=== PATIENT | male | born 1965 | race Caucasian/White ===

== ENCOUNTER 2019-09-17 17:02 | Emergency (ER) | payer BC ==
[2019-09-17 17:53] VITALS: BP 149/79; PULSE 91; RESP 18; TEMP 98.7
[2019-09-17] MEDS ORDERED: DIPH,PERTUS(ACELL)TETVAC-LF 0.5 ML VIAL IM ONE (18:05)
[2019-09-17] MEDS ORDERED: LIDOCAINE 1% INJ 10MG/ML (20 ML MDV) SQ ONE (18:05)
--- NOTE | 2019-09-17 18:06 | ED ---
Wound/Laceration HPI - General Chief Complaint: Wound/Laceration Stated Complaint: Finger laceration Time Seen by Provider: 09/17/19 17:56 Source: patient Mode of arrival: ambulatory Limitations: no limitations - History of Present Illness Initial Comments: Patient is a 54-year-old male presenting to the emergency Department with complaints of a laceration to his left index finger. States he was working on his car and was using a utility knife when it slipped and he cut his left finger. He denies any blood thinners. He does not remember his last tetanus vaccine. Bleeding is controlled at this time with a bandage. There are no further complaints. - Related Data Allergies Allergy/AdvReac Type Severity Reaction Status Date / Time No Known Allergies Allergy Verified 09/17/19 17:53 Review of Systems ROS Statement: Those systems with pertinent positive or pertinent negative responses have been documented in the HPI. ROS Other: All systems not noted in ROS Statement are negative. Past Medical History Past Medical History: Diabetes Mellitus History of Any Multi-Drug Resistant Organisms: None Reported Past Surgical History: Hernia Repair, Orthopedic Surgery Past Psychological History: No Psychological Hx Reported Smoking Status: Current some day smoker Past Alcohol Use History: Occasional Past Drug Use History: None Reported General Exam - General Exam Comments Initial Comments: GENERAL: Well-appearing, well-nourished and in no acute distress. HEAD: Atraumatic, normocephalic. EYES: Pupils equal round and reactive to light, extraocular movements intact, sclera anicteric, conjunctiva are normal. ENT: Nares patent, oropharynx clear without exudates. Moist mucous membranes. NECK: Normal range of motion, supple without lymphadenopathy or JVD. LUNGS: Breath sounds clear to auscultation bilaterally and equal. No wheezes rales or rhonchi. HEART: Regular rate and rhythm without murmurs, rubs or gallops. ABDOMEN: Soft, nontender, normoactive bowel sounds. No guarding, no rebound. No masses appreciated. : Deferred EXTREMITIES: Normal range of motion, no pitting or edema. No clubbing or cyanosis. NEUROLOGICAL: Normal speech, normal gait. PSYCH: Normal mood, normal affect. SKIN: Warm, Dry, normal turgor, no rashes. Patient has a 1 cm laceration to the palmar aspect of the left index finger, distal end. Bleeding is controlled at this time. Limitations: no limitations Course Vital Signs 09/17/19 17:51 Temperature 98.7 F Pulse Rate 91 Respiratory 18 Rate Blood Pressure 149/79 O2 Sat by Pulse 99 Oximetry Procedures - Laceration Laceration #1 Consent Obtained: verbal consent Indication: laceration Site: hand (Left index finger) Size (cm): 1 Description: linear Depth: simple, single layer Anesthetic Used: lidocaine 1% Anesthesia Technique: local infiltration Amount (mls): 3 Pre-repair: irrigated extensively Type of Sutures: nylon Size of Sutures: 5-0 Number of Sutures: 3 Technique: simple, interrupted Patient Tolerated Procedure: well Medical Decision Making - Medical Decision Making Patient is a 54-year-old male presenting for a 1cm laceration to the distal aspect of his left index finger, palmar aspect. Bleeding is controlled. Wound was cleaned and closed with 3, 5-0 sutures. Patient tolerated procedure well. His tetanus vaccine was also updated today. Patient will have sutures removed in 7-10 days. Patient is agreeable with this plan and care. He is stable for discharge. Case discussed with Dr. arreola. Disposition Clinical Impression: Laceration of left index finger Disposition: HOME SELF-CARE Condition: Stable Instructions (If sedation given, give patient instructions): Care For Your Stitches (ED) Additional Instructions: Please return to the Emergency Department if symptoms worsen or any other concerns. Stitches need to be removed in 7-10 days. Keep wound clean and dry. Cover well working. Is patient prescribed a controlled substance at d/c from ED?: No Referrals: None,Stated [Primary Care Provider] - 1-2 days
== END 2019-09-17 19:07 | disposition home or self-care (01) ==
LOC: EC 17:02
DX: S61.211A Laceration without foreign body of left index finger without damage to nail, initial encounter (principal); F17.200 Nicotine dependence, unspecified, uncomplicated; Z23 Encounter for immunization; W26.0XXA Contact with knife, initial encounter; Y93.89 Activity, other specified
CPT/HCPCS: 90715; 99282; 12001; 90471; J2001

== ENCOUNTER 2021-11-06 01:50 | Emergency (ER) | payer BC ==
[2021-11-06 01:59] VITALS: BP 163/112; PULSE 98; RESP 18; TEMP 97.9
--- NOTE | 2021-11-06 02:22 | ED ---
ENT HPI - General Chief complaint: ENT Stated complaint: Fish bone stuck in throat Time Seen by Provider: 11/06/21 02:01 Source: patient Mode of arrival: ambulatory Limitations: no limitations - Related Data Allergies Allergy/AdvReac Type Severity Reaction Status Date / Time No Known Allergies Allergy Verified 11/06/21 01:59 Review of Systems ROS Statement: Those systems with pertinent positive or pertinent negative responses have been documented in the HPI. ROS Other: All systems not noted in ROS Statement are negative. Past Medical History Past Medical History: Diabetes Mellitus History of Any Multi-Drug Resistant Organisms: None Reported Past Surgical History: Hernia Repair, Orthopedic Surgery Past Psychological History: No Psychological Hx Reported Smoking Status: Never smoker Past Alcohol Use History: Occasional Past Drug Use History: None Reported General Exam Limitations: no limitations Course Vital Signs 11/06/21 01:55 Temperature 97.9 F Pulse Rate 98 Respiratory 18 Rate Blood Pressure 163/112 O2 Sat by Pulse 98 Oximetry Disposition Clinical Impression: Foreign body in esophagus Narrative: Fish Bone in Throat Disposition: HOME SELF-CARE Condition: Good Instructions (If sedation given, give patient instructions): Esophageal Foreign Body (ED) Is patient prescribed a controlled substance at d/c from ED?: No Referrals: None,Stated [Primary Care Provider] - 1-2 days
== END 2021-11-06 02:41 | disposition home or self-care (01) ==
LOC: EC 01:50
DX: T18.128A Food in esophagus causing other injury, initial encounter (principal); E11.9 Type 2 diabetes mellitus without complications
CPT/HCPCS: 99282

== ENCOUNTER 2024-01-22 16:49 | Observation (INO) | payer BC ==
--- NOTE | 2024-01-22 17:03 | ED ---
Fall HPI - General Chief Complaint: Fall Stated Complaint: Syncopal episode Time Seen by Provider: 01/22/24 16:53 Source: patient, EMS, RN notes reviewed, old records reviewed Mode of arrival: EMS Limitations: no limitations - History of Present Illness Initial Comments: This is a 58-year-old male to the ER today. This patient presents today for evaluation regards to fall fall complaining of left shoulder pain concern for syncopal event. Patient is having significant complaints of dizziness and lightheadedness with near syncope history of syncope MD Complaint: fall -: unknown Fall From: standing When Fall Occurred: unsure Fall Witnessed: no Place Fall Occurred: home Loss of Consciousness: none Prolonged Down Time?: no Symptoms Prior to Fall: none Severity: mild Severity scale (1-10): 0 Context: tripped/slipped Associated Symptoms: denies - Related Data Previous Rx's Medication Instructions Recorded Metoprolol Succinate (ER) [Toprol 25 mg PO DAILY #30 tab 01/24/24 XL] Pantoprazole [Protonix] 40 mg PO DAILY #30 tab 01/24/24 dexAMETHasone [Decadron] 4 mg PO QID 7 Days #28 tablet 01/24/24 glipiZIDE [Glucotrol] 2.5 mg PO AC-BID 7 Days #14 tablet 01/24/24 Allergies Allergy/AdvReac Type Severity Reaction Status Date / Time No Known Allergies Allergy Verified 01/22/24 21:15 Review of Systems ROS Statement: Those systems with pertinent positive or pertinent negative responses have been documented in the HPI. ROS Other: All systems not noted in ROS Statement are negative. Past Medical History Past Medical History: Diabetes Mellitus History of Any Multi-Drug Resistant Organisms: None Reported Past Surgical History: Hernia Repair, Orthopedic Surgery Past Psychological History: No Psychological Hx Reported Smoking Status: Never smoker Past Alcohol Use History: Occasional Past Drug Use History: None Reported - Past Family History Mother Family Medical History: COPD, Myocardial Infarction (MT) Father Family Medical History: Cancer Additional Family Medical History / Comment(s): Lung Cancer, Brain tumor General Exam General appearance: alert, in no apparent distress, anxious Head exam: Present: atraumatic, normocephalic, normal inspection Eye exam: Present: normal appearance, PERRL, EOMI. Absent: scleral icterus, conjunctival injection, periorbital swelling ENT exam: Present: normal exam, mucous membranes moist Neck exam: Present: normal inspection. Absent: tenderness, meningismus, lymphadenopathy Respiratory exam: Present: normal lung sounds bilaterally. Absent: respiratory distress, wheezes, rales, rhonchi, stridor Cardiovascular Exam: Present: normal rhythm, tachycardia, normal heart sounds. Absent: systolic murmur, diastolic murmur, rubs, gallop, clicks GI/Abdominal exam: Present: soft, normal bowel sounds. Absent: distended, tenderness, guarding, rebound, rigid Extremities exam: Present: normal inspection, full ROM, normal capillary refill. Absent: tenderness, pedal edema, joint swelling, calf tenderness Back exam: Present: normal inspection Neurological exam: Present: alert, oriented X3, CN II-XII intact Psychiatric exam: Present: normal affect, normal mood Skin exam: Present: warm, dry, intact, normal color. Absent: rash Course Vital Signs 01/22/24 01/22/24 01/22/24 16:52 20:31 22:00 Temperature 98.7 F Pulse Rate 112 H 92 100 Pulse Rate [ Pulse Oximetery ] Respiratory 17 20 18 Rate Blood Pressure 124/77 126/81 122/86 Blood Pressure [Right Arm] O2 Sat by Pulse 97 100 98 Oximetry 01/23/24 01/23/24 01/23/24 00:00 02:00 04:00 Temperature Pulse Rate 108 H 98 95 Pulse Rate [ Pulse Oximetery ] Respiratory 18 18 18 Rate Blood Pressure 115/76 112/74 110/80 Blood Pressure [Right Arm] O2 Sat by Pulse 98 97 98 Oximetry 01/23/24 01/23/24 01/23/24 07:18 07:34 07:43 Temperature 98.1 F Pulse Rate 94 93 96 Pulse Rate [ Pulse Oximetery ] Respiratory 20 Rate Blood Pressure 117/77 Blood Pressure [Right Arm] O2 Sat by Pulse 97 Oximetry 01/23/24 01/23/24 08:00 08:25 Temperature 98.7 F Pulse Rate 101 H Pulse Rate [ 105 H Pulse Oximetery ] Respiratory 18 18 Rate Blood Pressure 112/80 Blood Pressure 135/84 [Right Arm] O2 Sat by Pulse 100 98 Oximetry - Reevaluation(s) Reevaluation #1: 01/22/24 18:43 Medical records reviewed Reevaluation #2: 01/22/24 20:15 Symptoms unchanged Reevaluation #3: 01/22/24 20:15 Informed of results questions answered Reevaluation #4: Was pt. sent in by a medical professional or institution ([facility], ERP DEVELOPER, urgent care, hospital, or senior care...) When possible be specific @ -no Did you speak to anyone other than the patient for history (EMS, parent, family, police, friend...)? What history was obtained from this source @ -no Did you review nursing and triage notes (agree or disagree)? Why? @ -agree Are old charts reviewed (outside hosp., previous admission, EMS record, old EKG, old radiological studies, urgent care reports/EKG's, senior care records)? Report findings @ -yes Differential Diagnosis (chest pain, altered mental status, abdominal pain women, abdominal pain men, vaginal bleeding, weakness, fever, dyspnea, syncope, headache, dizziness, GI bleed, back pain, seizure, CVA, palpatations, mental health, musculoskeletal)? @ -prior EKG interpreted by me (3pts min.). @ -yes X-rays interpreted by me (1pt min.). @ -Yes negative for acute disease CT interpreted by me (1pt min.). @ -Yes concern for brain mass U/S interpreted by me (1pt. min.). @ -no What testing was considered but not performed or refused? (CT, X-rays, U/S, labs)? Why? @ -none What meds were considered but not given or refused? Why? @ -none Did you discuss the management of the patient with other professionals (professionals i.e. [facility], ERP DEVELOPER, lab, RT, psych nurse, drug abuse social worker, sales representative graphic art, teacher, dog license officer supervisor, residential case manager)? Give summary @ -no Was smoking cessation discussed for >3mins.? @ -no Was critical care preformed (if so, how long)? @ -no Were there social determinants of health that impacted care today? How? (Homelessness, low income, unemployed, alcoholism, drug addiction, transportation, low edu. Level, literacy, decrease access to med. care, usp, rehab)? @ -none Was there de-escalation of care discussed even if they declined (Discuss DNR or withdrawal of care, Hospice)? DNR status @ -no What co-morbidities impacted this encounter? (DM, HTN, Smoking, COPD, CAD, Cancer, CVA, ARF, Chemo, Hep., AIDS, mental health diagnosis, sleep apnea, morb id obesity)? @ -none Was patient admitted / discharged? Hospital course, mention meds given and rou te, prescriptions, significant lab abnormalities, going to OR and other pertinent info. @ - 58 male found to have brain mass here in the ER think is unrelated to his symptoms which brought him to the emergency room of the patient does need further evaluation regarding CT scan findings' Admitted Undiagnosed new problem with uncertain prognosis? @ -no Drug Therapy requiring intensive monitoring for toxicity (Heparin, Nitro, Insulin, Cardizem)? @ -no Were any procedures done? @ -no Diagnosis/symptom? @ -New brain mass Acute, or Chronic, or Acute on Chronic? @ -Acute Uncomplicated (without systemic symptoms) or Complicated (systemic symptoms)? @ -Complicated Side effects of treatment? @ -no Exacerbation, Progression, or Severe Exacerbation? @ -exacerbation Poses a threat to life or bodily function? How? (Chest pain, USA, MT, pneumonia, PE, COPD, DKA, ARF, appy, cholecystitis, CVA, Diverticulitis, Homicidal, Suicidal, threat to staff... and all critical care pts) @ -yes concern for mass Reevaluation #5: Differential Altered Mental Status: Hypoglycemia, DKA, hypercapnia, ETOH, overdose, CO poisoning, trauma, myxedema coma, HTN encephalopathy, infection, encephalitis, psychosis, intercranial hemorrhage, hepatic encephalopathy, meningitis, CVA, this is not meant to be an all-inclusive list - Consultations Consultation #1: With Dr. Mosley who agrees this patient Medical Decision Making - Medical Decision Making 58 male found to have brain mass here in the ER think is unrelated to his symptoms which brought him to the emergency room of the patient does need further evaluation regarding CT scan findings - Lab Data Result diagrams: 01/24/24 05:25 01/24/24 05:25 Lab Results 01/22/24 01/22/24 01/22/24 Range/Units 17:04 17:31 17:31 WBC 7.8 (3.8-10.6) k/uL RBC 3.05 L (4.30-5.90) m/uL Hgb 9.2 L (13.0-17.5) gm/dL Hct 29.7 L (39.0-53.0) % MCV 97.4 (80.0-100.0) fL MCH 30.3 (25.0-35.0) pg MCHC 31.1 (31.0-37.0) g/dL RDW 15.3 (11.5-15.5) % Plt Count 318 (150-450) k/uL MPV 7.4 Neutrophils % 60 % Lymphocytes % 32 % Monocytes % 5 % Eosinophils % 1 % Basophils % 0 % Neutrophils # 4.7 (1.3-7.7) k/uL Lymphocytes # 2.5 (1.0-4.8) k/uL Monocytes # 0.4 (0-1.0) k/uL Eosinophils # 0.1 (0-0.7) k/uL Basophils # 0.0 (0-0.2) k/uL Hypochromasia Slight PT 13.0 H (10.0-12.5) sec INR 1.2 H (<1.2) APTT 22.1 (22.0-30.0) sec D-Dimer 0.69 H (<0.60) mg/L FEU Sodium (137-145) mmol/L Potassium (3.5-5.1) mmol/L Chloride (98-107) mmol/L Carbon Dioxide (22-30) mmol/L Anion Gap mmol/L BUN (9-20) mg/dL Creatinine (0.66-1.25) mg/dL Est GFR (CKD-EPI)AfAm (>60 ml/min/1.73 sqM) Est GFR (CKD-EPI)NonAf (>60 ml/min/1.73 sqM) Glucose (74-99) mg/dL POC Glucose (mg/dL) 245 H (70-110) mg/dL POC Glu Financial Reporting Accountant ID [place] Plasma Lactic Acid Presley (0.7-2.0) mmol/L Calcium (8.4-10.2) mg/dL Phosphorus (2.5-4.5) mg/dL Magnesium (1.6-2.3) mg/dL Total Bilirubin (0.2-1.3) mg/dL AST (17-59) U/L ALT (4-49) U/L Alkaline Phosphatase (38-126) U/L Troponin I (0.000-0.034) ng/mL NT-Pro-B Natriuret Pep pg/mL Total Protein (6.3-8.2) g/dL Albumin (3.5-5.0) g/dL 01/22/24 01/22/24 01/22/24 Range/Units 17:31 17:31 17:31 WBC (3.8-10.6) k/uL RBC (4.30-5.90) m/uL Hgb (13.0-17.5) gm/dL Hct (39.0-53.0) % MCV (80.0-100.0) fL MCH (25.0-35.0) pg MCHC (31.0-37.0) g/dL RDW (11.5-15.5) % Plt Count (150-450) k/uL MPV Neutrophils % % Lymphocytes % % Monocytes % % Eosinophils % % Basophils % % Neutrophils # (1.3-7.7) k/uL Lymphocytes # (1.0-4.8) k/uL Monocytes # (0-1.0) k/uL Eosinophils # (0-0.7) k/uL Basophils # (0-0.2) k/uL Hypochromasia PT (10.0-12.5) sec INR (<1.2) APTT (22.0-30.0) sec D-Dimer (<0.60) mg/L FEU Sodium 136 L (137-145) mmol/L Potassium 4.6 (3.5-5.1) mmol/L Chloride 109 H (98-107) mmol/L Carbon Dioxide 20 L (22-30) mmol/L Anion Gap 7 mmol/L BUN 40 H (9-20) mg/dL Creatinine 0.80 (0.66-1.25) mg/dL Est GFR (CKD-EPI)AfAm >90 (>60 ml/min/1.73 sqM) Est GFR (CKD-EPI)NonAf >90 (>60 ml/min/1.73 sqM) Glucose 226 H (74-99) mg/dL POC Glucose (mg/dL) (70-110) mg/dL POC Glu Financial Reporting Accountant ID Plasma Lactic Acid Presley 1.6 (0.7-2.0) mmol/L Calcium 8.2 L (8.4-10.2) mg/dL Phosphorus 3.0 (2.5-4.5) mg/dL Magnesium 1.8 (1.6-2.3) mg/dL Total Bilirubin 1.0 (0.2-1.3) mg/dL AST 23 (17-59) U/L ALT 15 (4-49) U/L Alkaline Phosphatase 35 L (38-126) U/L Troponin I <0.012 (0.000-0.034) ng/mL NT-Pro-B Natriuret Pep 783 pg/mL Total Protein 5.8 L (6.3-8.2) g/dL Albumin 3.3 L (3.5-5.0) g/dL - EKG Data -: EKG Interpreted by Me (EKG is sinus tachycardia 107 LA 144 QRS 114 QTc 416) - Radiology Data Radiology results: report reviewed (CT brain C-spine chest and pelvis x-ray positive for believed vasogenic edema from cerebellar mass), image reviewed Critical Care Time Critical Care Time: Yes Total Critical Care Time: 31 Disposition Clinical Impression: Syncope, Fall, Left shoulder pain, Brain mass, Esophageal mass Disposition: ADMITTED IP TO THIS HOSP Condition: Serious Is patient prescribed a controlled substance at d/c from ED?: No Time of Disposition: 20:10
[2024-01-22 17:05] LABS: Glucose,Whole Blood 245 mg/dL (70-110)
[2024-01-22] MEDS: SODIUM CHLORIDE 0.9% 1,000 ML IV STA (17:28)
[2024-01-22] MEDS: HYDROmorphone 1 MG/ML 1 ML SYRINGE IVP STA (17:29)
[2024-01-22] MEDS: ONDANSETRON 4 MG/2 ML VIAL IVP STA (17:29)
[2024-01-22 17:41] LABS: Basophils % (A) 0 %; Eosinophils # (A) 0.1 k/uL (0-0.7); Eosinophils % (A) 1 %; HCT 29.7 % (39.0-53.0); HGB 9.2 gm/dL (13.0-17.5); Hypochromasia Slight; Lymphocytes # (A) 2.5 k/uL (1.0-4.8); Lymphocytes % (A) 32 %; MCH 30.3 pg (25.0-35.0); MCHC 31.1 g/dL (31.0-37.0); MCV 97.4 fL (80.0-100.0); Mean Platelet Volume 7.4; Monocytes # (A) 0.4 k/uL (0-1.0); Monocytes % (A) 5 %; Neutrophils # (A) 4.7 k/uL (1.3-7.7); Neutrophils % (A) 60 %; Platelet Count 318 k/uL (150-450); RBC 3.05 m/uL (4.30-5.90); RDW 15.3 % (11.5-15.5); WBC 7.8 k/uL (3.8-10.6)
[2024-01-22 17:53] LABS: INR 1.2 (<1.2)
[2024-01-22 17:54] LABS: Partial Thromboplastin Time 22.1 sec (22.0-30.0)
[2024-01-22 17:58] LABS: ALT 15 U/L (4-49); AST 23 U/L (17-59); African American GFR (CKD) >90 (>60 ml/min/1.73 sqM); Albumin 3.3 g/dL (3.5-5.0); Alkaline Phosphatase 35 U/L (38-126); Anion Gap 7 mmol/L; Blood Urea Nitrogen 40 mg/dL (9-20); Calcium 8.2 mg/dL (8.4-10.2); Carbon Dioxide 20 mmol/L (22-30); Chloride 109 mmol/L (98-107); Glucose 226 mg/dL (74-99); Magnesium 1.8 mg/dL (1.6-2.3); Non-African American GFR(CKD) >90 (>60 ml/min/1.73 sqM); Potassium 4.6 mmol/L (3.5-5.1); Sodium 136 mmol/L (137-145); Total Protein 5.8 g/dL (6.3-8.2)
[2024-01-22 18:07] LABS: NT-Pro-B-Type Natriuretic Pept 783 pg/mL
--- NOTE | 2024-01-22 18:59 | CT ---
EXAMINATION TYPE: CT brain cspine wo con CT DLP: 1330.8 mGycm, Automated exposure control for dose reduction was used. DATE OF EXAM: 01/22/2024 6:34 PM COMPARISON: None. CLINICAL INDICATION: Male, 58 years old with history of fall; Syncopal episode. TECHNIQUE: Brain: Multiple axial CT images of the brain were obtained without IV contrast. Cspine: Axial CT images from the skull base to the inferior aspect of T2 we obtained without intraven ous contrast. Coronal and sagittal reformatted images were also reviewed. . FINDINGS: Brain: Extra-axial spaces: No abnormal extra-axial fluid collections. Ventricular system: Within normal limits Cerebral parenchyma: Intraparenchymal r vasogenic edema with central soft tissue measuring up to 9 mm . No acute intraparenchymal hemorrhage or mass effect. The hurtado-white junction is well differentiate d. Cerebellum: Unremarkable. Mass effect: No evidence of midline shift. Intracranial vasculature: unremarkable Soft tissues: Normal. Calvarium/osseous structures: No depressed skull fracture. Paranasal sinuses and mastoid air cells: Mild scattered mucosal thickening and or secretions. Visualized orbits: Orbital contents are intact. Cervical spine: Fracture: Age-indeterminate C7 vertebral body superior endplate compression deformity with 25% height loss. There is minimal retropulsion. Osseous structures: Multilevel degenerative disc disease changes with endplate spurring and disc oste ophyte complex's. Vertebral alignment: Straightening of the alignment. Spinal canal/Neural Foramina: No evidence of significant spinal canal narrowing. No evidence for sign ificant neural foraminal stenosis. Neck soft tissues: Prevertebral soft tissues are within normal limits. Other: The airway is patent. Enlarged lymph nodes in the neck and mediastinum. Examples include right low neck measuring up to 15 mm, left low neck measuring up to 10 mm in short axis right paratracheal lymph nodes partially visualized measuring up to 15 mm. IMPRESSION: 1. Vasogenic edema surrounding a soft tissue-like nodule. Correlate for history of malignancy. Furth er evaluation MRI with IV contrast recommended. 2. Mediastinal lymph nodes partially visualized concerning for malignancy given findings in the brai n. Further evaluation and oncologic workup recommended. 3. No evidence of cervical spine fracture. 4. Moderate multilevel degenerative disc disease. 5. Compression deformities C7 with up to 25% height loss. [facility], , 01/22/2024 6:57 PM
--- NOTE | 2024-01-22 19:42 | XR ---
EXAMINATION TYPE: XR shoulder complete LT DATE OF EXAM: 01/22/2024 7:28 PM CLINICAL INDICATION: Male, 58 years old with history of fall; [facility] COMPARISON: None TECHNIQUE: XR shoulder complete LT; examined in AP, internally rotated and scapular Y projections. FINDINGS: No evidence of acute osseous pathology, joint dislocation, or soft tissue swelling. The remaining po rtions of the visualized chest are unremarkable. Degeneration changes of the acromion, distal clavic le with osteophyte formation. There is osteophyte formation of the glenoid and humeral head. There is joint space narrowing of glenohumeral joint. IMPRESSION: 1. No acute osseous pathology. 2. Mild shoulder osteoarthrosis. [facility], , 01/22/2024 7:40 PM
--- NOTE | 2024-01-22 19:43 | XR ---
EXAMINATION TYPE: XR chest 1V DATE OF EXAM: 01/22/2024 7:28 PM CLINICAL INDICATION: Male, 58 years old with history of fall; COMPARISON: None TECHNIQUE: XR chest 1V Frontal view of the chest. FINDINGS: Lungs/Pleura: There is no evidence of pleural effusion, focal consolidation, or pneumothorax. Pulmonary vascularity: Unremarkable. Heart/mediastinum: Cardiomediastinal silhouette is unremarkable. Musculoskeletal: No acute osseous pathology. Other findings: None IMPRESSION: No acute cardiopulmonary disease/process. [facility], , 01/22/2024 7:41 PM
--- NOTE | 2024-01-22 19:43 | XR ---
EXAMINATION TYPE: XR pelvis AP view DATE OF EXAM: 01/22/2024 7:28 PM CLINICAL INDICATION: Male, 58 years old with history of fall; [facility] COMPARISON: None TECHNIQUE: XR pelvis AP view, examined in a single projection. FINDINGS: There is no evidence of fracture or dislocation. There is no soft tissue abnormality. Pelv ic phleboliths are present. The spine appears intact. The hips appear intact. Osteophyte formation o f the superior acetabulum bilaterally with mild joint space narrowing. IMPRESSION: No acute osseous pathology. Mild degeneration changes of the hip. [facility], , 01/22/2024 7:40 PM
[2024-01-22] MEDS ORDERED: NALOXONE 0.4 MG/ML 1 ML VIAL IV PRN (20:16)
[2024-01-22] MEDS ORDERED: ONDANSETRON 4 MG/2 ML VIAL IVP PRN (20:16)
[2024-01-22] MEDS: DEXAMETHASONE SOD PHOSPHATE 10 MG/ML 1 ML VIAL IVP STA (20:29)
[2024-01-22] MEDS: SODIUM CHLORIDE 0.9% 1,000 ML IV SCH (20:30)
--- NOTE | 2024-01-22 21:47 | CT ---
EXAMINATION TYPE: CT angio chest, CT abdomen pelvis w con CT DLP: Combined DLP of 1163 (accession [id number]), Combined DLP of (accession [id number]) mGycm, Automa iris exposure control for dose reduction was used. DATE OF EXAM: 01/22/2024 9:13 PM COMPARISON: Chest radiograph from same day. CT C-spine. CLINICAL INDICATION: Male, 58 years old with history of mass; Abnormality found on priors. TECHNIQUE/CONTRAST: CTA scan of the thorax is performed with IV Contrast, patient injected with 100 mL mL of Isovue 370, MIP images are created and reviewed these are created on a separate workstation.. CT abdomen pelvis after IV contrast was also performed with sagittal and axial imaging. FINDINGS: Pulmonary Artery: There is no evidence for a filling defect within the pulmonary vasculature to sugge st acute pulmonary embolism. The pulmonary artery is of normal size. Lungs/Pleura: No evidence of focal consolidation, pleural effusion or pneumothorax. Airway: Large airways are patent. Heart: Heart is within normal limits for size. Vasculature: No evidence of aortic aneurysm. Mediastinum: Right low paratracheal lymph node measuring up to 14 mm in short axis. Posterior esophag eal lymph node measuring up to 8 mm. eccentric distal esophageal wall thickening up to 23 mm. Unclear if this is a hiatal hernia. Musculoskeletal: No acute osseous abnormalities Soft Tissues/lymph nodes: Unremarkable. Lower neck: Bilateral lymph nodes as seen on same day CT C-spine measuring up to 9 mm on the right an d 9 mm on the left. Gastrohepatic ligament ABDOMEN LIVER: Indeterminate lesion within trell liver is at least 3 lesions present on image 18 measuring 9 m m and image 26 measuring up to 14 mm. GALLBLADDER AND BILE DUCTS: Gallstone in the gallbladder neck. PANCREAS: Unremarkable. SPLEEN: Unremarkable. ADRENAL GLANDS: Unremarkable. KIDNEYS AND URETERS: No evidence of hydronephrosis or renal calculus. The ureters are unremarkable. Left renal probable cyst. PELVIS BLADDER: Unremarkable REPRODUCTIVE: Prostate is enlarged in size measuring 5.2 cm in transverse dimension. ABDOMEN & PELVIS STOMACH AND BOWEL: No evidence of bowel obstruction. Large amount stool in the colon. The appendix is normal.r PERITONEUM/RETROPERITONEUM: No evidence of pneumoperitoneum or free fluid. VASCULATURE: No evidence of aortic aneurysm. MUSCULOSKELETAL: No acute osseous abnormalities LYMPH NODES: Lymph nodes measuring up to 10 mm. SOFT TISSUE/ABDOMINAL WALL: Unremarkable IMPRESSION: 1. No evidence of pulmonary embolism. 2. Findings suspicious for esophageal/gastric malignancy with eccentric distal esophageal wall thicke deborah up to 23 mm. There may be a component of hiatal hernia also present. Additionally there are medi astinal and gastrohepatic ligament, low neck lymph nodes which are suspicious. Further workup recomme nded for malignancy. 3. Large amount stool in the colon. [facility], , 01/22/2024 9:45 PM
[2024-01-23] MEDS: DEXAMETHASONE SOD PHOSPHATE 4 MG/ML 1 ML VIAL IVP SCH (00:48)
[2024-01-23] MEDS: HYDROmorphone 1 MG/ML 1 ML SYRINGE IVP PRN (00:49)
--- NOTE | 2024-01-23 02:47 | HP ---
HISTORY AND PHYSICAL 58-year-old came to the ER, fall complaining of left shoulder pain, possible dizziness, lightheadedness, near syncope, unclear etiology. CTs were done, which shows possible esophageal malignancy. Consulted Dr. Bryant for EGD to confirm this. PAST MEDICAL HISTORY: Diabetes mellitus, hernia repair, orthopedic surgery. SOCIAL HISTORY: Does not smoke. Occasional alcohol. PHYSICAL EXAMINATION: GENERAL: A white male. Alert, oriented, anxious. HEENT: atraumatic. Pupils equal, round, reactive. LUNGS: Decreased breath sounds. Scattered wheeze and rhonchi. CARDIOVASCULAR: S1, S2. EXTREMITIES: Has pedal edema. BACK: Normal to inspection. NEUROLOGIC: Cranial nerves intact. PSYCH: Fair mood and affect. SKIN: Warm and dry. VITAL SIGNS: Blood pressure 124/77, O2 of 97%, pulse rate 112, respiratory rate 16 to 18. Further evaluation regarding his CAT scan findings, altered mental status, acute on chronic anemia, rule out esophageal cancer. Get Cardiology to see him for altered mental status as well as Neurology. Prognosis guarded. MMODL / IJN: [id number] /
[2024-01-23] MEDS: IPRATROPIUM-ALBUTEROL 3 ML NEB INHALATION SCH (07:34)
[2024-01-23 10:38] LABS: Basophils # (A) 0 X 10*3/uL (0.00-0.10); Basophils % (A) 0 %; Eosinophils # (A) 0 X 10*3/uL (0.04-0.35); Eosinophils % (A) 0 %; HCT 28.2 % (39.6-50.0); HGB 8.9 g/dL (13.0-17.0); Lymphocytes % (A) 22.9 %; MCH 29.8 pg (27.0-32.0); MCHC 31.6 g/dL (32.0-37.0); MCV 94.3 FL (80.0-97.0); Monocytes # (A) 0.09 X 10*3/uL (0.20-1.00); Monocytes % (A) 1.6 %; NRBC Per 100 WBC 0 X 10*3/uL (0.00-0.01); Neutrophils # (A) 4.24 X 10*3/uL (1.80-7.70); Neutrophils % (A) 74.8 %; Platelet Count 264 X 10*3/uL (140-440); RBC 2.99 X 10*6/uL (4.40-5.60); RDW 15.3 % (11.5-14.5); WBC 5.67 X 10*3/uL (4.50-10.00)
[2024-01-23 10:48] LABS: ALT 12 U/L (10-49); AST 16 U/L (14-35); Albumin 3.5 g/dL (3.8-4.9); Alkaline Phosphatase 42 U/L (41-126); Blood Urea Nitrogen 25.2 mg/dL (9.0-27.0); Calcium 8.5 mg/dL (8.7-10.3); Carbon Dioxide 20.3 mmol/L (21.6-31.8); Chloride 109 mmol/L (96-109); Globulin 2.5 g/dL (1.6-3.3); Glucose 216 mg/dL (70-110); Potassium 4.7 mmol/L (3.5-5.5); Sodium 139 mmol/L (135-145); Total Bilirubin 0.3 mg/dL (0.3-1.2)
[2024-01-23 12:10] LABS: Glucose,Whole Blood 223 mg/dL (70-110)
--- NOTE | 2024-01-23 12:44 | P.CRDCN ---
History of Present Illness History of present illness: HISTORY OF PRESENTING ILLNESS This is a pleasant 58-year-old with past medical history significant for cardiac murmur, marijuana use, family history of CAD and new-onset of brain mass and eso phageal mass. 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 He states he had been doing fairly well up until yesterday when he was at work and not doing anything particularly strenuous inserted feel lightheaded and therefore attempted to walk across to his seats and then lost consciousness. He denies any chest pain or pressure. He did fall on his left side and has some tenderness where he fell. Prior to this he has mild dyspnea however can walk up a flight of stairs without any dyspnea. He had been told he has a murmur and was told to get it checked however had issues getting into cardiology office and therefore has not followed up with this. His mother and father both had history of CAD. EKG shows sinus rhythm with Q waves T1 through V4, left axis deviation and T-wave inversions in lead 3. REVIEW OF SYSTEMS At the time of my exam: CONSTITUTIONAL: Denies fever or chills. CARDIOVASCULAR: Denies chest pain, +mild shortness of breath, no orthopnea, PND or palpitations. RESPIRATORY: Denies cough. GASTROINTESTINAL: Denies abdominal pain, diarrhea, constipation, nausea or vomiting. MUSCULOSKELETAL: Denies myalgias. NEUROLOGIC: Denies numbness, tingling or weakness. ENDOCRINE: Denies fatigue, weight change, polydipsia or polyurina. GENITOURINARY: Denies burning, hematuria or urgency with micturation. HEMATOLOGIC: Denies history of anemia or bleeding. PHYSICAL EXAMINATION Vital signs reviewed. CONSTITUTIONAL: No apparent distress. HEENT: Head is normocephalic. Pupils are equal, round. Sclerae anicteric. Mucous membranes of the mouth are moist. No JVD. No carotid bruit. CHEST EXAMINATION: Lungs are clear to auscultation. No chest wall tenderness is noted on palpation or with deep breathing. HEART EXAMINATION: Regular rate and rhythm. S1, S2 heard. +3/6 systolic murmur, no gallops or rub. ABDOMEN: Soft, nontender. Positive bowel sounds. EXTREMITIES: 2+ peripheral pulses, no lower extremity edema and no calf tenderness. NEUROLOGIC EXAMINATION: Patient is awake, alert and oriented x3. ASSESSMENT Syncope, likely component of vasovagal episode exacerbated by brain mass, esophageal mass, anemia Systolic murmur Abnormal EKG Q waves anteriorly Family history of CAD Mild dyspnea Preoperative cardiovascular exam Brain mass as well as esophageal mass Anemia PLAN Patient with syncope with some prodrome appears likely consistent with vasovagal episode. His likely is exacerbated by brain mass and esophageal mass as well as anemia. He additionally however does have abnormal EKG as well as a significant systolic murmur. Patient however is able to do 4 metastases of activity and is cleared for EGD. Check 2-D echo to evaluate murmur and left ventricular ejection fraction. May consider stress testing however most important evaluation of brain and esophageal mass. Past Medical History Past Medical History: Diabetes Mellitus History of Any Multi-Drug Resistant Organisms: None Reported Past Surgical History: Hernia Repair, Orthopedic Surgery Additional Past Surgical History / Comment(s): Right hand surgery Past Psychological History: No Psychological Hx Reported Smoking Status: Never smoker Past Alcohol Use History: Occasional Past Drug Use History: None Reported - Past Family History Mother Family Medical History: COPD, Myocardial Infarction ([place]) Father Family Medical History: Cancer Additional Family Medical History / Comment(s): Lung Cancer, Brain tumor Medications and Allergies Home Medications Medication Instructions Recorded Confirmed Type No Known Home Medications 01/22/24 01/22/24 History Allergies Allergy/AdvReac Type Severity Reaction Status Date / Time No Known Allergies Allergy Verified 01/22/24 21:15 Physical Exam Vitals: Vital Signs Temp Pulse Pulse Resp BP BP Pulse Ox 01/23/24 11:37 90 01/23/24 11:27 84 01/23/24 08:25 101 H 18 112/80 98 01/23/24 08:00 98.7 F 105 H 18 135/84 100 01/23/24 07:43 96 01/23/24 07:34 93 01/23/24 07:18 98.1 F 94 20 117/77 97 01/23/24 04:00 95 18 110/80 98 01/23/24 02:00 98 18 112/74 97 01/23/24 00:00 108 H 18 115/76 98 01/22/24 22:00 100 18 122/86 98 01/22/24 20:31 92 20 126/81 100 01/22/24 16:52 98.7 F 112 H 17 124/77 97 Intake and Output 10/01/23/24 01/23/24 22:59 06:59 14:59 Other: Voiding Method Toilet Weight 70.307 kg 70.307 kg Results 01/23/24 06:53 01/23/24 06:53 Cardiac Enzymes 01/22/24 01/22/24 01/22/24 Range/Units 17:31 17:31 21:27 AST 23 (17-59) U/L Troponin I <0.012 0.014 (0.000-0.034) ng/mL 01/23/24 01/23/24 Range/Units 00:38 06:53 AST 16 (17-59) U/L Troponin I 0.014 (0.000-0.034) ng/mL Coagulation 01/22/24 Range/Units 17:31 PT 13.0 H (10.0-12.5) sec APTT 22.1 (22.0-30.0) sec CBC 01/22/24 01/23/24 Range/Units 17:31 06:53 WBC 7.8 5.67 (3.8-10.6) k/uL RBC 3.05 L 2.99 L (4.30-5.90) m/uL Hgb 9.2 L 8.9 L (13.0-17.5) gm/dL Hct 29.7 L 28.2 L (39.0-53.0) % Plt Count 318 264 (150-450) k/uL Comprehensive Metabolic Panel 01/22/24 01/23/24 Range/Units 17:31 06:53 Sodium 136 L 139 (137-145) mmol/L Potassium 4.6 4.7 (3.5-5.1) mmol/L Chloride 109 H 109 (98-107) mmol/L Carbon Dioxide 20 L 20.3 L (22-30) mmol/L BUN 40 H 25.2 (9-20) mg/dL Creatinine 0.80 0.9 (0.66-1.25) mg/dL Glucose 226 H 216 H (74-99) mg/dL Calcium 8.2 L 8.5 L (8.4-10.2) mg/dL AST 23 16 (17-59) U/L ALT 15 12 (4-49) U/L Alkaline Phosphatase 35 L 42 (38-126) U/L Total Protein 5.8 L 6.0 L (6.3-8.2) g/dL Albumin 3.3 L 3.5 L (3.5-5.0) g/dL Current Medications Generic Name Dose Route Start Last Admin Trade Name Freq PRN Reason Stop Dose Admin Albuterol/Ipratropium 3 ml 01/23/24 08:00 01/23/24 11:24 Ipratropium-Albuterol 3 Ml Neb INHALATION 3 ml RT-QID CONSTANTIN Administration Dexamethasone Sodium Phosphate 4 mg 01/23/24 00:00 01/23/24 06:08 Dexamethasone Sod Phosphate 4 Mg/Ml 1 Ml Vial IVP 4 mg Q6HR CONSTANTIN Administration Hydromorphone HCl 1 mg 01/22/24 20:16 01/23/24 00:49 Hydromorphone 1 Mg/Ml 1 Ml Syringe IVP 1 mg Q3HR PRN Administration Severe Pain (Scale 7 to 10) Sodium Chloride 1,000 mls @ 75 mls/hr 01/22/24 20:30 01/23/24 11:12 Saline 0.9% IV 75 mls/hr .[id number] CONSTANTIN Administration Naloxone HCl 0.2 mg 01/22/24 20:16 Naloxone 0.4 Mg/Ml 1 Ml Vial IV Q2M PRN Opioid Reversal Ondansetron HCl 4 mg 01/22/24 20:16 Ondansetron 4 Mg/2 Ml Vial IVP Q8HR PRN Nausea And Vomiting Intake and Output 01/22/24 01/23/24 01/23/24 22:59 06:59 14:59 Other: Voiding Method Toilet Weight 70.307 kg 70.307 kg Patient Weight 01/24/24 06:59 Weight 70.307 kg 01/23/24 06:53 01/23/24 06:53
--- NOTE | 2024-01-23 13:09 | P.GSCN ---
History of Present Illness Consult date: 01/23/24 History of present illness: CHIEF COMPLAINT: Passed out HISTORY OF PRESENT ILLNESS: This is a 58-year-old male who presented to the hospital after a syncopal episode. Patient reports he passed out at work. Patient admitted to the hospital for syncopal episode and brain mass. Patient denies any prior cancer history. He is a diabetic. He has complained of difficulty swallowing for the past week. Patient reports that it is mostly solids that he has difficulty with. He has he burps after eating. Denies any actual vomiting. Patient reports never having any EGD. He did have a Cologuard screening a year ago which was negative. Last colonoscopy several years ago. Patient had a CT scan of the chest abdomen and pelvis that reported findings suspicious for esophageal gastric malignancy with eccentric distal esophageal wall thickening. There are mediastinal and gastrohepatic ligament low neck lymph nodes with which are suspicious. Further workup recommended for malignancy. large amount of stool in the colon. Patient does report having bowel movements. Surgical service has been consulted for EGD. Patient denies any prior history of cancer or malignancy. PAST MEDICAL HISTORY: Diabetes mellitus PAST SURGICAL HISTORY: Hernia Repair, Orthopedic Surgery MEDICATIONS: See below ALLERGIES: See below SOCIAL HISTORY: No illicit drug use. REVIEW OF SYSTEMS: CONSTITUTIONAL: Denies fever or chills. HEENT: Denies blurred vision, vision changes, or eye pain. Denies hemoptysis CARDIOVASCULAR: Denies chest pain or pressure. RESPIRATORY: No shortness of breath. GASTROINTESTINAL: See HPI for pertinent findings HEMATOLOGIC: Denies bleeding disorders. GENITOURINARY: Denies any blood in urine or increased urinary frequency. SKIN: Denies pruitis. Denies rash. PHYSICAL EXAM: VITAL SIGNS: Reviewed GENERAL: Well-developed in no acute distress. HEENT: Patient is skin abrasion left facial cheek. No sclera icterus. Extraocular movements grossly intact. Moist buccal mucosa. Head is atraumatic, normocephalic. No nasal drainage. ABDOMEN: Soft. Nondistended. Nontender NEUROLOGIC: Alert and oriented. Cranial nerves II through XII grossly intact. LABORATORY DATA: WBC 5.67 Hgb 8.9 platelets 264 Sodium 139 potassium 4.7 creatinine 0.9 Albumin 3.3 IMAGING: CT scan of chest abdomen pelvis reports no pulmonary embolism. Findings makayla picious for esophageal/gastric malignancy with a distal esophageal wall thickening up to 23 mm. Component of hiatal hernia present. Additionally mediastinal and gastrohepatic ligament, low neck lymph nodes which are suspicious. Large amount of stool in the colon. CT scan of the brain reports vasogenic edema surrounding a soft tissue like nodule. Correlate for history of malignancy. Mediastinal lymph nodes partially visualized concerning for malignancy given findings in the brain. ASSESSMENT: 1. Findings suspicious for esophageal/gastric malignancy with distal esophageal wall thickening noted on CT scan 2. Brain mass. Vasogenic edema surrounding a soft tissue like nodule noted on CT scan of brain 3. Moderate protein calorie malnutrition 4. Anemia PLAN: -EGD scheduled for tomorrow morning with Dr. Bryant -N.p.o. after midnight -Patient cleared by cardiology service for EGD -Continue neuro work-up Thank you for this consultation Physician Golf Teacher note has been reviewed by physician. Signing provider agrees with the documented findings, assessment, and plan of care. Past Medical History Past Medical History: Diabetes Mellitus History of Any Multi-Drug Resistant Organisms: None Reported Past Surgical History: Hernia Repair, Orthopedic Surgery Past Psychological History: No Psychological Hx Reported Smoking Status: Never smoker Past Alcohol Use History: Occasional Past Drug Use History: None Reported - Past Family History Mother Family Medical History: COPD, Myocardial Infarction ([place]) Father Family Medical History: Cancer Additional Family Medical History / Comment(s): Lung Cancer, Brain tumor Medications and Allergies Home Medications Medication Instructions Recorded Confirmed Type No Known Home Medications 01/22/24 01/22/24 History Allergies Allergy/AdvReac Type Severity Reaction Status Date / Time No Known Allergies Allergy Verified 01/22/24 21:15 Surgical - Exam Vital Signs Temp Pulse Resp BP Pulse Ox 98.7 F 112 H 17 124/77 97 01/22/24 16:52 01/22/24 16:52 01/22/24 16:52 01/22/24 16:52 01/22/24 16:52 Results - Labs 01/23/24 06:53 01/23/24 06:53 Abnormal Lab Results - Last 24 Hours (Table) 01/22/24 01/22/24 01/22/24 Range/Units 17:04 17:31 17:31 RBC 3.05 L (4.30-5.90) m/uL Hgb 9.2 L (13.0-17.5) gm/dL Hct 29.7 L (39.0-53.0) % PT 13.0 H (10.0-12.5) sec INR 1.2 H (<1.2) D-Dimer 0.69 H (<0.60) mg/L FEU Sodium (137-145) mmol/L Chloride (98-107) mmol/L Carbon Dioxide (22-30) mmol/L BUN (9-20) mg/dL Glucose (74-99) mg/dL POC Glucose (mg/dL) 245 H (70-110) mg/dL Calcium (8.4-10.2) mg/dL Alkaline Phosphatase (38-126) U/L Total Protein (6.3-8.2) g/dL Albumin (3.5-5.0) g/dL 01/22/24 Range/Units 17:31 RBC (4.30-5.90) m/uL Hgb (13.0-17.5) gm/dL Hct (39.0-53.0) % PT (10.0-12.5) sec INR (<1.2) D-Dimer (<0.60) mg/L FEU Sodium 136 L (137-145) mmol/L Chloride 109 H (98-107) mmol/L Carbon Dioxide 20 L (22-30) mmol/L BUN 40 H (9-20) mg/dL Glucose 226 H (74-99) mg/dL POC Glucose (mg/dL) (70-110) mg/dL Calcium 8.2 L (8.4-10.2) mg/dL Alkaline Phosphatase 35 L (38-126) U/L Total Protein 5.8 L (6.3-8.2) g/dL Albumin 3.3 L (3.5-5.0) g/dL Diabetes panel 01/22/24 Range/Units 17:31 Sodium 136 L (137-145) mmol/L Potassium 4.6 (3.5-5.1) mmol/L Chloride 109 H (98-107) mmol/L Carbon Dioxide 20 L (22-30) mmol/L BUN 40 H (9-20) mg/dL Creatinine 0.80 (0.66-1.25) mg/dL Glucose 226 H (74-99) mg/dL Calcium 8.2 L (8.4-10.2) mg/dL AST 23 (17-59) U/L ALT 15 (4-49) U/L Alkaline Phosphatase 35 L (38-126) U/L Total Protein 5.8 L (6.3-8.2) g/dL Albumin 3.3 L (3.5-5.0) g/dL Calcium panel 01/22/24 Range/Units 17:31 Calcium 8.2 L (8.4-10.2) mg/dL Phosphorus 3.0 (2.5-4.5) mg/dL Albumin 3.3 L (3.5-5.0) g/dL Pituitary panel 01/22/24 Range/Units 17:31 Sodium 136 L (137-145) mmol/L Potassium 4.6 (3.5-5.1) mmol/L Chloride 109 H (98-107) mmol/L Carbon Dioxide 20 L (22-30) mmol/L BUN 40 H (9-20) mg/dL Creatinine 0.80 (0.66-1.25) mg/dL Glucose 226 H (74-99) mg/dL Calcium 8.2 L (8.4-10.2) mg/dL Adrenal panel 01/22/24 Range/Units 17:31 Sodium 136 L (137-145) mmol/L Potassium 4.6 (3.5-5.1) mmol/L Chloride 109 H (98-107) mmol/L Carbon Dioxide 20 L (22-30) mmol/L BUN 40 H (9-20) mg/dL Creatinine 0.80 (0.66-1.25) mg/dL Glucose 226 H (74-99) mg/dL Calcium 8.2 L (8.4-10.2) mg/dL Total Bilirubin 1.0 (0.2-1.3) mg/dL AST 23 (17-59) U/L ALT 15 (4-49) U/L Alkaline Phosphatase 35 L (38-126) U/L Total Protein 5.8 L (6.3-8.2) g/dL Albumin 3.3 L (3.5-5.0) g/dL
[2024-01-23 15:49] LABS: % Iron Saturation 18.03 (15.00-50.00)
[2024-01-23 17:15] LABS: Glucose,Whole Blood 234 mg/dL (70-110)
[2024-01-23] MEDS ORDERED: DEXTROSE 50% SYRINGE 50 ML IVP PRN ×2 (17:29)
[2024-01-23] MEDS: INSULIN ASPART (NovoLOG) 100 UNIT/ML VIAL SQ SCH (18:00)
--- NOTE | 2024-01-23 18:33 | P.CONS ---
History of Present Illness - Reason for Consult Consult date: 01/23/24 cancer Requesting physician: Gary Mosley - Chief Complaint syncope - History of Present Illness Patient is a 58-year-old male who presented to emergency room after having a syncopal episode with head injury. Patient states he was at work and began to become lightheaded and had subsequent syncopal episode. He states earlier in the day he was experiencing dizziness. Denies visual disturbances. Reports over the last couple weeks he has been having increasing epigastric discomfort and dysphagia. Also has associated 20 pound weight loss. Denies history of nicoti ne abuse and alcohol abuse. Denies personal history of cancer but father did have history of brain cancer. On admit CT brain revealed vasogenic edema surrounding a soft tissue like nodule measuring up to 9 mm. Mediastinal enlarged lymph nodes in the neck and mediastinum. CTA chest and CT abdomen pelvis revealed no evidence for pulmonary embolism. Findings suspicious for esophageal/gastric malignancy with eccentric distal esophageal wall thickening up to 23 mm. Mediastinal, gastrohepatic ligament and low neck lymph nodes are suspicious. CBC showing WBC 7.8, hemoglobin 9.2, MCV 97.4, platelets 318,000. Creatinine 0.80, GFR greater than 90. LFTs and bilirubin WNL. Serial troponins negative. Patient has been started on dexamethasone 4 mg every 6 hours. Brain MRI has been ordered Review of Systems 10 point ROS is negative except as stated in the HPI Past Medical History Past Medical History: Diabetes Mellitus History of Any Multi-Drug Resistant Organisms: None Reported Past Surgical History: Hernia Repair, Orthopedic Surgery Past Psychological History: No Psychological Hx Reported Smoking Status: Never smoker Past Alcohol Use History: Occasional Past Drug Use History: None Reported - Past Family History Mother Family Medical History: COPD, Myocardial Infarction ([place]) Father Family Medical History: Cancer Additional Family Medical History / Comment(s): Lung Cancer, Brain tumor Medications and Allergies Home Medications Medication Instructions Recorded Confirmed Type No Known Home Medications 01/22/24 01/22/24 History Allergies Allergy/AdvReac Type Severity Reaction Status Date / Time No Known Allergies Allergy Verified 01/22/24 21:15 Physical Exam Vitals: Vital Signs Temp Pulse Pulse Resp BP BP Pulse Ox 01/23/24 08:25 101 H 18 112/80 98 01/23/24 08:00 98.7 F 105 H 18 135/84 100 01/23/24 07:43 96 01/23/24 07:34 93 01/23/24 07:18 98.1 F 94 20 117/77 97 01/23/24 04:00 95 18 110/80 98 01/23/24 02:00 98 18 112/74 97 01/23/24 00:00 108 H 18 115/76 98 01/22/24 22:00 100 18 122/86 98 01/22/24 20:31 92 20 126/81 100 01/22/24 16:52 98.7 F 112 H 17 124/77 97 Intake and Output 01/22/24 01/23/24 01/23/24 22:59 06:59 14:59 Other: Weight 70.307 kg - Constitutional General appearance: average body habitus, no acute distress - EENT Eyes: anicteric sclerae, EOMI ENT: hearing grossly normal - Respiratory Respiratory: bilateral: CTA - Cardiovascular Rhythm: regular - Gastrointestinal General gastrointestinal: soft, no tenderness - Integumentary abrasion noted to left cheek Integumentary: no cyanotic, no jaundiced - Neurologic Neurologic: CNII-XII intact - Musculoskeletal Musculoskeletal: strength equal bilaterally - Psychiatric Psychiatric: A&O x's 3 Results CBC & Chem 7: 01/23/24 06:53 01/23/24 06:53 Labs: Abnormal Lab Results - Last 24 Hours (Table) 01/22/24 01/22/24 01/22/24 Range/Units 17:04 17:31 17:31 RBC 3.05 L (4.30-5.90) m/uL Hgb 9.2 L (13.0-17.5) gm/dL Hct 29.7 L (39.0-53.0) % MCHC (32.0-37.0) g/dL RDW (11.5-14.5) % Monocytes # (0.20-1.00) X 10*3/uL Eosinophils # (0.04-0.35) X 10*3/uL PT 13.0 H (10.0-12.5) sec INR 1.2 H (<1.2) D-Dimer 0.69 H (<0.60) mg/L FEU Sodium (137-145) mmol/L Chloride (98-107) mmol/L Carbon Dioxide (22-30) mmol/L BUN (9-20) mg/dL BUN/Creatinine Ratio (12.00-20.00) Ratio Glucose (74-99) mg/dL POC Glucose (mg/dL) 245 H (70-110) mg/dL Calcium (8.4-10.2) mg/dL Alkaline Phosphatase (38-126) U/L Total Protein (6.3-8.2) g/dL Albumin (3.5-5.0) g/dL Albumin/Globulin Ratio (1.60-3.17) Ratio 01/22/24 01/23/24 01/23/24 Range/Units 17:31 06:53 06:53 RBC 2.99 L (4.30-5.90) m/uL Hgb 8.9 L (13.0-17.5) gm/dL Hct 28.2 L (39.0-53.0) % MCHC 31.6 L (32.0-37.0) g/dL RDW 15.3 H (11.5-14.5) % Monocytes # 0.09 L (0.20-1.00) X 10*3/uL Eosinophils # 0 L (0.04-0.35) X 10*3/uL PT (10.0-12.5) sec INR (<1.2) D-Dimer (<0.60) mg/L FEU Sodium 136 L (137-145) mmol/L Chloride 109 H (98-107) mmol/L Carbon Dioxide 20 L 20.3 L (22-30) mmol/L BUN 40 H (9-20) mg/dL BUN/Creatinine Ratio 28.00 H (12.00-20.00) Ratio Glucose 226 H 216 H (74-99) mg/dL POC Glucose (mg/dL) (70-110) mg/dL Calcium 8.2 L 8.5 L (8.4-10.2) mg/dL Alkaline Phosphatase 35 L (38-126) U/L Total Protein 5.8 L 6.0 L (6.3-8.2) g/dL Albumin 3.3 L 3.5 L (3.5-5.0) g/dL Albumin/Globulin Ratio 1.40 L (1.60-3.17) Ratio CT scan - abdomen: report reviewed CT scan - chest: report reviewed CT Scan - head: report reviewed CT scan - pelvis: report reviewed Assessment and Plan (1) Brain mass Current Visit: Yes Status: Acute Priority: High Code(s): G93.89 - OTHER SPECIFIED DISORDERS OF BRAIN SNOMED Code(s): 936038342 (2) Fall Current Visit: Yes Status: Acute Priority: High Code(s): W19.XXXA - UNSPECIFIED FALL, INITIAL ENCOUNTER SNOMED Code(s): 2858169 (3) Syncope Current Visit: Yes Status: Acute Priority: High Code(s): R55 - SYNCOPE AND COLLAPSE SNOMED Code(s): 589648093 (4) Anemia Current Visit: Yes Status: Acute Priority: Medium Code(s): D64.9 - ANEMIA, UNSPECIFIED SNOMED Code(s): 173607959 Plan: Esophageal thickening, brain mass: Presented to emergency room after having a syncopal episode with head injury. Patient states he was at work and began to become lightheaded and had subsequent syncopal episode. He states earlier in the day he was experiencing dizziness. Reports over the last couple weeks he has been having increasing epigastric discomfort and dysphagia. Also has associated 20 pound weight loss. -CT brain w/o revealed vasogenic edema surrounding a soft tissue like nodule measuring up to 9 mm. Mediastinal enlarged lymph nodes in the neck and mediastinum. CTA chest and CT abdomen pelvis revealed no evidence for pulmonary embolism. Findings suspicious for esophageal/gastric malignancy with eccentric distal esophageal wall thickening up to 23 mm. Mediastinal, gastrohepatic ligament and low neck lymph nodes are suspicious. -Continue dexamethasone 4 mg every 6 hours. -Brain MRI has been ordered -General surgery consulted for endoscopic evaluation Discussed findings and concerns for metastatic malignancy, likely esophageal primary. Pt was agreeable for further workup Normocytic anemia: -CBC showing WBC 7.8, hemoglobin 9.2, MCV 97.4, MCH 30.3, slight hypochromasia, platelets 318,000. Creatinine 0.80, GFR > 90. LFTs and bilirubin WNL. No previous labs within EMR to trend. Pt denies episodes of acute bleeding, blood in stool, and melena. -Nutritional studies ordered -Continue to monitor CBC. Transfuse for hgb less than 7 Doctor attests: I performed a history and physical examination of this patient, developed impression and plan of care. Discussed with dictator. I agree with dictators note, documented as a scribe.
[2024-01-23 20:00] LABS: Glucose,Whole Blood 230 mg/dL (70-110)
--- NOTE | 2024-01-24 04:05 | PN ---
PROGRESS NOTE SUBJECTIVE: A 58-year-old white male came to the hospital for syncopal episode, head injury, dizziness, blurred vision, and 20 pounds weight loss. 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 He is going to get EGD to confirm possibly a brain lesion with dexamethasone 4 mg every 6 hours. Breathing treatments. OBJECTIVE: CARDIOVASCULAR: S1 and S2. LUNGS: Transmitted upper sounds. GI: Soft. HEMATOLOGY: Negative Homans. PSYCH: Fair mood and affect. LABORATORY DATA: Labs reviewed. ASSESSMENT: Brain mass, fall, possible esophageal cancer, syncope, and anemia. EGD to be done tomorrow with biopsies. Normocytic anemia, vasogenic edema surrounding the soft tissue like nodule, 9 mm in the brain. PROGNOSIS: Guarded. Please see further orders. MMODL / IJN: [id number] /
[2024-01-24 05:46] LABS: HCT 27.8 % (39.0-53.0); HGB 8.7 gm/dL (13.0-17.5); Hypochromasia Slight; MCH 30.6 pg (25.0-35.0); MCHC 31.3 g/dL (31.0-37.0); MCV 97.7 fL (80.0-100.0); Mean Platelet Volume 7.3; Platelet Count 364 k/uL (150-450); RBC 2.84 m/uL (4.30-5.90); RDW 15.6 % (11.5-15.5); WBC 12.3 k/uL (3.8-10.6)
[2024-01-24 05:57] LABS: African American GFR (CKD) >90 (>60 ml/min/1.73 sqM); Anion Gap 5 mmol/L; Blood Urea Nitrogen 19 mg/dL (9-20); Calcium 8.8 mg/dL (8.4-10.2); Carbon Dioxide 22 mmol/L (22-30); Chloride 109 mmol/L (98-107); Glucose 186 mg/dL (74-99); Non-African American GFR(CKD) >90 (>60 ml/min/1.73 sqM); Potassium 4.5 mmol/L (3.5-5.1); Sodium 136 mmol/L (137-145)
--- NOTE | 2024-01-24 06:02 | EEG ---
ELECTROENCEPHALOGRAM REPORT PREAMBLE: This is a 58-year-old male, who has presented with syncope, also found to have a brain mass. CURRENT MEDICATIONS: 1. Decadron. 2. Dilaudid. 3. Zofran. EEG FINDINGS: This is a 21-channel digital EEG recorded with video component, utilizing 10/20 international system with referential and bipolar montages. The background consists of well-developed, well regulated moderate voltage activity in 9 to 10 hertz alpha. Background is posterior dominant and reactive to eye opening and closing. Photic driving response was not clearly seen. Drowsiness was seen with appearance of bilaterally symmetric theta frequency rhythm. Deeper stages of sleep were not seen. No focal or generalized epileptiform activity was seen. IMPRESSION: This is a normal awake and drowsy EEG. No focal, lateralized, or epileptiform activity was seen. MMCLEVEL / IJN: [id number] /
[2024-01-24] MEDS ORDERED: LIDOCAINE 2% (PF) 20 MG/ML 5 ML VIAL ONE (07:19)
[2024-01-24] MEDS ORDERED: PROPOFOL 10 MG/ML 20 ML VIAL IV ONE (07:19)
[2024-01-24] MEDS: IV FLUID CONTINUATION 1,000 ML IV ONE (07:21)
--- NOTE | 2024-01-24 07:49 | P.OP ---
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 He received IV sedation. The gas was placed oropharynx passed in the esophagus. In the lower third of the esophagus there was a large friable mass. This was biopsied. The scope was then placed in the stomach and then through the pylorus. The first portion duodenum appeared normal. Scope was brought back and stomach this appeared normal. Scope was retroflexed there was no other gastric pathology seen. The mass occupied the lower one third of the esophagus. It was friable and had some bleeding. The proximal esophagus were normal. Scope withdrawn for the patient.
--- NOTE | 2024-01-24 09:25 | P.CNNES ---
History of Present Illness Consult date: 01/23/24 Requesting physician: Ghulam Leonard Reason for Consult: mass History of Present Illness: Patient is a 58-year-old right-handed male with history of diabetes, was brought to the hospital by ambulance yesterday at 4:49 PM, for a syncopal spell. 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 Patient states that yesterday he woke up at 2 PM and was feeling dizzy, shaky. He checked his blood sugar and was 142. Before going to work, he bought an orange juice and was drinking while driving and started feeling better. Once he arrived at work, he again started feeling dizzy and shaky. He laid down and felt better. However his coworker started giving rundown at the work so he could leave. Patient while walking felt he will pass out. He started feeling hot and dizzy. However the coworker kept on giving him the signout. When his symptoms got worse, he told that he has to sit, he tried to get to the chair, but did not make it, and he passed out, and he smashed his head on site of the cabinet. Coworkers told that he did choke a little, like he had a seizure. There was no tongue bite or loss of control of urine. He hurt his shoulder bad, as he landed his whole body on left shoulder on the concrete floor. He noticed his hands were ice cold and pale. As per EMS flowsheet when they arrived at the scene, patient was alert oriented x 4, sitting in a chair. Patient states that he was walking around the plant when he felt dizzy and had a syncopal episode that did not last that long. At this time patient is not complaining of dizziness anymore. Patient was complain ing of left shoulder pain with no obvious signs of injuries. He was having pain with movement of the arm. Patient has mentioned that he did drink some orange juice just prior to coming into workplace because he was feeling dizzy then as well. Patient denied any chest pain, difficulty breathing, nausea or dizziness. Patient's vitals at the scene was blood pressure 108/69, pulse rate 107, respir ation 18 saturation 98%. Blood sugar was 252. Blood test shows normal WBC hemoglobin 9.2 platelets are normal. INR is 1.2. Sodium 136 potassium 4.6, BUN 40, creatinine 0.80. Hepatic panel is normal. Troponin negative. EKG showed sinus tachycardia. CT head showed vasogenic edema surrounding soft tissue like nodule. Correlate for history of malignancy. MRI with contrast recommended. Mediastinal lymph nodes particularly visualized concerning for milligrams given findings in the brain. No evidence of cervical spine fracture. Moderate multilevel degenerative disc disease. Compression deformities C7 with up to 25% height loss. Shoulder x-ray showed no acute osseous pathology. Mild shoulder osteoarthritis. Pelvic x-ray showed no acute osseous pathology. Mild degeneration changes of the hip. Chest x-ray normal. CT of abdomen pelvis showed no pulmonary embolism. Findings suspicious for esophageal/gastric malignancy with eccentric distal esophageal wall thickening up to 23 mm. There may be component of hiatal hernia also present. Additionally, there are mediastinal and gastrohepatic ligament, low neck lymph nodes which are suspicious. Large amount of stool in colon. Patient has been seen by surgery, who were thinking findings suspicious for esophageal/gastric malignancy with distal esophageal wall thickening noted on CT scan. Patient states that about 4 or 5 months ago, 1 time he got shaky and his sugar were low. He ate some chicken negatives and the symptoms went away. He never passed out. Patient smokes marijuana once in a while when he gets body aches. Denies any tobacco use. He drinks 2 bottles of 12 ounce beer every night. Patient has history of diabetes since 2020. Patient also mentions that for last 1 month he has been having some stomach pain, like a "gas bubble", which she cannot burp out. He then gets burping and hiccups at the same time. He was supposed to see his primary physician today, but he got admitted to the [facility]. He also has bad dentition. Patient denies any headache. No dizziness. He states he has lost 30 pounds in last 6 months. Review of Systems All pertinent positive and negative review of systems mentioned in the HPI. Otherwise unremarkable. Past Medical History Past Medical History: Diabetes Mellitus History of Any Multi-Drug Resistant Organisms: None Reported Past Surgical History: Hernia Repair, Orthopedic Surgery Additional Past Surgical History / Comment(s): Right hand surgery Past Psychological History: No Psychological Hx Reported Smoking Status: Never smoker Past Alcohol Use History: Occasional Past Drug Use History: None Reported - Past Family History Mother Family Medical History: COPD, Myocardial Infarction ([place]) Father Family Medical History: Cancer Additional Family Medical History / Comment(s): Lung Cancer, Brain tumor Medications and Allergies Home Medications Medication Instructions Recorded Confirmed Type No Known Home Medications 01/22/24 01/22/24 History Allergies Allergy/AdvReac Type Severity Reaction Status Date / Time No Known Allergies Allergy Verified 01/22/24 21:15 Physical Examination - Vital Signs Vital Signs: Vital Signs Temp Pulse Pulse Resp BP BP Pulse Ox 01/23/24 13:31 98.5 F 110 H 16 116/79 100 01/23/24 11:37 90 01/23/24 11:27 84 01/23/24 08:25 101 H 18 112/80 98 01/23/24 08:00 98.7 F 105 H 18 135/84 100 01/23/24 07:43 96 01/23/24 07:34 93 01/23/24 07:18 98.1 F 94 20 117/77 97 01/23/24 04:00 95 18 110/80 98 01/23/24 02:00 98 18 112/74 97 01/23/24 00:00 108 H 18 115/76 98 01/22/24 22:00 100 18 122/86 98 01/22/24 20:31 92 20 126/81 100 Intake and Output 01/23/24 01/23/24 01/23/24 06:59 14:59 22:59 Other: Voiding Method Toilet Weight 70.307 kg Patient is a middle aged male, in no acute distress. Patient is alert awake oriented to time place and person. Speech and language functions are normal. Patient can name and repeat very well. No aphasia or dysarthria. Attention, concentration and fund of knowledge is adequate. On cranial nerve examination, pupils are equal, round and reacting to light, visual tim are full on confrontation, with no neglect on double simultaneous stimulation. Extraocular muscles are intact with no nystagmus. Face is symmetric, tongue protrudes to the midline. Palatal elevation and sensation normal, hearing and shoulder shrug normal, facial sensation normal. On muscle strength testing, there is no pronator drift and the strength is normal in arms and legs distally and proximally. Deep tendon reflexes are symmetric 1+ to 2+ and plantars downgoing. Sensory to touch is equal with no neglect on double simultaneous stimulation. Cerebellar function showed no ataxia for [id number]-[id number] testing. No dysdiadochokinesia. No ataxia for qqkc-at-jens testing on either side. Tone and bulk of muscles normal. Gait deferred.. On general examination, there is no carotid bruit or murmur, S1-S2 audible. Chest is clear on consultation. Abdomen is soft nontender. No organomegaly, bowel sounds present. Peripheral pulses are present. No peripheral edema. Results - Laboratory Findings CBC and BMP: 01/24/24 05:25 01/24/24 05:25 Abnormal Lab Findings: Abnormal Labs 01/22/24 01/22/24 01/22/24 17:04 17:31 17:31 RBC 3.05 L Hgb 9.2 L Hct 29.7 L MCHC RDW Monocytes # Eosinophils # PT 13.0 H INR 1.2 H D-Dimer 0.69 H Sodium Chloride Carbon Dioxide BUN BUN/Creatinine Ratio Glucose POC Glucose (mg/dL) 245 H Calcium Iron Alkaline Phosphatase Total Protein Albumin Albumin/Globulin Ratio 01/22/24 01/23/24 01/23/24 17:31 06:53 06:53 RBC 2.99 L Hgb 8.9 L Hct 28.2 L MCHC 31.6 L RDW 15.3 H Monocytes # 0.09 L Eosinophils # 0 L PT INR D-Dimer Sodium 136 L Chloride 109 H Carbon Dioxide 20 L 20.3 L BUN 40 H BUN/Creatinine Ratio 28.00 H Glucose 226 H 216 H POC Glucose (mg/dL) Calcium 8.2 L 8.5 L Iron Alkaline Phosphatase 35 L Total Protein 5.8 L 6.0 L Albumin 3.3 L 3.5 L Albumin/Globulin Ratio 1.40 L 01/23/24 01/23/24 11:33 12:06 RBC Hgb Hct MCHC RDW Monocytes # Eosinophils # PT INR D-Dimer Sodium Chloride Carbon Dioxide BUN BUN/Creatinine Ratio Glucose POC Glucose (mg/dL) 223 H Calcium Iron 55 L Alkaline Phosphatase Total Protein Albumin Albumin/Globulin Ratio Assessment and Plan Assessment: * Syncopal spell, likely vasovagal. Patient had clear presyncopal symptoms before he passed out. Seizure appears unlikely. * Brain mass, esophageal mass, rule out metastatic tumor. * Anemia * Weight loss * Diabetes * Marijuana use Plan: * EEG was performed, which is normal awake and drowsy EEG. No focal, lateralized or epileptiform activity was seen. * No indication for antiepileptic medication at this time. * Await MRI of the brain with and without contrast. * 2D echo * Carotid Doppler * Patient undergoing EGD in the morning. * Neurology will follow. Thank you for the consult.
--- NOTE | 2024-01-24 10:44 | MR ---
EXAMINATION TYPE: MR brain wo/w con DATE OF EXAM: 01/24/2024 10:18 AM CLINICAL INDICATION: Male, 58 years old with history of mass; PHH, Syncope, abnormal CT, brain mass. COMPARISON: 01/22/2024 TECHNIQUE: Multi planar, multi sequence imaging was performed through the brain including: T1, T2, In version recovery, susceptibility weighted imaging and gradient echo imaging and Diffusion weighted im aging. The patient was then given intravenous contrast and multi planar, T1 fat-saturation images wer e obtained. IV Contrast: 7 cc Gadavist FINDINGS: Right posterior frontal lobe vasogenic edema surrounding soft tissue mass which demonstrate s peripheral enhancement measuring up tor 10 mm.The hurtado-white junctions, ventricular system, basal c isterns appear unremarkable. Diffusion-weighted imaging shows no evidence of restricted diffusion to suggest acute/subacute infarct. Intracranial arterial flow voids are maintained. Midline structures show no abnormality. Scattered foci of high T2 signal intensity are seen within the periventricular w greta matter. The susceptibility weighted images do not reveal any evidence for micro-hemorrhage. The bone marrow signal is within normal limits. Paranasal sinuses and mastoid air cells: Mild scattered paranasal sinus disease. Visualized orbits: Orbital contents are intact. IMPRESSION: 1. Right posterior frontal lobe peripherally enhancing masses centimeters and edema. 2. Nonspecific white matter changes, likely related to small vessel ischemic disease. [facility], , 01/24/2024 10:42 AM
--- NOTE | 2024-01-24 11:16 | US ---
EXAMINATION TYPE: US carotid duplex BILAT DATE OF EXAM: 01/24/2024 COMPARISON: NONE CLINICAL INDICATION: Male, 58 years old with history of Syncope; syncope TECHNIQUE: Grayscale, color Doppler and spectral Doppler evaluation of the bilateral carotid systems and vertebral arteries.Indirect Doppler criteria was utilized. FINDINGS: EXAM MEASUREMENTS: RIGHT: Peak Systolic Velocity (PSV) cm/sec ----- Right CCA: 89.9 ----- Right ICA: 94.4 ----- Right ECA: 122 ICA/CCA ratio: 1.1 RIGHT: End Diastole cm/sec ----- Right CCA: 25.5 ----- Right ICA: 45.7 ----- Right ECA: 21.0 LEFT: Peak Systolic Velocity (PSV) cm/sec ----- Left CCA: 133 ----- Left ICA: 68.3 ----- Left ECA: 108 ICA/CCA ratio: 0.5 LEFT: End Diastole cm/sec ----- Left CCA: 28.5 ----- Left ICA: 25.5 ----- Left ECA: 24 VERTEBRALS (direction of flow): Right Vertebral: Antegrade Left Vertebral: Antegrade Rhythm: Normal DRAFTER MECHANICAL NOTES: No elevated velocities IMPRESSION: Right: Less than 50% stenosis of the carotid bifurcation. Normal (no stenosis)=ICA PSV < 125 cm/s: ra divya < 2.0: ICA EDV<40 cm/s. Left: Less than 50% stenosis of the carotid bifurcation. Normal (no stenosis)=ICA PSV < 125 cm/s: rat io < 2.0: ICA EDV<40 cm/s. Criteria for Assigning % of Stenosis / Diameter reduction (Estimation based on the indirect measurements of the internal carotid artery velocities (ICA PSV). 1. Normal (no stenosis)=ICA PSV < 125 cm/s: ratio < 2.0: ICA EDV<40 cm/s. 2. Less than 50% stenosis=ICA PSV < 125 cm/s: ratio < 2.0: ICA EDV<40 cm/s. 3. 50 to 69% stenosis=ICA PSV of 125 to 230 cm/s: ration 2.0 ? 4.0: ICA EDV 40-100 cm/s. 4. Greater than 70% stenosis to near occlusion= ICA PSV > 230 cm/s: ratio > 4.0: ICA EDV > 100 cm/s. 5. Near occlusion= ICA PSV velocities may be low or undetectable: variable ratio and ICA EDV. 6. Total occlusion=unable to detect flow. [facility], , 01/24/2024 11:14 AM
[2024-01-24 12:19] LABS: Glucose,Whole Blood 253 mg/dL (70-110)
[2024-01-24 12:42] VITALS: BP 112/69; TEMP 98.4
[2024-01-24] MEDS: PANTOPRAZOLE 40 MG/10 ML VIAL IVP SCH (12:44)
[2024-01-24] MEDS: METOPROLOL SUCCINATE (ER) 25 MG TAB.ER.24H PO SCH (12:44)
--- NOTE | 2024-01-24 13:38 | P.PN ---
Subjective Progress Note Date: 01/24/24 HISTORY OF PRESENTING ILLNESS This is a pleasant 58-year-old with past medical history significant for cardiac murmur, marijuana use, family history of CAD and new-onset of brain mass and esophageal mass. He does not follow with a principal bioinformatics specialist. He states he had been doing fairly well up until yesterday when he was at work and not doing anything particularly strenuous inserted feel lightheaded and therefore attempted to walk across to his seats and then lost consciousness. He denies any chest pain or pressure. He did fall on his left side and has some tenderness where he fell. Prior to this he has mild dyspnea however can walk up a flight of stairs without any dyspnea. He had been told he has a murmur and was told to get it checked however had issues getting into cardiology office and therefore has not followed up with this. His mother and father both had history of CAD. EKG shows sinus rhythm with Q waves T1 through V4, left axis deviation and T-wave inversions in lead 3. 01/23 Patient is seen and examined. Yesterday, patient underwent EGD for esophageal mass, suspicious for adenocarcinoma, biopsy report pending. Echocardiogram reveals normal EF, formal report is pending. MRI of the brain revealed a right posterior frontal lobe peripherally enhancing masses and edema. Nonspecific white matter changes likely related to small vessel ischemic disease. Carotid ultrasound revealed less than 50% stenosis bilaterally. Patient c/o pain the left shoulder to hand after fall on concrete. No chest pain. No issues overnight. BP 103/66, HR 90s, PO 100% on RA. Repeat labs Na 136, K 4.5, BUN 19, Creat 0.86. PHYSICAL EXAMINATION Vital signs reviewed. CONSTITUTIONAL: No apparent distress. HEENT: Head is normocephalic. Pupils are equal, round. Sclerae anicteric. Mucous membranes of the mouth are moist. No JVD. No carotid bruit. CHEST EXAMINATION: Lungs are clear to auscultation. No chest wall tenderness is noted on palpation or with deep breathing. HEART EXAMINATION: Regular rate and rhythm. S1, S2 heard. +3/6 systolic murmur, no gallops or rub. ABDOMEN: Soft, nontender. Positive bowel sounds. EXTREMITIES: 2+ peripheral pulses, no lower extremity edema and no calf te nderness. NEUROLOGIC EXAMINATION: Patient is awake, alert and oriented x3. ASSESSMENT Syncope, likely component of vasovagal episode exacerbated by brain mass, esophageal mass, anemia Systolic murmur Abnormal EKG Q waves anteriorly Family history of CAD Mild dyspnea Preoperative cardiovascular exam Brain mass as well as esophageal mass Anemia Possible hypertrophic cardiomyopathy PLAN Patient with syncope with some prodrome appears likely consistent with vasovagal episode. This likely is exacerbated by brain mass and esophageal mass as well as anemia. He additionally however does have abnormal EKG as well as a significant systolic murmur. Patient however is able to do 4 mets of activity. May consider stress testing however most important evaluation of brain and esophageal mass. Patient will order picker/assembler 30-day event monitor from the office on Saturday. He is cleared for discharge from cardiology and may follow-up in the office in 5 weeks. Nurse practitioner note has been reviewed, I agree with documented findings and plan of care. Patient was seen and examined. Objective - Vital Signs Vital signs: Vital Signs Temp 98.7 F 01/24/24 01:36 Pulse 95 01/24/24 08:12 Resp 16 01/24/24 08:12 BP 108/75 01/24/24 01:36 Pulse Ox 99 01/24/24 01:36 FiO2 Intake & Output 01/23/24 01/24/24 01/24/24 18:59 06:59 18:59 Intake Total 1620 20 500 Balance 1620 20 500 Weight 70.307 kg Intake: IV 20 500 Invasive Line 1 10 Invasive Line 2 10 Oral 1620 0 Other: Voiding Method Toilet Toilet # Voids 3 2 - Labs CBC & Chem 7: 01/24/24 05:25 01/24/24 05:25 Labs: Abnormal Lab Results - Last 24 Hours (Table) 01/23/24 01/23/24 01/23/24 Range/Units 06:53 06:53 11:33 WBC (3.8-10.6) k/uL RBC 2.99 L (4.40-5.60) X 10*6/uL Hgb 8.9 L (13.0-17.0) g/dL Hct 28.2 L (39.6-50.0) % MCHC 31.6 L (32.0-37.0) g/dL RDW 15.3 H (11.5-14.5) % Monocytes # 0.09 L (0.20-1.00) X 10*3/uL Eosinophils # 0 L (0.04-0.35) X 10*3/uL Sodium (137-145) mmol/L Chloride (98-107) mmol/L Carbon Dioxide 20.3 L (21.6-31.8) mmol/L BUN/Creatinine Ratio 28.00 H (12.00-20.00) Ratio Glucose 216 H (70-110) mg/dL POC Glucose (mg/dL) (70-110) mg/dL Calcium 8.5 L (8.7-10.3) mg/dL Iron 55 L (65-175) UG/DL Total Protein 6.0 L (6.2-8.2) g/dL Albumin 3.5 L (3.8-4.9) g/dL Albumin/Globulin Ratio 1.40 L (1.60-3.17) Ratio 01/23/24 01/23/24 01/23/24 Range/Units 12:06 17:08 19:58 WBC (3.8-10.6) k/uL RBC (4.40-5.60) X 10*6/uL Hgb (13.0-17.0) g/dL Hct (39.6-50.0) % MCHC (32.0-37.0) g/dL RDW (11.5-14.5) % Monocytes # (0.20-1.00) X 10*3/uL Eosinophils # (0.04-0.35) X 10*3/uL Sodium (137-145) mmol/L Chloride (98-107) mmol/L Carbon Dioxide (21.6-31.8) mmol/L BUN/Creatinine Ratio (12.00-20.00) Ratio Glucose (70-110) mg/dL POC Glucose (mg/dL) 223 H 234 H 230 H (70-110) mg/dL Calcium (8.7-10.3) mg/dL Iron (65-175) UG/DL Total Protein (6.2-8.2) g/dL Albumin (3.8-4.9) g/dL Albumin/Globulin Ratio (1.60-3.17) Ratio 01/24/24 01/24/24 Range/Units 05:25 05:25 WBC 12.3 H (3.8-10.6) k/uL RBC 2.84 L (4.40-5.60) X 10*6/uL Hgb 8.7 L (13.0-17.0) g/dL Hct 27.8 L (39.6-50.0) % MCHC (32.0-37.0) g/dL RDW 15.6 H (11.5-14.5) % Monocytes # (0.20-1.00) X 10*3/uL Eosinophils # (0.04-0.35) X 10*3/uL Sodium 136 L (137-145) mmol/L Chloride 109 H (98-107) mmol/L Carbon Dioxide (21.6-31.8) mmol/L BUN/Creatinine Ratio (12.00-20.00) Ratio Glucose 186 H (70-110) mg/dL POC Glucose (mg/dL) (70-110) mg/dL Calcium (8.7-10.3) mg/dL Iron (65-175) UG/DL Total Protein (6.2-8.2) g/dL Albumin (3.8-4.9) g/dL Albumin/Globulin Ratio (1.60-3.17) Ratio
--- NOTE | 2024-01-24 15:00 | CA ---
Transthoracic Echo Report Name: Rohan Saunders Age: 58 Gender: M : 1965 Exam Date: 01/23/2024 14:55 Exam Location: [facility] Ht (in): 69 Wt (lb): 155 Ordering Physician: Basilio Sprague DO ([email or web address]) Attending/Referring Phys: City Tax Auditor Thelma Robert RDCS Procedure CPT: Indications: re: syncope murmur Cardiac Hx: Technical Quality: Fair Contrast 1: Total Dose (mL): Contrast 2: Total Dose (mL): MEASUREMENTS (Male / Female) Normal Values 2D ECHO LV Diastolic Diameter PLAX 2.4 cm 4.2 - 5.9 / 3.9 - 5.3 cm LV Systolic Diameter PLAX 1.2 cm IVS Diastolic Thickness 1.7 cm 0.6 - 1.0 / 0.6 - 0.9 cm LVPW Diastolic Thickness 1.7 cm 0.6 - 1.0 / 0.6 - 0.9 cm LV Relative Wall Thickness 1.4 RV Internal Dim ED PLAX 2.6 cm LA Volume 63.9 cm??? 18 - 58 / 22 - 52 cm??? LA Volume Index 34.5 cm???/m??? 16 - 28 cm???/m??? M-MODE Aortic Root Diameter MM 3.5 cm LA Systolic Diameter MM 4.6 cm LA Ao Ratio MM 1.3 AV Cusp Separation MM 2.0 cm DOPPLER AV Peak Velocity 255.2 cm/s AV Peak Gradient 26.1 mmHg AV Mean Velocity 185.3 cm/s AV Mean Gradient 15.6 mmHg AV Velocity Time Integral 43.9 cm LVOT Peak Velocity 420.5 cm/s LVOT Peak Gradient 70.7 mmHg LVOT Velocity Time Integral 70.6 cm MV Peak Velocity 272.5 cm/s MV Peak Gradient 29.7 mmHg MV Mean Velocity 170.5 cm/s MV Mean Gradient 13.2 mmHg MV Velocity Time Integral 46.7 cm MV Area PHT 10.2 cm??? Mitral E Point Velocity 119.6 cm/s Mitral A Point Velocity 193.5 cm/s Mitral E to A Ratio 0.6 MV Deceleration Time 74.5 ms MV E' Velocity 11.7 cm/s Mitral E to MV E' Ratio 10.2 FINDINGS Left Ventricle Severe concentric left ventricular hypertrophy. Normal left ventricular systolic function with no obvious regional wall motion abnormalities. Left ventricular cavity size normal. LV is hyperdynamic. Left ventricular ejection fraction is estimated greater than 70 %. Grade 1 diastolic dysfunction. Severe LVOT obstruction noted. Peak LVOT velocity 420 m/sec increased to 458 m/sec with valsalva. Right Ventricle Normal right ventricular size and function. Right ventricular systolic pressure within normal limits. Right Atrium Normal right atrial size. Left Atrium Mildly increased left atrial volume. Mildly increased left atrial area. Mitral Valve Structurally normal mitral valve. Mild mitral annular calcification. Mild mitral regurgitation. Aortic Valve Trileaflet aortic valve. No aortic regurgitation. Aortic valve sclerosis. AV Peak gradient of 26 mmHg and a mean gradient of 16 mmHg. Tricuspid Valve Structurally normal tricuspid valve. Pulmonic Valve Structurally normal pulmonic valve. Pericardium Minimal pericardial effusion (normal variant). Aorta Normal size aortic root and proximal ascending aorta. CONCLUSIONS Left ventricular ejection fraction 65-70% Severe increased left ventricular septal thickness measuring 1.6 cm concerning for hypertrophic cardiomyopathy however additional concentric left ventricular thickness. Consider cardiac MRI if clinically indicated. Mildly dilated left atrium Mild mitral regurgitation LVOT gradient with a callosity 4.2 m/s, 4.5 m/s with Valsalva Previewed by: Dr. Basilio Sprague DO (Electronically Signed) Final Date: 24 January 2024 14:59
[2024-01-24] MEDS: SODIUM FERRIC GLUCONAT-SUCROSE 125 MG in SODIUM CHLORIDE 0.9% 100 ML IVPB SCH (15:17)
[2024-01-24 15:22] VITALS: PULSE 94; RESP 16
--- NOTE | 2024-01-24 16:58 | P.PN ---
Subjective Progress Note Date: 01/24/24 S/p EGD, lower esophageal mass noted suspicious for adenocarcinoma. Pt reports feeling good. Denies nuero deficits. Hgb 8.7, labs consistent with MAURO, parenteral iron started. Pt does reports noting darker stools over the last couple days Objective - Vital Signs Vital signs: Vital Signs Temp 98.4 F 01/24/24 12:32 Pulse 112 H 01/24/24 12:32 Resp 16 01/24/24 12:32 BP 112/69 01/24/24 12:32 Pulse Ox 99 01/24/24 12:32 FiO2 Intake & Output 01/23/24 01/24/24 01/24/24 18:59 06:59 18:59 Intake Total 1620 20 500 Balance 1620 20 500 Weight 70.307 kg Intake: IV 20 500 Invasive Line 1 10 Invasive Line 2 10 Oral 1620 0 Other: Voiding Method Toilet Toilet Toilet # Voids 3 2 - Constitutional General appearance: Present: average body habitus, no acute distress - EENT Eyes: Present: anicteric sclerae, EOMI ENT: Present: hearing grossly normal - Respiratory Details: breathing is even and unlabored - Cardiovascular Details: skin warm and dry - Gastrointestinal General gastrointestinal: Present: soft. Absent: tenderness - Integumentary Integumentary: Absent: cyanotic, jaundiced - Musculoskeletal Musculoskeletal: Present: strength equal bilaterally - Psychiatric Psychiatric: Present: A&O x's 3 - Labs CBC & Chem 7: 01/24/24 05:25 01/24/24 05:25 Labs: Abnormal Lab Results - Last 24 Hours (Table) 01/23/24 01/23/24 01/23/24 Range/Units 11:33 11:33 17:08 WBC (3.8-10.6) k/uL RBC (4.30-5.90) m/uL Hgb (13.0-17.5) gm/dL Hct (39.0-53.0) % RDW (11.5-15.5) % Sodium (137-145) mmol/L Chloride (98-107) mmol/L Glucose (74-99) mg/dL POC Glucose (mg/dL) 234 H (70-110) mg/dL Hemoglobin A1c (<=6.0) % Iron 55 L (65-175) UG/DL RBC Folate 915 H (280 - 791) ng/mL 01/23/24 01/24/24 01/24/24 Range/Units 19:58 05:25 05:25 WBC 12.3 H (3.8-10.6) k/uL RBC 2.84 L (4.30-5.90) m/uL Hgb 8.7 L (13.0-17.5) gm/dL Hct 27.8 L (39.0-53.0) % RDW 15.6 H (11.5-15.5) % Sodium (137-145) mmol/L Chloride (98-107) mmol/L Glucose (74-99) mg/dL POC Glucose (mg/dL) 230 H (70-110) mg/dL Hemoglobin A1c 6.1 H (<=6.0) % Iron (65-175) UG/DL RBC Folate (280 - 791) ng/mL 01/24/24 01/24/24 Range/Units 05:25 12:15 WBC (3.8-10.6) k/uL RBC (4.30-5.90) m/uL Hgb (13.0-17.5) gm/dL Hct (39.0-53.0) % RDW (11.5-15.5) % Sodium 136 L (137-145) mmol/L Chloride 109 H (98-107) mmol/L Glucose 186 H (74-99) mg/dL POC Glucose (mg/dL) 253 H (70-110) mg/dL Hemoglobin A1c (<=6.0) % Iron (65-175) UG/DL RBC Folate (280 - 791) ng/mL Assessment and Plan (1) Brain mass Current Visit: Yes Status: Acute Priority: High Code(s): G93.89 - OTHER SPECIFIED DISORDERS OF BRAIN SNOMED Code(s): 727586196 (2) Fall Current Visit: Yes Status: Acute Priority: High Code(s): W19.XXXA - UNSPECIFIED FALL, INITIAL ENCOUNTER SNOMED Code(s): 6177661 (3) Syncope Current Visit: Yes Status: Acute Priority: High Code(s): R55 - SYNCOPE AND COLLAPSE SNOMED Code(s): 049358808 (4) Anemia Current Visit: Yes Status: Acute Priority: Medium Code(s): D64.9 - ANEMIA, UNSPECIFIED SNOMED Code(s): 398376254 Plan: Esophageal thickening, brain mass: Presented to emergency room after having a syncopal episode with head injury. Patient states he was at work and began to become lightheaded and had subsequent syncopal episode. He states earlier in the day he was experiencing dizziness. Reports over the last couple weeks he has been having increasing epigastric discomfort and dysphagia. Also has associated 20 pound weight loss. -CT brain w/o revealed vasogenic edema surrounding a soft tissue like nodule measuring up to 9 mm. Mediastinal enlarged lymph nodes in the neck and mediastinum. CTA chest and CT abdomen pelvis revealed no evidence for pulmonary embolism. Findings suspicious for esophageal/gastric malignancy with eccentric distal esophageal wall thickening up to 23 mm. Mediastinal, gastrohepatic ligament and low neck lymph nodes are suspicious. -Continue dexamethasone 4 mg every 6 hours with PPI daily -Brain MRI obtained showing right posterior frontal lobe peripheral enhancing mass measuring up to 10 mm with vasogenic edema -Case discussed with rad onc, consult placed. Will f/u outpt next week, plan for 3 fractions of radiosurgery -S/p EGD, lower esophageal mass noted suspicious for adenocarcinoma. Biopsy pending Discussed findings and concerns for metastatic malignancy, likely esophageal primary. All questions and concerns were addressed Normocytic anemia: -CBC showing WBC 7.8, hemoglobin 9.2, MCV 97.4, MCH 30.3, slight hypochromasia, platelets 318,000. Creatinine 0.80, GFR > 90. LFTs and bilirubin WNL. No previous labs within EMR to trend. Pt denies episodes of acute bleeding, blood in stool, and melena. -Nutritional studies consistent with MAURO, parenteral iron ordered -Continue to monitor CBC. Transfuse for hgb less than 7 Case discussed with IM, radiation oncology and neurology teams Doctor attests: I performed a history and physical examination of this patient, developed impression and plan of care. Discussed with dictator. I agree with dictators note, documented as a scribe.
--- NOTE | 2024-01-25 00:08 | CONS ---
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 31). HISTORY OF PRESENT ILLNESS: Rohan Saunders is a 58-year-old male, who has a history of type 2 diabetes. The patient follows with his primary care physician. He became weak and collapsed at work. The patient was taken to the hospital. He was noted to have thickening of the esophagus. He was noted to have a brain lesion. The patient then had additional testing. He had a CT scan of the brain. The patient also had CT of the chest, which did show associated mediastinal lymphadenopathy. The CT scan of the brain from 01/22/2024 did reveal approximately a 9 mm suspicious lesion within the brain. There was noted to be vasogenic edema regarding the soft tissue nodule within the brain. The patient was admitted to the hospital. He was started on dexamethasone. The patient has been consulted by Medical Oncology. The patient and I discussed the issues related to recent testing and diagnosis. He does not complain of discomfort with swallowing. He does report a history of heart burn and intermittent dyspepsia. PAST MEDICAL HISTORY: 1. Type 2 diabetes. 2. Arthritis. PAST SURGICAL HISTORY: 1. Hernia surgery repair. 2. History of orthopedic surgery. SOCIAL HISTORY: The patient works time lock expert. He lives with his girlfriend. He denies a history of alcohol abuse. He uses tobacco rarely. FAMILY HISTORY: Father with a history of brain lesions. Family history for cardiac disease and COPD. MEDICATIONS: The patient's medications presently includes, 1. Jardiance. 2. Dexamethasone. ALLERGIES: NKDA. REVIEW OF SYSTEMS: A 14-point review of systems was reviewed as informed by the patient. This is contributory for intermittent headaches, urinary frequency, discomfort involving left shoulder. PHYSICAL EXAMINATION: GENERAL: Mr. Saunders is a relatively healthy-appearing well-developed, well- nourished male, alert and oriented x3. He does not appear to be in acute distress. VITAL SIGNS: He has a BP of 138/80, pulse 78, respirations 18, temperature is 36.4. HEENT: Head is atraumatic, normocephalic. Eyes, PERRLA. EOMI. NECK: lymphadenopathy. LUNGS: Clear to auscultation and percussion. HEART: Normal heart sounds. ABDOMEN: Benign, but no palpable masses or organomegaly. EXTREMITIES: Full range of motion. No cyanosis, clubbing, or edema is detected. NEUROLOGIC: Reveals cranial nerves II through XII intact. Strength and sensation intact. Deep tendon reflexes are intact. Plantar reflexes are downgoing. SKIN/INTEGUMENT: Reveals no lesions. PSYCHIATRIC: Reveals no mood disorders. IMPRESSION: Rohan Saunders is a 58-year-old male presenting with a solitary malignant tumor identified on both CT scan and MRI. This is a right frontal lobe mass measuring 10 mm. He otherwise has additional ongoing medical problems including, 1. Esophageal mass. 2. Mediastinal lymphadenopathy. 3. Type 2 diabetes. 4. Discomfort in left shoulder. PAIN SCALE EVALUATION: Approximately 2/10. Pain control is hydromorphone p.r.n. pain. PERFORMANCE STATUS: 1. DURATION OF THE VISIT: Today was approximately 40 minutes. SMOKING CESSATION/SMOKING HISTORY: The patient is a nonsmoker. Does not require smoking cessation classes or counseling. PLAN: The patient and I discussed the issues related to the recent MRI imaging related to the solitary malignant tumor involving the brain. He is aware of the abnormalities identified on recent testing related to the esophageal changes. Therefore, we are planning for the patient to be scheduled for treatment planning regarding the brain lesions in the next week or so. Likely in the interim, he will have additional testing and possible biopsy to confirm the diagnosis. The patient's case was discussed with the nurse practitioner, Ankush Johansen from Medical Oncology. Presently, we will schedule the patient to be seen in the office in the next 1 week. MMODL / IJN: [id number] /
[2024-01-25 11:14] LABS: Methylmalonic Acid 0.22 umol/L (<0.40)
--- NOTE | 2024-01-25 13:38 | P.PN ---
Subjective Progress Note Date: 01/24/24 Patient was seen for a follow-up. Patient is laying in the bed, offers no complaints. Objective - Vital Signs Vital signs: Vital Signs Temp 98.4 F 01/24/24 12:32 Pulse 94 01/24/24 15:22 Resp 16 01/24/24 15:22 BP 112/69 01/24/24 12:32 Pulse Ox 99 01/24/24 12:32 FiO2 Intake & Output 01/24/24 01/25/24 01/25/24 18:59 06:59 18:59 Intake Total 500 Balance 500 Intake: IV 500 Other: Voiding Method Toilet - Exam Unchanged. - Labs CBC & Chem 7: 01/24/24 05:25 01/24/24 05:25 Assessment and Plan Assessment: * Syncopal spell, likely vasovagal. Patient had clear presyncopal symptoms before he passed out. Seizure appears unlikely. * Brain mass, esophageal mass, rule out metastatic tumor. * Anemia * Weight loss * Diabetes * Marijuana use Plan: * EEG was performed, which is normal awake and drowsy EEG. No focal, lateralized or epileptiform activity was seen. * No indication for antiepileptic medication at this time. * MRI of the brain with and without contrast revealed right posterior frontal lobe vasogenic edema surrounding soft tissue mass which demonstrates ring enhancement measuring up to 10 mm. Nonspecific white matter changes likely related to small vessel ischemic disease. I reviewed MRI, agree with the findings. * 2D echo revealed normal LVEF 65 to 70%. Severe increased left ventricular septal thickness measuring 1.6 cm, concerning for hypertrophic cardiomyopathy. Consider cardiac MRI. Mildly dilated left atrium. Patient to follow-up with cardiology regarding above abnormality. * Carotid Doppler revealed less than 50% stenosis of bilateral ICA. Antegrade flow in both vertebral arteries. * EGD revealed esophageal mass, biopsy taken. Results pending. * Discussed with oncology Dr. Taylor. Patient has a brain mass. However patient is stage IV, therefore no need for neurosurgical intervention. Radiation therapy can take care of the brain mass. Patient to follow-up with the oncologist, radiation oncologist. * Although this event was probable syncope, not a seizure, however I recommended patient to hold off on driving until cleared by his primary physician.
--- NOTE | 2024-01-28 20:24 | P.DS ---
Providers Date of admission: 01/22/24 20:18 Attending physician: Gary Mosley Consults: 01/22/24 20:16 Consult Physician Routine Consulting Provider: Rodolfo Domínguez Consult Reason/Comments: syncope Do you want consulting provider notified?: Yes Consult Physician Routine Consulting Provider: Hung Mcduffie Consult Reason/Comments: mass Do you want consulting provider notified?: Yes 01/23/24 00:21 Consult Physician Routine Consulting Provider: Isaac Bryant Consult Reason/Comments: egd Do you want consulting provider notified?: Yes 01/23/24 00:28 Consult Physician Routine Consulting Provider: Esau Taylor Consult Reason/Comments: cancer Do you want consulting provider notified?: Yes 01/24/24 13:25 Consult Physician Routine Consulting Provider: Herbie Valencia Consult Reason/Comments: brain met Do you want consulting provider notified?: Already Contacted Primary care physician: Physician Nonstaff Hospital Course: Final Diagnosis Syncope could be due to vasovagal episode exacerbated by the brain mass and anemia Systolic murmur New onset brain mass and esophageal mass Normocytic anemia not iron deficient Diabetes mellitus type 2 hemoglobin A1c 6.1 Discharge Disposition Patient stable for discharge home with overall guarded prognosis secondary to new findings of a brain mass and esophageal mass. This is suggestive of a stage IV and will not need to see neurosurgery at this time he is to follow-up with oncology and neurology in the office and after discussion with oncology radiation oncologist will be reaching out to this patient to schedule an appointment. Patient was recommended by neurology to hold off on driving until he is cleared by his primary physician. He does not feel that the syncopal episode was seizure-like in nature more likely a vasovagal episode and patient did have presyncopal symptoms prior to the episode. He will continue on a high dose of oral dexamethasone on discharge and will be tapered and follow-up with oncology in the office. Cardiology has started this patient on oral metoprolol and is recommending an event monitor on discharge which would potato picker in the office on Saturday to 01/26. Patient will be started on a low-dose of glipizide for the next 7 days while he is on oral Decadron as he has had elevated blood pressure. Hospital Course This is a 58-year-old male with medical history of marijuana use and cardiac murmur. Patient has a family history of coronary artery disease patient comes into the hospital secondary to feeling lightheaded and syncope with collapse. Patient fell on his left side. Prior to this he noticed some mild shortness of breath has been told that he has a cardiac murmur in the past but has never follow-up with cardiology for this. Patient had initial imaging completed on admission which revealed a esophageal mass as well as a new onset of a brain mass. He underwent EGD for the esophageal mass which is suspicious for adenocarcinoma biopsies were taken. Patient had an MRI of the brain which revealed a right posterior frontal lobe peripherally enhancing mass and edema there is nonspecific white matter change like related to small vessel ischemic disease. Carotid ultrasound revealed less than 50% stenosis bilaterally. Echocardiogram reveals a normal ejection fraction. Patient hemodynamically stable electrolytes are all within normal limits. He is awake alert and oriented and is not having any focal logical deficits at this time. He was evaluated by cardiology and neurology as well as oncology. He was started on IV Decadron secondary to the vasogenic edema surrounding the brain mass. Patient is wanting to discharge home and he has given referrals to follow-up with cardiology, oncology, neurology and will be contacted by radiation oncology to follow-up with. Please see medication reconciliation for a list of current medications. Thank you for allowing us to participate in the care of this patient. The impression and plan of care has been dictated by Alma Kathleen, Nurse Practitioner as directed. Dr. Mercedez MD I have performed a history and physical examination and medical decision making of this patient, discussed the same with the dictator, and agree with the dictators assessment and plan as written, documented as a scribe. Based on total visit time, I have performed more than 50% of this visit. Patient Condition at Discharge: Fair Plan - Discharge Summary Discharge Rx Participant: Yes New Discharge Prescriptions: New Metoprolol Succinate (ER) [Toprol XL] 25 mg PO DAILY #30 tab glipiZIDE [Glucotrol] 2.5 mg PO AC-BID 7 Days #14 tablet dexAMETHasone [Decadron] 4 mg PO QID 7 Days #28 tablet Pantoprazole [Protonix] 40 mg PO DAILY #30 tab Discharge Medication List Metoprolol Succinate (ER) [Toprol XL] 25 mg PO DAILY #30 tab 01/24/24 [Rx] Pantoprazole [Protonix] 40 mg PO DAILY #30 tab 01/24/24 [Rx] dexAMETHasone [Decadron] 4 mg PO QID 7 Days #28 tablet 01/24/24 [Rx] glipiZIDE [Glucotrol] 2.5 mg PO AC-BID 7 Days #14 tablet 01/24/24 [Rx] Follow up Appointment(s)/Referral(s): Esau Taylor [STAFF PHYSICIAN] - 1 Week (Dr. Taylor's office will contact patient to make appointment, per Christina. ) Basilio Sprague DO [STAFF PHYSICIAN] - 1 Week (Patient to potato picker 30 day event monitor(heart monitor) on Saturday01/27/24) Gary Lowery MD [Medical Doctor] - 1-2 Days (please call office to make appointment- office is closed) Herbie Valencia MD [STAFF PHYSICIAN] - 1 Week (Radiation Oncology will contact for radiation planning. ) Prem Broussard MD [Medical Doctor] - 1 Week (Neurology please call office and schedule appointment) Isaac Bryant MD [STAFF PHYSICIAN] - 1 Week (please call to schedule - office is closed) Ambulatory/Diagnostic Orders: Basic Metabolic Panel [LAB.AMB] Location: None Selected Complete Blood Count w/diff [LAB.AMB] Time Frame: 4 Days, Location: None Selected Patient Instructions/Handouts: Metoprolol (By mouth), Glipizide (By mouth), Dexamethasone (By mouth), Pantoprazole (By mouth), Syncope (DC), External Beam Radiation Therapy (DC), Upper Endoscopy (DC) Activity/Diet/Wound Care/Special Instructions: Cardiac Event monitor to be picked up at [facility] office on Friday 01/26 Need to see neurologist outpatient Follow up with Dr Taylor with oncology in the office From there they will taper the dexamethasone Need to follow up with radiation/oncology Continue the glipizide while on the high dose of oral steroids Discharge Disposition: HOME SELF-CARE
== END 2024-01-24 17:45 | disposition home or self-care (01) ==
LOC: EC 16:49 → 5NMEDONC 20:18
PROVIDERS: ADMIT Family Medicine; ATTEND Family Medicine
DX: R55 Syncope and collapse (principal); G93.9 Disorder of brain, unspecified; K22.9 Disease of esophagus, unspecified; R13.10 Dysphagia, unspecified; G93.6 Cerebral edema; E44.0 Moderate protein-calorie malnutrition; S09.90XA Unspecified injury of head, initial encounter; M25.512 Pain in left shoulder; W18.30XA Fall on same level, unspecified, initial encounter; R06.00 Dyspnea, unspecified; D64.9 Anemia, unspecified; R01.1 Cardiac murmur, unspecified; E11.9 Type 2 diabetes mellitus without complications; Z82.49 Family history of ischemic heart disease and other diseases of the circulatory system; Z80.1 Family history of malignant neoplasm of trachea, bronchus and lung
CPT/HCPCS: 96376 ×3; 96361 ×3; 96365; 96375 ×2; 99285; 36415; 94640 ×4; 95816; 93005; 93306; 83921; 85379; 88305; 82747; 83880; 80053 ×2; 80048; 82607; 82728; 83540; 83550; 83605; 83735; 84100; 84484 ×2; 85025 ×2; 85027; 85610; 85730; 88342; 88341; 83036; 72170; 73030; 71045; 93880; 72125; 70450; 71275; 74177; 70553; 43239; G0378 ×3; J1100 ×3; J2405; J2916; J1171 ×3; J2704; Q9967; J2003; A9585; J2470

== ENCOUNTER 2024-02-18 12:54 | Day surgery (SDC) | payer BC ==
[2024-02-14 15:11] VITALS: BMI 22.1
[~2024-02-18 12:54] MED LIST: DEXAMETHASONE SOD PHOSPHATE 4 MG/ML 1 ML VIAL IV ONE; HYDROmorphone 0.5 MG/0.5 ML SYRINGE IVP PRN; MIDAZOLAM 2 MG/2 ML VIAL IV PRN; Pre Op ABX Message 1 EACH MISC MISCELLANE ONE; SCOPOLAMINE 1 MG/72 HR PATCH TRANSDERM ONE
[2024-02-18 13:29] VITALS: TEMP 97
[2024-02-18] MEDS: IV FLUID CONTINUATION 1,000 ML IV ONE (13:42)
[2024-02-18] MEDS ORDERED: DEXTROSE 5%-0.9% NACL 1,000 ML IV SCH (13:45)
[2024-02-18 13:46] LABS: Glucose,Whole Blood 65 mg/dL (70-110)
[2024-02-18] MEDS: LACTATED RINGERS 1,000 ML IV SCH (13:46)
[2024-02-18] MEDS: ONDANSETRON 4 MG/2 ML VIAL IVP ONE (13:46)
[2024-02-18] MEDS: DEXTROSE 5%-0.45% NACL 1,000 ML IV SCH (13:48)
[2024-02-18] MEDS: FAMOTIDINE 20 MG/2 ML VIAL IV STA (13:48)
[2024-02-18] MEDS ORDERED: PROPOFOL 10 MG/ML 20 ML VIAL IV ONE (14:04)
[2024-02-18] MEDS ORDERED: KETAMINE HCL IN 0.9 % NACL 50 MG/5 ML SYRINGE ONE (14:04)
[2024-02-18] MEDS ORDERED: fentaNYL (PF) 50 MCG/ML 2 ML AMP ONE (14:04)
[2024-02-18] MEDS ORDERED: MIDAZOLAM 2 MG/2 ML VIAL ONE (14:04)
[2024-02-18] MEDS: LIDOCAINE 1%-EPI 1:100,000 20 ML VIAL SQ ONE (14:29)
--- NOTE | 2024-02-18 15:02 | FL ---
Intraoperative/procedural fluoroscopic services were provided for right chest wall Port-A-Cath insert ion. Distal tip appears to be in the region of the mid SVC. Total fluoroscopy time is 9 seconds with a total of 3 submitted images to PACS. Total DAP 0.9657 Gycm2. Please see the operative note for fur ther details. [facility], , 02/18/2024 3:00 PM
[2024-02-18 15:10] LABS: Glucose,Whole Blood 201 mg/dL (70-110)
[2024-02-18 15:27] VITALS: BP 112/73; PULSE 74; RESP 16
--- NOTE | 2024-02-18 16:11 | XR ---
EXAMINATION TYPE: XR chest 1V portable DATE OF EXAM: 02/18/2024 4:04 PM COMPARISON: Previous chest radiograph 01/22/2024. CLINICAL INDICATION: Male, 58 years old with history of mediport placement; [facility] TECHNIQUE: XR chest 1V portable Frontal view of the chest. FINDINGS: Cardiac silhouette within normal limits for size. Interval placement of right-sided portacatheter with distal catheter tip terminating at the proximal SVC. No acute focal consolidation. No sizable pleural effusion. No appreciable pneumothorax. No acute osseous abnormality. IMPRESSION: 1. No acute cardiopulmonary process. 2. Interval placement of right-sided port catheter with distal catheter tip terminating at the level of the proximal SVC. [facility], , 02/18/2024 4:09 PM
--- NOTE | 2024-02-19 20:17 | P.OP ---
Date of Procedure: 02/18/24 Preoperative Diagnosis: Metastatic esophageal carcinoma Postoperative Diagnosis: Metastatic esophageal carcinoma Procedure(s) Performed: Mediport placement with fluoroscopy Anesthesia: MAC Surgeon: Kevin Scott Pathology: none sent Condition: stable Disposition: same day Indications for Procedure: 58-year-old male with recent diagnosis of metastatic esophageal carcinoma presents today for Mediport placement for plan for induction of chemotherapy. Risks, benefits and alternatives were provided to the patient. Consent was provided prior to attending the operating suite. Operative Findings: Appropriate flush and withdrawal from Mediport site Description of Procedure: Patient was brought to the endoscopy suite and placed in supine position on the operating table and sedation was provided by anesthesia. The patient was then prepped and draped in regular sterile fashion. The right subclavian vein was accessed on first attempt using the introducer needle and nonpulsatile dark venous blood was noted in the syringe. Guidewire was then placed and location was confirmed under fluoroscopy. Local anesthetic was administered and incision was made to create a port inferior to the insertion site. Dissection was carried up to the prepectoralis fascia and appropriate size was noted. A small incision was made at the guidewire and dilator sheath was placed. Catheter was then placed through the dilator sheath and dilator sheath was removed. Catheter was then attached to Mediport site. Appropriate flush and withdrawal was noted from the Mediport and fluoroscopy was used to confirm appropriate length of the catheter. Port was then sutured to the prepectoralis fascia with 2-0 Prolene suture. Heparin lock was placed. The wound was then closed in layers with 3-0 Vicryl and 4-0 Vicryl subcuticular suture. Sterile dressing was applied. The patient was taken to postanesthesia care unit in stable condition with plan for postprocedure chest x-ray.
== END 2024-02-18 16:50 | disposition home or self-care (01) ==
LOC: OR 12:54
PROVIDERS: ATTEND Surgery
DX: C15.9 Malignant neoplasm of esophagus, unspecified (principal); K21.9 Gastro-esophageal reflux disease without esophagitis; I10 Essential (primary) hypertension; C79.51 Secondary malignant neoplasm of bone; E11.9 Type 2 diabetes mellitus without complications; Z86.79 Personal history of other diseases of the circulatory system; Z45.2 Encounter for adjustment and management of vascular access device; Z79.4 Long term (current) use of insulin; Z79.899 Other long term (current) drug therapy
CPT/HCPCS: 36561; 77001; 71045; C1788; J2250; J2405; J3010; J3490; J1642; J2704

== ENCOUNTER → 2024-02-28 | Outpatient (CLI) | payer BC ==
--- NOTE | 2024-03-01 16:09 | PE ---
EXAMINATION TYPE: PET CT fusion skull to thigh DATE OF EXAM: 02/28/2024 CLINICAL INDICATION:Male, 58 years old with history of C15.5 ESOPHAGUS CANCER; TECHNIQUE: Following the intravenous administration of 8.72 mCi of F-18 FDG, whole body images are performed from the skull base to the midthigh. Images are reviewed on the computer in the coronal, a xial, and sagittal planes. Reconstructed rotating images are created on independent workstation and reviewed on the computer. A non-contrast CT is performed in conjunction with the PET scan. Glucose level 89 mg/dL CT DLP: 351 mGycm, Automated exposure control for dose reduction was used. COMPARISON: CT 01/22/2024, PET/CT None, MRI: None FINDINGS: Mediastinal SUV mean is 1.5. Hepatic parenchyma SUV mean is 1.92. SKULL BASE AND NECK: Paranasal sinus disease with FDG activity near the soft palate max SUV 7.2. CHEST, MEDIASTINUM, AND HILAR REGION: Suspicious uptake identified examples include: Right low paratracheal lymph node max SUV 4.6 measuring up to 15 mm. Esophageal mass measuring at least 4.1 x 2.7 x 8.9 cm Max SUV 16.7. ABDOMEN AND PELVIS: * Abnormal uptake under the distal esophagus with likely extension into the stomach. Additionally Me tastatic disease to the liver with multiple lesions, greater than 20. A couple of the largest measuri ng Max SUV 9.8 measuring 20 x 27 mm and another more inferiorly in the right hepatic lobe measuring M ax SUV 7.5 measuring up to 20 mm. * Gastrohepatic ligament 9 mm lymph node max SUV 3.9 rg hepatis lymph node max SUV 6.2. MUSCULOSKELETAL STRUCTURES: No suspicious radiotracer activity. OTHER CT: Gallstone in the gallbladder lumen. Simple appearing left renal cyst. Right chest wall [id number] tip terminating superior vena cava. Mild coronary artery atherosclerosis. IMPRESSION: Distal esophageal mass with likely extension into the gastric lumen. There is metastatic disease to t he liver with greater than 20 liver lesions, mediastinal lymph nodes and upper abdominal lymph nodes. [facility], , 03/01/2024 4:06 PM
== END | disposition home or self-care (01) ==
LOC: RADPETMAIN 13:14
PROVIDERS: ATTEND Internal Medicine Hematology & Oncology
DX: C15.5 Malignant neoplasm of lower third of esophagus (principal); I25.10 Atherosclerotic heart disease of native coronary artery without angina pectoris; C78.7 Secondary malignant neoplasm of liver and intrahepatic bile duct; K22.81 Esophageal polyp; K80.80 Other cholelithiasis without obstruction; N28.1 Cyst of kidney, acquired
CPT/HCPCS: 78815; A9552

== ENCOUNTER → 2024-03-27 | Outpatient (CLI) | payer BC ==
[2024-03-27 12:37] LABS: African American GFR (CKD) >90 (>60 ml/min/1.73 sqM); Blood Urea Nitrogen 14 mg/dL (9-20); Non-African American GFR(CKD) 88 (>60 ml/min/1.73 sqM)
--- NOTE | 2024-03-27 13:27 | CT ---
EXAMINATION TYPE: CT abdomen w con CT DLP: 446.9 mGycm, Automated exposure control for dose reduction was used. DATE OF EXAM: 03/27/2024 1:13 PM COMPARISON: PET CT 02/28/2024, CTA chest 01/22/2024, CT abdomen and pelvis 01/22/2024 CLINICAL INDICATION:Male, 59 years old with history of C15.9 MALIGNANT NEOPLASM OF ESOPHAGUS, UNSPECI FIED; epigastric pain TECHNIQUE: Standard CT of the abdomen following the administration of 100 cc of Isovue 300 IV contr ast material and oral contrast. Coronal and sagittal reformats were performed. FINDINGS: LOWER CHEST: The lung bases are clear. ABDOMEN LIVER: Increase in innumerable hypodense lesions throughout the liver measuring up to 4.3 cm. Portal venous system appears patent. GALLBLADDER AND BILE DUCTS: Cholelithiasis with a 8 mm calculus within the gallbladder neck. No bilia ry duct dilatation. PANCREAS: Unremarkable. SPLEEN: Unremarkable. ADRENAL GLANDS: Unremarkable. KIDNEYS AND URETERS: No evidence of hydronephrosis or renal calculus. The kidneys enhance symmetrical ly. Left renal superior pole 3.9 cm cyst. Additional exophytic left renal lower pole 2.1 cm cyst. STOMACH AND BOWEL: Redemonstration of distal esophageal mass with circumferential wall thickening and extension into the GE junction and along the lesser curvature of the stomach. The wall measures up t o 1.5 cm in thickness.Enteric contrast reaches the mid small bowel. No evidence of bowel obstruction. PERITONEUM: No evidence of pneumoperitoneum or free fluid. VASCULATURE: Minimal atherosclerotic calcifications are present throughout the abdominal aorta and it s branches. No evidence of aortic aneurysm. MUSCULOSKELETAL: No acute osseous abnormalities. No aggressive osseous lesion. Mild multilevel degene rative disc disease. LYMPH NODES: Enlarged gastrohepatic and periportal lymph nodes with exams including a 1.8 cm short ax is gastrohepatic ligament node (series 4, image 21). Previously measured 1.6 cm short axis. Additiona l enlarged periaortic lymph nodes example including a left periaortic lymph node measuring 1.8 cm giovani rt axis (series 4, image 30). Previously measured 1.5 cm short axis. SOFT TISSUE/ABDOMINAL WALL: Unremarkable IMPRESSION: Overall progression of disease with distal esophageal mass with extension into the GE junction and le sser curvature of the stomach, multiple innumerable new hypodense hepatic metastasis, and mild increa se in size of metastatic adenopathy within the abdomen. [facility], , 03/27/2024 1:25 PM
== END | disposition home or self-care (01) ==
LOC: RADCTMAIN 11:46
PROVIDERS: ATTEND Internal Medicine Geriatric Medicine
DX: C15.9 Malignant neoplasm of esophagus, unspecified (principal); C78.7 Secondary malignant neoplasm of liver and intrahepatic bile duct; R59.9 Enlarged lymph nodes, unspecified
CPT/HCPCS: 82565; 84520; 74160; 36415; Q9967

== ENCOUNTER 2024-04-03 09:59 | Inpatient (IN) | payer BC ==
--- NOTE | 2024-04-03 10:37 | ED ---
General Adult HPI - General Chief complaint: GI Bleed Stated complaint: abd pain, blood in stool Time Seen by Provider: 04/03/24 10:27 Source: patient, family, RN notes reviewed Mode of arrival: wheelchair Limitations: no limitations - History of Present Illness Initial comments: Patient is a 59-year-old male presenting to the emergency department with concern for abdominal discomfort, vomiting and dark stools. Patient has been vomiting for the past couple weeks with limited oral intake. Patient has increased abdominal discomfort, mostly in the epigastric region. Patient has had black stools for the past 2 days. Patient feels more fatigued and weak all over. Patient has recent diagnosis of stage IV metastatic esophageal cancer. Patient is post radiation to the brain with plans of starting chemotherapy in a couple weeks. - Related Data Home Medications Medication Instructions Recorded Confirmed Metoprolol Succinate (ER) [Toprol 25 mg PO DAILY 02/14/24 04/03/24 XL] Empagliflozin [Jardiance] 25 mg PO DAILY 04/03/24 04/03/24 Famotidine 40 mg PO HS 04/03/24 04/03/24 Fluticasone Propion/Salmeterol 1 puff INHALATION RT-BID 04/03/24 04/03/24 [Fluticasone-Salmeterol 500-50] Allergies Allergy/AdvReac Type Severity Reaction Status Date / Time No Known Allergies Allergy Verified 04/03/24 10:57 Review of Systems ROS Statement: Those systems with pertinent positive or pertinent negative responses have been documented in the HPI. ROS Other: All systems not noted in ROS Statement are negative. Constitutional: Denies: fever Eyes: Denies: eye pain ENT: Denies: ear pain Respiratory: Denies: dyspnea Cardiovascular: Denies: chest pain Endocrine: Reports: fatigue Gastrointestinal: Reports: abdominal pain, nausea, vomiting, melena. Denies: hematemesis Genitourinary: Denies: dysuria Musculoskeletal: Denies: back pain Neurological: Reports: weakness Past Medical History Past Medical History: Cancer, Diabetes Mellitus, GERD/Reflux, Hypertension, Syncope Additional Past Medical History / Comment(s): Type II diabetic NIDDM ( "on insulin now r/t steroids") Pt is wearing an external heart monitor until Mar 01, 2024. Recent syncopal episode Jan 22, 2024- found lesion on brain ( last radiation tx to brain will be 02/17/24) and has recent dx esophageal cancer- no chemo at present. Heart murmur. current anemia- is scheduled for Iron infusion on 02/17/24. History of Any Multi-Drug Resistant Organisms: None Reported Past Surgical History: Hernia Repair, Orthopedic Surgery, Tonsillectomy Additional Past Surgical History / Comment(s): Right hand surgery. Fx C-7 wore halo. Umbilical hernia. Recent EGD 01/2024. Past Anesthesia/Blood Transfusion Reactions: No Reported Reaction Additional Past Anesthesia/Blood Transfusion Reaction / Comment(s): No hx of blood transfusion to date. Past Psychological History: No Psychological Hx Reported Smoking Status: Former smoker Past Alcohol Use History: None Reported Past Drug Use History: None Reported - Past Family History Mother Family Medical History: Cancer, COPD, Myocardial Infarction ([place]) Additional Family Medical History / Comment(s): Unknown cancer. Father Family Medical History: Cancer Additional Family Medical History / Comment(s): Lung Cancer, Brain tumor Brother(s) Family Medical History: Cancer Additional Family Medical History / Comment(s): Leaukemia , Cancer- had part of ear and side of face removed. General Exam Limitations: no limitations General appearance: alert Head exam: Present: normocephalic Eye exam: Present: normal appearance Neck exam: Present: normal inspection Respiratory exam: Present: normal lung sounds bilaterally Cardiovascular Exam: Present: tachycardia GI/Abdominal exam: Present: tenderness (Mild to moderate epigastric tenderness), normal bowel sounds. Absent: guarding, rebound, rigid, pulsatile mass Rectal exam: Present: black stool Extremities exam: Present: normal inspection Back exam: Present: normal inspection Neurological exam: Present: alert Psychiatric exam: Present: normal affect, normal mood Skin exam: Present: normal color Course Vital Signs 04/03/24 04/03/24 10:02 11:29 Temperature 98.2 F Pulse Rate 130 H 114 H Respiratory 18 18 Rate Blood Pressure 109/74 118/64 O2 Sat by Pulse 97 99 Oximetry EKG Findings - EKG Results: EKG: interpreted by ERMD (Left axis. Septal Q waves. Poor R wave progression.), sinus rhythm, normal ST/T EKG shows: tachycardia Medical Decision Making - Medical Decision Making Was pt. sent in by a medical professional or institution (, PA, GRANT WRITER, urgent care, hospital, or long term...) When possible be specific @ -No Did you speak to anyone other than the patient for history (EMS, parent, family, police, friend...)? What history was obtained from this source @ -Family is present helps provide history of patient's cancer staging Did you review nursing and triage notes (agree or disagree)? Why? @ -I reviewed and agree with nursing and triage notes Were old charts reviewed (outside hosp., previous admission, EMS record, old EKG, old radiological studies, urgent care reports/EKG's, long term records)? Report findings @ -Previous hemoglobin 9.3 Differential Diagnosis (chest pain, altered mental status, abdominal pain women, abdominal pain men, vaginal bleeding, weakness, fever, dyspnea, syncope, headache, dizziness, GI bleed, back pain, seizure, CVA, palpatations, mental health, musculoskeletal)? @ -Differential GI Bleed: Esophageal varices, aortoenteric fistula, Celia-Capone, gastritis, peptic ulcer disease, diverticulosis, inflammatory bowel disease, hemorrhoids, fissure, colitis, malignancy, Meckel's diverticulum, this is not meant to be an all- inclusive list. EKG interpreted by me (3pts min.). @ -As above X-rays interpreted by me (1pt min.). @ -None done CT interpreted by me (1pt min.). @ -None done U/S interpreted by me (1pt. min.). @ -None done What testing was considered but not performed or refused? (CT, X-rays, U/S, labs)? Why? @ -None What meds were considered but not given or refused? Why? @ -None Did you discuss the management of the patient with other professionals (professionals i.e. , PA, GRANT WRITER, lab, RT, psych nurse, social work msw, secondary teacher, teacher, tactical deception plans officer, spring encaser)? Give summary @ -Case discussed with Dr. Christie who will admit covering Dr. Miller. Case also discussed with Dr. Norris who will consult with surgery Was smoking cessation discussed for >3mins.? @ -No Was critical care preformed (if so, how long)? @ -33 minutes critical care time Were there social determinants of health that impacted care today? How? (Homelessness, low income, unemployed, alcoholism, drug addiction, transportation, low edu. Level, literacy, decrease access to med. care, [facility], rehab)? @ -No Was there de-escalation of care discussed even if they declined (Discuss DNR or withdrawal of care, Hospice)? DNR status @ -No What co-morbidities impacted this encounter? (DM, HTN, Smoking, COPD, CAD, Cancer, CVA, ARF, Chemo, Hep., AIDS, mental health diagnosis, sleep apnea, morbid obesity)? @ -Stage IV metastatic esophageal cancer Was patient admitted / discharged? Hospital course, mention meds given and route, prescriptions, significant lab abnormalities, going to OR and other pertinent info. @ -Patient presents with vomiting, abdominal discomfort and melanotic stools. Hemoglobin has dropped and patient is tachycardic. Patient ordered 1 unit of blood. Patient to be admitted with surgical consult. Admission orders written. Patient and family updated. Undiagnosed new problem with uncertain prognosis? @ -No Drug Therapy requiring intensive monitoring for toxicity (Heparin, Nitro, Insulin, Cardizem)? @ -No Were any procedures done? @ -No Diagnosis/symptom? @ -GI bleed Acute, or Chronic, or Acute on Chronic? @ -Acute Uncomplicated (without systemic symptoms) or Complicated (systemic symptoms)? @ -Complicated with tachycardia Side effects of treatment? @ -No Exacerbation, Progression, or Severe Exacerbation? @ -No Poses a threat to life or bodily function? How? (Chest pain, [place], [place], pneumonia, PE, COPD, DKA, ARF, appy, cholecystitis, CVA, Diverticulitis, Homicidal, Suicidal, threat to staff... and all critical care pts) @ -Threat to hemodynamic status - Lab Data Result diagrams: 04/03/24 10:55 04/03/24 10:55 Lab Results 04/03/24 04/03/24 04/03/24 Range/Units 10:50 10:55 10:55 WBC 10.5 (3.8-10.6) k/uL RBC 2.52 L (4.30-5.90) m/uL Hgb 7.9 L (13.0-17.5) gm/dL Hct 24.2 L (39.0-53.0) % MCV 96.2 (80.0-100.0) fL MCH 31.4 (25.0-35.0) pg MCHC 32.6 (31.0-37.0) g/dL RDW 15.0 (11.5-15.5) % Plt Count 381 (150-450) k/uL MPV 7.3 Neutrophils % 76 % Lymphocytes % 15 % Monocytes % 7 % Eosinophils % 1 % Basophils % 1 % Neutrophils # 8.0 H (1.3-7.7) k/uL Lymphocytes # 1.6 (1.0-4.8) k/uL Monocytes # 0.7 (0-1.0) k/uL Eosinophils # 0.1 (0-0.7) k/uL Basophils # 0.1 (0-0.2) k/uL Hypochromasia Slight PT 13.5 H (10.0-12.5) sec INR 1.3 H (<1.2) APTT 20.1 L (22.0-30.0) sec Sodium (137-145) mmol/L Potassium (3.5-5.1) mmol/L Chloride (98-107) mmol/L Carbon Dioxide (22-30) mmol/L Anion Gap mmol/L BUN (9-20) mg/dL Creatinine (0.66-1.25) mg/dL Est GFR (CKD-EPI)AfAm (>60 ml/min/1.73 sqM) Est GFR (CKD-EPI)NonAf (>60 ml/min/1.73 sqM) Glucose (74-99) mg/dL Calcium (8.4-10.2) mg/dL Magnesium (1.6-2.3) mg/dL Total Bilirubin (0.2-1.3) mg/dL AST (17-59) U/L ALT (4-49) U/L Alkaline Phosphatase (38-126) U/L Total Protein (6.3-8.2) g/dL Albumin (3.5-5.0) g/dL Lipase (23-300) U/L Stool Occult Blood (Negative) Blood Type Blood Type Confirm A Positive Blood Type Recheck Bld Type Recheck Status Antibody Screen Spec Expiration Date 04/03/24 04/03/24 04/03/24 Range/Units 10:55 10:55 10:57 WBC (3.8-10.6) k/uL RBC (4.30-5.90) m/uL Hgb (13.0-17.5) gm/dL Hct (39.0-53.0) % MCV (80.0-100.0) fL MCH (25.0-35.0) pg MCHC (31.0-37.0) g/dL RDW (11.5-15.5) % Plt Count (150-450) k/uL MPV Neutrophils % % Lymphocytes % % Monocytes % % Eosinophils % % Basophils % % Neutrophils # (1.3-7.7) k/uL Lymphocytes # (1.0-4.8) k/uL Monocytes # (0-1.0) k/uL Eosinophils # (0-0.7) k/uL Basophils # (0-0.2) k/uL Hypochromasia PT (10.0-12.5) sec INR (<1.2) APTT (22.0-30.0) sec Sodium 130 L (137-145) mmol/L Potassium 4.7 (3.5-5.1) mmol/L Chloride 99 (98-107) mmol/L Carbon Dioxide 20 L (22-30) mmol/L Anion Gap 11 mmol/L BUN 16 (9-20) mg/dL Creatinine 0.90 (0.66-1.25) mg/dL Est GFR (CKD-EPI)AfAm >90 (>60 ml/min/1.73 sqM) Est GFR (CKD-EPI)NonAf >90 (>60 ml/min/1.73 sqM) Glucose 143 H (74-99) mg/dL Calcium 8.7 (8.4-10.2) mg/dL Magnesium 2.0 (1.6-2.3) mg/dL Total Bilirubin 2.2 H (0.2-1.3) mg/dL AST 120 H (17-59) U/L ALT 62 H (4-49) U/L Alkaline Phosphatase 494 H (38-126) U/L Total Protein 6.1 L (6.3-8.2) g/dL Albumin 3.2 L (3.5-5.0) g/dL Lipase 111 (23-300) U/L Stool Occult Blood Positive (Negative) Blood Type A Positive Blood Type Confirm Blood Type Recheck No Previous Record Bld Type Recheck Status CABO Indicated Antibody Screen NEGATIVE Spec Expiration Date 04/06/2024 - 2355 Critical Care Time Critical Care Time: Yes Disposition Clinical Impression: GI bleed Disposition: ADMITTED IP TO THIS HOSP Is patient prescribed a controlled substance at d/c from ED?: No Referrals: Gary Lowery MD [Primary Care Provider] - 1-2 days Time of Disposition: 13:06
[2024-04-03] MEDS: ONDANSETRON 4 MG/2 ML VIAL IVP STA (11:06)
[2024-04-03] MEDS: HYDROmorphone 0.5 MG/0.5 ML SYRINGE IVP STA (11:06)
[2024-04-03] MEDS: PANTOPRAZOLE 40 MG/10 ML VIAL IVP STA (11:06)
[2024-04-03] MEDS: SODIUM CHLORIDE 0.9% 1,000 ML IV STA (11:07)
[2024-04-03 11:18] LABS: Basophils # (A) 0.1 k/uL (0-0.2); Basophils % (A) 1 %; Eosinophils # (A) 0.1 k/uL (0-0.7); Eosinophils % (A) 1 %; HCT 24.2 % (39.0-53.0); HGB 7.9 gm/dL (13.0-17.5); Hypochromasia Slight; Lymphocytes # (A) 1.6 k/uL (1.0-4.8); Lymphocytes % (A) 15 %; MCH 31.4 pg (25.0-35.0); MCHC 32.6 g/dL (31.0-37.0); MCV 96.2 fL (80.0-100.0); Mean Platelet Volume 7.3; Monocytes # (A) 0.7 k/uL (0-1.0); Monocytes % (A) 7 %; Neutrophils % (A) 76 %; Platelet Count 381 k/uL (150-450); RBC 2.52 m/uL (4.30-5.90); WBC 10.5 k/uL (3.8-10.6)
[2024-04-03 11:29] LABS: INR 1.3 (<1.2); Prothrombin Time 13.5 sec (10.0-12.5)
[2024-04-03 11:39] LABS: ALT 62 U/L (4-49); AST 120 U/L (17-59); African American GFR (CKD) >90 (>60 ml/min/1.73 sqM); Albumin 3.2 g/dL (3.5-5.0); Alkaline Phosphatase 494 U/L (38-126); Anion Gap 11 mmol/L; Blood Urea Nitrogen 16 mg/dL (9-20); Calcium 8.7 mg/dL (8.4-10.2); Carbon Dioxide 20 mmol/L (22-30); Chloride 99 mmol/L (98-107); Glucose 143 mg/dL (74-99); Lipase 111 U/L (23-300); Non-African American GFR(CKD) >90 (>60 ml/min/1.73 sqM); Potassium 4.7 mmol/L (3.5-5.1); Sodium 130 mmol/L (137-145); Total Bilirubin 2.2 mg/dL (0.2-1.3); Total Protein 6.1 g/dL (6.3-8.2)
[2024-04-03 11:42] LABS: Partial Thromboplastin Time 20.1 sec (22.0-30.0)
[2024-04-03] MEDS ORDERED: NALOXONE 0.4 MG/ML 1 ML VIAL IV PRN (13:06)
[2024-04-03] MEDS: PANTOPRAZOLE 40 MG/10 ML VIAL IV SCH (13:36)
--- NOTE | 2024-04-03 15:17 | P.GSCN ---
History of Present Illness Consult date: 04/03/24 History of present illness: CHIEF COMPLAINT: Dark stools HISTORY OF PRESENT ILLNESS: This is a 59-year-old male with a known history of metastatic esophageal cancer. Patient reports he has had dark stools for the last 2 days and has had intermittent vomiting for last couple of weeks. He has had 1 episode of emesis that was blackish in color. Patient reports symptoms started after he stopped taking the steroids that he had been getting after he completed radiation treatment to the brain lesions. He is supposed to start chemotherapy April 14 or . He does complain of epigastric pain. Hemoglobin is low at 7.9. Stool for occult blood positive and he is mildly tachycardic. His last EGD was in January 2024 when his esophageal mass was found. PAST MEDICAL HISTORY: See below PAST SURGICAL HISTORY: See below MEDICATIONS: See below ALLERGIES: See below SOCIAL HISTORY: No illicit drug use. REVIEW OF SYSTEMS: CONSTITUTIONAL: Denies fever or chills. HEENT: Denies blurred vision, vision changes, or eye pain. Denies hemoptysis CARDIOVASCULAR: Denies chest pain or pressure. RESPIRATORY: No shortness of breath. GASTROINTESTINAL: See HPI for pertinent findings HEMATOLOGIC: Denies bleeding disorders. GENITOURINARY: Denies any blood in urine or increased urinary frequency. SKIN: Denies pruitis. Denies rash. PHYSICAL EXAM: VITAL SIGNS: Reviewed GENERAL: Well-developed in no acute distress. HEENT: No sclera icterus. Extraocular movements grossly intact. Moist buccal mucosa. Head is atraumatic, normocephalic. No nasal drainage. ABDOMEN: Soft. Nondistended. Tenderness to palpation epigastric and right upper quadrant. No rebound. No guarding noted. NEUROLOGIC: Alert and oriented. Cranial nerves II through XII grossly intact. LABORATORY DATA: WBC is 10.5 Hgb 7.9 platelets 381 INR 1.3 Sodium is 130 potassium 4.7 creatinine 0.90 Total bilirubin 2.2 AST 120 ALT 62 alk phos 494 lipase 111 Stool for occult blood positive IMAGING: CT scan from 03/27/2024 abdomen pelvis reports overall progression of disease with distal esophageal mass with extension into the GE junction and lesser curvature of the stomach with multiple innumerable new hypodense hepatic metastasis and increase in size of metastatic adenopathy within the abdomen. ASSESSMENT: 1. Acute GI bleed with melanotic stools likely due to bleeding from patient's esophageal mass 2. Patient with history of metastatic esophageal cancer PLAN: -Agree with blood transfusion -Okay for clear liquid diet -Continue to monitor hemoglobin -Continue to monitor for any signs or symptoms of bleeding -Further recommendations forthcoming per surgeon Physician [employer] note has been reviewed by physician. Signing provider agrees with the documented findings, assessment, and plan of care. Past Medical History Past Medical History: Cancer, Diabetes Mellitus, GERD/Reflux, Hypertension, Syncope Additional Past Medical History / Comment(s): Type II diabetic NIDDM ( "on insulin now r/t steroids") Pt is wearing an external heart monitor until Mar 01, 2024. Recent syncopal episode Jan 22, 2024- found lesion on brain ( last radiation tx to brain will be 02/17/24) and has recent dx esophageal cancer- no chemo at present. Heart murmur. current anemia- is scheduled for Iron infusion on 02/17/24. History of Any Multi-Drug Resistant Organisms: None Reported Past Surgical History: Hernia Repair, Orthopedic Surgery, Tonsillectomy Additional Past Surgical History / Comment(s): Right hand surgery. Fx C-7 wore halo. Umbilical hernia. Recent EGD 01/2024. Past Anesthesia/Blood Transfusion Reactions: No Reported Reaction Additional Past Anesthesia/Blood Transfusion Reaction / Comm: No hx of blood transfusion to date. Past Psychological History: No Psychological Hx Reported Smoking Status: Former smoker Past Alcohol Use History: None Reported Past Drug Use History: None Reported - Past Family History Mother Family Medical History: Cancer, COPD, Myocardial Infarction ([place]) Additional Family Medical History / Comment(s): Unknown cancer. Father Family Medical History: Cancer Additional Family Medical History / Comment(s): Lung Cancer, Brain tumor Brother(s) Family Medical History: Cancer Additional Family Medical History / Comment(s): Leaukemia , Cancer- had part of ear and side of face removed. Medications and Allergies Home Medications Medication Instructions Recorded Confirmed Type Metoprolol Succinate (ER) [Toprol 25 mg PO DAILY 02/14/24 04/03/24 History XL] Empagliflozin [Jardiance] 25 mg PO DAILY 04/03/24 04/03/24 History Famotidine 40 mg PO HS 04/03/24 04/03/24 History Fluticasone Propion/Salmeterol 1 puff INHALATION RT-BID 04/03/24 04/03/24 History [Fluticasone-Salmeterol 500-50] Allergies Allergy/AdvReac Type Severity Reaction Status Date / Time No Known Allergies Allergy Verified 04/03/24 10:57 Surgical - Exam Vital Signs Temp Pulse Resp BP Pulse Ox 98.2 F 130 H 18 109/74 97 04/03/24 10:02 04/03/24 10:02 04/03/24 10:02 04/03/24 10:02 04/03/24 10:02 Results - Labs 04/03/24 10:55 04/03/24 10:55 Abnormal Lab Results - Last 24 Hours (Table) 04/03/24 04/03/24 04/03/24 Range/Units 10:55 10:55 10:55 RBC 2.52 L (4.30-5.90) m/uL Hgb 7.9 L (13.0-17.5) gm/dL Hct 24.2 L (39.0-53.0) % Neutrophils # 8.0 H (1.3-7.7) k/uL PT 13.5 H (10.0-12.5) sec INR 1.3 H (<1.2) APTT 20.1 L (22.0-30.0) sec Sodium 130 L (137-145) mmol/L Carbon Dioxide 20 L (22-30) mmol/L Glucose 143 H (74-99) mg/dL Total Bilirubin 2.2 H (0.2-1.3) mg/dL AST 120 H (17-59) U/L ALT 62 H (4-49) U/L Alkaline Phosphatase 494 H (38-126) U/L Total Protein 6.1 L (6.3-8.2) g/dL Albumin 3.2 L (3.5-5.0) g/dL Crossmatch 04/03/24 Range/Units 10:55 RBC (4.30-5.90) m/uL Hgb (13.0-17.5) gm/dL Hct (39.0-53.0) % Neutrophils # (1.3-7.7) k/uL PT (10.0-12.5) sec INR (<1.2) APTT (22.0-30.0) sec Sodium (137-145) mmol/L Carbon Dioxide (22-30) mmol/L Glucose (74-99) mg/dL Total Bilirubin (0.2-1.3) mg/dL AST (17-59) U/L ALT (4-49) U/L Alkaline Phosphatase (38-126) U/L Total Protein (6.3-8.2) g/dL Albumin (3.5-5.0) g/dL Crossmatch See Detail Diabetes panel 04/03/24 Range/Units 10:55 Sodium 130 L (137-145) mmol/L Potassium 4.7 (3.5-5.1) mmol/L Chloride 99 (98-107) mmol/L Carbon Dioxide 20 L (22-30) mmol/L BUN 16 (9-20) mg/dL Creatinine 0.90 (0.66-1.25) mg/dL Glucose 143 H (74-99) mg/dL Calcium 8.7 (8.4-10.2) mg/dL AST 120 H (17-59) U/L ALT 62 H (4-49) U/L Alkaline Phosphatase 494 H (38-126) U/L Total Protein 6.1 L (6.3-8.2) g/dL Albumin 3.2 L (3.5-5.0) g/dL Calcium panel 04/03/24 Range/Units 10:55 Calcium 8.7 (8.4-10.2) mg/dL Albumin 3.2 L (3.5-5.0) g/dL Pituitary panel 04/03/24 Range/Units 10:55 Sodium 130 L (137-145) mmol/L Potassium 4.7 (3.5-5.1) mmol/L Chloride 99 (98-107) mmol/L Carbon Dioxide 20 L (22-30) mmol/L BUN 16 (9-20) mg/dL Creatinine 0.90 (0.66-1.25) mg/dL Glucose 143 H (74-99) mg/dL Calcium 8.7 (8.4-10.2) mg/dL Adrenal panel 04/03/24 Range/Units 10:55 Sodium 130 L (137-145) mmol/L Potassium 4.7 (3.5-5.1) mmol/L Chloride 99 (98-107) mmol/L Carbon Dioxide 20 L (22-30) mmol/L BUN 16 (9-20) mg/dL Creatinine 0.90 (0.66-1.25) mg/dL Glucose 143 H (74-99) mg/dL Calcium 8.7 (8.4-10.2) mg/dL Total Bilirubin 2.2 H (0.2-1.3) mg/dL AST 120 H (17-59) U/L ALT 62 H (4-49) U/L Alkaline Phosphatase 494 H (38-126) U/L Total Protein 6.1 L (6.3-8.2) g/dL Albumin 3.2 L (3.5-5.0) g/dL
[2024-04-03] MEDS ORDERED: DEXTROSE 50% SYRINGE 50 ML IVP PRN ×2 (16:11)
[2024-04-03 17:18] LABS: Glucose,Whole Blood 104 mg/dL (70-110)
[2024-04-03] MEDS: INSULIN ASPART (NovoLOG) 100 UNIT/ML VIAL SQ SCH (17:19)
[2024-04-03] MEDS: SODIUM CHLORIDE 0.9% 1,000 ML IV SCH (17:50)
[2024-04-03] MEDS: ACETAMINOPHEN TAB 500 MG TAB PO STA (17:50)
[2024-04-03] MEDS: SYMBICORT 160-4.5 MCG INHALER INHALATION SCH (18:08)
--- NOTE | 2024-04-03 21:08 | P.CONS ---
History of Present Illness - Reason for Consult Consult date: 04/03/24 esophageal cancer Requesting physician: Mike Bassett - Chief Complaint rectal bleeding - History of Present Illness Mr Saunders is a pleasant 59 year old male, initially seen in consult at [facility] on 01/23/24. He had come into the ER because of a syncopal episode that led to some head trauma. He had become lightheaded while at work it into the syncope. The patient reported some dizziness earlier in the day. Otherwise symptoms included increasing discomfort in the mid upper abdomen, and some mild difficulty in swallowing off and on. He reported a 20 pound weight loss over the past 1-2 months. The patient had a CT brain that revealed soft tissue nodule, about 9 mm, in the left frontal lobe with associated vasogenic edema, suspicious for malignancy. He had a CTA chest and CT abdomen and pelvis revealing thickening of the distal esophagus measuring up to 2.3 cm, as well as enlarged lymph nodes in the mediastinum and bilateral lower neck. The patient was started on steroids, and then had an EGD on 01/22/24. This showed a malignant-appearing mass involving the lower third of the esophagus which is friable and had some surface bruising. 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 Tumor was negative for HER-2 and was MMR proficient, likely MSI low. MRI of the brain with gadolin ium on 01/24/24 showed right posterior frontal lobe peripherally enhancing mass, 1 cm, with surrounding mesenteric edema. The patient echocardiogram interestingly showed severe left ventricular hypertrophy with outflow obstruction. The patient was able to discharge from the hospital and seen by [facility] oncology as an outpatient. Steroid dose was reduced, and he was simulated to begin SBRT. He was seen for his first oncology office visit on 02/05/24. The pathology, clinical stage, and indications were discussed in detail with him. He was advised that with his stage, his malignancy would t ypically not be considered curable. The objective of treatment would be prolongation of life and palliation of symptoms. He was advised that we would typically treat the brain first, given that standard systemic therapy for his malignancy is not reliable for penetration into the [employer]. After completion of radiation, he'll be started on systemic treatment. I discussed the standard FOLFOX regimen. This will be combined with Keytruda. He has since completed brain SBRT. PET CT on 02/28/2024 showed distal esophageal mass with likely extension into the gastric lumen. Metastatic disease to the liver with greater than 20 liver lesions, mediastinal lymph nodes and upper abdominal lymph nodes. Patient currently awaiting peer to peer for prior auth, and is currently scheduled for treatment to begin on 04/13/23 at [facility]. CT AP on 03/27/24 obtained by his PCP showed overall progression of disease with distal esophageal mass with extension to the GE junction and lesser curvature of the stomach, multiple and new hypodense hepatic metastases, and mild increase in size of metastatic adenopathy within the abdomen Patient presented to the emergency department c/o abdominal pain, n/v, and and dark stools. Patient has been vomiting for the past couple weeks with associated decreased oral intake. He reports noting dark stools over the last 2 days. Also reporting fatigue and generalized weakness. Labs reviewed, upon admit WBC 10.5, hemoglobin 7.9, MCV 96.2, MCHC 32.6. S/p 1 units PRBCs. PT 13.5, INR 1.3, PTT 20.1. Bilirubin elevated 2.2, with transaminitis noted. Lipase 111. Stool occult positive. Hemoglobin in January 2024 was in the 8-9 range. Patient has received IV iron since. Review of Systems 10 point ROS is negative except as stated in the HPI Past Medical History Past Medical History: Cancer, Diabetes Mellitus, GERD/Reflux, Hypertension, Syncope Additional Past Medical History / Comment(s): Type II diabetic NIDDM ( "on insulin now r/t steroids") Pt is wearing an external heart monitor until Mar 01, 2024. Recent syncopal episode Jan 22, 2024- found lesion on brain ( last radiation tx to brain will be 02/17/24) and has recent dx esophageal cancer- no chemo at present. Heart murmur. current anemia- is scheduled for Iron infusion on 02/17/24. History of Any Multi-Drug Resistant Organisms: None Reported Past Surgical History: Hernia Repair, Orthopedic Surgery, Tonsillectomy Additional Past Surgical History / Comment(s): Right hand surgery. Fx C-7 wore halo. Umbilical hernia. Recent EGD 01/2024. Past Anesthesia/Blood Transfusion Reactions: No Reported Reaction Additional Past Anesthesia/Blood Transfusion Reaction / Comm: No hx of blood transfusion to date. Past Psychological History: No Psychological Hx Reported Smoking Status: Former smoker Past Alcohol Use History: None Reported Past Drug Use History: None Reported - Past Family History Mother Family Medical History: Cancer, COPD, Myocardial Infarction (HI) Additional Family Medical History / Comment(s): Unknown cancer. Father Family Medical History: Cancer Additional Family Medical History / Comment(s): Lung Cancer, Brain tumor Brother(s) Family Medical History: Cancer Additional Family Medical History / Comment(s): Leaukemia , Cancer- had part of ear and side of face removed. Medications and Allergies Home Medications Medication Instructions Recorded Confirmed Type Metoprolol Succinate (ER) [Toprol 25 mg PO DAILY 02/14/24 04/03/24 History XL] Empagliflozin [Jardiance] 25 mg PO DAILY 04/03/24 04/03/24 History Famotidine 40 mg PO HS 04/03/24 04/03/24 History Fluticasone Propion/Salmeterol 1 puff INHALATION RT-BID 04/03/24 04/03/24 History [Fluticasone-Salmeterol 500-50] Allergies Allergy/AdvReac Type Severity Reaction Status Date / Time No Known Allergies Allergy Verified 04/03/24 10:57 Physical Exam Vitals: Vital Signs Temp Pulse Resp BP Pulse Ox 04/03/24 17:46 99.3 F 102 H 18 100/65 04/03/24 17:25 99.1 F 104 H 18 96/67 99 04/03/24 16:31 99.3 F 114 H 18 99/72 98 04/03/24 16:15 99.6 F 115 H 20 99/71 04/03/24 15:42 97.8 F 112 H 22 102/63 96 04/03/24 15:09 99.3 F 112 H 20 101/68 98 04/03/24 14:14 98.3 F 114 H 18 102/65 98 04/03/24 13:54 98.0 F 114 H 18 104/67 97 04/03/24 13:44 97.8 F 116 H 16 100/63 98 04/03/24 11:29 114 H 18 118/64 99 04/03/24 10:02 98.2 F 130 H 18 109/74 97 Intake and Output 12/27/24 12/27/24 12/27/24 06:59 14:59 22:59 Intake Total 0 0 Balance 0 0 Intake: Blood Product 0 0 Rc As-1 Unit 0 0 [id number] Other: Weight 63.503 kg - Constitutional General appearance: no acute distress - EENT Eyes: anicteric sclerae, EOMI ENT: hearing grossly normal - Respiratory Respiratory: bilateral: CTA - Cardiovascular Rhythm: regular - Gastrointestinal General gastrointestinal: hepatomegaly, tenderness Localized gastrointestinal: tender: RUQ - Integumentary Integumentary: no cyanotic, no jaundiced - Psychiatric Psychiatric: A&O x's 3 Results CBC & Chem 7: 04/03/24 10:55 04/03/24 10:55 Labs: Abnormal Lab Results - Last 24 Hours (Table) 04/03/24 04/03/24 04/03/24 Range/Units 10:55 10:55 10:55 RBC 2.52 L (4.30-5.90) m/uL Hgb 7.9 L (13.0-17.5) gm/dL Hct 24.2 L (39.0-53.0) % Neutrophils # 8.0 H (1.3-7.7) k/uL PT 13.5 H (10.0-12.5) sec INR 1.3 H (<1.2) APTT 20.1 L (22.0-30.0) sec Sodium 130 L (137-145) mmol/L Carbon Dioxide 20 L (22-30) mmol/L Glucose 143 H (74-99) mg/dL Total Bilirubin 2.2 H (0.2-1.3) mg/dL AST 120 H (17-59) U/L ALT 62 H (4-49) U/L Alkaline Phosphatase 494 H (38-126) U/L Total Protein 6.1 L (6.3-8.2) g/dL Albumin 3.2 L (3.5-5.0) g/dL Crossmatch 04/03/24 Range/Units 10:55 RBC (4.30-5.90) m/uL Hgb (13.0-17.5) gm/dL Hct (39.0-53.0) % Neutrophils # (1.3-7.7) k/uL PT (10.0-12.5) sec INR (<1.2) APTT (22.0-30.0) sec Sodium (137-145) mmol/L Carbon Dioxide (22-30) mmol/L Glucose (74-99) mg/dL Total Bilirubin (0.2-1.3) mg/dL AST (17-59) U/L ALT (4-49) U/L Alkaline Phosphatase (38-126) U/L Total Protein (6.3-8.2) g/dL Albumin (3.5-5.0) g/dL Crossmatch See Detail Comments: PET CT reviewed CT scan - abdomen: report reviewed Assessment and Plan (1) Esophageal adenocarcinoma Current Visit: Yes Status: Acute Priority: High Code(s): C15.9 - MALIGNANT NEOPLASM OF ESOPHAGUS, UNSPECIFIED SNOMED Code(s): 402928266 (2) GI bleed Current Visit: Yes Status: Acute Priority: High Code(s): K92.2 - GASTROINTESTINAL HEMORRHAGE, UNSPECIFIED SNOMED Code(s): 62012210 (3) Anemia Current Visit: Yes Status: Acute Priority: High Code(s): D64.9 - ANEMIA, UNSPECIFIED SNOMED Code(s): 210483835 Plan: GI bleed, anemia: Presented with c/o abdominal pain, n/v, and and dark stools. He reports noting dark stools over the last 2 days. -Upon admit WBC 10.5, hemoglobin 7.9, MCV 96.2, MCHC 32.6, Plt 381. S/p 1 units PRBCs. Bilirubin elevated 2.2, with transaminitis noted. Stool occult positive. Hemoglobin in January 2024 was in the 8-9 range. Patient has previously received IV iron -General surgery consulted -Repeat iron studies ordered. Requested labs on pre-transfusion blood -Continue to monitor CBC. Transfuse for hgb < 7 or if symptomatic Esophageal adenocarcinoma: -Oncology history as stated in the HPI -Completed brain SBRT -Currently awaiting peer to peer review for prior auth, and is scheduled for treatment to begin on 04/13/23 at [facility]. -CT AP on 03/27/24 obtained by his PCP showed overall progression of disease wit h distal esophageal mass with extension to the GE junction and lesser curvature of the stomach, multiple and new hypodense hepatic metastases, and mild increase in size of metastatic adenopathy within the abdomen -Once GI bleed resolved and labs stable, discussed initiating 1st cycle of FOLFOX inpt, he was agreeable to the same. Port has already been placed. Will f/u on surgery recommendations and plan to begin treatment once he is acutely recovered Doctor attests: I performed a history and physical examination of this patient, developed impression and plan of care. Discussed with dictator. I agree with dictators note, documented as a scribe.
[2024-04-03 21:52] LABS: Glucose,Whole Blood 117 mg/dL (70-110)
[2024-04-03] MEDS: HYDROmorphone 1 MG/ML 1 ML SYRINGE IVP PRN (22:32)
[2024-04-04 02:08] LABS: % Iron Saturation 15.43 (15.00-50.00)
--- NOTE | 2024-04-04 03:59 | HP ---
HISTORY AND PHYSICAL CHIEF COMPLAINTS: Blood in the stool and also GI bleed and vomiting. HISTORY OF PRESENT ILLNESS: This 59-year-old gentleman with a past medical history of multiple medical problems including metastatic esophageal cancer. The patient had brain radiation previously. The patient had some emesis and blackish in color and the patient came to [facility] and was admitted for further evaluation and treatment. The patient is also supposed to start chemotherapy in the near future. The hemoglobin was found to be 7.9. The patient has had multiple abnormal lab results. Surgery has seen the patient and recommended transfusion and clear liquids. We will monitor hemoglobin also. There is no history of any fever, rigors, or chills at this time. PAST MEDICAL HISTORY: History of esophageal cancer, diabetes mellitus, GERD, hypertension, and syncope. Rest of the history and rest of the chart is also reviewed. HOME MEDICATIONS: Reviewed include Pepcid. ALLERGIES: None. FAMILY HISTORY: History of cancer, COPD. SOCIAL HISTORY: Previous history of smoking. REVIEW OF SYSTEMS: Fourteen-point review of systems is negative except as mentioned earlier. PHYSICAL EXAMINATION: VITAL SIGNS: Pulse is 112, blood pressure ntd, and respirations 20. HEENT: Conjunctivae pale. NECK: No JVD. CARDIOVASCULAR: S1, S2. RESPIRATIONS: Breath sounds diminished at the bases. ABDOMEN: Soft. Scaphoid. LEGS: No edema. NERVOUS SYSTEM: Nonfocal. LABORATORY DATA: Hemoglobin 7.9. ASSESSMENT: 1. Esophageal cancer with upper gastrointestinal bleeding with acute blood loss anemia. 2. Elevated bilirubin, AST, and ALT. 3. Brain metastasis, status post radiation treatment. 4. Diabetes mellitus type 2. 5. Hypertension. 6. History of syncope. RECOMMENDATIONS AND DISCUSSION: This is a 59-year-old gentleman, who presented with multiple complex medical history. We will monitor the patient closely. Continue the current management . I would recommend repeat hemoglobin. Closely follow with Surgery. Guarded prognosis because of multiple complex medical issues. We will monitor blood sugars closely. See orders for details. Further recommendations to follow. Discussed with the patient. MMODL / IJN: [id number] / MTDD
[2024-04-04] MEDS: ONDANSETRON 4 MG/2 ML VIAL IVP PRN (04:29)
--- NOTE | 2024-04-04 04:29 | P.PN ---
Progress Note - Text Progress Note Date: 04/04/24 No acute events overnight. VSS PHYSICAL EXAM: VITAL SIGNS: Reviewed GENERAL: Well-developed in no acute distress. HEENT: No sclera icterus. Extraocular movements grossly intact. Moist buccal mucosa. Head is atraumatic, normocephalic. No nasal drainage. ABDOMEN: Soft. Nondistended. Tenderness to palpation epigastric and right upper quadrant. No rebound. No guarding noted. NEUROLOGIC: Alert and oriented. Cranial nerves II through XII grossly intact. ASSESSMENT: 1. Acute GI bleed with melanotic stools likely due to bleeding from patient's esophageal mass 2. Patient with history of metastatic esophageal cancer PLAN: -Agree with blood transfusion, follow up post transfusion hemoglobin -Okay for clear liquid diet -Continue to monitor hemoglobin -Continue to monitor for any signs or symptoms of bleeding Armando Garcias DO [facility] [phone]
[2024-04-04 07:22] LABS: Glucose,Whole Blood 116 mg/dL (70-110)
[2024-04-04 08:09] LABS: Basophils # (A) 0.1 k/uL (0-0.2); Basophils % (A) 1 %; Eosinophils # (A) 0.2 k/uL (0-0.7); Eosinophils % (A) 2 %; HCT 24.8 % (39.0-53.0); HGB 8.1 gm/dL (13.0-17.5); Hypochromasia Slight; Lymphocytes # (A) 2.3 k/uL (1.0-4.8); Lymphocytes % (A) 21 %; MCHC 32.7 g/dL (31.0-37.0); MCV 94.8 fL (80.0-100.0); Mean Platelet Volume 7.1; Monocytes # (A) 0.8 k/uL (0-1.0); Monocytes % (A) 7 %; Neutrophils # (A) 7.5 k/uL (1.3-7.7); Neutrophils % (A) 69 %; Platelet Count 336 k/uL (150-450); RBC 2.62 m/uL (4.30-5.90); WBC 10.8 k/uL (3.8-10.6)
[2024-04-04 08:24] LABS: ALT 57 U/L (4-49); AST 108 U/L (17-59); African American GFR (CKD) >90 (>60 ml/min/1.73 sqM); Albumin 2.7 g/dL (3.5-5.0); Alkaline Phosphatase 391 U/L (38-126); Anion Gap 6 mmol/L; Blood Urea Nitrogen 13 mg/dL (9-20); Calcium 8.2 mg/dL (8.4-10.2); Carbon Dioxide 23 mmol/L (22-30); Chloride 99 mmol/L (98-107); Glucose 103 mg/dL (74-99); Non-African American GFR(CKD) >90 (>60 ml/min/1.73 sqM); Potassium 4.4 mmol/L (3.5-5.1); Sodium 128 mmol/L (137-145); Total Bilirubin 3.2 mg/dL (0.2-1.3); Total Protein 5.5 g/dL (6.3-8.2)
[2024-04-04] MEDS: METOPROLOL SUCCINATE (ER) 25 MG TAB.ER.24H PO SCH (09:07)
[2024-04-04 12:13] LABS: Glucose,Whole Blood 107 mg/dL (70-110)
[2024-04-04] MEDS: HYDROmorphone 0.5 MG/0.5 ML SYRINGE IVP PRN (14:26)
[2024-04-04] MEDS: SODIUM FERRIC GLUCONAT-SUCROSE 125 MG in SODIUM CHLORIDE 0.9% 100 ML IVPB SCH (14:28)
--- NOTE | 2024-04-04 15:04 | P.PN ---
Subjective Progress Note Date: 04/04/24 Principal diagnosis: Metastatic esophageal adenocarcinoma -Received 1 unit of packed red blood cells -No acute events overnight -Noted having nausea this morning relieved with IV antiemetics, which precipitated cough and abdominal pain. This is well-controlled with IV pain medication -No melena or hematemesis since admission Objective - Vital Signs Vital signs: Vital Signs Temp 99.5 F 04/04/24 14:00 Pulse 98 04/04/24 14:00 Resp 17 04/04/24 14:00 BP 96/58 04/04/24 14:00 Pulse Ox 95 04/04/24 14:00 FiO2 Intake & Output 04/03/24 04/04/24 04/04/24 18:59 06:59 18:59 Intake Total 0 Balance 0 Weight 63.503 kg Intake: Blood Product 0 Rc As-1 Unit 0 [id number] - Constitutional General appearance: Present: cooperative, no acute distress - EENT Eyes: Present: EOMI - Respiratory Respiratory: bilateral: CTA - Cardiovascular Rhythm: regular - Gastrointestinal General gastrointestinal: Present: distended, hepatomegaly, tenderness Localized gastrointestinal: tender: RUQ (Tender hepatomegaly) - Integumentary Integumentary: Present: jaundiced - Neurologic Neurologic: Present: CNII-XII intact. Absent: focal deficits - Psychiatric Psychiatric: Present: A&O x's 3, appropriate affect - Labs CBC & Chem 7: 04/04/24 07:45 04/04/24 07:45 Labs: Abnormal Lab Results - Last 24 Hours (Table) 04/03/24 04/03/24 04/03/24 Range/Units 10:55 10:55 21:50 WBC (3.8-10.6) k/uL RBC (4.30-5.90) m/uL Hgb (13.0-17.5) gm/dL Hct (39.0-53.0) % Sodium (137-145) mmol/L Glucose (74-99) mg/dL POC Glucose (mg/dL) 117 H (70-110) mg/dL Hemoglobin A1c (<=6.0) % Calcium (8.4-10.2) mg/dL Iron 29 L (65-175) UG/DL TIBC 188 L (228-460) UG/DL Transferrin 134.0 L (204.0-354.0) mg/dL Ferritin 481.0 H (22.0-322.0) ng/mL Total Bilirubin (0.2-1.3) mg/dL AST (17-59) U/L ALT (4-49) U/L Alkaline Phosphatase (38-126) U/L Total Protein (6.3-8.2) g/dL Albumin (3.5-5.0) g/dL Crossmatch See Detail 04/04/24 04/04/24 04/04/24 Range/Units 07:20 07:45 07:45 WBC 10.8 H (3.8-10.6) k/uL RBC 2.62 L (4.30-5.90) m/uL Hgb 8.1 L (13.0-17.5) gm/dL Hct 24.8 L (39.0-53.0) % Sodium (137-145) mmol/L Glucose (74-99) mg/dL POC Glucose (mg/dL) 116 H (70-110) mg/dL Hemoglobin A1c 6.5 H (<=6.0) % Calcium (8.4-10.2) mg/dL Iron (65-175) UG/DL TIBC (228-460) UG/DL Transferrin (204.0-354.0) mg/dL Ferritin (22.0-322.0) ng/mL Total Bilirubin (0.2-1.3) mg/dL AST (17-59) U/L ALT (4-49) U/L Alkaline Phosphatase (38-126) U/L Total Protein (6.3-8.2) g/dL Albumin (3.5-5.0) g/dL Crossmatch 04/04/24 Range/Units 07:45 WBC (3.8-10.6) k/uL RBC (4.30-5.90) m/uL Hgb (13.0-17.5) gm/dL Hct (39.0-53.0) % Sodium 128 L (137-145) mmol/L Glucose 103 H (74-99) mg/dL POC Glucose (mg/dL) (70-110) mg/dL Hemoglobin A1c (<=6.0) % Calcium 8.2 L (8.4-10.2) mg/dL Iron (65-175) UG/DL TIBC (228-460) UG/DL Transferrin (204.0-354.0) mg/dL Ferritin (22.0-322.0) ng/mL Total Bilirubin 3.2 H (0.2-1.3) mg/dL AST 108 H (17-59) U/L ALT 57 H (4-49) U/L Alkaline Phosphatase 391 H (38-126) U/L Total Protein 5.5 L (6.3-8.2) g/dL Albumin 2.7 L (3.5-5.0) g/dL Crossmatch Assessment and Plan (1) 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 Current Visit: Yes Status: Acute Code(s): C15.9 - MALIGNANT NEOPLASM OF ESOPHAGUS, UNSPECIFIED; C78.7 - SECONDARY MALIG NEOPLASM OF LIVER AND INTRAHEPATIC BILE DUCT SNOMED Code(s): 51330156 (2) GI bleed Current Visit: Yes Status: Acute Priority: High Code(s): K92.2 - GAS TROINTESTINAL HEMORRHAGE, UNSPECIFIED SNOMED Code(s): 43817765 (3) Iron deficiency anemia due to chronic blood loss Current Visit: Yes Status: Acute Code(s): D50.0 - IRON DEFICIENCY ANEMIA SECONDARY TO BLOOD LOSS (CHRONIC) SNOMED Code(s): 742764632 Plan: GI bleed, iron deficiency anemia: Presented with c/o abdominal pain, n/v, and and dark stools. He reports noting dark stools over the last 2 days. -Upon admit WBC 10.5, hemoglobin 7.9, MCV 96.2, MCHC 32.6, Plt 381. S/p 1 units PRBCs. Bilirubin elevated 2.2, with transaminitis noted. Stool occult positive. Hemoglobin in January 2024 was in the 8-9 range. Patient has previously received IV iron -No immediate plans for endoscopy at this time -Received 1 unit of packed red blood cells with an appropriate response in hemoglobin to 8.1 from 7.1 after 1 unit packed red blood cells -Iron studies consistent with iron deficiency -IV Ferrlecit 125 mg IV daily for 4 doses ordered today -Continue to monitor CBC. Transfuse for hgb < 7 or if symptomatic Esophageal adenocarcinoma: -Oncology history as stated in the HPI -Completed brain SBRT -Currently awaiting peer to peer review for prior auth, and is scheduled for treatment to begin on 04/13/[facility]. -CT AP on 03/27/24 obtained by his PCP showed overall progression of disease with distal esophageal mass with extension to the GE junction and lesser curvature of the stomach, multiple and new hypodense hepatic metastases, and mild increase in size of metastatic adenopathy within the abdomen -Given the cholestatic transaminitis, imaging findings, and exam findings, there is concern for disease progression causing progressive liver dysfunction -Once GI bleed resolved and labs stable, discussed initiating 1st cycle of FOLFOX inpt, he was agreeable to the same. Port has already been placed. If there is no plans for endoscopy, we will plan on starting FOLFOX early next week Sae Aleman MD
[2024-04-04 16:53] LABS: Glucose,Whole Blood 117 mg/dL (70-110)
--- NOTE | 2024-04-04 17:24 | XR ---
EXAMINATION TYPE: XR chest 1V portable DATE OF EXAM: 04/04/2024 4:59 PM COMPARISON: Chest radiographs from 02/18/2024. CLINICAL INDICATION: Male, 59 years old with history of chf; TECHNIQUE: XR chest 1V portable Frontal view of the chest. FINDINGS: Lungs/Pleura: Increased from prior left basilar airspace opacities. There is no evidence of pleural e ffusion, focal consolidation, or pneumothorax. Pulmonary vascularity: Unremarkable. Heart/mediastinum: Cardiomediastinal silhouette is unremarkable. Musculoskeletal: No acute osseous pathology. Right central intravenous [id number] catheter tip terminating near the superior vena cava. IMPRESSION: Increased left basilar airspace opacities correlate for developing pneumonia. [facility], , 04/04/2024 5:22 PM
[2024-04-04 21:46] LABS: Glucose,Whole Blood 126 mg/dL (70-110)
[2024-04-04] MEDS: PANTOPRAZOLE 40 MG/10 ML VIAL IV SCH (22:13)
[2024-04-05 06:13] LABS: Glucose,Whole Blood 107 mg/dL (70-110)
[2024-04-05 08:53] LABS: Basophils # (A) 0.1 k/uL (0-0.2); Basophils % (A) 1 %; Eosinophils # (A) 0.2 k/uL (0-0.7); Eosinophils % (A) 2 %; HCT 24.1 % (39.0-53.0); HGB 7.9 gm/dL (13.0-17.5); Hypochromasia Slight; Lymphocytes % (A) 22 %; MCH 31.4 pg (25.0-35.0); MCHC 32.8 g/dL (31.0-37.0); MCV 95.6 fL (80.0-100.0); Mean Platelet Volume 8.3; Monocytes # (A) 0.6 k/uL (0-1.0); Monocytes % (A) 6 %; Neutrophils # (A) 6.4 k/uL (1.3-7.7); Neutrophils % (A) 69 %; Platelet Count 311 k/uL (150-450); RBC 2.52 m/uL (4.30-5.90); RDW 15.5 % (11.5-15.5); WBC 9.4 k/uL (3.8-10.6)
[2024-04-05 09:17] LABS: ALT 64 U/L (4-49); AST 154 U/L (17-59); African American GFR (CKD) >90 (>60 ml/min/1.73 sqM); Albumin 2.4 g/dL (3.5-5.0); Alkaline Phosphatase 333 U/L (38-126); Anion Gap 5 mmol/L; Blood Urea Nitrogen 10 mg/dL (9-20); Calcium 7.9 mg/dL (8.4-10.2); Carbon Dioxide 21 mmol/L (22-30); Chloride 99 mmol/L (98-107); Glucose 159 mg/dL (74-99); Non-African American GFR(CKD) >90 (>60 ml/min/1.73 sqM); Potassium 4.3 mmol/L (3.5-5.1); Sodium 125 mmol/L (137-145); Total Bilirubin 3.5 mg/dL (0.2-1.3); Total Protein 5.2 g/dL (6.3-8.2)
--- NOTE | 2024-04-05 10:49 | P.PN ---
Progress Note - Text Progress Note Date: 04/05/24 No acute events overnight. VSS. No further episodes of bleeding. PHYSICAL EXAM: VITAL SIGNS: Reviewed GENERAL: Well-developed in no acute distress. HEENT: No sclera icterus. Extraocular movements grossly intact. Moist buccal mucosa. Head is atraumatic, normocephalic. No nasal drainage. ABDOMEN: Soft. Nondistended. Tenderness to palpation epigastric and right upper quadrant. No rebound. No guarding noted. NEUROLOGIC: Alert and oriented. Cranial nerves II through XII grossly intact. ASSESSMENT: 1. Acute GI bleed with melanotic stools likely due to bleeding from patient's esophageal mass 2. Patient with history of metastatic esophageal cancer PLAN: -Okay for Regular Diet -Continue to monitor hemoglobin -Continue to monitor for any signs or symptoms of bleeding Armando Garcias DO [facility] [phone]
[2024-04-05 11:37] LABS: Glucose,Whole Blood 160 mg/dL (70-110)
[2024-04-05 16:36] LABS: Glucose,Whole Blood 179 mg/dL (70-110)
[2024-04-05 20:37] LABS: Glucose,Whole Blood 127 mg/dL (70-110)
[2024-04-06 06:22] LABS: Glucose,Whole Blood 117 mg/dL (70-110)
--- NOTE | 2024-04-06 09:08 | PN ---
PROGRESS NOTE DATE OF SERVICE: 04/04/2024 SUBJECTIVE: This 59-year-old gentleman with history of esophageal carcinoma with mets was admitted with anemia. Patient after transfusion, hemoglobin is 8.2. The patient is nauseous. Multiple consults following the patient closely. There is no chest pain, any fever, rigors, chills at this time. PAST MEDICAL HISTORY: Reviewed. REVIEW OF SYSTEMS: A 14-point review is negative except as mentioned earlier. PHYSICAL EXAM: VITAL SIGNS: Pulse is 98, blood pressure 90/58, respirations 17. CHEST: Few scattered rhonchi. ABDOMEN: Soft. LEGS: No edema. NERVOUS SYSTEM: Nonfocal. LABORATORY DATA: Reviewed. ASSESSMENT: 1. Esophageal cancer with upper GI bleeding with acute blood loss anemia, status post transfusion. 2. Elevated bilirubin, AST, ALT. 3. Brain mets, status post radiation treatment. 4. Diabetes mellitus type 2. 5. Hypertension. 6. History of syncope. RECOMMENDATIONS: Continue current management and symptomatic treatment. I would recommend a portable chest x-ray. The patient recently had a workup including abdominal CAT scan and PET scans. Closely follow with Hematology, Oncology. Guarded prognosis. Further recommendations to follow. See orders for details. MMODL / IJN: [id number] /
[2024-04-06 09:40] LABS: Basophils # (A) 0.1 k/uL (0-0.2); Basophils % (A) 1 %; Eosinophils # (A) 0.2 k/uL (0-0.7); Eosinophils % (A) 1 %; HCT 25.3 % (39.0-53.0); HGB 8.3 gm/dL (13.0-17.5); Hypochromasia Slight; Lymphocytes # (A) 3.3 k/uL (1.0-4.8); Lymphocytes % (A) 26 %; MCH 31.1 pg (25.0-35.0); MCHC 32.9 g/dL (31.0-37.0); MCV 94.6 fL (80.0-100.0); Mean Platelet Volume 7.7; Monocytes # (A) 0.9 k/uL (0-1.0); Monocytes % (A) 7 %; Neutrophils # (A) 8.2 k/uL (1.3-7.7); Neutrophils % (A) 64 %; Platelet Count 337 k/uL (150-450); RBC 2.67 m/uL (4.30-5.90); WBC 12.8 k/uL (3.8-10.6)
[2024-04-06 10:01] LABS: ALT 84 U/L (4-49); AST 216 U/L (17-59); African American GFR (CKD) >90 (>60 ml/min/1.73 sqM); Albumin 2.4 g/dL (3.5-5.0); Alkaline Phosphatase 325 U/L (38-126); Anion Gap 6 mmol/L; Blood Urea Nitrogen 11 mg/dL (9-20); Calcium 7.9 mg/dL (8.4-10.2); Carbon Dioxide 19 mmol/L (22-30); Chloride 99 mmol/L (98-107); Glucose 156 mg/dL (74-99); Non-African American GFR(CKD) >90 (>60 ml/min/1.73 sqM); Potassium 4.8 mmol/L (3.5-5.1); Sodium 124 mmol/L (137-145); Total Bilirubin 4.1 mg/dL (0.2-1.3); Total Protein 5.3 g/dL (6.3-8.2)
[2024-04-06 11:29] LABS: Glucose,Whole Blood 150 mg/dL (70-110)
[2024-04-06] MEDS ORDERED: ONDANSETRON 16 MG in SODIUM CHLORIDE 0.9% 50 ML IVPB ONE (11:30)
--- NOTE | 2024-04-06 12:32 | PN ---
PROGRESS NOTE DATE OF SERVICE: 04/05/2024 SUBJECTIVE: This is a 59-year-old gentleman, who was admitted anemia. No chest pain. No palpitation. LFTs elevated. PHYSICAL EXAMINATION: VITAL SIGNS: Pulse is 96, blood pressure n respirations 16. CHEST: Clear . ABDOMEN: Soft. NERVOUS SYSTEM: Nonfocal. LABORATORY DATA: Hemoglobin 7.9. Sodium n. ASSESSMENT: 1. Esophageal cancer with upper gastrointestinal bleeding with acute blood loss anemia. 2. Elevated bilirubin, AST, ALT. 3. Brain mets, status post radiation treatment. 4. Diabetes mellitus, type 2. 5. Hypertension. 6. Multiple complex medical issues. RECOMMENDATIONS: Recommend to continue current management and symptomatic treatment. Otherwise, repeat labs. Closely follow with Surgery and Hematology, Oncology and continue to monitor. It seems like surgery regular diet. We will stop the IV fluids and continue to monitor. MMODL / IJN: [id number] / MTDD
[2024-04-06] MEDS ORDERED: ONDANSETRON 4 MG/2 ML VIAL IVP PRN (12:58)
--- NOTE | 2024-04-06 16:08 | P.PN ---
Subjective Progress Note Date: 04/06/24 Pt is reporting persisting RUQ/epigastric pain, but pain meds are helping manage pain. When pain is exacerbated he is feeling nauseous. At today's visit, pt was spitting up saliva, no vomiting, or hematemesis noted. Nursing did state he had 1 episode of vomiting this morning that was clear and darker in color but did not appear to be coffee ground emesis. No episodes of blood stools since admit. Hgb improved today to 8.3 from 7.9 Objective - Vital Signs Vital signs: Vital Signs Temp 98.0 F 04/06/24 03:02 Pulse 109 H 04/06/24 03:02 Resp 16 04/06/24 03:02 BP 114/70 04/06/24 03:02 Pulse Ox 98 04/06/24 03:02 FiO2 Intake & Output 04/05/24 04/06/24 04/06/24 18:59 06:59 18:59 Intake Total 1308 20 340 Balance 1308 20 340 Weight 68.6 kg Intake: IV 10 20 Invasive Line 1 10 20 Intake, IV Titration 700 100 Amount Sodium Chloride 0.9% 1, 600 000 ml @ 75 mls/hr IV . [id number] [facility] Rx#:[id number] Sodium Ferric Gluconat- 100 100 Sucrose 125 mg In Sodium Chloride 0.9% 100 ml @ 100 mls/hr IVPB DAILY [facility] Rx#:[id number] Oral 598 240 Other: Voiding Method Toilet Toilet # Voids 1 # Bowel Movements 0 - Constitutional General appearance: Present: no acute distress - EENT Eyes: Present: EOMI ENT: Present: hearing grossly normal - Respiratory Details: breathing is even and unlabored - Cardiovascular Details: skin warm and dry - Gastrointestinal General gastrointestinal: Present: soft, tenderness Localized gastrointestinal: tender: RUQ, epigastric periumbilical - Integumentary Integumentary: Absent: cyanotic - Musculoskeletal Musculoskeletal: Present: strength equal bilaterally - Psychiatric Psychiatric: Present: A&O x's 3 - Labs CBC & Chem 7: 04/06/24 09:26 04/06/24 09:26 Labs: Abnormal Lab Results - Last 24 Hours (Table) 04/05/24 04/05/24 04/06/24 Range/Units 16:34 20:35 06:20 WBC (3.8-10.6) k/uL RBC (4.30-5.90) m/uL Hgb (13.0-17.5) gm/dL Hct (39.0-53.0) % Neutrophils # (1.3-7.7) k/uL Sodium (137-145) mmol/L Carbon Dioxide (22-30) mmol/L Glucose (74-99) mg/dL POC Glucose (mg/dL) 179 H 127 H 117 H (70-110) mg/dL Calcium (8.4-10.2) mg/dL Total Bilirubin (0.2-1.3) mg/dL AST (17-59) U/L ALT (4-49) U/L Alkaline Phosphatase (38-126) U/L Total Protein (6.3-8.2) g/dL Albumin (3.5-5.0) g/dL 04/06/24 04/06/24 04/06/24 Range/Units 09:26 09:26 11:28 WBC 12.8 H (3.8-10.6) k/uL RBC 2.67 L (4.30-5.90) m/uL Hgb 8.3 L (13.0-17.5) gm/dL Hct 25.3 L (39.0-53.0) % Neutrophils # 8.2 H (1.3-7.7) k/uL Sodium 124 L (137-145) mmol/L Carbon Dioxide 19 L (22-30) mmol/L Glucose 156 H (74-99) mg/dL POC Glucose (mg/dL) 150 H (70-110) mg/dL Calcium 7.9 L (8.4-10.2) mg/dL Total Bilirubin 4.1 H (0.2-1.3) mg/dL AST 216 H (17-59) U/L ALT 84 H (4-49) U/L Alkaline Phosphatase 325 H (38-126) U/L Total Protein 5.3 L (6.3-8.2) g/dL Albumin 2.4 L (3.5-5.0) g/dL Assessment and Plan (1) Esophageal adenocarcinoma Current Visit: Yes Status: Acute Priority: High Code(s): C15.9 - MALIGNANT NEOPLASM OF ESOPHAGUS, UNSPECIFIED SNOMED Code(s): 295648344 (2) GI bleed Current Visit: Yes Status: Acute Priority: High Code(s): K92.2 - GASTROINTESTINAL HEMORRHAGE, UNSPECIFIED SNOMED Code(s): 05946718 (3) Anemia Current Visit: Yes Status: Acute Priority: High Code(s): D64.9 - ANEMIA, UNSPECIFIED SNOMED Code(s): 809076024 Plan: GI bleed, iron deficiency anemia: Presented with c/o abdominal pain, n/v, and and dark stools. He reports noting dark stools over the last 2 days [employer] -Upon admit WBC 10.5, hemoglobin 7.9, MCV 96.2, MCHC 32.6, Plt 381. S/p 1 units PRBCs. Bilirubin elevated 2.2, with transaminitis noted. Stool occult positive. Hemoglobin in January 2024 was in the 8-9 range. Patient has previously rece ived IV iron -No immediate plans for endoscopy at this time -Iron studies consistent with iron deficiency -IV Ferrlecit 125 mg IV daily for 4 doses ordered today -Hgb slightly improved today from 7.9 to 8.3. No acute bleeding noted since admit -Continue to monitor CBC. Transfuse for hgb < 7 or if symptomatic Esophageal adenocarcinoma: -Oncology history as stated in the HPI -Completed brain SBRT -Currently awaiting peer to peer review for prior auth, and is scheduled for treatment to begin on 04/13/23 at [facility]. -CT AP on 03/27/24 obtained by his PCP showed overall progression of disease with distal esophageal mass with extension to the GE junction and lesser curvature of the stomach, multiple and new hypodense hepatic metastases, and mild increase in size of metastatic adenopathy within the abdomen -Given the cholestatic transaminitis, imaging findings, and exam findings, there is concern for disease progression causing progressive liver dysfunction -Once GI bleed resolved and labs stable, discussed initiating 1st cycle of FOLFOX inpt, he was agreeable to the same. Port has already been placed. -Spoke with surgery today, no plans for endoscopy at this time. Hgb stable at 8.3. Will initiate cycle 1 FOLFOX. Transfer to and chemo orders have been placed
[2024-04-06 17:28] LABS: Glucose,Whole Blood 154 mg/dL (70-110)
--- NOTE | 2024-04-06 18:03 | P.PN ---
Progress Note - Text Progress Note Date: 04/06/24 No acute events overnight. VSS. No further episodes of bleeding. PHYSICAL EXAM: VITAL SIGNS: Reviewed GENERAL: Well-developed in no acute distress. HEENT: No sclera icterus. Extraocular movements grossly intact. Moist buccal mucosa. Head is atraumatic, normocephalic. No nasal drainage. ABDOMEN: Soft. Nondistended. Tenderness to palpation epigastric and right upper quadrant. No rebound. No guarding noted. NEUROLOGIC: Alert and oriented. Cranial nerves II through XII grossly intact. ASSESSMENT: 1. Acute GI bleed with melanotic stools likely due to bleeding from patient's esophageal mass 2. Patient with history of metastatic esophageal cancer PLAN: -Okay for Regular Diet -Continue to monitor hemoglobin -Continue to monitor for any signs or symptoms of bleeding -No plan for EGD at this time Armando Garcias DO [facility] [phone]
[2024-04-06 20:10] LABS: Glucose,Whole Blood 255 mg/dL (70-110)
--- NOTE | 2024-04-06 23:55 | P.PN ---
Subjective Progress Note Date: 04/06/24 This is a pleasant 59-year-old male who was recently admitted with anemia along with LFTs that were elevated with general surgery and oncology following. Patient has a significant history of esophageal cancer with upper GI bleeding and also brain mets maintained on treatment. No plans for surgical endoscopic intervention at this time recommend monitoring hemoglobin closely. Hemoglobin is just above 8 with no active bleeding noted. Diet has been advanced and will monitor. Follow-up with repeat labs and transfuse if 7 or less. Oncology discussing initiating treatment Review of systems: Constitutional: No reports of fatigue, fever, or chills Cardiovascular: No reports of chest pain or palpitations Respiratory: No reports of shortness of breath or cough GI: reports of nausea, reports of vomiting, not tolerating oral intake : No reports of dysuria or retention Neurovascular: reports of generalized weakness All medications have been reviewed PHYSICAL EXAMINATION: GENERAL: The patient is alert and oriented x4, Well developed, well nourished. Thin built, elderly, ill-appearing HEENT: Pupils are round and equally reacting to light. EOMI. no scleral icterus. No conjunctival pallor. Normocephalic, atraumatic. No pharyngeal erythema. No thyromegaly. CARDIOVASCULAR: S1 and S2 muffled PULMONARY: diminished breath sounds bilaterally with no wheezing or rhonchi noted. ABDOMEN: soft. Nontender on exam. Thin. non-distended, normoactive bowel sounds. No palpable organomegaly. MUSCULOSKELETAL: No joint swelling or deformity. EXTREMITIES: No cyanosis, clubbing, or pedal edema. NEUROLOGICAL: Gross neurological examination did not reveal any focal deficits. Diffuse weakness SKIN: No rashes. Assessment: Esophageal cancer with upper GI bleeding with acute blood loss anemia, present on admission Elevated bilirubin, AST, ALT Brain mets status post radiation treatment History of diabetes mellitus, type II History of hypertension GI prophylaxis DVT prophylaxis Full code Plan: Recommend to continue with current medications and management with general surgery and oncology following. Patient being transferred over to [address]. in discussing possible treatment intervention with oncology General surgery evaluated the patient with no plans of endoscopic intervention a t this time and bleeding likely secondary to esophageal mass. Hemoglobin is stable and recommend to monitor closely and transfuse if 7 or less Continue antinausea medications and supportive care as patient is not tolerating much and continues to be nauseated with occasional vomiting Overall prognosis is guarded at this time The impression and plan of care has been dictated by Joanna López, nurse practitioner as directed. Dr. Christopher MD I have performed a history and examination and MDM of this patient, discussed the same with the dictator, and agree with the dictator's assessment and plan as written ,documented as a scribe. Based on total visit time, I have performed more than 50% of the visit. Any additional findings or plans will be noted. Objective - Vital Signs Vital signs: Vital Signs Temp 98.0 F 04/06/24 03:02 Pulse 109 H 04/06/24 03:02 Resp 16 04/06/24 03:02 BP 114/70 04/06/24 03:02 Pulse Ox 98 04/06/24 03:02 FiO2 Intake & Output 04/05/24 04/06/24 04/06/24 18:59 06:59 18:59 Intake Total 1308 20 340 Balance 1308 20 340 Weight 68.6 kg Intake: IV 10 20 Invasive Line 1 10 20 Intake, IV Titration 700 100 Amount Sodium Chloride 0.9% 1, 600 000 ml @ 75 mls/hr IV . [id number] [facility] Rx#:[id number] Sodium Ferric Gluconat- 100 100 Sucrose 125 mg In Sodium Chloride 0.9% 100 ml @ 100 mls/hr IVPB DAILY [facility] Rx#:[id number] Oral 598 240 Other: Voiding Method Toilet Toilet # Voids 1 # Bowel Movements 0 - Labs CBC & Chem 7: 04/06/24 09:26 04/06/24 09:26 Labs: Abnormal Lab Results - Last 24 Hours (Table) 04/05/24 04/05/24 04/06/24 Range/Units 16:34 20:35 06:20 WBC (3.8-10.6) k/uL RBC (4.30-5.90) m/uL Hgb (13.0-17.5) gm/dL Hct (39.0-53.0) % Neutrophils # (1.3-7.7) k/uL Sodium (137-145) mmol/L Carbon Dioxide (22-30) mmol/L Glucose (74-99) mg/dL POC Glucose (mg/dL) 179 H 127 H 117 H (70-110) mg/dL Calcium (8.4-10.2) mg/dL Total Bilirubin (0.2-1.3) mg/dL AST (17-59) U/L ALT (4-49) U/L Alkaline Phosphatase (38-126) U/L Total Protein (6.3-8.2) g/dL Albumin (3.5-5.0) g/dL 04/06/24 04/06/24 04/06/24 Range/Units 09:26 09:26 11:28 WBC 12.8 H (3.8-10.6) k/uL RBC 2.67 L (4.30-5.90) m/uL Hgb 8.3 L (13.0-17.5) gm/dL Hct 25.3 L (39.0-53.0) % Neutrophils # 8.2 H (1.3-7.7) k/uL Sodium 124 L (137-145) mmol/L Carbon Dioxide 19 L (22-30) mmol/L Glucose 156 H (74-99) mg/dL POC Glucose (mg/dL) 150 H (70-110) mg/dL Calcium 7.9 L (8.4-10.2) mg/dL Total Bilirubin 4.1 H (0.2-1.3) mg/dL AST 216 H (17-59) U/L ALT 84 H (4-49) U/L Alkaline Phosphatase 325 H (38-126) U/L Total Protein 5.3 L (6.3-8.2) g/dL Albumin 2.4 L (3.5-5.0) g/dL
[2024-04-07 07:30] LABS: Glucose,Whole Blood 125 mg/dL (70-110)
--- NOTE | 2024-04-07 07:40 | P.PN ---
Progress Note - Text Progress Note Date: 04/07/24 No acute events overnight. VSS. No further episodes of bleeding. PHYSICAL EXAM: VITAL SIGNS: Reviewed GENERAL: Well-developed in no acute distress. HEENT: No sclera icterus. Extraocular movements grossly intact. Moist buccal mucosa. Head is atraumatic, normocephalic. No nasal drainage. ABDOMEN: Soft. Nondistended. Tenderness to palpation epigastric and right upper quadrant. No rebound. No guarding noted. NEUROLOGIC: Alert and oriented. Cranial nerves II through XII grossly intact. ASSESSMENT: 1. Acute GI bleed with melanotic stools likely due to bleeding from patient's esophageal mass 2. Patient with history of metastatic esophageal cancer PLAN: -Okay for Regular Diet -Continue to monitor hemoglobin -Continue to monitor for any signs or symptoms of bleeding -No plan for EGD at this time Armando Garcias DO [facility] [phone]
[2024-04-07 08:51] LABS: ALT 93 U/L (10-49); AST 242 U/L (14-35); Albumin 2.6 g/dL (3.8-4.9); Albumin/Globulin Ratio 0.96 Ratio (1.60-3.17); Alkaline Phosphatase 343 U/L (41-126); BUN/Creat Ratio 11.55 Ratio (12.00-20.00); Blood Urea Nitrogen 12.7 mg/dL (9.0-27.0); Carbon Dioxide 20.3 mmol/L (21.6-31.8); Chloride 97 mmol/L (96-109); Globulin 2.7 g/dL (1.6-3.3); Glucose 128 mg/dL (70-110); Sodium 127 mmol/L (135-145); Total Bilirubin 4.1 mg/dL (0.3-1.2); Total Protein 5.3 g/dL (6.2-8.2)
[2024-04-07] MEDS ORDERED: LOPERAMIDE 2 MG CAP PO PRN (08:54)
[2024-04-07] MEDS ORDERED: MAGNESIUM HYDROXIDE 2,400 MG/30 ML CUP PO PRN (08:54)
[2024-04-07 09:07] LABS: Basophils # (A) 0.04 X 10*3/uL (0.00-0.10); Basophils % (A) 0.3 %; Eosinophils # (A) 0.14 X 10*3/uL (0.04-0.35); Eosinophils % (A) 1.1 %; HCT 25.2 % (39.6-50.0); HGB 8.1 g/dL (13.0-17.0); Lymphocytes # (A) 2.31 X 10*3/uL (0.90-5.00); Lymphocytes % (A) 18.5 %; MCH 30.8 pg (27.0-32.0); MCHC 32.1 g/dL (32.0-37.0); MCV 95.8 FL (80.0-97.0); Mean Platelet Volume 10.1 FL (9.5-12.2); Monocytes # (A) 1.41 X 10*3/uL (0.20-1.00); Monocytes % (A) 11.3 %; NRBC Per 100 WBC 0 X 10*3/uL (0.00-0.01); Neutrophils # (A) 8.31 X 10*3/uL (1.80-7.70); Neutrophils % (A) 66.8 %; Platelet Count 364 X 10*3/uL (140-440); RBC 2.63 X 10*6/uL (4.40-5.60); WBC 12.46 X 10*3/uL (4.50-10.00)
[2024-04-07] MEDS: PETROLATUM, WHITE OINT 50 GM TUBE TOPICAL SCH (09:19)
[2024-04-07] MEDS: LIDOCAINE-PRILOCAINE 2.5-2.5% CREAM 5 GM TUBE TOPICAL STA (09:20)
[2024-04-07] MEDS: SODIUM CHLORIDE 0.9% 1,000 ML IV SCH (10:22)
[2024-04-07] MEDS: ONDANSETRON 16 MG in SODIUM CHLORIDE 0.9% 50 ML IVPB ONE (11:08)
[2024-04-07] MEDS: SALT AND SODA MOUTHWASH 1,000 ML PO SCH (11:08)
[2024-04-07] MEDS: FAMOTIDINE 20 MG/2 ML VIAL IV ONE (11:08)
[2024-04-07] MEDS: DEXAMETHASONE SOD PHOSPHATE 10 MG/ML 1 ML VIAL IV ONE (11:08)
[2024-04-07] MEDS: OXALIPLATIN 100 MG, OXALIPLATIN 50 MG in DEXTROSE 5% IN WATER 500 ML IV ONE (11:59)
[2024-04-07] MEDS: LEUCOVORIN 700 MG in DEXTROSE 5% IN WATER 500 ML IV ONE (12:00)
[2024-04-07 12:18] LABS: Glucose,Whole Blood 181 mg/dL (70-110)
[2024-04-07] MEDS: SODIUM CHLORIDE 0.9% IV ONE (14:49)
[2024-04-07] MEDS: FLUOROURACIL IV ONE (14:49)
[2024-04-07] MEDS ORDERED: ONDANSETRON 16 MG in SODIUM CHLORIDE 0.9% 50 ML IVPB ONE (15:30)
[2024-04-07] MEDS ORDERED: PROMETHAZINE 25 MG TAB PO PRN (15:48)
--- NOTE | 2024-04-07 15:52 | P.PN ---
Subjective This is a pleasant 59-year-old male who was recently admitted with anemia along with LFTs that were elevated with general surgery and oncology following. Patient has a significant history of esophageal cancer with upper GI bleeding and also brain mets maintained on treatment. No plans for surgical endoscopic intervention at this time recommend monitoring hemoglobin closely. Hemoglobin is just above 8 with no active bleeding noted. Diet has been advanced and will monitor. Follow-up with repeat labs and transfuse if 7 or less. Oncology di scussing initiating treatment 04/07 Patient started on chemotherapy He is very weak, mildly tachypneic, looks jaundiced Complains from epigastric pain and nausea. Also has mild epigastric tenderness most likely related to his esophageal cancer He is getting Zofran into the IV fluid Will add Phenergan as needed He is getting IV ceftriaxone for left lower lobe pneumonia He is getting IV iron for anemia Review of systems CONSTITUTIONAL: No fever, no malaise, no fatigue. HEENT: No recent visual problems or hearing problems. Denied any sore throat. CARDIOVASCULAR: No orthopnea, PND, no palpitations, no syncope. PULMONARY: No shortness of breath, no cough, no hemoptysis. Active Medications Generic Name Dose Route Start Last Admin Trade Name Freq PRN Reason Stop Dose Admin Budesonide/Formoterol Fumarate 2 puff 04/03/24 20:00 04/07/24 07:55 Symbicort 160-4.5 Mcg Inhaler INHALATION 2 puff RT-BID [facility] Administration Dextrose/Water 25 ml 04/03/24 16:11 Dextrose 50% Syringe 50 Ml IVP PER PROTOCOL PRN Hypoglycemia Protocol Dextrose/Water 50 ml 04/03/24 16:11 Dextrose 50% Syringe 50 Ml IVP PER PROTOCOL PRN Hypoglycemia Protocol Hydromorphone HCl 0.5 mg 04/03/24 13:06 04/07/24 01:27 Hydromorphone 0.5 Mg/0.5 Ml Syringe IVP 0.5 mg Q3HR PRN Administration Moderate Pain (Scale 4 to 6) Hydromorphone HCl 1 mg 04/03/24 13:06 04/07/24 11:07 Hydromorphone 1 Mg/Ml 1 Ml Syringe IVP 1 mg Q3HR PRN Administration Severe Pain (Scale 7 to 10) Ceftriaxone Sodium 1 gm/ 50 mls @ 100 mls/hr 04/06/24 10:45 04/07/24 10:22 Sodium Chloride IVPB 100 mls/hr Q24HR [facility] Administration Protocol Fluorouracil 4,200 mg/ Sodium 250 mls @ 5.435 mls/hr 04/07/24 15:15 04/07/24 14:49 Chloride/ IV Solution IV 04/09/24 13:14 5.435 mls/hr ONCE ONE Administration Sodium Chloride 1,000 mls @ 75 mls/hr 04/07/24 10:15 04/07/24 10:22 Saline 0.9% IV 75 mls/hr .[id number] [facility] Administration Insulin Aspart 0 unit 04/03/24 17:30 04/07/24 13:08 Insulin Aspart (Novolog) 100 Unit/Ml Vial SQ 2 unit ACHS [facility] Administration Protocol Loperamide HCl 2 mg 04/07/24 08:54 Loperamide 2 Mg Cap PO QID PRN Diarrhea Magnesium Hydroxide 2,400 mg 04/07/24 08:54 Magnesium Hydroxide 2,400 Mg/30 Ml Cup PO DAILY PRN Constipation Metoprolol Succinate 25 mg 04/04/24 09:00 04/07/24 09:19 Metoprolol Succinate (Er) 25 Mg Tab.Er.24h PO 25 mg DAILY [facility] Administration Naloxone HCl 0.2 mg 04/03/24 13:06 Naloxone 0.4 Mg/Ml 1 Ml Vial IV Q2M PRN Opioid Reversal Ondansetron HCl 4 mg 04/06/24 16:11 Ondansetron 4 Mg/2 Ml Vial IVP Q6HR PRN Nausea And Vomiting Pantoprazole Sodium 40 mg 04/04/24 21:00 04/07/24 09:19 Pantoprazole 40 Mg/10 Ml Vial IV 40 mg BID [facility] Administration Petrolatum 1 applic 04/07/24 09:00 04/07/24 09:19 Petrolatum, White Oint 50 Gm Tube TOPICAL 1 applic BID [facility]IN Administration Protocol Promethazine HCl 25 mg 04/07/24 15:48 Promethazine 25 Mg Tab PO Q6HR PRN Nausea Promethazine HCl 12.5 mg 04/07/24 15:48 Promethazine 25 Mg Tab PO 04/07/24 15:49 ONCE STA Sodium Bicarbonate 5 ml 04/07/24 11:00 04/07/24 14:58 Salt And Soda Mouthwash 1,000 Ml PO 5 ml 5XD CON[facility]ANTIN Administration Objective - Vital Signs Vital signs: Vital Signs Temp 98.1 F 04/07/24 12:21 Pulse 100 04/07/24 12:21 Resp 18 04/07/24 12:21 BP 98/64 04/07/24 12:21 Pulse Ox 97 04/07/24 12:21 FiO2 Intake & Output 04/06/24 04/07/24 04/07/24 18:59 06:59 18:59 Intake Total 710 240 Balance 710 240 Weight 68.6 kg Intake: IV 10 Invasive Line 1 10 Intake, IV Titration 100 Amount Sodium Ferric Gluconat- 100 Sucrose 125 mg In Sodium Chloride 0.9% 100 ml @ 100 mls/hr IVPB DAILY [facility] Rx#:[id number] Oral 600 240 Other: Voiding Method Toilet Toilet # Voids 2 1 - Exam -GENERAL: The patient is alert and oriented x3, not in any acute distress. Well developed, well nourished. Generally weak HEENT: Pupils are round and equally reacting to light. EOMI. No scleral icterus. No conjunctival pallor. Normocephalic, atraumatic. No pharyngeal erythema. No thyromegaly. CARDIOVASCULAR: S1 and S2 present. No murmurs, rubs, or gallops. -PULMONARY: Chest is clear to auscultation, no wheezing , no crackles. Mildly tachypneic -ABDOMEN: Soft, mild epigastric tenderness, nondistended, normoactive bowel sounds. No palpable organomegaly. MUSCULOSKELETAL: No joint swelling or deformity. EXTREMITIES: No cyanosis, clubbing, or pedal edema. NEUROLOGICAL: Gross neurological examination did not reveal any focal deficits. SKIN: No rashes. no petechiae. - Labs CBC & Chem 7: 04/07/24 04:39 04/07/24 04:39 Labs: Abnormal Lab Results - Last 24 Hours (Table) 04/06/24 04/06/24 04/07/24 Range/Units 17:21 20:09 04:39 WBC 12.46 H (4.50-10.00) X 10*3/uL RBC 2.63 L (4.40-5.60) X 10*6/uL Hgb 8.1 L (13.0-17.0) g/dL Hct 25.2 L (39.6-50.0) % RDW 15.0 H (11.5-14.5) % Immature Gran # 0.25 H (0.00-0.04) X 10*3/uL Neutrophils # 8.31 H (1.80-7.70) X 10*3/uL Monocytes # 1.41 H (0.20-1.00) X 10*3/uL Sodium (135-145) mmol/L Carbon Dioxide (21.6-31.8) mmol/L BUN/Creatinine Ratio (12.00-20.00) Ratio Glucose (70-110) mg/dL POC Glucose (mg/dL) 154 H 255 H (70-110) mg/dL Calcium (8.7-10.3) mg/dL Total Bilirubin (0.3-1.2) mg/dL AST (14-35) U/L ALT (10-49) U/L Alkaline Phosphatase (41-126) U/L Total Protein (6.2-8.2) g/dL Albumin (3.8-4.9) g/dL Albumin/Globulin Ratio (1.60-3.17) Ratio 04/07/24 04/07/24 04/07/24 Range/Units 04:39 07:24 12:16 WBC (4.50-10.00) X 10*3/uL RBC (4.40-5.60) X 10*6/uL Hgb (13.0-17.0) g/dL Hct (39.6-50.0) % RDW (11.5-14.5) % Immature Gran # (0.00-0.04) X 10*3/uL Neutrophils # (1.80-7.70) X 10*3/uL Monocytes # (0.20-1.00) X 10*3/uL Sodium 127 L (135-145) mmol/L Carbon Dioxide 20.3 L (21.6-31.8) mmol/L BUN/Creatinine Ratio 11.55 L (12.00-20.00) Ratio Glucose 128 H (70-110) mg/dL POC Glucose (mg/dL) 125 H 181 H (70-110) mg/dL Calcium 8.0 L (8.7-10.3) mg/dL Total Bilirubin 4.1 H (0.3-1.2) mg/dL AST 242 H (14-35) U/L ALT 93 H (10-49) U/L Alkaline Phosphatase 343 H (41-126) U/L Total Protein 5.3 L (6.2-8.2) g/dL Albumin 2.6 L (3.8-4.9) g/dL Albumin/Globulin Ratio 0.96 L (1.60-3.17) Ratio Assessment and Plan Assessment: Esophageal cancer with upper GI bleeding with acute blood loss anemia, present on admission. Associated with epigastric tenderness Elevated bilirubin, AST, ALT Hyponatremia Brain mets status post radiation treatment History of diabetes mellitus, type II History of hypertension Plan: Patient already started on chemotherapy. Oncologist is getting 5-fluorouracil, leucovorin and oxaliplatin. Patient has some nausea with getting IV fluids with Zofran. Will add Phenergan Continue with ceftriaxone Continue with IV iron Hematology/oncology team on the case General Surgery following
[2024-04-07] MEDS: PROMETHAZINE 25 MG TAB PO STA (16:24)
[2024-04-07 17:09] LABS: Glucose,Whole Blood 228 mg/dL (70-110)
[2024-04-07 20:09] LABS: Glucose,Whole Blood 216 mg/dL (70-110)
--- NOTE | 2024-04-07 20:18 | P.PN ---
Subjective Progress Note Date: 04/07/24 No acute events. Patient reports improvement in abd pain and appetite today. Able to tolerate small amounts of solid foods. Tolerating hydration. Denies vomiting, no reported episodes of acute bleeding. Hgb stable at 8.1. Plan to initiate cycle 1 of FOLFOX today Objective - Vital Signs Vital signs: Vital Signs Temp 97.7 F 04/07/24 07:26 Pulse 113 H 04/07/24 07:26 Resp 16 04/07/24 07:26 BP 105/66 04/07/24 07:26 Pulse Ox 97 04/07/24 07:26 FiO2 Intake & Output 04/06/24 04/07/24 04/07/24 18:59 06:59 18:59 Intake Total 710 240 Balance 710 240 Weight 68.6 kg Intake: IV 10 Invasive Line 1 10 Intake, IV Titration 100 Amount Sodium Ferric Gluconat- 100 Sucrose 125 mg In Sodium Chloride 0.9% 100 ml @ 100 mls/hr IVPB DAILY [facility] Rx#:[id number] Oral 600 240 Other: Voiding Method Toilet Toilet # Voids 2 - Constitutional General appearance: Present: average body habitus, no acute distress - EENT ENT: Present: hearing grossly normal - Respiratory Details: breathing is even and unlabored - Cardiovascular Details: skin warm and dry - Gastrointestinal General gastrointestinal: Absent: tenderness - Integumentary Integumentary: Absent: cyanotic - Neurologic Neurologic: Present: CNII-XII intact - Psychiatric Psychiatric: Present: A&O x's 3 - Labs CBC & Chem 7: 04/07/24 04:39 04/07/24 04:39 Labs: Abnormal Lab Results - Last 24 Hours (Table) 04/06/24 04/06/24 04/07/24 Range/Units 17:21 20:09 04:39 WBC 12.46 H (4.50-10.00) X 10*3/uL RBC 2.63 L (4.40-5.60) X 10*6/uL Hgb 8.1 L (13.0-17.0) g/dL Hct 25.2 L (39.6-50.0) % RDW 15.0 H (11.5-14.5) % Immature Gran # 0.25 H (0.00-0.04) X 10*3/uL Neutrophils # 8.31 H (1.80-7.70) X 10*3/uL Monocytes # 1.41 H (0.20-1.00) X 10*3/uL Sodium (135-145) mmol/L Carbon Dioxide (21.6-31.8) mmol/L BUN/Creatinine Ratio (12.00-20.00) Ratio Glucose (70-110) mg/dL POC Glucose (mg/dL) 154 H 255 H (70-110) mg/dL Calcium (8.7-10.3) mg/dL Total Bilirubin (0.3-1.2) mg/dL AST (14-35) U/L ALT (10-49) U/L Alkaline Phosphatase (41-126) U/L Total Protein (6.2-8.2) g/dL Albumin (3.8-4.9) g/dL Albumin/Globulin Ratio (1.60-3.17) Ratio 04/07/24 04/07/24 04/07/24 Range/Units 04:39 07:24 12:16 WBC (4.50-10.00) X 10*3/uL RBC (4.40-5.60) X 10*6/uL Hgb (13.0-17.0) g/dL Hct (39.6-50.0) % RDW (11.5-14.5) % Immature Gran # (0.00-0.04) X 10*3/uL Neutrophils # (1.80-7.70) X 10*3/uL Monocytes # (0.20-1.00) X 10*3/uL Sodium 127 L (135-145) mmol/L Carbon Dioxide 20.3 L (21.6-31.8) mmol/L BUN/Creatinine Ratio 11.55 L (12.00-20.00) Ratio Glucose 128 H (70-110) mg/dL POC Glucose (mg/dL) 125 H 181 H (70-110) mg/dL Calcium 8.0 L (8.7-10.3) mg/dL Total Bilirubin 4.1 H (0.3-1.2) mg/dL AST 242 H (14-35) U/L ALT 93 H (10-49) U/L Alkaline Phosphatase 343 H (41-126) U/L Total Protein 5.3 L (6.2-8.2) g/dL Albumin 2.6 L (3.8-4.9) g/dL Albumin/Globulin Ratio 0.96 L (1.60-3.17) Ratio Assessment and Plan (1) Esophageal adenocarcinoma Current Visit: Yes Status: Acute Priority: High Code(s): C15.9 - MALIGNANT NEOPLASM OF ESOPHAGUS, UNSPECIFIED SNOMED Code(s): 568164702 (2) GI bleed Current Visit: Yes Status: Acute Priority: High Code(s): K92.2 - GASTROINTESTINAL HEMORRHAGE, UNSPECIFIED SNOMED Code(s): 55780038 (3) Anemia Current Visit: Yes Status: Acute Priority: High Code(s): D64.9 - ANEMIA, UNSPECIFIED SNOMED Code(s): 252214229 Plan: GI bleed, iron deficiency anemia: Presented with c/o abdominal pain, n/v, and and dark stools. He reports noting dark stools over the last 2 days [facility] -Upon admit WBC 10.5, hemoglobin 7.9, MCV 96.2, MCHC 32.6, Plt 381. S/p 1 units PRBCs. Bilirubin elevated 2.2, with transaminitis noted. Stool occult positive. Hemoglobin in January 2024 was in the 8-9 range. Patient has previously received IV iron -No immediate plans for endoscopy at this time -Iron studies consistent with iron deficiency -IV Ferrlecit 125 mg IV daily for 4 doses ordered -Hgb stable, 8.1 today. No acute bleeding noted since admit -Continue to monitor CBC. Transfuse for hgb < 7 or if symptomatic Esophageal adenocarcinoma: -Oncology history as stated in the HPI -Completed brain SBRT -Currently awaiting peer to peer review for prior auth, and was scheduled for treatment to begin on 04/13/23 at [facility]. -CT AP on 03/27/24 obtained by his PCP showed overall progression of disease with distal esophageal mass with extension to the GE junction and lesser curvature of the stomach, multiple and new hypodense hepatic metastases, and mild increase in size of metastatic adenopathy within the abdomen -Given the cholestatic transaminitis, imaging findings, and exam findings, there is concern for disease progression causing progressive liver dysfunction -Once GI bleed resolved and labs stable, discussed initiating 1st cycle of FOLFOX inpt, he was agreeable to the same. Port has already been placed. -Spoke with surgery, no plans for endoscopy at this time. Hgb stable at 8.1, no reported episodes of acute bleeding since admit. Scheduled to start cycle 1 FOLFOX today
[2024-04-07] MEDS: SCOPOLAMINE 1 MG/72 HR PATCH TRANSDERM SCH (21:49)
[2024-04-08 07:25] LABS: Glucose,Whole Blood 142 mg/dL (70-110)
[2024-04-08 09:06] LABS: Basophils # (A) 0.02 X 10*3/uL (0.00-0.10); Basophils % (A) 0.1 %; Eosinophils # (A) 0.08 X 10*3/uL (0.04-0.35); Eosinophils % (A) 0.6 %; HCT 24.8 % (39.6-50.0); HGB 7.9 g/dL (13.0-17.0); Lymphocytes # (A) 2.19 X 10*3/uL (0.90-5.00); MCH 30.3 pg (27.0-32.0); MCHC 31.9 g/dL (32.0-37.0); Mean Platelet Volume 9.9 FL (9.5-12.2); Monocytes % (A) 9.5 %; NRBC Per 100 WBC 0 X 10*3/uL (0.00-0.01); Neutrophils # (A) 9.72 X 10*3/uL (1.80-7.70); Neutrophils % (A) 70.9 %; Platelet Count 366 X 10*3/uL (140-440); RBC 2.61 X 10*6/uL (4.40-5.60); RDW 15.2 % (11.5-14.5); WBC 13.71 X 10*3/uL (4.50-10.00)
[2024-04-08 09:57] LABS: ALT 95 U/L (10-49); AST 216 U/L (14-35); Albumin 2.6 g/dL (3.8-4.9); Albumin/Globulin Ratio 0.93 Ratio (1.60-3.17); Alkaline Phosphatase 317 U/L (41-126); BUN/Creat Ratio 15.67 Ratio (12.00-20.00); Blood Urea Nitrogen 18.8 mg/dL (9.0-27.0); Calcium 7.9 mg/dL (8.7-10.3); Carbon Dioxide 19.8 mmol/L (21.6-31.8); Chloride 94 mmol/L (96-109); Globulin 2.8 g/dL (1.6-3.3); Glucose 152 mg/dL (70-110); Potassium 5.2 mmol/L (3.5-5.5); Sodium 124 mmol/L (135-145); Total Bilirubin 3.6 mg/dL (0.3-1.2); Total Protein 5.4 g/dL (6.2-8.2)
[2024-04-08 12:18] LABS: Glucose,Whole Blood 179 mg/dL (70-110)
[2024-04-08 17:35] LABS: Glucose,Whole Blood 189 mg/dL (70-110)
[2024-04-08 20:09] LABS: Glucose,Whole Blood 144 mg/dL (70-110)
--- NOTE | 2024-04-08 22:27 | P.PN ---
Subjective This is a pleasant 59-year-old male who was recently admitted with anemia along with LFTs that were elevated with general surgery and oncology following. Patient has a significant history of esophageal cancer with upper GI bleeding and also brain mets maintained on treatment. No plans for surgical endoscopic intervention at this time recommend monitoring hemoglobin closely. Hemoglobin is just above 8 with no active bleeding noted. Diet has been advanced and will monitor. Follow-up with repeat labs and transfuse if 7 or less. Oncology di scussing initiating treatment 04/07 Patient started on chemotherapy He is very weak, mildly tachypneic, looks jaundiced Complains from epigastric pain and nausea. Also has mild epigastric tenderness most likely related to his esophageal cancer He is getting Zofran into the IV fluid Will add Phenergan as needed He is getting IV ceftriaxone for left lower lobe pneumonia He is getting IV iron for anemia 04/08/24 Patient looks similar to yesterday He still getting severe nausea from the chemotherapy he is getting for example today he is getting 5-fluorouracil Last night he tried several medication for nausea with no much help told scopolamine patch made big difference for him However his nausea not 100% controlled. He is getting IV fluids with Zofran and it This evening he is trying to eat and there is full meet in front of him that he is going to try eating if no problems Still complains some mild abdominal pain and tenderness in the upper abdomen related mostly to his cancerous disease of the esophagus Objective - Vital Signs Vital signs: Vital Signs Temp 98.3 F 04/08/24 12:30 Pulse 98 04/08/24 12:30 Resp 14 04/08/24 12:30 BP 101/66 04/08/24 12:30 Pulse Ox 96 04/08/24 12:30 FiO2 Intake & Output 04/07/24 04/08/24 04/08/24 18:59 06:59 18:59 Intake Total 1080 950 Output Total 2 Balance 1080 948 Intake: Oral 1080 950 Output: Urine 2 Other: Voiding Method Toilet # Voids 2 # Bowel Movements 1 - Exam -GENERAL: The patient is alert and oriented x3, not in any acute distress. Well developed, well nourished. Generally weak HEENT: Pupils are round and equally reacting to light. EOMI. No scleral icterus. No conjunctival pallor. Normocephalic, atraumatic. No pharyngeal erythema. No thyromegaly. CARDIOVASCULAR: S1 and S2 present. No murmurs, rubs, or gallops. -PULMONARY: Chest is clear to auscultation, no wheezing , no crackles. Mildly tachypneic -ABDOMEN: Soft, mild epigastric tenderness, nondistended, normoactive bowel sounds. No palpable organomegaly. MUSCULOSKELETAL: No joint swelling or deformity. EXTREMITIES: No cyanosis, clubbing, or pedal edema. NEUROLOGICAL: Gross neurological examination did not reveal any focal deficits. SKIN: No rashes. no petechiae. - Labs CBC & Chem 7: 04/08/24 05:07 04/08/24 05:07 Labs: Abnormal Lab Results - Last 24 Hours (Table) 04/07/24 04/07/24 04/08/24 Range/Units 17:08 20:07 05:07 WBC 13.71 H (4.50-10.00) X 10*3/uL RBC 2.61 L (4.40-5.60) X 10*6/uL Hgb 7.9 L (13.0-17.0) g/dL Hct 24.8 L (39.6-50.0) % MCHC 31.9 L (32.0-37.0) g/dL RDW 15.2 H (11.5-14.5) % Immature Gran # 0.40 H (0.00-0.04) X 10*3/uL Neutrophils # 9.72 H (1.80-7.70) X 10*3/uL Monocytes # 1.30 H (0.20-1.00) X 10*3/uL Sodium (135-145) mmol/L Chloride (96-109) mmol/L Carbon Dioxide (21.6-31.8) mmol/L Glucose (70-110) mg/dL POC Glucose (mg/dL) 228 H 216 H (70-110) mg/dL Calcium (8.7-10.3) mg/dL Total Bilirubin (0.3-1.2) mg/dL AST (14-35) U/L ALT (10-49) U/L Alkaline Phosphatase (41-126) U/L Total Protein (6.2-8.2) g/dL Albumin (3.8-4.9) g/dL Albumin/Globulin Ratio (1.60-3.17) Ratio 04/08/24 04/08/24 04/08/24 Range/Units 05:07 07:23 12:17 WBC (4.50-10.00) X 10*3/uL RBC (4.40-5.60) X 10*6/uL Hgb (13.0-17.0) g/dL Hct (39.6-50.0) % MCHC (32.0-37.0) g/dL RDW (11.5-14.5) % Immature Gran # (0.00-0.04) X 10*3/uL Neutrophils # (1.80-7.70) X 10*3/uL Monocytes # (0.20-1.00) X 10*3/uL Sodium 124 L (135-145) mmol/L Chloride 94 L (96-109) mmol/L Carbon Dioxide 19.8 L (21.6-31.8) mmol/L Glucose 152 H (70-110) mg/dL POC Glucose (mg/dL) 142 H 179 H (70-110) mg/dL Calcium 7.9 L (8.7-10.3) mg/dL Total Bilirubin 3.6 H (0.3-1.2) mg/dL AST 216 H (14-35) U/L ALT 95 H (10-49) U/L Alkaline Phosphatase 317 H (41-126) U/L Total Protein 5.4 L (6.2-8.2) g/dL Albumin 2.6 L (3.8-4.9) g/dL Albumin/Globulin Ratio 0.93 L (1.60-3.17) Ratio Assessment and Plan Assessment: Esophageal cancer with upper GI bleeding with acute blood loss anemia, present on admission. Associated with epigastric tenderness Elevated bilirubin, AST, ALT Hyponatremia Brain mets status post radiation treatment History of diabetes mellitus, type II History of hypertension Plan: Patient already started on chemotherapy. Oncologist is getting 5-fluorouracil, leucovorin and oxaliplatin. Patient has some nausea with getting IV fluids with Zofran. Will add Phenergan Continue with ceftriaxone Continue with IV iron Hematology/oncology team on the case General Surgery following
[2024-04-09 07:43] LABS: Glucose,Whole Blood 132 mg/dL (70-110)
[2024-04-09] MEDS: ONDANSETRON 4 MG/2 ML VIAL IVP PRN (08:48)
[2024-04-09 09:10] LABS: ALT 80 U/L (10-49); AST 200 U/L (14-35); Albumin 2.4 g/dL (3.8-4.9); Albumin/Globulin Ratio 0.96 Ratio (1.60-3.17); Alkaline Phosphatase 303 U/L (41-126); Blood Urea Nitrogen 23.1 mg/dL (9.0-27.0); Calcium 7.7 mg/dL (8.7-10.3); Carbon Dioxide 19.2 mmol/L (21.6-31.8); Chloride 98 mmol/L (96-109); Globulin 2.5 g/dL (1.6-3.3); Glucose 134 mg/dL (70-110); Potassium 5.2 mmol/L (3.5-5.5); Sodium 126 mmol/L (135-145); Total Bilirubin 3.4 mg/dL (0.3-1.2); Total Protein 4.9 g/dL (6.2-8.2)
[2024-04-09 09:18] LABS: Basophils # (A) 0.01 X 10*3/uL (0.00-0.10); Basophils % (A) 0.1 %; Eosinophils # (A) 0.17 X 10*3/uL (0.04-0.35); Eosinophils % (A) 1.7 %; HCT 23.1 % (39.6-50.0); HGB 7.6 g/dL (13.0-17.0); Lymphocytes # (A) 2.01 X 10*3/uL (0.90-5.00); Lymphocytes % (A) 19.9 %; MCHC 32.9 g/dL (32.0-37.0); MCV 94.3 FL (80.0-97.0); Mean Platelet Volume 9.7 FL (9.5-12.2); Monocytes # (A) 0.36 X 10*3/uL (0.20-1.00); Monocytes % (A) 3.6 %; NRBC Per 100 WBC 0 X 10*3/uL (0.00-0.01); Neutrophils # (A) 7.41 X 10*3/uL (1.80-7.70); Neutrophils % (A) 73.2 %; Platelet Count 347 X 10*3/uL (140-440); RBC 2.45 X 10*6/uL (4.40-5.60); RDW 15.5 % (11.5-14.5); WBC 10.11 X 10*3/uL (4.50-10.00)
[2024-04-09] MEDS ORDERED: ONDANSETRON 4 MG/2 ML VIAL IVP PRN (11:23)
--- NOTE | 2024-04-09 11:35 | P.PN ---
Subjective Progress Note Date: 04/09/24 Principal diagnosis: GIB, metastatic esophageal adenocarcinoma In f/u pt will be completing 1st cycle of mFOLFOX6 today, minus keytruda as that cannot be given inpt. He states sm amt of hard stool yesterday, his abd discomfort has moved from right side to epigastric area, N and V, looks mostly bilious, he does not thro up food. He feels really weak. Denies F, dysphagia, odynophagia, chest pain, swelling in legs. Objective - Vital Signs Vital signs: Vital Signs Temp 98.4 F 04/09/24 08:00 Pulse 125 H 04/09/24 08:00 Resp 16 04/09/24 08:00 BP 99/60 04/09/24 08:00 Pulse Ox 100 04/09/24 08:00 FiO2 Intake & Output 04/08/24 04/09/24 04/09/24 18:59 06:59 18:59 Other: Voiding Method Toilet Toilet # Voids 4 3 # Bowel Movements 2 1 - Constitutional General appearance: Present: cooperative, no acute distress, thin - EENT Eyes: Present: EOMI, scleral icterus (slight) ENT: Present: hearing grossly normal, normal oropharynx - Respiratory Respiratory: bilateral: CTA - Cardiovascular Rhythm: regular Heart sounds: normal: S1, S2 Abnormal Heart Sounds: Present: systolic murmur (harsh) - Peripheral edema leg Peripheral Edema: bilateral: None - Gastrointestinal General gastrointestinal: Present: normal bowel sounds, soft, tenderness. Absent: absent bowel sounds, decreased bowel sounds, distended, hepatomegaly, hyperactive bowel sounds, organomegaly, rigid, scaphoid, splenomegaly, umbilical hernia, ventral hernia Localized gastrointestinal: tender: epigastric periumbilical - Integumentary Integumentary: Present: jaundiced, pale - Neurologic Neurologic: Present: CNII-XII intact - Musculoskeletal Musculoskeletal: Present: generalized weakness - Psychiatric Psychiatric: Present: A&O x's 3, appropriate affect, intact judgment & insight - Labs CBC & Chem 7: 04/09/24 06:08 04/09/24 06:08 Labs: Abnormal Lab Results - Last 24 Hours (Table) 04/08/24 04/08/24 04/08/24 Range/Units 12:17 17:33 20:07 WBC (4.50-10.00) X 10*3/uL RBC (4.40-5.60) X 10*6/uL Hgb (13.0-17.0) g/dL Hct (39.6-50.0) % RDW (11.5-14.5) % Immature Gran # (0.00-0.04) X 10*3/uL Sodium (135-145) mmol/L Carbon Dioxide (21.6-31.8) mmol/L BUN/Creatinine Ratio (12.00-20.00) Ratio Glucose (70-110) mg/dL POC Glucose (mg/dL) 179 H 189 H 144 H (70-110) mg/dL Calcium (8.7-10.3) mg/dL Total Bilirubin (0.3-1.2) mg/dL AST (14-35) U/L ALT (10-49) U/L Alkaline Phosphatase (41-126) U/L Total Protein (6.2-8.2) g/dL Albumin (3.8-4.9) g/dL Albumin/Globulin Ratio (1.60-3.17) Ratio 04/09/24 04/09/24 04/09/24 Range/Units 06:08 06:08 07:40 WBC 10.11 H (4.50-10.00) X 10*3/uL RBC 2.45 L (4.40-5.60) X 10*6/uL Hgb 7.6 L (13.0-17.0) g/dL Hct 23.1 L (39.6-50.0) % RDW 15.5 H (11.5-14.5) % Immature Gran # 0.15 H (0.00-0.04) X 10*3/uL Sodium 126 L (135-145) mmol/L Carbon Dioxide 19.2 L (21.6-31.8) mmol/L BUN/Creatinine Ratio 23.10 H (12.00-20.00) Ratio Glucose 134 H (70-110) mg/dL POC Glucose (mg/dL) 132 H (70-110) mg/dL Calcium 7.7 L (8.7-10.3) mg/dL Total Bilirubin 3.4 H (0.3-1.2) mg/dL AST 200 H (14-35) U/L ALT 80 H (10-49) U/L Alkaline Phosphatase 303 H (41-126) U/L Total Protein 4.9 L (6.2-8.2) g/dL Albumin 2.4 L (3.8-4.9) g/dL Albumin/Globulin Ratio 0.96 L (1.60-3.17) Ratio Assessment and Plan (1) 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 Current Visit: Yes Status: Acute Priority: High Code(s): C15.9 - MALIGNANT NEOPLASM OF ESOPHAGUS, UNSPECIFIED; C78.7 - SECONDARY MALIG NEOPLASM OF LIVER AND INTRAHEPATIC BILE DUCT SNOMED Code(s): 21157948 (2) Iron deficiency anemia due to chronic blood loss Current Visit: Yes Status: Acute Priority: High Code(s): D50.0 - IRON DEFICIENCY ANEMIA SECONDARY TO BLOOD LOSS (CHRONIC) SNOMED Code(s): 317285624 (3) Nausea & vomiting Current Visit: Yes Status: Acute Priority: Medium Code(s): R11.2 - NAUSEA WITH VOMITING, UNSPECIFIED SNOMED Code(s): 83012185 (4) Constipated Current Visit: Yes Status: Acute Priority: Medium Code(s): K59.00 - CONSTIPATION, UNSPECIFIED SNOMED Code(s): 42444891 Plan: GI bleed, iron deficiency anemia -Presented with c/o abdominal pain, n/v, dark stool and dizziness. On admit Hgb 7.9, s/p 1 units PRBCs on 04/03, Hgb 7.6 today, stable. -No plan for endoscopy at this time -Iron studies consistent with iron deficiency, IV iron x 4 given -Continue to monitor CBC. Transfuse for hgb < 7 or if symptomatic Esophageal adenocarcinoma -Oncology history as stated in the HPI -Completed brain SBRT -Currently awaiting peer to peer review for prior auth, and was scheduled for treatment to begin on 04/13/23 at [facility]. -CT AP on 03/27/24 obtained by his PCP showed overall progression of disease with distal esophageal mass with extension to the GE junction and lesser curvature of the stomach, multiple and new hypodense hepatic metastases, and mild increase in size of metastatic adenopathy within the abdomen -Given the cholestatic transaminitis, imaging findings, and exam findings, there is concern for disease progression causing progressive liver dysfunction, recommendation to start treatment [id number] inpt, he was agreeable to the same. Started 04/07, 5 FU finishes today. Lab values stable, including LFTs at this time. Cont to monitor. Chemo SE N,V, constipation -Reviewed with RN, sounds more like secretions from esophagus vs vomiting-as pt said, he is not throwing up food at all. Scop patch in place. -Senna/colace sched, MOM PRN to promote BM *Giving a fluid bolus and increasing IVF for hypotension
[2024-04-09 12:15] LABS: Glucose,Whole Blood 151 mg/dL (70-110)
[2024-04-09] MEDS: SODIUM CHLORIDE 0.9% 500 ML 500 ML IV ONE (12:32)
[2024-04-09] MEDS: SENNOSIDES-DOCUSATE SODIUM 1 EACH TAB PO SCH (12:41)
--- NOTE | 2024-04-09 14:45 | P.PN ---
Subjective Progress Note Date: 04/09/24 SURGICAL PROGRESS NOTE CHIEF COMPLAINT: GI bleed HISTORY OF PRESENT ILLNESS: Patient reports no further black stools. Last bowel movement brown. Patient reports having vomiting. Denies any blood in the emesis. Patient hypotensive and tachycardic. Oncology service has ordered a 500 mL fluid bolus. WBC is down from 13-10 Hgb 7.9-7.6 sodium 126 PHYSICAL EXAM: VITAL SIGNS: Reviewed. GENERAL: Well-developed in no acute distress. ABDOMEN: Soft. Nondistended. Mild epigastric tenderness NEUROLOGIC: Alert and oriented. Cranial nerves II through XII grossly intact. ASSESSMENT: 1. Acute GI bleed with melanotic stools likely due to bleeding from patient's esophageal mass 2. Patient with history of metastatic esophageal cancer PLAN: -No plan for EGD at this time -Continue to monitor hemoglobin -Continue to monitor for any signs or symptoms of bleeding -Continue regular diet Physician Operations Officer note has been reviewed by physician. Signing provider agrees with the documented findings, assessment, and plan of care. Objective - Vital Signs Vital signs: Vital Signs Temp 98.4 F 04/09/24 12:00 Pulse 111 H 04/09/24 12:00 Resp 16 04/09/24 12:00 BP 100/62 04/09/24 12:00 Pulse Ox 95 04/09/24 12:00 FiO2 Intake & Output 04/08/24 04/09/24 04/09/24 18:59 06:59 18:59 Weight 68.6 kg Other: Voiding Method Toilet Toilet # Voids 4 3 # Bowel Movements 2 1 - Labs CBC & Chem 7: 04/09/24 06:08 04/09/24 06:08 Labs: Abnormal Lab Results - Last 24 Hours (Table) 04/08/24 04/08/24 04/09/24 Range/Units 17:33 20:07 06:08 WBC 10.11 H (4.50-10.00) X 10*3/uL RBC 2.45 L (4.40-5.60) X 10*6/uL Hgb 7.6 L (13.0-17.0) g/dL Hct 23.1 L (39.6-50.0) % RDW 15.5 H (11.5-14.5) % Immature Gran # 0.15 H (0.00-0.04) X 10*3/uL Sodium (135-145) mmol/L Carbon Dioxide (21.6-31.8) mmol/L BUN/Creatinine Ratio (12.00-20.00) Ratio Glucose (70-110) mg/dL POC Glucose (mg/dL) 189 H 144 H (70-110) mg/dL Calcium (8.7-10.3) mg/dL Total Bilirubin (0.3-1.2) mg/dL AST (14-35) U/L ALT (10-49) U/L Alkaline Phosphatase (41-126) U/L Total Protein (6.2-8.2) g/dL Albumin (3.8-4.9) g/dL Albumin/Globulin Ratio (1.60-3.17) Ratio 04/09/24 04/09/24 04/09/24 Range/Units 06:08 07:40 12:03 WBC (4.50-10.00) X 10*3/uL RBC (4.40-5.60) X 10*6/uL Hgb (13.0-17.0) g/dL Hct (39.6-50.0) % RDW (11.5-14.5) % Immature Gran # (0.00-0.04) X 10*3/uL Sodium 126 L (135-145) mmol/L Carbon Dioxide 19.2 L (21.6-31.8) mmol/L BUN/Creatinine Ratio 23.10 H (12.00-20.00) Ratio Glucose 134 H (70-110) mg/dL POC Glucose (mg/dL) 132 H 151 H (70-110) mg/dL Calcium 7.7 L (8.7-10.3) mg/dL Total Bilirubin 3.4 H (0.3-1.2) mg/dL AST 200 H (14-35) U/L ALT 80 H (10-49) U/L Alkaline Phosphatase 303 H (41-126) U/L Total Protein 4.9 L (6.2-8.2) g/dL Albumin 2.4 L (3.8-4.9) g/dL Albumin/Globulin Ratio 0.96 L (1.60-3.17) Ratio
[2024-04-09 17:37] LABS: Glucose,Whole Blood 155 mg/dL (70-110)
[2024-04-09 20:49] LABS: Glucose,Whole Blood 136 mg/dL (70-110)
--- NOTE | 2024-04-09 22:18 | P.PN ---
Subjective This is a pleasant 59-year-old male who was recently admitted with anemia along with LFTs that were elevated with general surgery and oncology following. Patient has a significant history of esophageal cancer with upper GI bleeding and also brain mets maintained on treatment. No plans for surgical endoscopic intervention at this time recommend monitoring hemoglobin closely. Hemoglobin is just above 8 with no active bleeding noted. Diet has been advanced and will monitor. Follow-up with repeat labs and transfuse if 7 or less. Oncology di antonio initiating treatment 04/07 Patient started on chemotherapy He is very weak, mildly tachypneic, looks jaundiced Complains from epigastric pain and nausea. Also has mild epigastric tenderness most likely related to his esophageal cancer He is getting Zofran into the IV fluid Will add Phenergan as needed He is getting IV ceftriaxone for left lower lobe pneumonia He is getting IV iron for anemia 04/08/24 Patient looks similar to yesterday He still getting severe nausea from the chemotherapy he is getting for example today he is getting 5-fluorouracil Last night he tried several medication for nausea with no much help told scopolamine patch made big difference for him However his nausea not 100% controlled. He is getting IV fluids with Zofran and it This evening he is trying to eat and there is full meet in front of him that he is going to try eating if no problems Still complains some mild abdominal pain and tenderness in the upper abdomen related mostly to his cancerous disease of the esophagus 04/09 Patient is still getting chemotherapy No new complaint Looks fatigue with some malaise He is eating well, he still complains from nausea however he does not have overt vomiting but medically saliva Ongoing mild to moderate right upper abdominal pain and tenderness, Objective - Vital Signs Vital signs: Vital Signs Temp 97.7 F 04/09/24 17:30 Pulse 96 04/09/24 17:30 Resp 16 04/09/24 17:30 BP 99/63 04/09/24 17:30 Pulse Ox 94 L 04/09/24 17:30 FiO2 Intake & Output 04/08/24 04/09/24 04/09/24 18:59 06:59 18:59 Intake Total 1793.48 Balance 1793.48 Weight 74.435 kg Intake: Intake, IV Titration 1793.48 Amount Sodium Chloride 0.9% 1, 1200 000 ml @ 100 mls/hr IV . Q10H [facility] Rx#:[id number] Sodium Chloride 0.9% 500 500 ml 500 ml @ 999 mls/hr IV .Q31M [facility] Rx#:[id number] cefTRIAXone 1 gm In 50 Sodium Chloride 0.9% 50 ml @ 100 mls/hr IVPB Q24HR [facility] Rx#:[id number] fluorouraciL 4,200 mg In 43.48 Sodium Chloride 0.9% 166 ml In Empty Bag 1 bag @ 5 .435 mls/hr IV ONCE ONE Rx#:[id number] Other: Voiding Method Toilet Toilet # Voids 4 3 # Bowel Movements 2 1 2 - Exam -GENERAL: The patient is alert and oriented x3, not in any acute distress. Well developed, well nourished. Generally weak HEENT: Pupils are round and equally reacting to light. EOMI. No scleral icterus. No conjunctival pallor. Normocephalic, atraumatic. No pharyngeal erythema. No thyromegaly. CARDIOVASCULAR: S1 and S2 present. No murmurs, rubs, or gallops. -PULMONARY: Chest is clear to auscultation, no wheezing , no crackles. Mildly tachypneic -ABDOMEN: Soft, mild epigastric tenderness, nondistended, normoactive bowel sounds. No palpable organomegaly. MUSCULOSKELETAL: No joint swelling or deformity. EXTREMITIES: No cyanosis, clubbing, or pedal edema. NEUROLOGICAL: Gross neurological examination did not reveal any focal deficits. SKIN: No rashes. no petechiae. - Labs CBC & Chem 7: 04/09/24 06:08 04/09/24 06:08 Labs: Abnormal Lab Results - Last 24 Hours (Table) 04/08/24 04/09/24 04/09/24 Range/Units 20:07 06:08 06:08 WBC 10.11 H (4.50-10.00) X 10*3/uL RBC 2.45 L (4.40-5.60) X 10*6/uL Hgb 7.6 L (13.0-17.0) g/dL Hct 23.1 L (39.6-50.0) % RDW 15.5 H (11.5-14.5) % Immature Gran # 0.15 H (0.00-0.04) X 10*3/uL Sodium 126 L (135-145) mmol/L Carbon Dioxide 19.2 L (21.6-31.8) mmol/L BUN/Creatinine Ratio 23.10 H (12.00-20.00) Ratio Glucose 134 H (70-110) mg/dL POC Glucose (mg/dL) 144 H (70-110) mg/dL Calcium 7.7 L (8.7-10.3) mg/dL Total Bilirubin 3.4 H (0.3-1.2) mg/dL AST 200 H (14-35) U/L ALT 80 H (10-49) U/L Alkaline Phosphatase 303 H (41-126) U/L Total Protein 4.9 L (6.2-8.2) g/dL Albumin 2.4 L (3.8-4.9) g/dL Albumin/Globulin Ratio 0.96 L (1.60-3.17) Ratio 04/09/24 04/09/24 04/09/24 Range/Units 07:40 12:03 17:25 WBC (4.50-10.00) X 10*3/uL RBC (4.40-5.60) X 10*6/uL Hgb (13.0-17.0) g/dL Hct (39.6-50.0) % RDW (11.5-14.5) % Immature Gran # (0.00-0.04) X 10*3/uL Sodium (135-145) mmol/L Carbon Dioxide (21.6-31.8) mmol/L BUN/Creatinine Ratio (12.00-20.00) Ratio Glucose (70-110) mg/dL POC Glucose (mg/dL) 132 H 151 H 155 H (70-110) mg/dL Calcium (8.7-10.3) mg/dL Total Bilirubin (0.3-1.2) mg/dL AST (14-35) U/L ALT (10-49) U/L Alkaline Phosphatase (41-126) U/L Total Protein (6.2-8.2) g/dL Albumin (3.8-4.9) g/dL Albumin/Globulin Ratio (1.60-3.17) Ratio Assessment and Plan Assessment: Esophageal cancer with upper GI bleeding with acute blood loss anemia, present on admission. Associated with epigastric tenderness Elevated bilirubin, AST, ALT Hyponatremia Brain mets status post radiation treatment History of diabetes mellitus, type II History of hypertension Plan: Patient already started on chemotherapy. Oncologist is getting 5-fluorouracil, leucovorin and oxaliplatin. Patient has some nausea with getting IV fluids with Zofran. Will add Phenergan Continue with ceftriaxone Continue with IV iron Hematology/oncology team on the case General Surgery following
[2024-04-10 07:44] LABS: Glucose,Whole Blood 114 mg/dL (70-110)
--- NOTE | 2024-04-10 11:43 | P.PN ---
Subjective This is a pleasant 59-year-old male who was recently admitted with anemia along with LFTs that were elevated with general surgery and oncology following. Patient has a significant history of esophageal cancer with upper GI bleeding and also brain mets maintained on treatment. No plans for surgical endoscopic intervention at this time recommend monitoring hemoglobin closely. Hemoglobin is just above 8 with no active bleeding noted. Diet has been advanced and will monitor. Follow-up with repeat labs and transfuse if 7 or less. Oncology clarke alvarez initiating treatment 04/07 Patient started on chemotherapy He is very weak, mildly tachypneic, looks jaundiced Complains from epigastric pain and nausea. Also has mild epigastric tenderness most likely related to his esophageal cancer He is getting Zofran into the IV fluid Will add Phenergan as needed He is getting IV ceftriaxone for left lower lobe pneumonia He is getting IV iron for anemia 04/08/24 Patient looks similar to yesterday He still getting severe nausea from the chemotherapy he is getting for example today he is getting 5-fluorouracil Last night he tried several medication for nausea with no much help told scopolamine patch made big difference for him However his nausea not 100% controlled. He is getting IV fluids with Zofran and it This evening he is trying to eat and there is full meet in front of him that he is going to try eating if no problems Still complains some mild abdominal pain and tenderness in the upper abdomen related mostly to his cancerous disease of the esophagus 04/09 Patient is still getting chemotherapy No new complaint Looks fatigue with some malaise He is eating well, he still complains from nausea however he does not have overt vomiting but medically saliva Ongoing mild to moderate right upper abdominal pain and tenderness, / Patient is getting chemotherapy He is awake alert He has epistaxis this morning which is controlled now He has partially controlled nausea vomiting and currently he is on liquid diet Abdominal pain is stable Objective - Vital Signs Vital signs: Vital Signs Temp 98.4 F 04/10/24 08:30 Pulse 108 H 04/10/24 08:30 Resp 16 04/10/24 08:30 BP 106/68 04/10/24 08:30 Pulse Ox 96 04/10/24 08:30 FiO2 Intake & Output 04/09/24 04/10/24 04/10/24 18:59 06:59 18:59 Intake Total 1793.48 810 Balance 1793.48 810 Weight 74.435 kg 75.4 kg Intake: Intake, IV Titration 1793.48 Amount Sodium Chloride 0.9% 1, 1200 000 ml @ 100 mls/hr IV . Q10H [facility] Rx#:[id number] Sodium Chloride 0.9% 500 500 ml 500 ml @ 999 mls/hr IV .Q31M [facility] Rx#:[id number] cefTRIAXone 1 gm In 50 Sodium Chloride 0.9% 50 ml @ 100 mls/hr IVPB Q24HR [facility] Rx#:[id number] fluorouraciL 4,200 mg In 43.48 Sodium Chloride 0.9% 166 ml In Empty Bag 1 bag @ 5 .435 mls/hr IV ONCE [facility] Rx#:[id number] Oral 810 Other: Voiding Method Toilet Toilet # Bowel Movements 2 - Exam -GENERAL: The patient is alert and oriented x3, not in any acute distress. Well developed, well nourished. Generally weak HEENT: Pupils are round and equally reacting to light. EOMI. No scleral icterus. No conjunctival pallor. Normocephalic, atraumatic. No pharyngeal erythema. No thyromegaly. CARDIOVASCULAR: S1 and S2 present. No murmurs, rubs, or gallops. -PULMONARY: Chest is clear to auscultation, no wheezing , no crackles. Mildly tachypneic -ABDOMEN: Soft, mild epigastric tenderness, nondistended, normoactive bowel sounds. No palpable organomegaly. MUSCULOSKELETAL: No joint swelling or deformity. EXTREMITIES: No cyanosis, clubbing, or pedal edema. NEUROLOGICAL: Gross neurological examination did not reveal any focal deficits. SKIN: No rashes. no petechiae. - Labs CBC & Chem 7: 04/09/24 06:08 04/09/24 06:08 Labs: Abnormal Lab Results - Last 24 Hours (Table) 04/09/24 04/09/24 04/09/24 Range/Units 12:03 17:25 20:48 POC Glucose (mg/dL) 151 H 155 H 136 H (70-110) mg/dL 04/10/24 Range/Units 07:41 POC Glucose (mg/dL) 114 H (70-110) mg/dL Assessment and Plan Assessment: Esophageal cancer with upper GI bleeding with acute blood loss anemia, present on admission. Associated with epigastric tenderness Elevated bilirubin, AST, ALT Hyponatremia Brain mets status post radiation treatment History of diabetes mellitus, type II History of hypertension Plan: Patient already started on chemotherapy. Oncologist is getting 5-fluorouracil, leucovorin and oxaliplatin. Patient has some nausea with getting IV fluids with Zofran. Will add Phenergan Continue with ceftriaxone Continue with IV iron Hematology/oncology team on the case General Surgery following
--- NOTE | 2024-04-10 12:00 | P.PN ---
Subjective Progress Note Date: 04/10/24 SURGICAL PROGRESS NOTE CHIEF COMPLAINT: GI bleed HISTORY OF PRESENT ILLNESS: Patient complained of bloody nose this morning and yesterday. He has had no vomiting. Patient reports no further black stools. He denies any vomiting. Patient was questing full liquid diet. He does spit up phlegm. Afebrile. Heart rate 108. BP 106/68. Hemoglobin as of yesterday 7.6 PHYSICAL EXAM: VITAL SIGNS: Reviewed. GENERAL: Well-developed in no acute distress. ABDOMEN: Soft. Nondistended. NEUROLOGIC: Alert and oriented. Cranial nerves II through XII grossly intact. ASSESSMENT: 1. Acute GI bleed with melanotic stools likely due to bleeding from patient's esophageal mass 2. Patient with history of metastatic esophageal cancer PLAN: -No plan for EGD at this time -Continue full liquid diet as per patient's request -Continue to monitor for any signs or symptoms of bleeding -Continue oncology management Physician Texture Artist note has been reviewed by physician. Signing provider agrees with the documented findings, assessment, and plan of care. Objective - Vital Signs Vital signs: Vital Signs Temp 98.4 F 04/10/24 08:30 Pulse 108 H 04/10/24 08:30 Resp 16 04/10/24 08:30 BP 106/68 04/10/24 08:30 Pulse Ox 96 04/10/24 08:30 FiO2 Intake & Output 04/09/24 04/10/24 04/10/24 18:59 06:59 18:59 Intake Total 1793.48 810 Balance 1793.48 810 Weight 74.435 kg 75.4 kg Intake: Intake, IV Titration 1793.48 Amount Sodium Chloride 0.9% 1, 1200 000 ml @ 100 mls/hr IV . Q10H [facility] Rx#:[id number] Sodium Chloride 0.9% 500 500 ml 500 ml @ 999 mls/hr IV .Q31M [facility] Rx#:[id number] cefTRIAXone 1 gm In 50 Sodium Chloride 0.9% 50 ml @ 100 mls/hr IVPB Q24HR [facility] Rx#:[id number] fluorouraciL 4,200 mg In 43.48 Sodium Chloride 0.9% 166 ml In Empty Bag 1 bag @ 5 .435 mls/hr IV ONCE [facility] Rx#:[id number] Oral 810 Other: Voiding Method Toilet Toilet # Bowel Movements 2 - Labs CBC & Chem 7: 04/09/24 06:08 04/09/24 06:08 Labs: Abnormal Lab Results - Last 24 Hours (Table) 04/09/24 04/09/24 04/09/24 Range/Units 12:03 17:25 20:48 POC Glucose (mg/dL) 151 H 155 H 136 H (70-110) mg/dL 04/10/24 Range/Units 07:41 POC Glucose (mg/dL) 114 H (70-110) mg/dL
[2024-04-10 12:24] LABS: Glucose,Whole Blood 153 mg/dL (70-110)
[2024-04-10 14:57] LABS: Basophils % (A) 1 %; Eosinophils # (A) 0.2 k/uL (0-0.7); Eosinophils % (A) 2 %; HCT 24.5 % (39.0-53.0); HGB 7.7 gm/dL (13.0-17.5); Hypochromasia Moderate; Lymphocytes # (A) 1.9 k/uL (1.0-4.8); Lymphocytes % (A) 24 %; MCH 30.8 pg (25.0-35.0); MCHC 31.5 g/dL (31.0-37.0); MCV 97.8 fL (80.0-100.0); Mean Platelet Volume 8.1; Monocytes # (A) 0.1 k/uL (0-1.0); Monocytes % (A) 1 %; Neutrophils # (A) 5.7 k/uL (1.3-7.7); Neutrophils % (A) 71 %; Platelet Count 351 k/uL (150-450); RDW 14.8 % (11.5-15.5)
[2024-04-10] MEDS ORDERED: MORPHINE SULFATE IR 15 MG TABLET PO PRN (15:22)
[2024-04-10 17:15] LABS: Glucose,Whole Blood 172 mg/dL (70-110)
[2024-04-10] MEDS: MORPHINE SULFATE ER 30 MG TABLET PO SCH (17:53)
--- NOTE | 2024-04-10 19:54 | P.PN ---
Subjective Progress Note Date: 04/10/24 Patient reports abd pain is controlled on current regimen. Will plan to transition to oral pain med regimen today. Spitting up saliva but no vomiting. Had normal BM this morning. Oral intake slowly improving. Had mild epistaxis this morning, now resolved. CBC today showing hgb 7.7, plt 351,000 Objective - Vital Signs Vital signs: Vital Signs Temp 98.2 F 04/10/24 12:00 Pulse 106 H 04/10/24 12:00 Resp 16 04/10/24 12:00 BP 103/65 04/10/24 12:00 Pulse Ox 94 L 04/10/24 12:00 FiO2 Intake & Output 04/09/24 04/10/24 04/10/24 18:59 06:59 18:59 Intake Total 1793.48 810 118 Balance 1793.48 810 118 Weight 74.435 kg 75.4 kg Intake: Intake, IV Titration 1793.48 Amount Sodium Chloride 0.9% 1, 1200 000 ml @ 100 mls/hr IV . Q10H [facility] Rx#:[id number] Sodium Chloride 0.9% 500 500 ml 500 ml @ 999 mls/hr IV .Q31M [facility] Rx#:[id number] cefTRIAXone 1 gm In 50 Sodium Chloride 0.9% 50 ml @ 100 mls/hr IVPB Q24HR [facility] Rx#:[id number] fluorouraciL 4,200 mg In 43.48 Sodium Chloride 0.9% 166 ml In Empty Bag 1 bag @ 5 .435 mls/hr IV ONCE [facility] Rx#:[id number] Oral 810 118 Other: Voiding Method Toilet Toilet # Bowel Movements 2 - Constitutional General appearance: Present: average body habitus, no acute distress - EENT Eyes: Present: EOMI ENT: Present: hearing grossly normal - Respiratory Details: breathing is even and unlabored - Cardiovascular Details: skin warm and dry - Gastrointestinal General gastrointestinal: Present: soft. Absent: tenderness - Integumentary Integumentary: Present: jaundiced, pale. Absent: cyanotic - Musculoskeletal Musculoskeletal: Present: generalized weakness - Psychiatric Psychiatric: Present: A&O x's 3 - Labs CBC & Chem 7: 04/10/24 14:47 04/09/24 06:08 Labs: Abnormal Lab Results - Last 24 Hours (Table) 04/09/24 04/09/2425 Range/Units 17:25 20:48 07:41 RBC (4.30-5.90) m/uL Hgb (13.0-17.5) gm/dL Hct (39.0-53.0) % POC Glucose (mg/dL) 155 H 136 H 114 H (70-110) mg/dL 04/10/24 04/10/24 Range/Units 12:20 14:47 RBC 2.50 L (4.30-5.90) m/uL Hgb 7.7 L (13.0-17.5) gm/dL Hct 24.5 L (39.0-53.0) % POC Glucose (mg/dL) 153 H (70-110) mg/dL Assessment and Plan (1) Esophageal adenocarcinoma Current Visit: Yes Status: Acute Priority: High Code(s): C15.9 - MALIGNANT NEOPLASM OF ESOPHAGUS, UNSPECIFIED SNOMED Code(s): 518309278 (2) GI bleed Current Visit: Yes Status: Acute Priority: High Code(s): K92.2 - GASTROINTESTINAL HEMORRHAGE, UNSPECIFIED SNOMED Code(s): 66734081 (3) Anemia Current Visit: Yes Status: Acute Priority: High Code(s): D64.9 - ANEMIA, UNSPECIFIED SNOMED Code(s): 973883164 Plan: GI bleed, iron deficiency anemia -Presented with c/o abdominal pain, n/v, dark stool and dizziness. On admit Hgb 7.9, s/p 1 units PRBCs on 04/03, Hgb 7.7, plt 351,000, stable. -No plan for endoscopy at this time -Iron studies consistent with iron deficiency, IV iron x 4 given -Continue to monitor CBC. Transfuse for hgb < 7 or if symptomatic Esophageal adenocarcinoma -Oncology history as stated in the HPI -Completed brain SBRT -Was scheduled for treatment to begin on 04/13/23 at [facility]. -CT AP on 03/27/24 obtained by his PCP showed overall progression of disease with distal esophageal mass with extension to the GE junction and lesser curvature of the stomach, multiple and new hypodense hepatic metastases, and mild increase in size of metastatic adenopathy within the abdomen -Given the cholestatic transaminitis, imaging findings, and exam findings, there is concern for disease progression causing progressive liver dysfunction, recommendation to start treatment [id number] inpt, he was agreeable to the same. S/p cycle 1 FOLFOZ. Lab values stable, including LFTs at this time. Cont to monitor. -Abd pain managed on current regimen. IV pain meds transitioned to oral regimen today, discussed with PharmD. Continue to monitor pain control to ensure adequate pain med regimen for d/c Chemo SE N,V, constipation -Reviewed with RN, sounds more like secretions from esophagus vs vomiting- he is not throwing up food at all. Scop patch and prn anti-emetics in place. -Senna/colace scheduled, MOM PRN
[2024-04-10 20:23] LABS: Glucose,Whole Blood 131 mg/dL (70-110)
[2024-04-11 07:24] LABS: Glucose,Whole Blood 111 mg/dL (70-110)
[2024-04-11 09:45] LABS: Basophils # (A) 0.02 X 10*3/uL (0.00-0.10); Basophils % (A) 0.2 %; Eosinophils % (A) 2.3 %; HCT 22.5 % (39.6-50.0); HGB 7.2 g/dL (13.0-17.0); Lymphocytes # (A) 2.31 X 10*3/uL (0.90-5.00); Lymphocytes % (A) 26.9 %; MCH 30.5 pg (27.0-32.0); MCV 95.3 FL (80.0-97.0); Monocytes # (A) 0.13 X 10*3/uL (0.20-1.00); Monocytes % (A) 1.5 %; NRBC Per 100 WBC 0 X 10*3/uL (0.00-0.01); Neutrophils # (A) 5.77 X 10*3/uL (1.80-7.70); Neutrophils % (A) 67.4 %; Platelet Count 349 X 10*3/uL (140-440); RBC 2.36 X 10*6/uL (4.40-5.60); RDW 15.5 % (11.5-14.5); WBC 8.58 X 10*3/uL (4.50-10.00)
[2024-04-11 10:23] LABS: BUN/Creat Ratio 18.88 Ratio (12.00-20.00); Blood Urea Nitrogen 15.1 mg/dL (9.0-27.0); Chloride 102 mmol/L (96-109); Glucose 126 mg/dL (70-110); Sodium 129 mmol/L (135-145)
[2024-04-11 10:24] LABS: ALT 56 U/L (10-49); AST 174 U/L (14-35); Albumin 2.2 g/dL (3.8-4.9); Albumin/Globulin Ratio 0.88 Ratio (1.60-3.17); Alkaline Phosphatase 277 U/L (41-126); Calcium 7.5 mg/dL (8.7-10.3); Carbon Dioxide 21.1 mmol/L (21.6-31.8); Globulin 2.5 g/dL (1.6-3.3); Total Bilirubin 3.6 mg/dL (0.3-1.2); Total Protein 4.7 g/dL (6.2-8.2)
[2024-04-11 12:37] LABS: Glucose,Whole Blood 171 mg/dL (70-110)
--- NOTE | 2024-04-11 16:05 | XR ---
EXAMINATION TYPE: XR abdomen 2V DATE OF EXAM: 04/11/2024 3:53 PM COMPARISON: Abdominal CT study 04/03/2024. CLINICAL INDICATION: Male, 59 years old with history of Bloating/abdominal pain; [facility] TECHNIQUE: Two views of the abdomen were obtained. FINDINGS: The bowel gas pattern is nonspecific without dilated loops of small or large bowel. There i s no evidence for organomegaly or pneumoperitoneum. The osseous structures are intact. No abnormal calcifications are present. Fecal material and gas are demonstrated throughout the colon and rectum. Calcifications of the vas deferens. IMPRESSION: Nonspecific bowel gas pattern without radiographic evidence for acute process. [facility], , 04/11/2024 4:03 PM
[2024-04-11 17:19] LABS: Glucose,Whole Blood 117 mg/dL (70-110)
[2024-04-11] MEDS: SIMETHICONE 80 MG CHEWABLE PO SCH (17:23)
[2024-04-11 19:57] LABS: Glucose,Whole Blood 175 mg/dL (70-110)
--- NOTE | 2024-04-11 21:21 | P.PN ---
Subjective Progress Note Date: 04/11/24 Patient is evaluated today in follow-up in the medical floor. Patient is complaining of some abdominal distention today states he feels bloated and abdominal x-ray was ordered which reveals nonspecific bowel gas pattern. Patient has fecal material and gas demonstrate throughout the colon and rectum. He is continued on normal saline at 100 mL/h. Additionally patient remains on IV ceftriaxone. He has been initiated on IV chemotherapy this hospital stay with oncology following closely. Review of Systems Constitutional: Denied any fatigue denied any fever. Cardio vascular: denied any chest pain, palpitations Gastrointestinal: denied any nausea, vomiting, diarrhea Pulmonary: Denied any shortness of breath cough Neurologic denied any new focal deficits All inpatient medications were reviewed and appropriate changes in these medications as dictated in the interval history and assessment and plan. PHYSICAL EXAMINATION: GENERAL: The patient is alert and oriented x3, not in any acute distress. Well developed, well nourished. HEENT: Pupils are round and equally reacting to light. EOMI. No scleral icterus. No conjunctival pallor. Normocephalic, atraumatic. No pharyngeal erythema. No thyromegaly. CARDIOVASCULAR: S1 and S2 present. No murmurs, rubs, or gallops. PULMONARY: Chest is clear to auscultation, no wheezing or crackles. ABDOMEN: Soft, nontender, nondistended, normoactive bowel sounds. No palpable organomegaly. MUSCULOSKELETAL: No joint swelling or deformity. EXTREMITIES: No cyanosis, clubbing, or pedal edema. NEUROLOGICAL: Gross neurological examination did not reveal any focal deficits. SKIN: No rashes. Assessment and plan Esophageal cancer with upper GI bleeding with acute blood loss anemia, present on admission. Associated with epigastric tenderness no plans for endoscopic evaluation this admission Underlying iron deficiency Elevated bilirubin, AST, ALT with concern for liver involvement and disease progression Hyponatremia hypovolemic improving with IV fluids Nausea secondary to therapy Brain mets status post radiation treatment History of diabetes mellitus, type II History of hypertension GI prophylaxis Full code Plan Oncology following with recommendations of being initiated on IV chemotherapy this admission patient has undergone 1 cycle. No signs of active bleeding at this time continue to monitor hemoglobin closely and transfuse for hemoglobin less than 7. Add simethicone shoes. Abdominal x-ray reviewed and patient has been having normal bowel movements. He continues on a bowel regimen closely. Oncology adjusting his pain medication today. He is tolerating diet. Will monitor electrolytes and renal function The impression and plan of care has been dictated by Alma Kathleen, Nurse Practitioner as directed. Dr. Mercedez MD I have performed a history and physical examination and medical decision making of this patient, discussed the same with the dictator, and agree with the dictators assessment and plan as written, documented as a scribe. Based on total visit time, I have performed more than 50% of this visit. Objective - Vital Signs Vital signs: Vital Signs Temp 98.2 F 04/11/24 13:08 Pulse 96 04/11/24 13:08 Resp 16 04/11/24 13:08 BP 96/59 04/11/24 13:08 Pulse Ox 94 L 04/11/24 13:08 FiO2 Intake & Output 04/10/24 04/11/24 04/11/24 18:59 06:59 18:59 Intake Total 1368 Balance 1368 Weight 77.7 kg Intake: Intake, IV Titration 1250 Amount Sodium Chloride 0.9% 1, 1200 000 ml @ 100 mls/hr IV . Q10H [facility] Rx#:[id number] cefTRIAXone 1 gm In 50 Sodium Chloride 0.9% 50 ml @ 100 mls/hr IVPB Q24HR [facility] Rx#:[id number] Oral 118 Other: Voiding Method Toilet Toilet # Voids 4 3 - Labs CBC & Chem 7: 04/11/24 03:09 04/11/24 03:09 Labs: Abnormal Lab Results - Last 24 Hours (Table) 04/10/24 04/10/24 04/11/24 Range/Units 17:14 20:22 03:09 RBC 2.36 L (4.40-5.60) X 10*6/uL Hgb 7.2 L (13.0-17.0) g/dL Hct 22.5 L (39.6-50.0) % RDW 15.5 H (11.5-14.5) % Immature Gran # 0.15 H (0.00-0.04) X 10*3/uL Monocytes # 0.13 L (0.20-1.00) X 10*3/uL Sodium (135-145) mmol/L Carbon Dioxide (21.6-31.8) mmol/L Glucose (70-110) mg/dL POC Glucose (mg/dL) 172 H 131 H (70-110) mg/dL Calcium (8.7-10.3) mg/dL Total Bilirubin (0.3-1.2) mg/dL AST (14-35) U/L ALT (10-49) U/L Alkaline Phosphatase (41-126) U/L Total Protein (6.2-8.2) g/dL Albumin (3.8-4.9) g/dL Albumin/Globulin Ratio (1.60-3.17) Ratio 04/11/24 04/11/24 04/11/24 Range/Units 03:09 07:16 12:20 RBC (4.40-5.60) X 10*6/uL Hgb (13.0-17.0) g/dL Hct (39.6-50.0) % RDW (11.5-14.5) % Immature Gran # (0.00-0.04) X 10*3/uL Monocytes # (0.20-1.00) X 10*3/uL Sodium 129 L (135-145) mmol/L Carbon Dioxide 21.1 L (21.6-31.8) mmol/L Glucose 126 H (70-110) mg/dL POC Glucose (mg/dL) 111 H 171 H (70-110) mg/dL Calcium 7.5 L (8.7-10.3) mg/dL Total Bilirubin 3.6 H (0.3-1.2) mg/dL AST 174 H (14-35) U/L ALT 56 H (10-49) U/L Alkaline Phosphatase 277 H (41-126) U/L Total Protein 4.7 L (6.2-8.2) g/dL Albumin 2.2 L (3.8-4.9) g/dL Albumin/Globulin Ratio 0.88 L (1.60-3.17) Ratio Assessment and Plan Time with Patient: Less than 30
--- NOTE | 2024-04-12 | P.PN ---
Progress Note - Text Progress Note Date: 04/11/24 CHIEF COMPLAINT: GI bleed HISTORY OF PRESENT ILLNESS: NAEO. No bloody BM's. Tolerating FLD. PHYSICAL EXAM: VITAL SIGNS: Reviewed. GENERAL: Well-developed in no acute distress. ABDOMEN: Soft. Nondistended. NEUROLOGIC: Alert and oriented. Cranial nerves II through XII grossly intact. ASSESSMENT: 1. Acute GI bleed with melanotic stools likely due to bleeding from patient's esophageal mass 2. Patient with history of metastatic esophageal cancer PLAN: -No plan for EGD at this time -Continue full liquid diet as per patient's request -Continue to monitor for any signs or symptoms of bleeding -Continue oncology management Armando Garcias DO [facility] [phone]
[2024-04-12 07:53] LABS: Glucose,Whole Blood 108 mg/dL (70-110)
[2024-04-12 10:10] LABS: Basophils # (A) 0.03 X 10*3/uL (0.00-0.10); Basophils % (A) 0.4 %; Eosinophils # (A) 0.25 X 10*3/uL (0.04-0.35); HCT 22.9 % (39.6-50.0); HGB 7.1 g/dL (13.0-17.0); Lymphocytes # (A) 2.34 X 10*3/uL (0.90-5.00); Lymphocytes % (A) 28.1 %; MCH 29.6 pg (27.0-32.0); MCV 95.4 FL (80.0-97.0); Mean Platelet Volume 9.8 FL (9.5-12.2); Monocytes # (A) 0.35 X 10*3/uL (0.20-1.00); Monocytes % (A) 4.2 %; NRBC Per 100 WBC 0 X 10*3/uL (0.00-0.01); Neutrophils # (A) 5.18 X 10*3/uL (1.80-7.70); Neutrophils % (A) 62.1 %; Platelet Count 351 X 10*3/uL (140-440); RDW 15.3 % (11.5-14.5); WBC 8.33 X 10*3/uL (4.50-10.00)
[2024-04-12 10:24] LABS: Magnesium 1.8 mg/dL (1.5-2.4)
[2024-04-12 10:31] LABS: BUN/Creat Ratio 17.43 Ratio (12.00-20.00); Blood Urea Nitrogen 12.2 mg/dL (9.0-27.0); Calcium 7.5 mg/dL (8.7-10.3); Carbon Dioxide 18.8 mmol/L (21.6-31.8); Chloride 100 mmol/L (96-109); Glucose 110 mg/dL (70-110); Potassium 4.7 mmol/L (3.5-5.5); Sodium 128 mmol/L (135-145)
[2024-04-12] MEDS: MAGNESIUM SULFATE-D5W PMX 1 GM in DEXTROSE/WATER 1 100ML.BAG IVPB ONE (12:25)
[2024-04-12 12:34] LABS: Glucose,Whole Blood 133 mg/dL (70-110)
[2024-04-12] MEDS: FUROSEMIDE 10 MG/ML 4 ML VIAL IV STA (13:39)
--- NOTE | 2024-04-12 15:11 | P.PN ---
Subjective Progress Note Date: 04/12/24 Principal diagnosis: GIB, metastatic esophageal adenocarcinoma In f/u pt will be completing 1st cycle of mFOLFOX6 today, minus keytruda as that cannot be given inpt. He states sm amt of hard stool yesterday, his abd discomfort has moved from right side to epigastric area, N and V, looks mostly bilious, he does not thro up food. He feels really weak. Denies F, dysphagia, odynophagia, chest pain, swelling in legs. Objective - Vital Signs Vital signs: Vital Signs Temp 99.0 F 04/12/24 12:35 Pulse 104 H 04/12/24 12:35 Resp 14 04/12/24 12:35 BP 103/63 04/12/24 12:35 Pulse Ox 97 04/12/24 12:35 FiO2 Intake & Output 04/11/24 04/12/24 04/12/24 18:59 06:59 18:59 Intake Total 780 1670 Balance 780 1670 Weight 79.9 kg Intake: Intake, IV Titration 470 Amount Sodium Chloride 0.9% 1, 470 000 ml @ 100 mls/hr IV . Q10H [facility] Rx#:[id number] Oral 780 1200 Other: Voiding Method Toilet Toilet Toilet # Voids 2 2 - Constitutional General appearance: Present: cooperative, no acute distress, thin - EENT Eyes: Present: anicteric sclerae, EOMI ENT: Present: hearing grossly normal - Respiratory Respiratory: bilateral: CTA, diminished (weak inspiratory effort ) - Cardiovascular Rhythm: regular Abnormal Heart Sounds: Present: systolic murmur - Peripheral edema leg Peripheral Edema: bilateral: 2+, Pitting - Gastrointestinal General gastrointestinal: Present: distended, normal bowel sounds, soft - Integumentary Integumentary: Present: pale - Neurologic Neurologic: Present: CNII-XII intact - Musculoskeletal Musculoskeletal: Present: generalized weakness - Psychiatric Psychiatric: Present: A&O x's 3, appropriate affect, intact judgment & insight - Labs CBC & Chem 7: 04/12/24 05:35 04/12/24 05:35 Labs: Abnormal Lab Results - Last 24 Hours (Table) 04/11/24 04/11/24 04/12/24 Range/Units 17:11 19:55 05:35 RBC 2.40 L (4.40-5.60) X 10*6/uL Hgb 7.1 L (13.0-17.0) g/dL Hct 22.9 L (39.6-50.0) % MCHC 31.0 L (32.0-37.0) g/dL RDW 15.3 H (11.5-14.5) % Immature Gran # 0.18 H (0.00-0.04) X 10*3/uL Sodium (135-145) mmol/L Carbon Dioxide (21.6-31.8) mmol/L POC Glucose (mg/dL) 117 H 175 H (70-110) mg/dL Calcium (8.7-10.3) mg/dL 04/12/24 04/12/24 Range/Units 05:35 12:33 RBC (4.40-5.60) X 10*6/uL Hgb (13.0-17.0) g/dL Hct (39.6-50.0) % MCHC (32.0-37.0) g/dL RDW (11.5-14.5) % Immature Gran # (0.00-0.04) X 10*3/uL Sodium 128 L (135-145) mmol/L Carbon Dioxide 18.8 L (21.6-31.8) mmol/L POC Glucose (mg/dL) 133 H (70-110) mg/dL Calcium 7.5 L (8.7-10.3) mg/dL - Imaging and Cardiology Abdominal x-ray: report reviewed Assessment and Plan (1) 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 Current Visit: Yes Status: Acute Priority: High Code(s): C15.9 - MALIGNANT NEOPLASM OF ESOPHAGUS, UNSPECIFIED; C78.7 - SECONDARY MALIG NEOPLASM OF LIVER AND INTRAHEPATIC BILE DUCT SNOMED Code(s): 36172611 (2) Iron deficiency anemia due to chronic blood loss Current Visit: Yes Status: Acute Priority: High Code(s): D50.0 - IRON DEFICIENCY ANEMIA SECONDARY TO BLOOD LOSS (CHRONIC) SNOMED Code(s): 408360378 (3) Nausea & vomiting Current Visit: Yes Status: Acute Priority: Medium Code(s): R11.2 - NAUSEA WITH VOMITING, UNSPECIFIED SNOMED Code(s): 19971474 (4) Constipated Current Visit: Yes Status: Acute Priority: Medium Code(s): K59.00 - CONSTIPATION, UNSPECIFIED SNOMED Code(s): 62061905 Plan: GI bleed, iron deficiency anemia -Presented with c/o abdominal pain, n/v, dark stool and dizziness. On admit Hgb 7.9, s/p 1 units PRBCs on 04/03, Hgb 7.1 today, overall stable, slight worsening, likely chemo effects. -No plan for endoscopy at this time -Iron studies consistent with iron deficiency, IV iron x 4 given -Continue to monitor CBC while inpt. Transfuse for hgb < 7 or if symptomatic Esophageal adenocarcinoma, metastatic -Oncology history as stated in consult -Completed brain SBRT -CT AP on 03/27/24 showed overall progression of disease with distal esophageal mass with extension to the GE junction and lesser curvature of the stomach, multiple and new hypodense hepatic metastases, and mild increase in size of metastatic adenopathy within the abdomen -Given the cholestatic transaminitis, imaging findings, and exam findings, there is concern for disease progression causing progressive liver dysfunction, recommendation to start treatment [id number] inpt. He had treatment 04/07-04/09/24. -Lab values stable, including LFTs, have remained stable, slightly improved since admit. Cont to monitor. -Currently awaiting peer to peer review for prior auth, and was scheduled for treatment to begin on 04/13/23 at [facility]. This will be adjusted as pt r eceived 1st treatment inpt last week. Chemo SE N,V, constipation -Pt is expectorating pooled secretions not food. He denies any recent V, no significant N, cont Scop patch. Anticipate pt will be better able to manage secretions after a few cycles when eso mass regresses some -Senna/colace sched, MOM PRN to promote BM-pt reports he has had a BM IV fluids decreased-pt has fair oral intake. Discussed with Attending CLIENT RELATIONSHIP CONSULTANT. Agree with a dose of lasix for suspected fluid overload. Daily wt. Close monitoring of VS-pt received a fluid bolus for previous hypotension Pt feels he is ready for soft foods. Will advance diet, pt will report any problems he may have with tolerance. Will request PT/OT evaluation Hope for DC in the next 1-2 days.
--- NOTE | 2024-04-12 16:22 | P.PN ---
Subjective Progress Note Date: 04/12/24 Patient is evaluated today in follow-up in the medical floor. Patient is complaining of some abdominal distention today states he feels bloated and abdominal x-ray was ordered which reveals nonspecific bowel gas pattern. Patient has fecal material and gas demonstrate throughout the colon and rectum. He is continued on normal saline at 100 mL/h. Additionally patient remains on IV ceftriaxone. He has been initiated on IV chemotherapy this hospital stay with oncology following closely. 04/12/2024 Patient is evaluated in follow-up of medical floor. Patient had a bowel movement as of yet. He does feel edematous and was given a dose of IV Lasix today. Fluids have been discontinued. Review of Systems Constitutional: Denied any fatigue denied any fever. Cardio vascular: denied any chest pain, palpitations Gastrointestinal: denied any nausea, vomiting, diarrhea Pulmonary: Denied any shortness of breath cough Neurologic denied any new focal deficits All inpatient medications were reviewed and appropriate changes in these medications as dictated in the interval history and assessment and plan. PHYSICAL EXAMINATION: GENERAL: The patient is alert and oriented x3, not in any acute distress. Well developed, well nourished. HEENT: Pupils are round and equally reacting to light. EOMI. No scleral icterus. No conjunctival pallor. Normocephalic, atraumatic. No pharyngeal erythema. No thyromegaly. CARDIOVASCULAR: S1 and S2 present. No murmurs, rubs, or gallops. PULMONARY: Chest is clear to auscultation, no wheezing or crackles. ABDOMEN: Soft, nontender, nondistended, normoactive bowel sounds. No palpable organomegaly. MUSCULOSKELETAL: No joint swelling or deformity. EXTREMITIES: No cyanosis, clubbing, bilateral lower extremity edema NEUROLOGICAL: Gross neurological examination did not reveal any focal deficits. SKIN: No rashes. Assessment and plan Esophageal cancer with upper GI bleeding with acute blood loss anemia, present on admission. Associated with epigastric tenderness no plans for endoscopic evaluation this admission Underlying iron deficiency Elevated bilirubin, AST, ALT with concern for liver involvement and disease progression Hyponatremia hypovolemic improving with IV fluids Nausea secondary to therapy Brain mets status post radiation treatment History of diabetes mellitus, type II History of hypertension GI prophylaxis Full code Plan Oncology following with recommendations of being initiated on IV chemotherapy this admission patient has undergone 1 cycle. No signs of active bleeding at this time continue to monitor hemoglobin closely and transfuse for hemoglobin less than 7. Add simethicone. Abdominal x-ray reviewed and patient has been having normal bowel movements. He continues on a bowel regimen closely. Oncology adjusting his pain medication today. He is tolerating diet. Will monitor electrolytes and renal function Given a one-time dose of IV Lasix will monitor electrolytes and consider an additional dose tomorrow if he is tolerating. The impression and plan of care has been dictated by Alma Kathleen, Nurse Practitioner as directed. Dr. Mercedez MD I have performed a history and physical examination and medical decision making of this patient, discussed the same with the dictator, and agree with the dictators assessment and plan as written, documented as a scribe. Based on total visit time, I have performed more than 50% of this visit. Objective - Vital Signs Vital signs: Vital Signs Temp 99.0 F 04/12/24 12:35 Pulse 104 H 04/12/24 12:35 Resp 14 04/12/24 12:35 BP 103/63 04/12/24 12:35 Pulse Ox 97 04/12/24 12:35 FiO2 Intake & Output 04/11/24 04/12/24 04/12/24 18:59 06:59 18:59 Intake Total 780 1670 Balance 780 1670 Weight 79.9 kg Intake: Intake, IV Titration 470 Amount Sodium Chloride 0.9% 1, 470 000 ml @ 100 mls/hr IV . Q10H [facility] Rx#:[id number] Oral 780 1200 Other: Voiding Method Toilet Toilet Toilet # Voids 2 2 - Labs CBC & Chem 7: 04/12/24 05:35 04/12/24 05:35 Labs: Abnormal Lab Results - Last 24 Hours (Table) 04/11/24 04/11/24 04/12/24 Range/Units 17:11 19:55 05:35 RBC 2.40 L (4.40-5.60) X 10*6/uL Hgb 7.1 L (13.0-17.0) g/dL Hct 22.9 L (39.6-50.0) % MCHC 31.0 L (32.0-37.0) g/dL RDW 15.3 H (11.5-14.5) % Immature Gran # 0.18 H (0.00-0.04) X 10*3/uL Sodium (135-145) mmol/L Carbon Dioxide (21.6-31.8) mmol/L POC Glucose (mg/dL) 117 H 175 H (70-110) mg/dL Calcium (8.7-10.3) mg/dL 04/12/24 04/12/24 Range/Units 05:35 12:33 RBC (4.40-5.60) X 10*6/uL Hgb (13.0-17.0) g/dL Hct (39.6-50.0) % MCHC (32.0-37.0) g/dL RDW (11.5-14.5) % Immature Gran # (0.00-0.04) X 10*3/uL Sodium 128 L (135-145) mmol/L Carbon Dioxide 18.8 L (21.6-31.8) mmol/L POC Glucose (mg/dL) 133 H (70-110) mg/dL Calcium 7.5 L (8.7-10.3) mg/dL Assessment and Plan Time with Patient: Less than 30
[2024-04-12 17:13] LABS: Glucose,Whole Blood 150 mg/dL (70-110)
[2024-04-12 20:07] LABS: Glucose,Whole Blood 156 mg/dL (70-110)
--- NOTE | 2024-04-13 00:28 | P.PN ---
Progress Note - Text Progress Note Date: 04/12/24 CHIEF COMPLAINT: GI bleed HISTORY OF PRESENT ILLNESS: NAEO. No bloody BM's. Having small bowel movements. He did have some bilious vomiting and nausea likely related to chemotherapy. PHYSICAL EXAM: VITAL SIGNS: Reviewed. GENERAL: Well-developed in no acute distress. ABDOMEN: Soft. Nondistended. NEUROLOGIC: Alert and oriented. Cranial nerves II through XII grossly intact. ASSESSMENT: 1. Acute GI bleed with melanotic stools likely due to bleeding from patient's esophageal mass 2. Patient with history of metastatic esophageal cancer PLAN: -No plan for EGD at this time -Dysphagia 2 Diet -Continue to monitor for any signs or symptoms of bleeding -Continue oncology management Armando Garcias DO [facility] [phone]
[2024-04-13 06:15] LABS: Basophils % (A) 0 %; Eosinophils # (A) 0.2 k/uL (0-0.7); Eosinophils % (A) 3 %; HGB 7.6 gm/dL (13.0-17.5); Lymphocytes # (A) 2.2 k/uL (1.0-4.8); Lymphocytes % (A) 33 %; MCH 31.7 pg (25.0-35.0); Mean Platelet Volume 7.9; Monocytes # (A) 0.2 k/uL (0-1.0); Monocytes % (A) 4 %; Neutrophils # (A) 3.8 k/uL (1.3-7.7); Neutrophils % (A) 59 %; Platelet Count 303 k/uL (150-450); RBC 2.39 m/uL (4.30-5.90); RDW 14.7 % (11.5-15.5); WBC 6.4 k/uL (3.8-10.6)
[2024-04-13 06:49] LABS: ALT 41 U/L (4-49); AST 93 U/L (17-59); African American GFR (CKD) >90 (>60 ml/min/1.73 sqM); Albumin 1.9 g/dL (3.5-5.0); Albumin/Globulin Ratio 0.7; Alkaline Phosphatase 286 U/L (38-126); Anion Gap 3 mmol/L; Blood Urea Nitrogen 11 mg/dL (9-20); Calcium 7.4 mg/dL (8.4-10.2); Carbon Dioxide 23 mmol/L (22-30); Chloride 98 mmol/L (98-107); Globulin 2.9 g/dL; Glucose 113 mg/dL (74-99); Non-African American GFR(CKD) >90 (>60 ml/min/1.73 sqM); Sodium 124 mmol/L (137-145); Total Bilirubin 4.4 mg/dL (0.2-1.3); Total Protein 4.8 g/dL (6.3-8.2)
[2024-04-13 07:11] LABS: Glucose,Whole Blood 118 mg/dL (70-110)
[2024-04-13 12:13] LABS: Glucose,Whole Blood 136 mg/dL (70-110)
[2024-04-13 12:59] LABS: INR 1.5 (<1.2); Partial Thromboplastin Time 25.6 sec (22.0-30.0); Prothrombin Time 15.6 sec (10.0-12.5)
[2024-04-13] MEDS: OXYMETAZOLINE 0.05% NASL SPRAY 1 SPRAY BOTTLE NASAL SCH (13:04)
[2024-04-13] MEDS: LACTULOSE 20 GM/30 ML CUP PO SCH (13:08)
[2024-04-13 17:00] LABS: Glucose,Whole Blood 143 mg/dL (70-110)
--- NOTE | 2024-04-13 18:51 | P.PN ---
Subjective Progress Note Date: 04/13/24 Abdominal pain has improved. Had epistaxis this morning with clots, improving at time of visit. Reports nausea after epistaxis, no vomiting. CBC today showing hgb 7.6, plt 303,000 Objective - Vital Signs Vital signs: Vital Signs Temp 98.9 F 04/13/24 07:07 Pulse 110 H 04/13/24 07:07 Resp 20 04/13/24 07:07 BP 111/71 04/13/24 07:07 Pulse Ox 96 04/13/24 07:07 FiO2 Intake & Output 04/12/24 04/13/24 04/13/24 18:59 06:59 18:59 Intake Total 480 830 Balance 480 830 Weight 78.953 kg Intake: Oral 480 830 Other: Voiding Method Toilet Toilet # Voids 4 3 - Constitutional General appearance: Present: average body habitus, no acute distress - EENT EENT Comment(s): epistaxis Eyes: Present: scleral icterus ENT: Present: hearing grossly normal - Respiratory Details: breathing is even and unlabored - Cardiovascular Details: skin warm and dry - Gastrointestinal General gastrointestinal: Present: distended - Integumentary Integumentary: Present: jaundiced - Psychiatric Psychiatric: Present: A&O x's 3 - Labs CBC & Chem 7: 04/13/24 06:04 04/13/24 06:04 Labs: Abnormal Lab Results - Last 24 Hours (Table) 04/03/24 04/12/24 04/12/24 Range/Units 10:55 12:33 17:12 RBC (4.30-5.90) m/uL Hgb (13.0-17.5) gm/dL Hct (39.0-53.0) % Sodium (137-145) mmol/L Glucose (74-99) mg/dL POC Glucose (mg/dL) 133 H 150 H (70-110) mg/dL Calcium (8.4-10.2) mg/dL Total Bilirubin (0.2-1.3) mg/dL AST (17-59) U/L Alkaline Phosphatase (38-126) U/L Total Protein (6.3-8.2) g/dL Albumin (3.5-5.0) g/dL Crossmatch See Detail 04/12/24 04/13/24 04/13/24 Range/Units 20:06 06:04 06:04 RBC 2.39 L (4.30-5.90) m/uL Hgb 7.6 L (13.0-17.5) gm/dL Hct 23.0 L (39.0-53.0) % Sodium 124 L (137-145) mmol/L Glucose 113 H (74-99) mg/dL POC Glucose (mg/dL) 156 H (70-110) mg/dL Calcium 7.4 L (8.4-10.2) mg/dL Total Bilirubin 4.4 H (0.2-1.3) mg/dL AST 93 H (17-59) U/L Alkaline Phosphatase 286 H (38-126) U/L Total Protein 4.8 L (6.3-8.2) g/dL Albumin 1.9 L (3.5-5.0) g/dL Crossmatch 04/13/24 Range/Units 07:10 RBC (4.30-5.90) m/uL Hgb (13.0-17.5) gm/dL Hct (39.0-53.0) % Sodium (137-145) mmol/L Glucose (74-99) mg/dL POC Glucose (mg/dL) 118 H (70-110) mg/dL Calcium (8.4-10.2) mg/dL Total Bilirubin (0.2-1.3) mg/dL AST (17-59) U/L Alkaline Phosphatase (38-126) U/L Total Protein (6.3-8.2) g/dL Albumin (3.5-5.0) g/dL Crossmatch Assessment and Plan (1) Esophageal adenocarcinoma Current Visit: Yes Status: Acute Priority: High Code(s): C15.9 - MALIGNANT NEOPLASM OF ESOPHAGUS, UNSPECIFIED SNOMED Code(s): 941638106 (2) GI bleed Current Visit: Yes Status: Acute Priority: High Code(s): K92.2 - GASTROINTESTINAL HEMORRHAGE, UNSPECIFIED SNOMED Code(s): 29608504 (3) Anemia Current Visit: Yes Status: Acute Priority: High Code(s): D64.9 - ANEMIA, UNSPECIFIED SNOMED Code(s): 038728976 Plan: GI bleed, iron deficiency anemia -Presented with c/o abdominal pain, n/v, dark stool and dizziness. On admit Hgb 7.9, s/p 1 units PRBCs on 04/03, Hgb 7.1 today, overall stable, slight worsening, likely chemo effects. -No plan for endoscopy at this time -Iron studies consistent with iron deficiency, IV iron x 4 given -Continue to monitor CBC while inpt. Transfuse for hgb < 7 or if symptomatic Epistaxis: Had mild episode 3 days ago, bleeding with clots noted this morning -Check coags -Afrin ordered Esophageal adenocarcinoma, metastatic -Oncology history as stated in consult -Completed brain SBRT -CT AP on 03/27/24 showed overall progression of disease with distal esophageal mass with extension to the GE junction and lesser curvature of the stomach, multiple and new hypodense hepatic metastases, and mild increase in size of metastatic adenopathy within the abdomen -Given the cholestatic transaminitis, imaging findings, and exam findings, there is concern for disease progression causing progressive liver dysfunction, recommendation to start treatment [id number] inpt. He had treatment 04/07-04/09/24. -Bilirubin increased today to 4.4, LFTs stable. Cont to monitor Chemo SE N,V, constipation -Pt is expectorating pooled secretions not food. He denies any recent V, no significant N, cont Scop patch. Anticipate pt will be better able to manage secretions after a few cycles when eso mass regresses some -Senna/colace sched, MOM PRN to promote BM Pt feels he is ready for soft foods. Will advance diet, pt will report any probl ems he may have with tolerance. Will request PT/OT evaluation
[2024-04-13 20:25] LABS: Glucose,Whole Blood 182 mg/dL (70-110)
--- NOTE | 2024-04-13 22:56 | P.PN ---
Subjective Progress Note Date: 04/13/24 Patient is evaluated today in follow-up in the medical floor. Patient is complaining of some abdominal distention today states he feels bloated and abdominal x-ray was ordered which reveals nonspecific bowel gas pattern. Patient has fecal material and gas demonstrate throughout the colon and rectum. He is continued on normal saline at 100 mL/h. Additionally patient remains on IV ceftriaxone. He has been initiated on IV chemotherapy this hospital stay with oncology following closely. 04/12/2024 Patient is evaluated in follow-up of medical floor. Patient had a bowel movement as of yet. He does feel edematous and was given a dose of IV Lasix today. Fluids have been discontinued. 04/13/2024 Patient is seen in follow-up today with oncology following. Patient received chemotherapy last week continues to have symptoms of weakness, nausea, epistaxis and also reports to spitting up bloody sputum. Patient hemoglobin is stable above 7 although will order stat CBC and transfuse if 7 or less. Patient sodium remains low at 124 and worsened slightly status post 1 dose of Lasix and not eating much we will consult appreciate input and recommendations from nephrology. Patient also reports has not had a bowel movement in a few days and will add lactulose as well as stool softener. Patient reports passing gas. Patient appears weak and will have PT/OT therapy evaluate the patient. Per nursing staff patient has been ambulatory to the bathroom. Review of Systems Constitutional: Denied any fatigue denied any fever. Cardio vascular: denied any chest pain, palpitations Gastrointestinal: Reports having nausea, reports not vomiting but spitting up secretions with blood in it, no reports of diarrhea, reports passing gas but has not had a bowel movement in a couple of days Pulmonary: Denied any shortness of breath cough Neurologic denied any new focal deficits All inpatient medications were reviewed and appropriate changes in these medications as dictated in the interval history and assessment and plan. PHYSICAL EXAMINATION: GENERAL: The patient is alert and oriented x3, not in any acute distress. Well developed, thin built, appears older than stated age, ill-appearing HEENT: Pupils are round and equally reacting to light. EOMI. No scleral icterus. No conjunctival pallor. Normocephalic, atraumatic. No pharyngeal erythema. No thyromegaly. CARDIOVASCULAR: S1 and S2 present. No murmurs, rubs, or gallops. PULMONARY: Chest is clear to auscultation, no wheezing or crackles. ABDOMEN: Soft, thin, scaphoid, nontender, nondistended, normoactive bowel sounds. No palpable organomegaly. MUSCULOSKELETAL: No joint swelling or deformity. EXTREMITIES: No cyanosis, clubbing, bilateral lower extremity edema NEUROLOGICAL: Gross neurological examination did not reveal any focal deficits. Diffusely weak SKIN: No rashes. Assessment: Esophageal cancer with upper GI bleeding with acute blood loss anemia, present on admission. Associated with epigastric tenderness no plans for endoscopic evaluation this admission Underlying iron deficiency Elevated bilirubin, AST, ALT with concern for liver involvement and disease progression Hyponatremia hypovolemic, 124 today and will consult nephrology and appreciate input and recommendations Nausea secondary to chemo therapy Brain mets status post radiation treatment History of diabetes mellitus, type II History of hypertension GI prophylaxis Full code Plan: Oncology following and has completed IV chemotherapy this admission, patient has undergone 1 cycle. No signs of active bleeding at this time continue to monitor hemoglobin closely and transfuse for hemoglobin less than 7. Hemoglobin at 7.6. Patient did have an episode of epistaxis, will add as needed Afrin and ordered stat CBC Continue simethicone. Abdominal x-ray reviewed and patient has been having normal bowel movements. Patient reports has not had a bowel movement in a couple of days and will add lactulose until having bowel movements and then make as needed. He will be continued on a bowel regimen closely. Oncology adjusting his pain medication He is tolerating diet although patient reports to feeling nauseated and will continue with antinausea medications. Sodium remains low at 124 after giving a dose of Lasix. Will consult nephrology and appreciate input and recommendations. Will monitor electrolytes and renal function and follow-up with repeat labs. To discuss further with consultations regarding discharge planning possibly in t he next 24 to 48 hours Encourage increase activity as tolerated and will have PT/OT therapy evaluate the patient The impression and plan of care has been dictated by Joanna López, Nurse Practitioner as directed. Dr. Mercedez MD I have performed a history and physical examination and medical decision making of this patient, discussed the same with the dictator, and agree with the d ictators assessment and plan as written, documented as a scribe. Based on total visit time, I have performed more than 50% of this visit. Objective - Vital Signs Vital signs: Vital Signs Temp 98.9 F 04/13/24 07:07 Pulse 110 H 04/13/24 07:07 Resp 20 04/13/24 07:07 BP 111/71 04/13/24 07:07 Pulse Ox 96 04/13/24 07:07 FiO2 Intake & Output 04/12/24 04/13/24 04/13/24 18:59 06:59 18:59 Intake Total 480 830 Balance 480 830 Weight 78.953 kg Intake: Oral 480 830 Other: Voiding Method Toilet Toilet # Voids 4 3 - Labs CBC & Chem 7: 04/13/24 06:04 04/13/24 06:04 Labs: Abnormal Lab Results - Last 24 Hours (Table) 04/03/24 04/12/24 04/12/24 Range/Units 10:55 05:35 05:35 RBC 2.40 L (4.40-5.60) X 10*6/uL Hgb 7.1 L (13.0-17.0) g/dL Hct 22.9 L (39.6-50.0) % MCHC 31.0 L (32.0-37.0) g/dL RDW 15.3 H (11.5-14.5) % Immature Gran # 0.18 H (0.00-0.04) X 10*3/uL Sodium 128 L (135-145) mmol/L Carbon Dioxide 18.8 L (21.6-31.8) mmol/L Glucose (74-99) mg/dL POC Glucose (mg/dL) (70-110) mg/dL Calcium 7.5 L (8.7-10.3) mg/dL Total Bilirubin (0.2-1.3) mg/dL AST (17-59) U/L Alkaline Phosphatase (38-126) U/L Total Protein (6.3-8.2) g/dL Albumin (3.5-5.0) g/dL Crossmatch See Detail 04/12/24 04/12/24 04/12/24 Range/Units 12:33 17:12 20:06 RBC (4.40-5.60) X 10*6/uL Hgb (13.0-17.0) g/dL Hct (39.6-50.0) % MCHC (32.0-37.0) g/dL RDW (11.5-14.5) % Immature Gran # (0.00-0.04) X 10*3/uL Sodium (135-145) mmol/L Carbon Dioxide (21.6-31.8) mmol/L Glucose (74-99) mg/dL POC Glucose (mg/dL) 133 H 150 H 156 H (70-110) mg/dL Calcium (8.7-10.3) mg/dL Total Bilirubin (0.2-1.3) mg/dL AST (17-59) U/L Alkaline Phosphatase (38-126) U/L Total Protein (6.3-8.2) g/dL Albumin (3.5-5.0) g/dL Crossmatch 04/13/24 04/13/24 04/13/24 Range/Units 06:04 06:04 07:10 RBC 2.39 L (4.40-5.60) X 10*6/uL Hgb 7.6 L (13.0-17.0) g/dL Hct 23.0 L (39.6-50.0) % MCHC (32.0-37.0) g/dL RDW (11.5-14.5) % Immature Gran # (0.00-0.04) X 10*3/uL Sodium 124 L (135-145) mmol/L Carbon Dioxide (21.6-31.8) mmol/L Glucose 113 H (74-99) mg/dL POC Glucose (mg/dL) 118 H (70-110) mg/dL Calcium 7.4 L (8.7-10.3) mg/dL Total Bilirubin 4.4 H (0.2-1.3) mg/dL AST 93 H (17-59) U/L Alkaline Phosphatase 286 H (38-126) U/L Total Protein 4.8 L (6.3-8.2) g/dL Albumin 1.9 L (3.5-5.0) g/dL Crossmatch
[2024-04-14 07:13] LABS: INR 1.4 (<1.2); Partial Thromboplastin Time 25.9 sec (22.0-30.0); Prothrombin Time 15.1 sec (10.0-12.5)
--- NOTE | 2024-04-14 07:27 | P.PN ---
Progress Note - Text Progress Note Date: 04/13/24 CHIEF COMPLAINT: GI bleed HISTORY OF PRESENT ILLNESS: No acute events overnight. PHYSICAL EXAM: VITAL SIGNS: Reviewed. GENERAL: Well-developed in no acute distress. ABDOMEN: Soft. Nondistended. NEUROLOGIC: Alert and oriented. Cranial nerves II through XII grossly intact. ASSESSMENT: 1. Acute GI bleed with melanotic stools likely due to bleeding from patient's esophageal mass 2. Patient with history of metastatic esophageal cancer PLAN: -No plan for EGD at this time -Dysphagia 2 Diet -Continue to monitor for any signs or symptoms of bleeding -Continue oncology management Armando Garcias DO [facility] [phone]
[2024-04-14 07:35] LABS: Glucose,Whole Blood 101 mg/dL (70-110)
[2024-04-14 08:10] VITALS: RESP 16
[2024-04-14 11:09] LABS: HCT 21.5 % (39.6-50.0); MCH 29.8 pg (27.0-32.0); MCHC 31.6 g/dL (32.0-37.0); MCV 94.3 FL (80.0-97.0); Mean Platelet Volume 9.7 FL (9.5-12.2); NRBC Per 100 WBC 0 X 10*3/uL (0.00-0.01); Platelet Count 299 X 10*3/uL (140-440); RBC 2.28 X 10*6/uL (4.40-5.60); RDW 15.5 % (11.5-14.5)
[2024-04-14 11:12] LABS: ALT 36 U/L (10-49); AST 83 U/L (14-35); Albumin 2.1 g/dL (3.8-4.9); Albumin/Globulin Ratio 0.81 Ratio (1.60-3.17); Alkaline Phosphatase 278 U/L (41-126); BUN/Creat Ratio 13.71 Ratio (12.00-20.00); Blood Urea Nitrogen 9.6 mg/dL (9.0-27.0); Calcium 7.8 mg/dL (8.7-10.3); Carbon Dioxide 21.4 mmol/L (21.6-31.8); Chloride 100 mmol/L (96-109); Globulin 2.6 g/dL (1.6-3.3); Glucose 105 mg/dL (70-110); Potassium 4.4 mmol/L (3.5-5.5); Sodium 129 mmol/L (135-145); Total Bilirubin 3.1 mg/dL (0.3-1.2); Total Protein 4.7 g/dL (6.2-8.2)
[2024-04-14 11:33] LABS: Basophils # (A) 0.02 X 10*3/uL (0.00-0.10); Basophils % (A) 0.2 %; Eosinophils # (A) 0.18 X 10*3/uL (0.04-0.35); Eosinophils % (A) 2.1 %; HGB 6.8 g/dL (13.0-17.0); Lymphocytes # (A) 2.01 X 10*3/uL (0.90-5.00); Lymphocytes % (A) 23.1 %; Monocytes # (A) 0.79 X 10*3/uL (0.20-1.00); Monocytes % (A) 9.1 %; Neutrophils # (A) 5.46 X 10*3/uL (1.80-7.70); Neutrophils % (A) 62.7 %
[2024-04-14 12:27] LABS: Glucose,Whole Blood 121 mg/dL (70-110)
--- NOTE | 2024-04-14 14:15 | P.PN ---
Subjective Progress Note Date: 04/14/24 SURGICAL PROGRESS NOTE CHIEF COMPLAINT: GI bleed HISTORY OF PRESENT ILLNESS: Patient sitting up in bed. He is eating his lunch. He said no vomiting today. Patient had a another large nosebleed yesterday. Did cause a stomach to be upset and his appetite has been decreased. Patient requesting ice cream with his lunch. His hemoglobin is down to 6.8. He is scheduled for a unit of blood today. And he is anticipating discharge later this afternoon. Afebrile. Mildly tachycardic. WBC 6.8 patient reports no further melanotic stools. PHYSICAL EXAM: VITAL SIGNS: Reviewed. GENERAL: Well-developed in no acute distress. ABDOMEN: Soft. Nondistended. NEUROLOGIC: Alert and oriented. Cranial nerves II through XII grossly intact. ASSESSMENT: 1. Acute GI bleed with melanotic stools likely due to bleeding from patient's esophageal mass 2. Patient with history of metastatic esophageal cancer PLAN: -No plan for EGD at this time -Continue ground diet -Agree with discharge after blood transfusion -Follow-up with oncology outpatient Physician Respite Worker note has been reviewed by physician. Signing provider agrees with the documented findings, assessment, and plan of care. Objective - Vital Signs Vital signs: Vital Signs Temp 98.5 F 04/14/24 12:52 Pulse 102 H 04/14/24 12:52 Resp 16 04/14/24 12:52 BP 98/51 04/14/24 12:52 Pulse Ox 95 04/14/24 12:52 FiO2 Intake & Output 04/13/24 04/14/24 04/14/24 18:59 06:59 18:59 Intake Total 50 240 100 Balance 50 240 100 Weight 78 kg Intake: Intake, IV Titration 50 Amount cefTRIAXone 1 gm In 50 Sodium Chloride 0.9% 50 ml @ 100 mls/hr IVPB Q24HR [facility] Rx#:[id number] Oral 240 100 Other: Voiding Method Toilet Toilet Toilet # Voids 5 - Labs CBC & Chem 7: 04/14/24 06:32 04/14/24 06:32 Labs: Abnormal Lab Results - Last 24 Hours (Table) 04/13/24 04/13/24 04/14/24 Range/Units 16:59 20:24 06:32 RBC 2.28 L (4.40-5.60) X 10*6/uL Hgb 6.8 A* (13.0-17.0) g/dL Hct 21.5 L (39.6-50.0) % MCHC 31.6 L (32.0-37.0) g/dL RDW 15.5 H (11.5-14.5) % Immature Gran # 0.24 H (0.00-0.04) X 10*3/uL PT (10.0-12.5) sec INR (<1.2) Sodium (135-145) mmol/L Carbon Dioxide (21.6-31.8) mmol/L POC Glucose (mg/dL) 143 H 182 H (70-110) mg/dL Calcium (8.7-10.3) mg/dL Total Bilirubin (0.3-1.2) mg/dL AST (14-35) U/L Alkaline Phosphatase (41-126) U/L Total Protein (6.2-8.2) g/dL Albumin (3.8-4.9) g/dL Albumin/Globulin Ratio (1.60-3.17) Ratio Crossmatch 04/14/24 04/14/24 04/14/24 Range/Units 06:32 06:32 12:02 RBC (4.40-5.60) X 10*6/uL Hgb (13.0-17.0) g/dL Hct (39.6-50.0) % MCHC (32.0-37.0) g/dL RDW (11.5-14.5) % Immature Gran # (0.00-0.04) X 10*3/uL PT 15.1 H (10.0-12.5) sec INR 1.4 H (<1.2) Sodium 129 L (135-145) mmol/L Carbon Dioxide 21.4 L (21.6-31.8) mmol/L POC Glucose (mg/dL) (70-110) mg/dL Calcium 7.8 L (8.7-10.3) mg/dL Total Bilirubin 3.1 H (0.3-1.2) mg/dL AST 83 H (14-35) U/L Alkaline Phosphatase 278 H (41-126) U/L Total Protein 4.7 L (6.2-8.2) g/dL Albumin 2.1 L (3.8-4.9) g/dL Albumin/Globulin Ratio 0.81 L (1.60-3.17) Ratio Crossmatch See Detail 04/14/24 Range/Units 12:23 RBC (4.40-5.60) X 10*6/uL Hgb (13.0-17.0) g/dL Hct (39.6-50.0) % MCHC (32.0-37.0) g/dL RDW (11.5-14.5) % Immature Gran # (0.00-0.04) X 10*3/uL PT (10.0-12.5) sec INR (<1.2) Sodium (135-145) mmol/L Carbon Dioxide (21.6-31.8) mmol/L POC Glucose (mg/dL) 121 H (70-110) mg/dL Calcium (8.7-10.3) mg/dL Total Bilirubin (0.3-1.2) mg/dL AST (14-35) U/L Alkaline Phosphatase (41-126) U/L Total Protein (6.2-8.2) g/dL Albumin (3.8-4.9) g/dL Albumin/Globulin Ratio (1.60-3.17) Ratio Crossmatch
[2024-04-14 14:45] VITALS: BMI 25.4
--- NOTE | 2024-04-14 15:53 | P.NPCON ---
History of Present Illness - Reason for Consult acute renal failure, hyponatremia - History of Present Illness Patient is a 59-year-old male with history of esophageal cancer with liver mets and previous history of GI bleed. Patient is maintained on chemotherapy which was just recently started. He is admitted to the hospital with GI bleed. Patient has been transfused packed RBCs. No previous history of hyponatremia. Serum sodium dropped from 130 on admission to 124 on 04/08/2024 and has subsequently increased back up to 129. Patient was maintained on normal saline which was discontinued on 04/11/2024. Patient also received a dose of Lasix on 04/12/2024. Blood pressure has been low with systolic in the 90s. Chemotherapy was started this admission. Patient denies any shortness of breath. No complaints of chest pain. Past Medical History Past Medical History: Cancer, Diabetes Mellitus, GERD/Reflux, Hypertension, Syncope Additional Past Medical History / Comment(s): Type II diabetic NIDDM ( "on insulin now r/t steroids") Pt is wearing an external heart monitor until Mar 01, 2024. Recent syncopal episode Jan 22, 2024- found lesion on brain ( last radiation tx to brain will be 02/17/24) and has recent dx esophageal cancer- no chemo at present. Heart murmur. current anemia- is scheduled for Iron infusion on 02/17/24. History of Any Multi-Drug Resistant Organisms: None Reported Past Surgical History: Hernia Repair, Orthopedic Surgery, Tonsillectomy Additional Past Surgical History / Comment(s): Right hand surgery. Fx C-7 wore halo. Umbilical hernia. Recent EGD 01/2024. Past Anesthesia/Blood Transfusion Reactions: No Reported Reaction Additional Past Anesthesia/Blood Transfusion Reaction / Comment(s): No hx of blood transfusion to date. Past Psychological History: No Psychological Hx Reported Additional Psychological History / Comment(s): Patient lives with girlfriend and grown children. Smoking Status: Former smoker Past Alcohol Use History: None Reported Additional Past Alcohol Use History / Comment(s): No recent alcohol use. Past Drug Use History: None Reported Additional Drug Use History / Comment(s): Very occasional smokes Marijuana. Instructed no Marijuana 24 hrs before procedure. - Past Family History Mother Family Medical History: Cancer, COPD, Myocardial Infarction ([place]) Additional Family Medical History / Comment(s): Unknown cancer. Father Family Medical History: Cancer Additional Family Medical History / Comment(s): Lung Cancer, Brain tumor Brother(s) Family Medical History: Cancer Additional Family Medical History / Comment(s): Leaukemia , Cancer- had part of ear and side of face removed. Medications and Allergies Home Medications Medication Instructions Recorded Confirmed Type Metoprolol Succinate (ER) [Toprol 25 mg PO DAILY 02/14/24 04/03/24 History XL] Empagliflozin [Jardiance] 25 mg PO DAILY 04/03/24 04/03/24 History Famotidine 40 mg PO HS 04/03/24 04/03/24 History Fluticasone Propion/Salmeterol 1 puff INHALATION RT-BID 04/03/24 04/03/24 History [Fluticasone-Salmeterol 500-50] Loperamide [Imodium] 2 mg PO QID PRN cap 04/14/24 Rx Magnesium Hydroxide [Milk of 2,400 mg PO DAILY PRN ml 04/14/24 Rx Magnesia] Oxymetazoline 0.05% Nasl [place] 2 spray NASAL BID PRN #5 ml 04/14/24 Rx [Afrin 0.05% Nasal [place]] Petrolatum, White [Aquaphor] 1 applic TOPICAL BID each 04/14/24 Rx Promethazine [Phenergan] 25 mg PO Q6HR PRN #20 tab 04/14/24 Rx Scopolamine 1 mg/72 Hr Patch 1 patch TRANSDERM Q72H #3 patch 04/14/24 Rx [TransDerm Scop] Sennosides-Docusate Sodium 1 each PO BID #60 tab 04/14/24 Rx [Senokot-S] Simethicone Chew [Mylicon Chew] 80 mg PO QID PRN #20 tab 04/14/24 Rx Allergies Allergy/AdvReac Type Severity Reaction Status Date / Time No Known Allergies Allergy Verified 04/03/24 10:57 Physical Exam Vitals: Vital Signs Temp Pulse Pulse Resp BP BP Pulse Ox 04/14/24 14:43 95/58 04/14/24 14:23 98.7 F 105 H 16 95/8 96 04/14/24 14:20 98.6 F 105 H 16 108/72 04/14/24 12:52 98.5 F 102 H 16 98/51 95 04/14/24 07:29 99.1 F 109 H 16 110/65 96 04/14/24 02:00 98.3 F 103 H 12 100/67 96 04/13/24 20:00 98.5 F 99 12 98/65 97 Intake and Output 04/14/24 04/14/24 04/14/24 06:59 14:59 22:59 Intake Total 240 580 Balance 240 580 Intake: Oral 240 580 Blood Product 0 Unit 0 Other: Voiding Method Toilet Weight 78 kg 78 kg Patient is awake, comfortable, alert oriented x 3. No acute distress Examination of the heart S1 and S2 Examination of the lungs bilateral breath sounds are heard Abdomen is soft nontender Examination of lower extremities shows edema 1+ bilaterally HOTEL SECURITY OFFICER exam grossly intact Results - Lab Results Most recent lab results Calcium 7.8 mg/dL (8.7-10.3) L 04/14/24 06:32 Magnesium 1.8 mg/dL (1.5-2.4) 04/12/24 05:35 04/14/24 06:32 04/14/24 06:32 Assessment and Plan Assessment: 1. Hyponatremia, initially hypovolemic and improved with saline. Patient is currently hypervolemic and normal saline has been appropriately discontinued. Urine osmolality and urine sodium will be ordered. 2. GI bleed with hemoglobin 6.8 g/dL, receiving packed RBCs transfusion 3. Metastatic esophageal cancer with mets to the liver and brain started chemotherapy this admission Plan: Continue off of IV fluids. Check urine osmolality and random urine sodium. Repeat labs in a.m. Patient may need to be diuresed again. Thank you for the consultation. We will continue to follow the patient with you during his hospitalization.
[2024-04-14 16:30] VITALS: PULSE 96
[2024-04-14 17:20] LABS: Glucose,Whole Blood 119 mg/dL (70-110)
[2024-04-14 18:04] VITALS: BP 100/67; TEMP 98.7
--- NOTE | 2024-04-14 19:31 | P.PN ---
Subjective Progress Note Date: 04/14/24 Abdominal pain has improved. Epistaxis resolved. Pt reports feeling improved today, tolerating more oral intake. CBC today showing hgb 6.8, plt 299,000. 1 unit PRBCs ordered. Bilirubin improved today, 3.1, LFTs stable Objective - Vital Signs Vital signs: Vital Signs Temp 98.5 F 04/14/24 12:52 Pulse 102 H 04/14/24 12:52 Resp 16 04/14/24 12:52 BP 98/51 04/14/24 12:52 Pulse Ox 95 04/14/24 12:52 FiO2 Intake & Output 04/13/24 04/14/24 04/14/24 18:59 06:59 18:59 Intake Total 50 240 100 Balance 50 240 100 Weight 78 kg Intake: Intake, IV Titration 50 Amount cefTRIAXone 1 gm In 50 Sodium Chloride 0.9% 50 ml @ 100 mls/hr IVPB Q24HR CONSTANTIN Rx#:[id number] Oral 240 100 Other: Voiding Method Toilet Toilet Toilet # Voids 5 - Constitutional General appearance: Present: no acute distress - EENT Eyes: Present: EOMI, scleral icterus ENT: Present: hearing grossly normal - Respiratory Details: breathing is even and unlabored - Cardiovascular Details: skin warm and dry - Integumentary Integumentary: Present: jaundiced. Absent: cyanotic - Psychiatric Psychiatric: Present: A&O x's 3 - Labs CBC & Chem 7: 04/14/24 06:32 04/14/24 06:32 Labs: Abnormal Lab Results - Last 24 Hours (Table) 04/13/24 04/13/24 04/13/24 Range/Units 12:08 16:59 20:24 RBC (4.40-5.60) X 10*6/uL Hgb (13.0-17.0) g/dL Hct (39.6-50.0) % MCHC (32.0-37.0) g/dL RDW (11.5-14.5) % Immature Gran # (0.00-0.04) X 10*3/uL PT 15.6 H (10.0-12.5) sec INR 1.5 H (<1.2) Sodium (135-145) mmol/L Carbon Dioxide (21.6-31.8) mmol/L POC Glucose (mg/dL) 143 H 182 H (70-110) mg/dL Calcium (8.7-10.3) mg/dL Total Bilirubin (0.3-1.2) mg/dL AST (14-35) U/L Alkaline Phosphatase (41-126) U/L Total Protein (6.2-8.2) g/dL Albumin (3.8-4.9) g/dL Albumin/Globulin Ratio (1.60-3.17) Ratio 04/14/24 04/14/24 04/14/24 Range/Units 06:32 06:32 06:32 RBC 2.28 L (4.40-5.60) X 10*6/uL Hgb 6.8 A* (13.0-17.0) g/dL Hct 21.5 L (39.6-50.0) % MCHC 31.6 L (32.0-37.0) g/dL RDW 15.5 H (11.5-14.5) % Immature Gran # 0.24 H (0.00-0.04) X 10*3/uL PT 15.1 H (10.0-12.5) sec INR 1.4 H (<1.2) Sodium 129 L (135-145) mmol/L Carbon Dioxide 21.4 L (21.6-31.8) mmol/L POC Glucose (mg/dL) (70-110) mg/dL Calcium 7.8 L (8.7-10.3) mg/dL Total Bilirubin 3.1 H (0.3-1.2) mg/dL AST 83 H (14-35) U/L Alkaline Phosphatase 278 H (41-126) U/L Total Protein 4.7 L (6.2-8.2) g/dL Albumin 2.1 L (3.8-4.9) g/dL Albumin/Globulin Ratio 0.81 L (1.60-3.17) Ratio 04/14/24 Range/Units 12:23 RBC (4.40-5.60) X 10*6/uL Hgb (13.0-17.0) g/dL Hct (39.6-50.0) % MCHC (32.0-37.0) g/dL RDW (11.5-14.5) % Immature Gran # (0.00-0.04) X 10*3/uL PT (10.0-12.5) sec INR (<1.2) Sodium (135-145) mmol/L Carbon Dioxide (21.6-31.8) mmol/L POC Glucose (mg/dL) 121 H (70-110) mg/dL Calcium (8.7-10.3) mg/dL Total Bilirubin (0.3-1.2) mg/dL AST (14-35) U/L Alkaline Phosphatase (41-126) U/L Total Protein (6.2-8.2) g/dL Albumin (3.8-4.9) g/dL Albumin/Globulin Ratio (1.60-3.17) Ratio Assessment and Plan (1) Esophageal adenocarcinoma Status: Acute Priority: High Code(s): C15.9 - MALIGNANT NEOPLASM OF ESOPHAGUS, UNSPECIFIED SNOMED Code(s): 326951545 (2) GI bleed Status: Acute Priority: High Code(s): K92.2 - GASTROINTESTINAL HEMORRHAGE, UNSPECIFIED SNOMED Code(s): 90574091 (3) Anemia Status: Acute Priority: High Code(s): D64.9 - ANEMIA, UNSPECIFIED SNOMED Code(s): 204430125 Plan: GI bleed, iron deficiency anemia -Presented with c/o abdominal pain, n/v, dark stool and dizziness. On admit Hgb 7.9, s/p 1 units PRBCs on 04/03, Hgb 7.1 today, overall stable, slight worsening, likely chemo effects. -No plan for endoscopy at this time. Rectal bleeding resolved -Iron studies consistent with iron deficiency, IV iron x 4 given -Hgb today 6.8, additional unit PRBCs ordered -Continue to monitor CBC while inpt. Transfuse for hgb < 7 or if symptomatic Epistaxis: -2 occurrences of epistaxis -INR today 1.4, PT 15.1 -Afrin ordered -Epistaxis now resolved Esophageal adenocarcinoma, metastatic -Oncology history as stated in consult -Completed brain SBRT -CT AP on 03/27/24 showed overall progression of disease with distal esophageal mass with extension to the GE junction and lesser curvature of the stomach, multiple and new hypodense hepatic metastases, and mild increase in size of metastatic adenopathy within the abdomen -Given the cholestatic transaminitis, imaging findings, and exam findings, there is concern for disease progression causing progressive liver dysfunction, recommendation to start treatment [id number] inpt. He had treatment 04/07-04/09/24. -Bilirubin improved today to 3.1, LFTs stable -Clinic f/u scheduled on 04/[address] Brandon Roberto SE N,V, constipation -Pt is expectorating pooled secretions not food. He denies any recent V, no significant N, cont Scop patch. Anticipate pt will be better able to manage secretions after a few cycles when esophageal mass regresses some -Senna/colace sched, MOM PRN to promote BM Spoke with admitting team today. Once pt receives blood transfusion, he is cleared for discharge from hem/onc standpoint CBC/CMP lab encounter scheduled for saturday Pain medications sent from clinic
== END 2024-04-14 18:46 | disposition home or self-care (01) | DRG 374 ==
LOC: EC 09:59 → 3SCARD 13:06 → 5NMEDONC 04-06 16:05
PROVIDERS: ADMIT Internal Medicine; ATTEND Internal Medicine
PROC: 30233N1 Transfusion of Nonautologous Red Blood Cells into Peripheral Vein, Percutaneous Approach (ICD-10-PCS; principal; 2024-04-03)
PROC: 3E03305 Introduction of Other Antineoplastic into Peripheral Vein, Percutaneous Approach (ICD-10-PCS; 2024-04-07)
DX: C15.8 Malignant neoplasm of overlapping sites of esophagus (principal); J18.9 Pneumonia, unspecified organism; C78.7 Secondary malignant neoplasm of liver and intrahepatic bile duct; C79.31 Secondary malignant neoplasm of brain; C77.2 Secondary and unspecified malignant neoplasm of intra-abdominal lymph nodes; D62 Acute posthemorrhagic anemia; E87.1 Hypo-osmolality and hyponatremia; K92.1 Melena; E86.1 Hypovolemia; K59.00 Constipation, unspecified; R04.0 Epistaxis; I95.9 Hypotension, unspecified; E11.9 Type 2 diabetes mellitus without complications; I10 Essential (primary) hypertension; Z87.891 Personal history of nicotine dependence; Z79.84 Long term (current) use of oral hypoglycemic drugs; Z79.899 Other long term (current) drug therapy; Z92.3 Personal history of irradiation; Z80.1 Family history of malignant neoplasm of trachea, bronchus and lung; Z82.49 Family history of ischemic heart disease and other diseases of the circulatory system
CPT/HCPCS: 36415; 36430; 71045; 74019; 80048; 80053; 82272; 82728; 83036; 83540; 83550; 83690; 83735; 85025; 85610; 85730; 86850; 86900; 86901; 86920; 93005; 94640; 96361; 96365; 96375; 96376; 99291

== ENCOUNTER → 2024-04-21 | Outpatient (CLI) | payer BC ==
--- NOTE | 2024-04-21 21:22 | XR ---
EXAMINATION TYPE: XR abdomen 1V DATE OF EXAM: 04/21/2024 4:19 PM COMPARISON: 04/11/2024 CLINICAL INDICATION: Male, 59 years old with history of R10.9 UNSPECIFIED ABDOMINAL PAIN, TECHNIQUE: XR abdomen 1V view(s) obtained. FINDINGS: There is a normal bowel gas pattern. Psoas margins are not well visualized No organomegaly is present. Multiple phleboliths within the pelvis. IMPRESSION: 1. Nonspecific abdomen [facility], , 04/21/2024 9:19 PM
== END | disposition home or self-care (01) ==
LOC: RADXRMAIN 15:57
PROVIDERS: ATTEND Nurse Practitioner Family
DX: R10.9 Unspecified abdominal pain (principal)
CPT/HCPCS: 74018

== ENCOUNTER 2024-06-15 15:00 | Inpatient (IN) | payer BC ==
--- NOTE | 2024-06-15 15:41 | ED ---
General Adult HPI - General Chief complaint: Recheck/Abnormal Lab/Rx Stated complaint: abn labs Time Seen by Provider: 06/15/24 15:10 Source: patient, RN notes reviewed, old records reviewed Mode of arrival: ambulatory Limitations: no limitations - History of Present Illness Initial comments: This is a 59-year-old male who presents to the emergency department complaining that he is getting weaker and weaker to the point now where he cannot stand. Patient has stage IV esophageal cancer. Patient states he is unable to stand and he fell 6 days ago and hit his head however he does not have a headache he does not have any numbness or weakness and he denies any neck pain. Patient denies chest pain difficulty breathing or shortness of breath. Patient has any fever chills. Patient states he does occasionally vomit. Patient denies diarrhea. Patient has not had chemo recently. - Related Data Home Medications Medication Instructions Recorded Confirmed Metoprolol Succinate (ER) [Toprol 25 mg PO DAILY 02/14/24 06/15/24 XL] Empagliflozin [Jardiance] 25 mg PO DAILY 04/03/24 06/15/24 Famotidine 40 mg PO HS 04/03/24 06/15/24 Fluticasone Propion/Salmeterol 1 puff INHALATION RT-BID 04/03/24 06/15/24 [Fluticasone-Salmeterol 500-50] Morphine Sulfate Ir [MSIR] 30 mg PO BID PRN 05/09/24 06/15/24 Sennosides-Docusate Sodium 1 tab PO BID PRN 05/09/24 06/15/24 [Senokot-S] HYDROcodone/APAP 7.5-325MG [Kimberly 1 tab PO Q6H PRN 06/15/24 06/15/24 7.5-325] Metoclopramide [Reglan] 10 mg PO AC-TID 06/15/24 06/15/24 Pantoprazole [Protonix] 40 mg PO DAILY 06/15/24 06/15/24 Prochlorperazine [Compazine] 10 mg PO Q6H PRN 06/15/24 06/15/24 glipiZIDE [Glucotrol] 2.5 mg PO BID PRN 06/15/24 06/15/24 Previous Rx's Medication Instructions Recorded Loperamide [Imodium] 2 mg PO QID PRN cap 04/14/24 Magnesium Hydroxide [Milk of 2,400 mg PO DAILY PRN ml 04/14/24 Magnesia] Oxymetazoline 0.05% Nasl [place] 2 spray NASAL BID PRN #5 ml 04/14/24 [Afrin 0.05% Nasal [place]] Scopolamine 1 mg/72 Hr Patch 1 patch TRANSDERM Q72H #3 patch 04/14/24 [TransDerm Scop] Simethicone Chew [Mylicon Chew] 80 mg PO QID PRN #20 tab 04/14/24 Acetaminophen Tab [Tylenol] 650 mg PO Q6HR PRN tab 05/15/24 Ondansetron Odt [Zofran Odt] 4 mg PO Q8HR PRN #20 tab 05/15/24 Allergies Allergy/AdvReac Type Severity Reaction Status Date / Time No Known Allergies Allergy Verified 06/15/24 15:25 Review of Systems ROS Statement: Those systems with pertinent positive or pertinent negative responses have been documented in the HPI. ROS Other: All systems not noted in ROS Statement are negative. Past Medical History Past Medical History: Cancer, Diabetes Mellitus, GERD/Reflux, Hypertension, Syncope Additional Past Medical History / Comment(s): Type II diabetic NIDDM ( "on insulin now r/t steroids") Pt is wearing an external heart monitor until Mar 01, 2024. Recent syncopal episode Jan 22, 2024- found lesion on brain ( last radiation tx to brain will be 02/17/24) and has recent dx esophageal cancer- chemo . Heart murmur. anemia- History of Any Multi-Drug Resistant Organisms: None Reported Past Surgical History: Hernia Repair, Orthopedic Surgery, Tonsillectomy Additional Past Surgical History / Comment(s): Right hand surgery. Fx C-7 wore halo. Umbilical hernia. Recent EGD 01/2024. Past Anesthesia/Blood Transfusion Reactions: No Reported Reaction Additional Past Anesthesia/Blood Transfusion Reaction / Comment(s): No hx of blood transfusion to date. Past Psychological History: No Psychological Hx Reported Smoking Status: Former smoker Past Alcohol Use History: None Reported Past Drug Use History: None Reported - Past Family History Mother Family Medical History: Cancer, COPD, Myocardial Infarction ([place]) Additional Family Medical History / Comment(s): Unknown cancer. Father Family Medical History: Cancer Additional Family Medical History / Comment(s): Lung Cancer, Brain tumor Brother(s) Family Medical History: Cancer Additional Family Medical History / Comment(s): Leaukemia , Cancer- had part of ear and side of face removed. General Exam - General Exam Comments Initial Comments: GENERAL: Patient looks cachectic. Patient is in mild distress. ENT: Neck is soft and supple. No significant lymphadenopathy is noted. Oropharynx is clear. Moist mucous membranes. Neck has full range of motion without eliciting any pain. EYES: The sclera were anicteric and conjunctiva were pink and moist. Extraocular movements were intact and pupils were equal round and reactive to light. Eyelids were unremarkable. PULMONARY: Unlabored respirations. Good breath sounds bilaterally. No audible rales rhonchi or wheezing was noted. CARDIOVASCULAR: There is a regular rate and rhythm without any murmurs gallops or rubs. ABDOMEN: Mildly distended SKIN: Skin is clear with no lesions or rashes and otherwise unremarkable. NEUROLOGIC: Patient is alert and oriented x3. Cranial nerves II through XII are grossly intact. Motor and sensory are also intact. Normal speech, volume and content. Symmetrical smile. MUSCULOSKELETAL: Normal extremities with adequate strength and full range of motion. LYMPHATICS: No significant lymphadenopathy is noted PSYCHIATRIC: Normal psychiatric evaluation. Limitations: no limitations Course Vital Signs 06/15/24 06/15/24 15:07 18:11 Temperature 97.4 F L Pulse Rate 121 H 105 H Respiratory 18 18 Rate Blood Pressure 87/64 86/61 O2 Sat by Pulse 98 95 Oximetry Medical Decision Making - Medical Decision Making EKG is interpreted by myself but EKG shows a sinus tachycardia at 110 bpm WV interval 137 QRS is 107 QT interval 363 QTc is 428. Patient's EKG shows no ST segment elevation or depression. Was pt. sent in by a medical professional or institution (, PA, MANGLE ROLL OPERATOR, urgent care, hospital, or detention...) When possible be specific @ -No Did you speak to anyone other than the patient for history (EMS, parent, family, police, friend...)? What history was obtained from this source @ -No Did you review nursing and triage notes (agree or disagree)? Why? @ -I reviewed and agree with nursing and triage notes Were old charts reviewed (outside hosp., previous admission, EMS record, old EKG, old radiological studies, urgent care reports/EKG's, detention records)? Report findings @ -No old charts were reviewed Differential Diagnosis? @ -Differential Weakness: Hypoglycemia, shock, sepsis, hyponatremia, anemia, infection, SC, ETOH, adverse medicine reaction, overdose, stroke, this is not meant to be an all-inclusive list. EKG interpreted by me (3pts min.). @ -As above X-rays interpreted by me (1pt min.). @ -Chest x-ray shows left-sided pleural effusion CT interpreted by me (1pt min.). @ -None done U/S interpreted by me (1pt. min.). @ -None done What testing was considered but not performed or refused? (CT, X-rays, U/S, labs)? Why? @ -None What meds were considered but not given or refused? Why? @ -None Did you discuss the management of the patient with other professionals (professionals i.e. , PA, MANGLE ROLL OPERATOR, lab, RT, psych nurse, social work msw, histology supervisor, teacher, traffic control officer, corrections caseworker)? Give summary @ -I spoke with [facility] they agreed to admit the patient admit the patient I wrote admitting orders Was smoking cessation discussed for >3mins.? @ -No Was critical care preformed (if so, how long)? @ -No Were there social determinants of health that impacted care today? How? (Homelessness, low income, unemployed, alcoholism, drug addiction, transportation, low edu. Level, literacy, decrease access to med. care, [facility], rehab)? @ -No Was there de-escalation of care discussed even if they declined (Discuss DNR or withdrawal of care, Hospice)? DNR status @ -No What co-morbidities impacted this encounter? (DM, HTN, Smoking, COPD, CAD, Can cer, CVA, ARF, Chemo, Hep., AIDS, mental health diagnosis, sleep apnea, morbid obesity)? @ -None Was patient admitted / discharged? Hospital course, mention meds given and route, prescriptions, significant lab abnormalities, going to OR and other pertinent info. @ -Patient has a sodium of 123 and a sided pleural effusion. Patient will be admitted to [facility]. And a consult be done for oncology Undiagnosed new problem with uncertain prognosis? @ -No Drug Therapy requiring intensive monitoring for toxicity (Heparin, Nitro, Insulin, Cardizem)? @ -No Were any procedures done? @ -No Diagnosis/symptom? @ -Generalized weakness Acute, or Chronic, or Acute on Chronic? @ -Acute Uncomplicated (without systemic symptoms) or Complicated (systemic symptoms)? @ -Complicated Side effects of treatment? @ -No Exacerbation, Progression, or Severe Exacerbation? @ -No Poses a threat to life or bodily function? How? (Chest pain, [place], SC, pneumonia, PE, COPD, DKA, ARF, appy, cholecystitis, CVA, Diverticulitis, Homicidal, Suicidal, threat to staff... and all critical care pts) @ -No Diagnosis/symptom? @ -Hyponatremia Acute, or Chronic, or Acute on Chronic? @ -Acute Uncomplicated (without systemic symptoms) or Complicated (systemic symptoms)? @ -Complicated Side effects of treatment? @ -None Exacerbation, Progression, or Severe Exacerbation] @ -No Poses a threat to life or bodily function? @ -No Diagnosis/symptom? @ -Pleural effusion Acute, or Chronic, or Acute on Chronic? @ -Acute on chronic Uncomplicated (without systemic symptoms) or Complicated (systemic symptoms)? @ -Complicated Side effects of treatment? @ -None Exacerbation, Progression, or Severe Exacerbation] @ -No Poses a threat to life or bodily function? @ -No - Lab Data Result diagrams: 06/15/24 16:09 06/15/24 16:09 Lab Results 06/15/24 06/15/24 06/15/24 Range/Units 16:09 16:09 16:09 WBC 5.5 (3.8-10.6) k/uL RBC 2.71 L (4.30-5.90) m/uL Hgb 8.4 L (13.0-17.5) gm/dL Hct 26.6 L (39.0-53.0) % MCV 98.1 D (80.0-100.0) fL MCH 31.0 (25.0-35.0) pg MCHC 31.6 (31.0-37.0) g/dL RDW 19.7 H (11.5-15.5) % Plt Count 290 (150-450) k/uL MPV 8.0 Neutrophils % 62 % Lymphocytes % 29 % Monocytes % 7 % Eosinophils % 0 % Basophils % 0 % Neutrophils # 3.4 (1.3-7.7) k/uL Lymphocytes # 1.6 (1.0-4.8) k/uL Monocytes # 0.4 (0-1.0) k/uL Eosinophils # 0.0 (0-0.7) k/uL Basophils # 0.0 (0-0.2) k/uL Anisocytosis Slight Macrocytosis Slight PT 15.3 H (10.0-12.5) sec INR 1.5 H (<1.2) APTT 30.4 H (22.0-30.0) sec Sodium 123 L (137-145) mmol/L Potassium 3.7 (3.5-5.1) mmol/L Chloride 95 L (98-107) mmol/L Carbon Dioxide 23 (22-30) mmol/L Anion Gap 5 mmol/L BUN 11 (9-20) mg/dL Creatinine 0.68 (0.66-1.25) mg/dL Est GFR (CKD-EPI)AfAm >90 (>60 ml/min/1.73 sqM) Est GFR (CKD-EPI)NonAf >90 (>60 ml/min/1.73 sqM) Glucose 94 (74-99) mg/dL Plasma Lactic Acid Pres[place] (0.7-2.0) mmol/L Calcium 7.9 L (8.4-10.2) mg/dL Magnesium 1.6 (1.6-2.3) mg/dL Total Bilirubin 2.2 H (0.2-1.3) mg/dL AST 79 H (17-59) U/L ALT 14 (4-49) U/L Alkaline Phosphatase 451 H (38-126) U/L Troponin I (0.000-0.034) ng/mL Total Protein 5.7 L (6.3-8.2) g/dL Albumin 2.5 L (3.5-5.0) g/dL TSH 2.810 (0.465-4.680) mIU/L 06/15/24 06/15/24 Range/Units 16:09 16:09 WBC (3.8-10.6) k/uL RBC (4.30-5.90) m/uL Hgb (13.0-17.5) gm/dL Hct (39.0-53.0) % MCV (80.0-100.0) fL MCH (25.0-35.0) pg MCHC (31.0-37.0) g/dL RDW (11.5-15.5) % Plt Count (150-450) k/uL MPV Neutrophils % % Lymphocytes % % Monocytes % % Eosinophils % % Basophils % % Neutrophils # (1.3-7.7) k/uL Lymphocytes # (1.0-4.8) k/uL Monocytes # (0-1.0) k/uL Eosinophils # (0-0.7) k/uL Basophils # (0-0.2) k/uL Anisocytosis Macrocytosis PT (10.0-12.5) sec INR (<1.2) APTT (22.0-30.0) sec Sodium (137-145) mmol/L Potassium (3.5-5.1) mmol/L Chloride (98-107) mmol/L Carbon Dioxide (22-30) mmol/L Anion Gap mmol/L BUN (9-20) mg/dL Creatinine (0.66-1.25) mg/dL Est GFR (CKD-EPI)AfAm (>60 ml/min/1.73 sqM) Est GFR (CKD-EPI)NonAf (>60 ml/min/1.73 sqM) Glucose (74-99) mg/dL Plasma Lactic Acid Pres[place] 1.2 (0.7-2.0) mmol/L Calcium (8.4-10.2) mg/dL Magnesium (1.6-2.3) mg/dL Total Bilirubin (0.2-1.3) mg/dL AST (17-59) U/L ALT (4-49) U/L Alkaline Phosphatase (38-126) U/L Troponin I <0.012 (0.000-0.034) ng/mL Total Protein (6.3-8.2) g/dL Albumin (3.5-5.0) g/dL TSH (0.465-4.680) mIU/L Disposition Clinical Impression: Weakness, Pleural effusion, Hyponatremia Disposition: ADMITTED IP TO THIS [facility] Referrals: Esau Taylor [STAFF PHYSICIAN] - 1-2 days Time of Disposition: 18:31
[2024-06-15] MEDS: LACTATED RINGERS 1,000 ML IV ONE (16:04)
[2024-06-15 16:36] LABS: Anisocytosis Slight; Basophils % (A) 0 %; Eosinophils % (A) 0 %; HCT 26.6 % (39.0-53.0); HGB 8.4 gm/dL (13.0-17.5); INR 1.5 (<1.2); Lymphocytes # (A) 1.6 k/uL (1.0-4.8); Lymphocytes % (A) 29 %; MCHC 31.6 g/dL (31.0-37.0); Macrocytosis Slight; Monocytes # (A) 0.4 k/uL (0-1.0); Monocytes % (A) 7 %; Neutrophils # (A) 3.4 k/uL (1.3-7.7); Neutrophils % (A) 62 %; Partial Thromboplastin Time 30.4 sec (22.0-30.0); Platelet Count 290 k/uL (150-450); Prothrombin Time 15.3 sec (10.0-12.5); RBC 2.71 m/uL (4.30-5.90); RDW 19.7 % (11.5-15.5); WBC 5.5 k/uL (3.8-10.6)
--- NOTE | 2024-06-15 16:38 | XR ---
EXAMINATION TYPE: XR chest 2V DATE OF EXAM: 06/15/2024 4:26 PM COMPARISON: Chest radiographs from 05/10/2024. CLINICAL INDICATION: Male, 59 years old with history of Weakness; TECHNIQUE: XR chest 2V Frontal and lateral views of the chest. FINDINGS: Lungs/Pleura: Blunting of the left costophrenic angle. Associated atelectasis. Pulmonary vascularity: Unremarkable. Heart/mediastinum: Cardiomediastinal silhouette is unremarkable. Musculoskeletal: No acute osseous pathology. Other findings: None Right [id number] with tip in the superior vena cava. IMPRESSION: Small moderate left pleural effusion. [facility], , 06/15/2024 4:36 PM
[2024-06-15 16:42] LABS: ALT 14 U/L (4-49); AST 79 U/L (17-59); African American GFR (CKD) >90 (>60 ml/min/1.73 sqM); Albumin 2.5 g/dL (3.5-5.0); Alkaline Phosphatase 451 U/L (38-126); Anion Gap 5 mmol/L; Blood Urea Nitrogen 11 mg/dL (9-20); Calcium 7.9 mg/dL (8.4-10.2); Carbon Dioxide 23 mmol/L (22-30); Chloride 95 mmol/L (98-107); Glucose 94 mg/dL (74-99); Magnesium 1.6 mg/dL (1.6-2.3); Non-African American GFR(CKD) >90 (>60 ml/min/1.73 sqM); Potassium 3.7 mmol/L (3.5-5.1); Sodium 123 mmol/L (137-145); Total Bilirubin 2.2 mg/dL (0.2-1.3); Total Protein 5.7 g/dL (6.3-8.2)
[2024-06-15 16:59] LABS: MCV 98.1 fL (80.0-100.0)
[2024-06-15] MEDS: SODIUM CHLORIDE 0.9% 500 ML 500 ML IV ONE ×2 (18:16→18:59)
[2024-06-15] MEDS: SODIUM CHLORIDE 0.9% 1,000 ML IV ONE (18:46)
[2024-06-15 19:45] LABS: Appearance,Urine Cloudy (Clear); Bilirubin,Urine 1+ (Negative); Blood,Urine Negative (Negative); Color,Urine Dark Yellow; Glucose,Urine (UA) Negative (Negative); Hyaline Casts,Urine 3 /lpf (0-2); Ketones,Urine Negative (Negative); Leukocyte Esterase,Urine Negative (Negative); Mucus,Urine Occasional /hpf; Nitrite,Urine Negative (Negative); Protein,Urine 1+ (Negative); Squamous Epithelial Cell,Urine 1 /hpf (0-4); WBC,Urine 5 /hpf (0-5)
[2024-06-15 19:54] LABS: Influenza A Not Detected (Not Detectd); Influenza B Not Detected (Not Detectd); RSV Not Detected (Not Detectd)
[2024-06-15] MEDS: SODIUM CHLORIDE 0.9% 1,000 ML IV SCH (21:16)
[2024-06-16 01:21] LABS: Glucose,Whole Blood 103 mg/dL (70-110)
[2024-06-16 07:14] LABS: Glucose,Whole Blood 95 mg/dL (70-110)
[2024-06-16] MEDS ORDERED: PROCHLORPERAZINE 10 MG TAB PO PRN (09:16)
[2024-06-16] MEDS ORDERED: SENNOSIDES-DOCUSATE SODIUM 1 EACH TAB PO PRN (09:16)
[2024-06-16] MEDS ORDERED: Magnesium Replacement Protocol 1 EACH MISC MISCELLANE PRN (09:18)
--- NOTE | 2024-06-16 10:28 | US ---
EXAMINATION TYPE: US abdomen limited DATE OF EXAM: 06/16/2024 COMPARISON: NONE CLINICAL INDICATION: Male, 59 years old with history of ascites; TECHNIQUE: Grayscale imaging of the abdomen for ascites. FINDINGS: Scattered anechoic fluid throughout the abdomen. IMPRESSION: Small amount of ascites. [facility], , 06/16/2024 10:26 AM
[2024-06-16] MEDS: SCOPOLAMINE 1 MG/72 HR PATCH TRANSDERM SCH (10:43)
[2024-06-16] MEDS: MAGNESIUM SULFATE-D5W PMX 1 GM in DEXTROSE/WATER 1 100ML.BAG IVPB SCH (10:43)
[2024-06-16 10:55] LABS: ALT 14 U/L (4-49); AST 79 U/L (17-59); African American GFR (CKD) >90 (>60 ml/min/1.73 sqM); Albumin 2.2 g/dL (3.5-5.0); Albumin/Globulin Ratio 0.7; Alkaline Phosphatase 426 U/L (38-126); Anion Gap 5 mmol/L; Blood Urea Nitrogen 9 mg/dL (9-20); Calcium 7.6 mg/dL (8.4-10.2); Carbon Dioxide 22 mmol/L (22-30); Chloride 97 mmol/L (98-107); Glucose 90 mg/dL (74-99); Non-African American GFR(CKD) >90 (>60 ml/min/1.73 sqM); Potassium 3.7 mmol/L (3.5-5.1); Sodium 124 mmol/L (137-145); Total Bilirubin 2.3 mg/dL (0.2-1.3); Total Protein 5.2 g/dL (6.3-8.2)
--- NOTE | 2024-06-16 11:20 | P.HPIM ---
History of Present Illness H&P Date: 06/16/24 This is a 59-year-old male with medical history significant for type 2 diabetes, gastroesophageal reflux disease, hypertension, syncope, esophageal cancer with chemoradiation. Patient presents to the hospital yesterday afternoon with complaints of generalized weakness and now has become so weak that he is unable to stand. Patient fell 6 days ago hit his head but he does not have a headache numbness weakness and denies any neck pain. He states he fell again yesterday due to being off balance and weak and states his brother had to come help him up called EMS and was brought to the hospita. He reports leg swelling and distended abdomen which has been worsneing over the last week. Patient denies any chest pain difficulty breathing or shortness of breath. He has not had any fever or chills. Patient does have some occasional nausea with vomiting but he has not had any diarrhea. He has not had any chemo recently. He is admitted to the hospital for hydration and monitoring he will also see physical therapy. Patient has known history of stage IV esophageal cancer with mets to the liver and brain. His white blood cell count on admission was 5.5 hemoglobin 8.4, INR 1.5 sodium of 123 potassium 3.7, BUN of 11 creatinine 0.68, magnesium 1.6, LFTs are mildly elevated troponin level is negative and TSH is normal at 2.810. His urinalysis is not suggestive of infection. Viral panel was negative for influenza RSV and COVID. Patient had a chest x-ray completed while in the ER which reveals small moderate left pleural effusion. He has been hypotensive with blood pressure in the 80s over 50s. He is afebrile. EKG reveals sinus tachycardia heart rate of 110. Received a 3 L fluid bolus while in the ER was started on normal saline at 100 mL/h. Indwelling messer catheter has been placed and he has had marginal urine output. REVIEW OF SYSTEMS: CONSTITUTIONAL: No fever, no malaise Reports fatigue HEENT: No recent visual problems or hearing problems. Denied any sore throat. CARDIOVASCULAR: No chest pain, orthopnea, PND, no palpitations, no syncope. PULMONARY: No shortness of breath, no cough, no hemoptysis. GASTROINTESTINAL: No diarrhea, no nausea, no vomiting, Reports abdominal pain and distention. NEUROLOGICAL: No headaches, no weakness, no numbness. HEMATOLOGICAL: Denies any bleeding or petechiae. GENITOURINARY: Denies any burning micturition, frequency, or urgency. MUSCULOSKELETAL/RHEUMATOLOGICAL: Denies any joint pain, swelling, or any muscle pain. ENDOCRINE: Denies any polyuria or polydipsia. The rest of the 14-point review of systems is negative. PHYSICAL EXAMINATION: GENERAL: The patient is alert and oriented x3, not in any acute distress. Well developed, Cachexic Pale HEENT: Pupils are round and equally reacting to light. EOMI. No scleral icterus. No conjunctival pallor. Normocephalic, atraumatic. No pharyngeal erythema. No thyromegaly. CARDIOVASCULAR: S1 and S2 present. No murmurs, rubs, or gallops. PULMONARY: Chest is clear to auscultation, no wheezing or crackles. ABDOMEN: Soft, nontender, distended, normoactive bowel sounds. No palpable organomegaly. MUSCULOSKELETAL: No joint swelling or deformity. EXTREMITIES: No cyanosis, clubbing, or pedal edema. NEUROLOGICAL: Gross neurological examination did not reveal any focal deficits. SKIN: No rashes. Assessment and plan Generalized weakness and fall secondary to medical debility as well as hypovolemia Hypovolemic hyponatremia Small to moderate left-sided pleural effusion History of stage IV esophageal cancer with prior chemoradiation Brain and liver metastasis Recent hospitalization underwent EGD with findings of distal esophageal ulcerated mass pots biopsy and 3 to 4 cm polypoid mass in the proximal body of the stomach post biopsy with pathology positive for invasive poorly differentiated adenocarcinoma. History of hypertension currently hypotensive History of diabetes mellitus type 2 History of syncopal episodes Chronic anemia Hypomagnesemia Moderate protein calorie malnutrition. GI prophylaxis DVT prophylaxis Plan Oncology consultation Check abdominal ultrasound for ascites Continue normal saline Continue indwelling messer catheter with strict intake and output monitoring Hold metoprolol Hold glipizide and Jardiance as blood glucose is normal and patients oral intake is poor Check BNP PT/OT consultation The impression and plan of care has been dictated by Alma Kathleen Nurse Practitioner as directed. Dr. Mercedez MD I have performed a history and physical examination and medical decision making of this patient, discussed the same with the dictator, and agree with the dictators assessment and plan as written, documented as a scribe. Based on total visit time, I have performed more than 50% of this visit. Past Medical History Past Medical History: Cancer, Diabetes Mellitus, GERD/Reflux, Hypertension, Syncope Additional Past Medical History / Comment(s): Type II diabetic NIDDM ( "on insulin now r/t steroids") Recent syncopal episode Jan 22, 2024- found lesion on brain ( last radiation tx to brain will be 02/17/24) and has recent dx esophageal cancer- chemo 05/09/2024. Heart murmur. anemia- History of Any Multi-Drug Resistant Organisms: None Reported Past Surgical History: Hernia Repair, Orthopedic Surgery, Tonsillectomy Additional Past Surgical History / Comment(s): Right hand surgery. Fx C-7 wore halo. Umbilical hernia. Recent EGD 01/2024. Past Anesthesia/Blood Transfusion Reactions: No Reported Reaction Additional Past Anesthesia/Blood Transfusion Reaction / Comment(s): No hx of blood transfusion to date. Past Psychological History: No Psychological Hx Reported Additional Psychological History / Comment(s): Patient lives with girlfriend and grown children. Smoking Status: Former smoker Past Alcohol Use History: None Reported Additional Past Alcohol Use History / Comment(s): No recent alcohol use. Past Drug Use History: None Reported Additional Drug Use History / Comment(s): Very occasional smokes Marijuana. Instructed no Marijuana 24 hrs before procedure. - Past Family History Mother Family Medical History: Cancer, COPD, Myocardial Infarction ([place]) Additional Family Medical History / Comment(s): Unknown cancer. Father Family Medical History: Cancer Additional Family Medical History / Comment(s): Lung Cancer, Brain tumor Brother(s) Family Medical History: Cancer Additional Family Medical History / Comment(s): Leaukemia , Cancer- had part of ear and side of face removed. Medications and Allergies Home Medications Medication Instructions Recorded Confirmed Type Metoprolol Succinate (ER) [Toprol 25 mg PO DAILY 02/14/24 06/15/24 History XL] Empagliflozin [Jardiance] 25 mg PO DAILY 04/03/24 06/15/24 History Famotidine 40 mg PO HS 04/03/24 06/15/24 History Fluticasone Propion/Salmeterol 1 puff INHALATION RT-BID 04/03/24 06/15/24 History [Fluticasone-Salmeterol 500-50] Loperamide [Imodium] 2 mg PO QID PRN cap 04/14/24 06/15/24 Rx Magnesium Hydroxide [Milk of 2,400 mg PO DAILY PRN ml 04/14/24 06/15/24 Rx Magnesia] Oxymetazoline 0.05% Nasl [place] 2 spray NASAL BID PRN #5 ml 04/14/24 06/15/24 Rx [Afrin 0.05% Nasal [place]] Scopolamine 1 mg/72 Hr Patch 1 patch TRANSDERM Q72H #3 patch 04/14/24 06/15/24 Rx [TransDerm Scop] Simethicone Chew [Mylicon Chew] 80 mg PO QID PRN #20 tab 04/14/24 06/15/24 Rx Morphine Sulfate Ir [MSIR] 30 mg PO BID PRN 05/09/24 06/15/24 History Sennosides-Docusate Sodium 1 tab PO BID PRN 05/09/24 06/15/24 History [Senokot-S] Acetaminophen Tab [Tylenol] 650 mg PO Q6HR PRN tab 05/15/24 06/15/24 Rx Ondansetron Odt [Zofran Odt] 4 mg PO Q8HR PRN #20 tab 05/15/24 06/15/24 Rx HYDROcodone/APAP 7.5-325MG [[place] 1 tab PO Q6H PRN 06/15/24 06/15/24 History 7.5-325] Metoclopramide [Reglan] 10 mg PO AC-TID 06/15/24 06/15/24 History Pantoprazole [Protonix] 40 mg PO DAILY 06/15/24 06/15/24 History Prochlorperazine [Compazine] 10 mg PO Q6H PRN 06/15/24 06/15/24 History glipiZIDE [Glucotrol] 2.5 mg PO BID PRN 06/15/24 06/15/24 History Allergies Allergy/AdvReac Type Severity Reaction Status Date / Time No Known Allergies Allergy Verified 06/15/24 15:25 Physical Exam Vitals: Vital Signs Temp Pulse Pulse Resp BP BP BP 06/16/24 07:15 97.6 F 109 H 16 89/57 93/60 06/16/24 01:56 98.7 F 109 H 12 90/60 06/15/24 23:30 83/52 06/15/24 22:36 98.1 F 109 H 12 80/53 06/15/24 21:00 109 H 18 83/61 06/15/24 19:17 109 H 16 81/58 06/15/24 18:11 105 H 18 86/61 06/15/24 15:07 97.4 F L 121 H 18 87/64 Pulse Ox 06/16/24 07:15 96 06/16/24 01:56 95 06/15/24 23:30 06/15/24 22:36 98 06/15/24 21:00 98 06/15/24 19:17 98 06/15/24 18:11 95 06/15/24 15:07 98 Intake and Output 06/15/24 06/16/24 06/16/24 22:59 06:59 14:59 Intake Total 580 Output Total 550 50 Balance -550 530 Intake: Oral 580 Output: Urine 0 50 Straight 0 Uretheral (Messer) 0 Post Void Residual 550 Other: Voiding Method Indwelling Catheter Weight 63.503 kg 63.503 kg Results CBC & Chem 7: 06/15/24 16:09 06/16/24 10:26 Labs: Abnormal Lab Results - Last 24 Hours (Table) 06/15/24 06/15/24 06/15/24 Range/Units 15:38 16:09 16:09 RBC 2.71 L (4.30-5.90) m/uL Hgb 8.4 L (13.0-17.5) gm/dL Hct 26.6 L (39.0-53.0) % RDW 19.7 H (11.5-15.5) % PT 15.3 H (10.0-12.5) sec INR 1.5 H (<1.2) APTT 30.4 H (22.0-30.0) sec Sodium (137-145) mmol/L Chloride (98-107) mmol/L Calcium (8.4-10.2) mg/dL Total Bilirubin (0.2-1.3) mg/dL AST (17-59) U/L Alkaline Phosphatase (38-126) U/L Total Protein (6.3-8.2) g/dL Albumin (3.5-5.0) g/dL Urine Protein 1+ H (Negative) Urine Bilirubin 1+ H (Negative) Hyaline Casts 3 H (0-2) /lpf Urine Mucus Occasional H (None) /hpf 06/15/24 Range/Units 16:09 RBC (4.30-5.90) m/uL Hgb (13.0-17.5) gm/dL Hct (39.0-53.0) % RDW (11.5-15.5) % PT (10.0-12.5) sec INR (<1.2) APTT (22.0-30.0) sec Sodium 123 L (137-145) mmol/L Chloride 95 L (98-107) mmol/L Calcium 7.9 L (8.4-10.2) mg/dL Total Bilirubin 2.2 H (0.2-1.3) mg/dL AST 79 H (17-59) U/L Alkaline Phosphatase 451 H (38-126) U/L Total Protein 5.7 L (6.3-8.2) g/dL Albumin 2.5 L (3.5-5.0) g/dL Urine Protein (Negative) Urine Bilirubin (Negative) Hyaline Casts (0-2) /lpf Urine Mucus (None) /hpf Thrombosis Risk Factor Assmnt - Choose All That Apply Any of the Below Risk Factors Present?: Yes Each Factor Represents 1 point: Age 41-60 years Other Risk Factors: Yes Each Risk Factor Represents 2 Points: Malignancy Each Risk Factor Represents 3 Points: Family history of DVT/PE Thrombosis Risk Factor Assessment Total Risk Factor Score: 6 Thrombosis Risk Factor Assessment Level: High Risk
[2024-06-16 12:03] LABS: Glucose,Whole Blood 112 mg/dL (70-110)
[2024-06-16] MEDS: ACETAMINOPHEN TAB 325 MG TAB PO PRN (15:05)
[2024-06-16 15:17] VITALS: BMI 20.7
[2024-06-16 17:03] LABS: Glucose,Whole Blood 114 mg/dL (70-110)
[2024-06-16] MEDS: SYMBICORT 160-4.5 MCG INHALER INHALATION SCH (18:56)
[2024-06-16 20:19] LABS: Glucose,Whole Blood 127 mg/dL (70-110)
[2024-06-16] MEDS: HEPARIN SODIUM,PORCINE 5,000 UNIT/ML 1 ML VIAL SQ SCH (21:29)
--- NOTE | 2024-06-16 21:47 | P.CONS ---
History of Present Illness - Reason for Consult Consult date: 06/16/24 Metastatic esophageal carcinoma Requesting physician: Ghulam Galicia - Chief Complaint General medical debility - History of Present Illness Mr. Saunders is a pleasant 59-year-old male patient of Dr. Taylor with a history of metastatic esophageal carcinoma. Patient has not tolerated treatment well, he has had disease progression while on treatment. Patient has not had treatment for over a month, he was given a break to see if he was able to recover and recuperate some strength to continue on with therapy. Patient was seen yesterday in the office for disability paperwork and to assess if he would be appropriate to resume treatment. Patient reported that he had b een feeling still very weak, unable to even care for himself. Reporting persistent nausea, decreased oral intake. He was given Reglan at his last visit but, states he did not take. He also stopped pain medications because they were causing nausea and vomiting. He reported falls over the last week, hitting his head, denied any loss of consciousness. Vital signs show that he was hypotensive and tachycardic. Patient was instructed to go to the emergency room. When seen today on the oncology unit patient looks very weak and frail. He is lost more weight-approximately 9 kg in 1 month. Even with receiving some IV hydration and supportive meds, he is not reporting feeling much improvement. Review of Systems 10 point review of systems is negative except as stated in HPI Past Medical History Past Medical History: Cancer, Diabetes Mellitus, GERD/Reflux, Hypertension, Syncope Additional Past Medical History / Comment(s): Type II diabetic NIDDM ( "on insulin now r/t steroids") Recent syncopal episode Jan 22, 2024- found lesion on brain ( last radiation tx to brain will be 02/17/24) and has recent dx esophageal cancer- chemo 05/09/2024. Heart murmur. anemia- History of Any Multi-Drug Resistant Organisms: None Reported Past Surgical History: Hernia Repair, Orthopedic Surgery, Tonsillectomy Additional Past Surgical History / Comment(s): Right hand surgery. Fx C-7 wore halo. Umbilical hernia. Recent EGD 01/2024. Past Anesthesia/Blood Transfusion Reactions: No Reported Reaction Additional Past Anesthesia/Blood Transfusion Reaction / Comm: No hx of blood transfusion to date. Past Psychological History: No Psychological Hx Reported Additional Psychological History / Comment(s): Patient lives with girlfriend and grown children. Smoking Status: Former smoker Past Alcohol Use History: None Reported Additional Past Alcohol Use History / Comment(s): No recent alcohol use. Past Drug Use History: None Reported Additional Drug Use History / Comment(s): Very occasional smokes Marijuana. In structed no Marijuana 24 hrs before procedure. - Past Family History Mother Family Medical History: Cancer, COPD, Myocardial Infarction ([place]) Additional Family Medical History / Comment(s): Unknown cancer. Father Family Medical History: Cancer Additional Family Medical History / Comment(s): Lung Cancer, Brain tumor Brother(s) Family Medical History: Cancer Additional Family Medical History / Comment(s): Leaukemia , Cancer- had part of ear and side of face removed. Medications and Allergies Home Medications Medication Instructions Recorded Confirmed Type Metoprolol Succinate (ER) [Toprol 25 mg PO DAILY 02/14/24 06/15/24 History XL] Empagliflozin [Jardiance] 25 mg PO DAILY 04/03/24 06/15/24 History Famotidine 40 mg PO HS 04/03/24 06/15/24 History Fluticasone Propion/Salmeterol 1 puff INHALATION RT-BID 04/03/24 06/15/24 History [Fluticasone-Salmeterol 500-50] Loperamide [Imodium] 2 mg PO QID PRN cap 04/14/24 06/15/24 Rx Magnesium Hydroxide [Milk of 2,400 mg PO DAILY PRN ml 04/14/24 06/15/24 Rx Magnesia] Oxymetazoline 0.05% Nasl [place] 2 spray NASAL BID PRN #5 ml 04/14/24 06/15/24 Rx [Afrin 0.05% Nasal [place]] Scopolamine 1 mg/72 Hr Patch 1 patch TRANSDERM Q72H #3 patch 04/14/24 06/15/24 Rx [TransDerm Scop] Simethicone Chew [Mylicon Chew] 80 mg PO QID PRN #20 tab 04/14/24 06/15/24 Rx Morphine Sulfate Ir [MSIR] 30 mg PO BID PRN 05/09/24 06/15/24 History Sennosides-Docusate Sodium 1 tab PO BID PRN 05/09/24 06/15/24 History [Senokot-S] Acetaminophen Tab [Tylenol] 650 mg PO Q6HR PRN tab 05/15/24 06/15/24 Rx Ondansetron Odt [Zofran Odt] 4 mg PO Q8HR PRN #20 tab 05/15/24 06/15/24 Rx HYDROcodone/APAP 7.5-325MG [[place] 1 tab PO Q6H PRN 06/15/24 06/15/24 History 7.5-325] Metoclopramide [Reglan] 10 mg PO AC-TID 06/15/24 06/15/24 History Pantoprazole [Protonix] 40 mg PO DAILY 06/15/24 06/15/24 History Prochlorperazine [Compazine] 10 mg PO Q6H PRN 06/15/24 06/15/24 History glipiZIDE [Glucotrol] 2.5 mg PO BID PRN 06/15/24 06/15/24 History Allergies Allergy/AdvReac Type Severity Reaction Status Date / Time No Known Allergies Allergy Verified 06/15/24 15:25 Physical Exam Vitals: Vital Signs Temp Pulse Pulse Resp BP BP BP 06/16/24 07:15 97.6 F 109 H 16 89/57 93/60 06/16/24 01:56 98.7 F 109 H 12 90/60 06/15/24 23:30 83/52 06/15/24 22:36 98.1 F 109 H 12 80/53 06/15/24 21:00 109 H 18 83/61 06/15/24 19:17 109 H 16 81/58 06/15/24 18:11 105 H 18 86/61 06/15/24 15:07 97.4 F L 121 H 18 87/64 Pulse Ox 06/16/24 07:15 96 06/16/24 01:56 95 06/15/24 23:30 06/15/24 22:36 98 06/15/24 21:00 98 06/15/24 19:17 98 06/15/24 18:11 95 06/15/24 15:07 98 Intake and Output 06/15/24 06/16/24 06/16/24 22:59 06:59 14:59 Intake Total 580 Output Total 550 50 Balance -550 530 Intake: Oral 580 Output: Urine 0 50 Straight 0 Uretheral ([place]) 0 Post Void Residual 550 Other: Voiding Method Indwelling Catheter Weight 63.503 kg 63.503 kg - Constitutional General appearance: cooperative, no acute distress, thin - EENT Eyes: anicteric sclerae, EOMI ENT: hearing grossly normal - Neck Neck: no lymphadenopathy - Respiratory Respiratory: bilateral: diminished - Cardiovascular Heart sounds: normal: S1, S2 Abnormal Heart Sounds: no systolic murmur, no diastolic murmur, no rub, no S3 Gallop, no S4 Gallop, no click, no other - Gastrointestinal General gastrointestinal: no absent bowel sounds, no decreased bowel sounds, distended, no hepatomegaly, no hyperactive bowel sounds, normal bowel sounds, no organomegaly, no rigid, no scaphoid, soft, no splenomegaly, no tenderness, no umbilical hernia, no ventral hernia - Integumentary Integumentary: pale - Neurologic Neurologic: CNII-XII intact - Musculoskeletal Musculoskeletal: generalized weakness - Psychiatric Psychiatric: A&O x's 3, appropriate affect, intact judgment & insight Results CBC & Chem 7: 06/15/24 16:09 06/16/24 10:26 Labs: Abnormal Lab Results - Last 24 Hours (Table) 06/15/24 06/15/24 06/15/24 Range/Units 15:38 16:09 16:09 RBC 2.71 L (4.30-5.90) m/uL Hgb 8.4 L (13.0-17.5) gm/dL Hct 26.6 L (39.0-53.0) % RDW 19.7 H (11.5-15.5) % PT 15.3 H (10.0-12.5) sec INR 1.5 H (<1.2) APTT 30.4 H (22.0-30.0) sec Sodium (137-145) mmol/L Chloride (98-107) mmol/L Calcium (8.4-10.2) mg/dL Total Bilirubin (0.2-1.3) mg/dL AST (17-59) U/L Alkaline Phosphatase (38-126) U/L Total Protein (6.3-8.2) g/dL Albumin (3.5-5.0) g/dL Urine Protein 1+ H (Negative) Urine Bilirubin 1+ H (Negative) Hyaline Casts 3 H (0-2) /lpf Urine Mucus Occasional H (None) /hpf 06/15/24 Range/Units 16:09 RBC (4.30-5.90) m/uL Hgb (13.0-17.5) gm/dL Hct (39.0-53.0) % RDW (11.5-15.5) % PT (10.0-12.5) sec INR (<1.2) APTT (22.0-30.0) sec Sodium 123 L (137-145) mmol/L Chloride 95 L (98-107) mmol/L Calcium 7.9 L (8.4-10.2) mg/dL Total Bilirubin 2.2 H (0.2-1.3) mg/dL AST 79 H (17-59) U/L Alkaline Phosphatase 451 H (38-126) U/L Total Protein 5.7 L (6.3-8.2) g/dL Albumin 2.5 L (3.5-5.0) g/dL Urine Protein (Negative) Urine Bilirubin (Negative) Hyaline Casts (0-2) /lpf Urine Mucus (None) /hpf Assessment and Plan (1) Physical debility Current Visit: Yes Status: Acute Priority: High Code(s): R53.81 - OTHER MALAISE SNOMED Code(s): 74211746 (2) Esophageal adenocarcinoma Current Visit: No Status: Acute Priority: High Code(s): C15.9 - MALIGNANT NEOPLASM OF ESOPHAGUS, UNSPECIFIED SNOMED Code(s): 976154451 (3) Hyponatremia Current Visit: Yes Status: Acute Priority: Medium Code(s): E87.1 - HYPO- OSMOLALITY AND HYPONATREMIA SNOMED Code(s): 85975007 (4) Anemia Current Visit: Yes Status: Chronic Priority: Medium Code(s): D64.9 - ANEMIA, UNSPECIFIED SNOMED Code(s): 419177452 Plan: Metastatic Esophageal Cancer with Brain Metastases -Diagnosed in late 2023 with poorly differentiated adenocarcinoma, HER2 negative, and MMR proficient. SBRT to brain lesion. Palliative FOLFOX treatment had been attempted but, pt has had significant side effects. He has not had treatment since early May, as Tx held because of patient poor performance status. It was hoped that if patient was given a break from treatment that he could build himself up to be able to tolerate treatment, then resume palliative treatment with dose reduction. Unfortunately, patient has only continued to decline. -Dr. Taylor explained to patient that because of his poor performance status, getting chemotherapy would cause more harm than it would to provide relief from the disease. Hospice was recommended. Patient would like to have discussion with his family -Family meeting with girlfriend and brother has been planned for tomorrow morning at 10 AM to review the same. Nausea and Vomiting, likely due to malignancy -Patient has been off treatment since early May. He did have stomach biopsy that was positive for metastatic esophageal adenocarcinoma. He is likely experiencing dysmotility of the esophagus as well as the stomach causing his symptoms and inability to tolerate oral intake -Continue supportive medications. Will make modifications and add any medication that would be helpful to the patient for his symptoms. Hyponatremia -Likely chronic now secondary to malignancy/malabsorption as well as poor oral intake - Continue hydration Anemia Hemoglobin 8.4, this is baseline. No acute intervention at this time Physical debility secondary to malignancy -Patient was given time off of treatment to see if he could recuperate some of his strength and stamina. Patient has been unable to rehabilitate in any meaningful fashion. Suspect it is secondary to malignancy. As above, Dr. Taylor has recommended hospice. Pending family meeting tomorrow. Doctor attests: I performed a history and physical examination of this patient, developed impression and plan of care. Discussed with dictator. I agree with dictators note, documented as a scribe.
[2024-06-17] MEDS: HYDROmorphone 0.5 MG/0.5 ML SYRINGE IVP PRN (01:09)
[2024-06-17] MEDS: SIMETHICONE 80 MG CHEWABLE PO PRN (06:22)
[2024-06-17 07:11] LABS: Glucose,Whole Blood 109 mg/dL (70-110)
[2024-06-17] MEDS: PANTOPRAZOLE 40 MG TABLET PO SCH (08:09)
[2024-06-17 08:55] LABS: BUN/Creat Ratio 13.57 Ratio (12.00-20.00); Blood Urea Nitrogen 9.5 mg/dL (9.0-27.0); Calcium 7.4 mg/dL (8.7-10.3); Carbon Dioxide 21.9 mmol/L (21.6-31.8); Chloride 99 mmol/L (96-109); Glucose 115 mg/dL (70-110); Magnesium 1.8 mg/dL (1.5-2.4); Potassium 3.5 mmol/L (3.5-5.5); Sodium 129 mmol/L (135-145)
[2024-06-17 09:31] LABS: Basophils # (A) 0.03 X 10*3/uL (0.00-0.10); Basophils % (A) 0.5 %; Eosinophils # (A) 0.03 X 10*3/uL (0.04-0.35); Eosinophils % (A) 0.5 %; HCT 20.7 % (39.6-50.0); HGB 6.8 g/dL (13.0-17.0); Lymphocytes # (A) 2.24 X 10*3/uL (0.90-5.00); Lymphocytes % (A) 39.6 %; MCH 31.1 pg (27.0-32.0); MCHC 32.9 g/dL (32.0-37.0); MCV 94.5 FL (80.0-97.0); Monocytes # (A) 0.54 X 10*3/uL (0.20-1.00); Monocytes % (A) 9.6 %; NRBC Per 100 WBC 0 X 10*3/uL (0.00-0.01); Neutrophils # (A) 2.77 X 10*3/uL (1.80-7.70); Neutrophils % (A) 49.1 %; Platelet Count 185 X 10*3/uL (140-440); RBC 2.19 X 10*6/uL (4.40-5.60); RDW 19.9 % (11.5-14.5); WBC 5.65 X 10*3/uL (4.50-10.00)
[2024-06-17] MEDS: MAGNESIUM SULFATE-D5W PMX 1 GM in DEXTROSE/WATER 1 100ML.BAG IVPB ONE (11:33)
[2024-06-17] MEDS: POTASSIUM CHLORIDE ER 20 MEQ TAB.ER PO STA (11:33)
[2024-06-17] MEDS: droNABinol 2.5 MG CAP PO SCH (11:33)
[2024-06-17 12:08] LABS: Glucose,Whole Blood 141 mg/dL (70-110)
--- NOTE | 2024-06-17 14:48 | P.PN ---
Subjective Progress Note Date: 06/17/24 This is a 59-year-old male with medical history significant for type 2 diabetes, gastroesophageal reflux disease, hypertension, syncope, esophageal cancer with chemoradiation. Patient presents to the hospital yesterday afternoon with complaints of generalized weakness and now has become so weak that he is unable to stand. Patient fell 6 days ago hit his head but he does not have a headache numbness weakness and denies any neck pain. He states he fell again yesterday due to being off balance and weak and states his brother had to come help him up called EMS and was brought to the hospita. He reports leg swelling and distended abdomen which has been worsneing over the last week. Patient denies any chest pain difficulty breathing or shortness of breath. He has not had any fever or chills. Patient does have some occasional nausea with vomiting but he has not had any diarrhea. He has not had any chemo recently. He is admitted to the hospital for hydration and monitoring he will also see physical therapy. Patient has known history of stage IV esophageal cancer with mets to the liver and brain. His white blood cell count on admission was 5.5 hemoglobin 8.4, INR 1.5 sodium of 123 potassium 3.7, BUN of 11 creatinine 0.68, magnesium 1.6, LFTs are mildly elevated troponin level is negative and TSH is normal at 2.810. His urinalysis is not suggestive of infection. Viral panel was negative for influenza RSV and COVID. Patient had a chest x-ray completed while in the ER which reveals small moderate left pleural effusion. He has been hypotensive with blood pressure in the 80s over 50s. He is afebrile. EKG reveals sinus tachycardia heart rate of 110. Received a 3 L fluid bolus while in the ER was started on normal saline at 100 mL/h. Indwelling messer catheter has been placed and he has had marginal urine output. 06/17/2024 Patient evaluated today in follow-up medical floor. Patient had hospice discussion today with oncology and patient and family are not quite ready for h ospice at this time. They would like patient to get stronger. PT OT is recommending subacute rehab on discharge and patient is currently pending an accepting ECF facility. Patient was started on Marinol as an appetite stimulant as he does report that he has decreased appetite. He continues on Ensure protein supplementation with meals. Abdominal ultrasound reveals a mild ascites. Patient does continue to report a distended abdomen and states that this makes it difficult for him to tolerate meals. We will check the x-ray for any fecal impaction or constipation. His girlfriend at the bedside does state that he only has small pebble-like bowel movements when he does go. proBNP was elevated at 3080 however patients sodium level is improving with IV fluids and will continue with cautious hydration. Blood work today reveals a white blood cell count of 5.65, hemoglobin 6.8, sodium of 129 BUN of 9.5 creatinine 0.7, magnesium 1.8, calcium 7.4. Blood glucose within normal limits. REVIEW OF SYSTEMS: CONSTITUTIONAL: No fever, no malaise Reports fatigue HEENT: No recent visual problems or hearing problems. Denied any sore throat. CARDIOVASCULAR: No chest pain, orthopnea, PND, no palpitations, no syncope. PULMONARY: No shortness of breath, no cough, no hemoptysis. GASTROINTESTINAL: No diarrhea, no nausea, no vomiting, Reports abdominal pain and distention. NEUROLOGICAL: No headaches, no weakness, no numbness. PHYSICAL EXAMINATION: GENERAL: The patient is alert and oriented x3, not in any acute distress. Well developed, Cachexic Pale HEENT: Pupils are round and equally reacting to light. EOMI. No scleral icterus. No conjunctival pallor. Normocephalic, atraumatic. No pharyngeal erythema. No thyromegaly. CARDIOVASCULAR: S1 and S2 present. No murmurs, rubs, or gallops. PULMONARY: Chest is clear to auscultation, no wheezing or crackles. ABDOMEN: Soft, nontender, distended, normoactive bowel sounds. No palpable organomegaly. MUSCULOSKELETAL: No joint swelling or deformity. EXTREMITIES: No cyanosis, clubbing, or pedal edema. NEUROLOGICAL: Gross neurological examination did not reveal any focal deficits. SKIN: No rashes. Assessment and plan Generalized weakness and fall secondary to medical debility as well as hypovolemia Hypovolemic hyponatremia slowly improving with IV fluids Small to moderate left-sided pleural effusion History of stage IV esophageal cancer with prior chemoradiation Brain and liver metastasis Recent hospitalization underwent EGD with findings of distal esophageal ulcerated mass pots biopsy and 3 to 4 cm polypoid mass in the proximal body of the stomach post biopsy with pathology positive for invasive poorly differentiated adenocarcinoma. History of hypertension currently hypotensive History of diabetes mellitus type 2 History of syncopal episodes Chronic anemia Hypomagnesemia Moderate protein calorie malnutrition. GI prophylaxis DVT prophylaxis Plan Oncology consultation Abdominal xray pending. Continue normal saline Continue indwelling messer catheter with strict intake and output monitoring Resume oral metoprolol Hold glipizide and Jardiance as blood glucose is normal and patients oral intake is poor Patient and family not ready for hospice and wanting patient to get stronger. PT/OT recommending [facility] and social work on board and pending accepting ECF. He has been off chemotherapy for the last 6 weeks and will continue to be held at this time per oncology due to patients poor clinical status and nutritional state. PT/OT consultation The impression and plan of care has been dictated by Alma Kathleen, Nurse Practitioner as directed. Dr. Mercedez MD I have performed a history and physical examination and medical decision making of this patient, discussed the same with the dictator, and agree with the dictators assessment and plan as written, documented as a scribe. Based on total visit time, I have performed more than 50% of this visit. Objective - Vital Signs Vital signs: Vital Signs Temp 96.8 F L 06/17/24 12:15 Pulse 111 H 06/17/24 12:15 Resp 20 06/17/24 12:15 BP 102/67 06/17/24 12:15 Pulse Ox 100 06/17/24 12:15 FiO2 Intake & Output 06/16/24 06/17/24 06/17/24 18:59 06:59 18:59 Intake Total 350 240 Output Total 100 100 Balance 250 140 Weight 63.503 kg Intake: Oral 350 240 Output: Urine 100 100 Other: Voiding Method Indwelling Catheter Indwelling Catheter Indwelling Catheter - Labs CBC & Chem 7: 06/17/24 06:00 06/17/24 06:00 Labs: Abnormal Lab Results - Last 24 Hours (Table) 06/16/24 06/16/24 06/17/24 Range/Units 17:02 20:17 06:00 RBC 2.19 L (4.40-5.60) X 10*6/uL Hgb 6.8 A* (13.0-17.0) g/dL Hct 20.7 L (39.6-50.0) % RDW 19.9 H (11.5-14.5) % Eosinophils # 0.03 L (0.04-0.35) X 10*3/uL Sodium (135-145) mmol/L Glucose (70-110) mg/dL POC Glucose (mg/dL) 114 H 127 H (70-110) mg/dL Calcium (8.7-10.3) mg/dL Crossmatch 06/17/24 06/17/24 06/17/24 Range/Units 06:00 10:27 12:07 RBC (4.40-5.60) X 10*6/uL Hgb (13.0-17.0) g/dL Hct (39.6-50.0) % RDW (11.5-14.5) % Eosinophils # (0.04-0.35) X 10*3/uL Sodium 129 L (135-145) mmol/L Glucose 115 H (70-110) mg/dL POC Glucose (mg/dL) 141 H (70-110) mg/dL Calcium 7.4 L (8.7-10.3) mg/dL Crossmatch See Detail Assessment and Plan Time with Patient: Less than 30
--- NOTE | 2024-06-17 15:49 | XR ---
EXAMINATION TYPE: XR abdomen 2V DATE OF EXAM: 06/17/2024 3:09 PM COMPARISON: None CLINICAL INDICATION: Male, 59 years old with history of abdominal distention; [facility] TECHNIQUE: Two views of the abdomen were obtained. FINDINGS: Moderate amount stool throughout the colon. The bowel gas pattern is nonspecific without d ilated loops of small or large bowel. . Fecal material and gas are demonstrated throughout the colon and rectum. There is no evidence for organomegaly or pneumoperitoneum. No acute osseous process. Ri ght renal calculi measuring up to 10 mm. IMPRESSION: Nonspecific bowel gas pattern without radiographic evidence for acute process. [facility], , 06/17/2024 3:47 PM
[2024-06-17] MEDS: METOPROLOL SUCCINATE (ER) 25 MG TAB.ER.24H PO SCH (15:57)
[2024-06-17 17:14] LABS: Glucose,Whole Blood 104 mg/dL (70-110)
[2024-06-17 20:29] LABS: Glucose,Whole Blood 99 mg/dL (70-110)
--- NOTE | 2024-06-17 23:51 | P.PN ---
Subjective Progress Note Date: 06/17/24 Principal diagnosis: Metastatic esophageal adenocarcinoma. Failure to thrive In follow-up today patient is sitting in the chair. He still lacks an appetite, has abdominal distention, generalized weakness, he stated he was able to make it to the door and back to the chair but that was with significant effort. Objective - Vital Signs Vital signs: Vital Signs Temp 97.6 F 06/17/24 07:08 Pulse 104 H 06/17/24 07:08 Resp 20 06/17/24 07:08 BP 83/47 06/17/24 07:08 Pulse Ox 95 06/17/24 07:08 FiO2 Intake & Output 06/16/24 06/17/24 06/17/24 18:59 06:59 18:59 Intake Total 350 240 Output Total 100 100 Balance 250 140 Weight 63.503 kg Intake: Oral 350 240 Output: Urine 100 100 Other: Voiding Method Indwelling Catheter Indwelling Catheter Indwelling Catheter - Constitutional Constitutional Comment(s): frail, masseter muscle wasting General appearance: Present: cooperative, no acute distress, thin - EENT Eyes: Present: anicteric sclerae, EOMI ENT: Present: hearing grossly normal - Respiratory Details: resp unlabored at rest - Cardiovascular Details: skin warm - Peripheral edema leg Peripheral Edema: bilateral: 1+ - Gastrointestinal General gastrointestinal: Present: distended - Neurologic Neurologic: Present: CNII-XII intact - Musculoskeletal Musculoskeletal: Present: generalized weakness - Psychiatric Psychiatric: Present: A&O x's 3, appropriate affect, intact judgment & insight - Labs CBC & Chem 7: 06/17/24 06:00 06/17/24 06:00 Labs: Abnormal Lab Results - Last 24 Hours (Table) 06/16/24 06/16/24 06/16/24 Range/Units 12:02 17:02 20:17 RBC (4.40-5.60) X 10*6/uL Hgb (13.0-17.0) g/dL Hct (39.6-50.0) % RDW (11.5-14.5) % Eosinophils # (0.04-0.35) X 10*3/uL Sodium (135-145) mmol/L Glucose (70-110) mg/dL POC Glucose (mg/dL) 112 H 114 H 127 H (70-110) mg/dL Calcium (8.7-10.3) mg/dL 06/17/24 06/17/24 Range/Units 06:00 06:00 RBC 2.19 L (4.40-5.60) X 10*6/uL Hgb 6.8 A* (13.0-17.0) g/dL Hct 20.7 L (39.6-50.0) % RDW 19.9 H (11.5-14.5) % Eosinophils # 0.03 L (0.04-0.35) X 10*3/uL Sodium 129 L (135-145) mmol/L Glucose 115 H (70-110) mg/dL POC Glucose (mg/dL) (70-110) mg/dL Calcium 7.4 L (8.7-10.3) mg/dL Assessment and Plan (1) Physical debility Current Visit: Yes Status: Acute Priority: High Code(s): R53.81 - OTHER MALAISE SNOMED Code(s): 90176254 (2) Esophageal adenocarcinoma Current Visit: No Status: Acute Priority: High Code(s): C15.9 - MALIGNANT NEOPLASM OF ESOPHAGUS, UNSPECIFIED SNOMED Code(s): 701951768 (3) Hyponatremia Current Visit: Yes Status: Acute Priority: Medium Code(s): E87.1 - HYPO- OSMOLALITY AND HYPONATREMIA SNOMED Code(s): 83612927 (4) Anemia Current Visit: Yes Status: Chronic Priority: Medium Code(s): D64.9 - ANEMIA, UNSPECIFIED SNOMED Code(s): 698378159 Plan: Metastatic Esophageal Cancer with Brain Metastases -Diagnosed in late 2023 with poorly differentiated adenocarcinoma, HER2 negative, and MMR proficient. SBRT to brain lesion. Palliative FOLFOX treatment had been attempted but, pt has had significant side effects. He has not had treatment since early May, as Tx held because of patient poor performance status. It was hoped that if patient was given a break from treatment that he could build himself up to be able to tolerate treatment, then resume palliative treatment with dose reduction. Unfortunately, patient has only continued to decline. -Dr. Taylor had an extensive discussion with family members and girlfriend at the bedside. Sister was on the telephone. He explained to the family that because of the patient's poor performance status chemotherapy unfortunately is not an option at this time and would cause more harm than it would provide relief from the disease. Hospice was recommended. Patient and family want to continue with aggressive care. It was was explained to them that patient has been trying for at least the last 6 weeks to try to gain some sort of strength but, he has not been able to. It was also explained to the family that the concern is that even with aggressive treatment, it is not likely that the patient is going to achieve a performance status adequate enough to treat the underlying cause, which is malignancy. At this time patient and family have decided that they would like to either have the patient go to rehab or home with home care with rehab and other services. They are going to try together to see if they can get patient performance status improved. -Case discussed with Physical Therapy who will assess patient and make recommendations regarding inpatient rehab versus rehab at extended-care facility. Discussed the case with [employer]r who will look into home care as well as physical therapy at home and other services. Dietitian has been consulted at the family request to see what other nutritional options could be offered to the patient. -Once a decision has been made as to where the patient will be discharged to, patient is okay for discharge from an Oncology standpoint. Patient will contact the office if he feels that he has rehabilitated adequately enough and would like to further pursue treatment. Nausea and Vomiting, likely due to malignancy -Patient has been off treatment since early May. He did have stomach biopsy that was positive for metastatic esophageal adenocarcinoma. He is likely experiencing dysmotility of the esophagus as well as the stomach causing his symptoms and inability to tolerate oral intake. This was explained to the family as well. -Continue supportive medications. Will continue to make modifications and add any medication that would be helpful to the patient for his symptoms. Hyponatremia -Likely chronic now secondary to malignancy/malabsorption as well as poor oral i ntake. Sodium is low but stable. Patient is overall not extraordinarily symptomatic -Continue hydration Anemia Hemoglobin 6.8 today. 1 unit of packed red blood cells was ordered Physical debility secondary to malignancy -Patient was given time off of treatment to see if he could recuperate some of his strength and stamina. Patient has been unable to rehabilitate in any meaningful fashion. Suspect it is secondary to malignancy. As above, Dr. Taylor had an extensive conversation with the patient and the family. He has has recommended hospice. As above, patient and family would like other options at this time .
[2024-06-18 07:15] LABS: Glucose,Whole Blood 106 mg/dL (70-110)
[2024-06-18 08:46] LABS: Magnesium 1.8 mg/dL (1.5-2.4)
[2024-06-18 09:09] LABS: Basophils # (A) 0.03 X 10*3/uL (0.00-0.10); Basophils % (A) 0.5 %; Eosinophils # (A) 0.03 X 10*3/uL (0.04-0.35); Eosinophils % (A) 0.5 %; HCT 27.8 % (39.6-50.0); HGB 8.9 g/dL (13.0-17.0); Lymphocytes # (A) 1.99 X 10*3/uL (0.90-5.00); Lymphocytes % (A) 30.2 %; MCH 31.1 pg (27.0-32.0); MCV 97.2 FL (80.0-97.0); Mean Platelet Volume 9.7 FL (9.5-12.2); Monocytes # (A) 0.76 X 10*3/uL (0.20-1.00); Monocytes % (A) 11.6 %; NRBC Per 100 WBC 0 X 10*3/uL (0.00-0.01); Neutrophils # (A) 3.72 X 10*3/uL (1.80-7.70); Neutrophils % (A) 56.4 %; Platelet Count 190 X 10*3/uL (140-440); RBC 2.86 X 10*6/uL (4.40-5.60); RDW 20.2 % (11.5-14.5); WBC 6.58 X 10*3/uL (4.50-10.00)
[2024-06-18 09:46] LABS: BUN/Creat Ratio 13.71 Ratio (12.00-20.00); Blood Urea Nitrogen 9.6 mg/dL (9.0-27.0); Calcium 7.6 mg/dL (8.7-10.3); Carbon Dioxide 19.6 mmol/L (21.6-31.8); Chloride 101 mmol/L (96-109); Glucose 108 mg/dL (70-110); Potassium 4.5 mmol/L (3.5-5.5); Sodium 129 mmol/L (135-145)
--- NOTE | 2024-06-18 10:52 | P.CONS ---
History of Present Illness - Reason for Consult Consult date: 06/18/24 rehab recommendations - Chief Complaint debility related to metastatic cancer - History of Present Illness Mr Fuller is a 59 y/o right handed male who lives with his significant other and her children in a 2 story home with 2-4 steps to enter with right handrail. Patient is able to stay on the first floor. Patient was independent with mobility (cane) and ADLs until a couple days prior to admission. He does have bench to shower and do ADLs. His brother assists him with transportation to appointments. This is a 59-year-old male with medical history significant for type 2 diabetes, gastroesophageal reflux disease, hypertension, syncope, esophageal cancer with chemoradiation. Patient presented to the hospital with complaints of generalized weakness, multiple falls and now has become so weak that he is unable to stand. Patient fell 6 days prior to admission and hit his head but d enies injury. He reported leg swelling and distended abdomen which has been worsening over the last week. He has not had any chemo recently. Patient has known history of stage IV esophageal cancer with mets to the liver and brain. His white blood cell count on admission was 5.5 hemoglobin 8.4, INR 1.5 sodium of 123 potassium 3.7, BUN of 11 creatinine 0.68, magnesium 1.6, LFTs are mildly elevated troponin level is negative and TSH is normal at 2.810. His urinalysis is not suggestive of infection. Viral panel was negative for influenza RSV and COVID. Patient had a chest x-ray completed while in the ER which reveals small moderate left pleural effusion. He was given IV fluids. Indwelling messer catheter has been placed. Hospice was consulted on 06/17 and patient/family decided they were not ready for hospice at this time. Patient would like to go to rehab. Patient was started on Marinol due to decreased appetite. He continues on Ensure protein supplementation with meals. Abdominal ultrasound reveals a mild ascites. x-ray for any fecal impaction or constipation was ordered. proBNP was elevated at 3080. PM&R consulted for rehab recommendations. Patient was seen by therapies; min a ssist with transfers, bed mobility, and 4 steps with RW for gait; Min to mod assist with ADLs. 06/18/24: Patient states that he would like to go home, not interested in IPR at this time. He reports that he has had a hard time at home recently due to poor endurance. He denies CP. He admits to abdominal pain and feels constipation, He did have a BM last night. He is passing flatus. He has nausea and intermittent vomiting. He abdomen feels full. He admits to SOB with exertion. He has a messer catheter. Review of Systems reviewed, as above in subjective Past Medical History Past Medical History: Cancer, Diabetes Mellitus, GERD/Reflux, Hypertension, Syncope Additional Past Medical History / Comment(s): Type II diabetic NIDDM ( "on insulin now r/t steroids") Recent syncopal episode Jan 22, 2024- found lesion on brain ( last radiation tx to brain will be 02/17/24) and has recent dx esophageal cancer- chemo 05/09/2024. Heart murmur. anemia- History of Any Multi-Drug Resistant Organisms: None Reported Past Surgical History: Hernia Repair, Orthopedic Surgery, Tonsillectomy Additional Past Surgical History / Comment(s): Right hand surgery. Fx C-7 wore halo. Umbilical hernia. Recent EGD 01/2024. Past Anesthesia/Blood Transfusion Reactions: No Reported Reaction Additional Past Anesthesia/Blood Transfusion Reaction / Comm: No hx of blood transfusion to date. Past Psychological History: No Psychological Hx Reported Additional Psychological History / Comment(s): Patient lives with girlfriend and grown children. Smoking Status: Former smoker Past Alcohol Use History: None Reported Additional Past Alcohol Use History / Comment(s): No recent alcohol use. Past Drug Use History: None Reported Additional Drug Use History / Comment(s): Very occasional smokes Marijuana. Instructed no Marijuana 24 hrs before procedure. - Past Family History Mother Family Medical History: Cancer, COPD, Myocardial Infarction ([place]) Additional Family Medical History / Comment(s): Unknown cancer. Father Family Medical History: Cancer Additional Family Medical History / Comment(s): Lung Cancer, Brain tumor Brother(s) Family Medical History: Cancer Additional Family Medical History / Comment(s): Leaukemia , Cancer- had part of ear and side of face removed. Medications and Allergies Home Medications Medication Instructions Recorded Confirmed Type Metoprolol Succinate (ER) [Toprol 25 mg PO DAILY 02/14/24 06/15/24 History XL] Empagliflozin [Jardiance] 25 mg PO DAILY 04/03/24 06/15/24 History Famotidine 40 mg PO HS 04/03/24 06/15/24 History Fluticasone Propion/Salmeterol 1 puff INHALATION RT-BID 04/03/24 06/15/24 History [Fluticasone-Salmeterol 500-50] Loperamide [Imodium] 2 mg PO QID PRN cap 04/14/24 06/15/24 Rx Magnesium Hydroxide [Milk of 2,400 mg PO DAILY PRN ml 04/14/24 06/15/24 Rx Magnesia] Oxymetazoline 0.05% Nasl [place] 2 spray NASAL BID PRN #5 ml 04/14/24 06/15/24 Rx [Afrin 0.05% Nasal [place]] Scopolamine 1 mg/72 Hr Patch 1 patch TRANSDERM Q72H #3 patch 04/14/24 06/15/24 Rx [TransDerm Scop] Simethicone Chew [Mylicon Chew] 80 mg PO QID PRN #20 tab 04/14/24 06/15/24 Rx Morphine Sulfate Ir [MSIR] 30 mg PO BID PRN 05/09/24 06/15/24 History Sennosides-Docusate Sodium 1 tab PO BID PRN 05/09/24 06/15/24 History [Senokot-S] Acetaminophen Tab [Tylenol] 650 mg PO Q6HR PRN tab 05/15/24 06/15/24 Rx Ondansetron Odt [Zofran Odt] 4 mg PO Q8HR PRN #20 tab 05/15/24 06/15/24 Rx HYDROcodone/APAP 7.5-325MG [[place] 1 tab PO Q6H PRN 06/15/24 06/15/24 History 7.5-325] Metoclopramide [Reglan] 10 mg PO AC-TID 06/15/24 06/15/24 History Pantoprazole [Protonix] 40 mg PO DAILY 06/15/24 06/15/24 History Prochlorperazine [Compazine] 10 mg PO Q6H PRN 06/15/24 06/15/24 History glipiZIDE [Glucotrol] 2.5 mg PO BID PRN 06/15/24 06/15/24 History Allergies Allergy/AdvReac Type Severity Reaction Status Date / Time No Known Allergies Allergy Verified 06/15/24 15:25 Physical Exam Vitals: Vital Signs Temp Pulse Pulse Resp BP BP BP 06/18/24 07:16 98.1 F 90 20 90/59 06/18/24 01:14 97.5 F L 91 15 84/55 06/17/24 19:53 97.7 F 98 17 93/61 06/17/24 18:21 97.1 F L 98 18 92/60 06/17/24 16:31 97.4 F L 103 H 18 89/58 06/17/24 16:11 97.6 F 99 18 84/61 06/17/24 16:03 97.6 F 99 18 84/61 06/17/24 15:59 97.5 F L 100 18 97/65 06/17/24 12:15 96.8 F L 111 H 20 102/67 Pulse Ox 06/18/24 07:16 93 L 06/18/24 01:14 96 06/17/24 19:53 99 06/17/24 18:21 99 06/17/24 16:31 97 06/17/24 16:11 99 06/17/24 16:03 99 06/17/24 15:59 98 06/17/24 12:15 100 Intake and Output 06/17/24 06/18/24 06/18/24 22:59 06:59 14:59 Intake Total 310 1480 Output Total 150 250 Balance 160 1230 Intake: Intake, IV Titration 1100 Amount Sodium Chloride 0.9% 1, 1100 000 ml @ 100 mls/hr IV . Q10H [facility] Rx#:[id number] Oral 380 Blood Product 310 Rc Irr As1 Unit 310 [id number] Output: Urine 150 250 Other: Voiding Method Indwelling Catheter # Bowel Movements 1 General: WD thin male, alert, laying in bed, NAD, appears tired HEENT: head normocephalic, atraumatic; moist mucous membranes, external ears intact with hearing intact to conversational speech CV: no acute cardiac distress Lungs: even and non labored respirations, RA Abdomen: rounded, firm, non tender to palpation : messer catheter -dieudonne colored urine MSK: full ROM bilateral UE and LEs except left shoulder limited secondary to pain- chronic injury MMT: left shoulder ROM limited by pain, B/L EE, FABD, WE, HG 5/5, B/L EF 4+/5 B/L HF 4/5 , KE 4+/5, DF and EHL 5/5 Neuro: MSR: 1/4 bilateral biceps, triceps, brachioradialis, 2/4 patella, 1/4 Achilles CN 2-12 grossly intact Sensation intact to light touch bilateral UE and LEs Psych: mood calm, affect flat, A&O x 4 Extremities: calves supple, non tender, 2+ pitting foot and ankle edema Skin: intact where exposed except bilateral elbows-dressings for protection Results CBC & Chem 7: 06/18/24 04:06 06/18/24 04:06 Labs: Abnormal Lab Results - Last 24 Hours (Table) 06/17/24 06/17/24 06/17/24 Range/Units 06:00 06:00 10:27 RBC 2.19 L (4.40-5.60) X 10*6/uL Hgb 6.8 A* (13.0-17.0) g/dL Hct 20.7 L (39.6-50.0) % RDW 19.9 H (11.5-14.5) % Eosinophils # 0.03 L (0.04-0.35) X 10*3/uL Sodium 129 L (135-145) mmol/L Glucose 115 H (70-110) mg/dL POC Glucose (mg/dL) (70-110) mg/dL Calcium 7.4 L (8.7-10.3) mg/dL Crossmatch See Detail 06/17/24 Range/Units 12:07 RBC (4.40-5.60) X 10*6/uL Hgb (13.0-17.0) g/dL Hct (39.6-50.0) % RDW (11.5-14.5) % Eosinophils # (0.04-0.35) X 10*3/uL Sodium (135-145) mmol/L Glucose (70-110) mg/dL POC Glucose (mg/dL) 141 H (70-110) mg/dL Calcium (8.7-10.3) mg/dL Crossmatch Assessment and Plan Assessment: # 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, stage IV esophageal adenocarcinoma primary with history of chemoradiation therapy -chemotherapy/radiation on hold at this time due to low tolerance, poor prognosis -declined hospice at this time -oncology following #Stage IV esophageal cancer #Metastatic brain and liver disease #Recurrent falls secondary to above #Anorexia, poor oral intake/appetite -on marinol #Hypotension #Small to moderate left-sided pleural effusion #Comorbidities: History of diabetes mellitus type 2, History of syncopal episodes, Chronic anemia #DVT prophylaxis: SQ Heparin #Pain Management -Dilaudid IV prn, Tylenol prn #Your medical dx and management Dispo: Patient is performing below his prior level of function. He declines IPR and [facility]. He would like [facility]. Patient seen and examined by Ariella CALDERA in collaboration with Dr Xiong. Note scribed by Lucy Garcia PA-C Thank you for consulting our services.
[2024-06-18] MEDS: LACTULOSE 20 GM/30 ML CUP PO SCH (11:58)
[2024-06-18] MEDS: MAGNESIUM SULFATE-D5W PMX 1 GM in DEXTROSE/WATER 1 100ML.BAG IVPB ONE (11:58)
[2024-06-18 12:07] LABS: Glucose,Whole Blood 105 mg/dL (70-110)
[2024-06-18] MEDS: bisacodyL 10 MG SUPP RECTAL STA (15:12)
--- NOTE | 2024-06-18 15:26 | P.PN ---
Subjective Progress Note Date: 06/18/24 This is a 59-year-old male with medical history significant for type 2 diabetes, gastroesophageal reflux disease, hypertension, syncope, esophageal cancer with chemoradiation. Patient presents to the hospital yesterday afternoon with complaints of generalized weakness and now has become so weak that he is unable to stand. Patient fell 6 days ago hit his head but he does not have a headache numbness weakness and denies any neck pain. He states he fell again yesterday due to being off balance and weak and states his brother had to come help him up called EMS and was brought to the hospita. He reports leg swelling and distended abdomen which has been worsneing over the last week. Patient denies any chest pain difficulty breathing or shortness of breath. He has not had any fever or chills. Patient does have some occasional nausea with vomiting but he has not had any diarrhea. He has not had any chemo recently. He is admitted to the hospital for hydration and monitoring he will also see physical therapy. Patient has known history of stage IV esophageal cancer with mets to the liver and brain. His white blood cell count on admission was 5.5 hemoglobin 8.4, INR 1.5 sodium of 123 potassium 3.7, BUN of 11 creatinine 0.68, magnesium 1.6, LFTs are mildly elevated troponin level is negative and TSH is normal at 2.810. His urinalysis is not suggestive of infection. Viral panel was negative for influenza RSV and COVID. Patient had a chest x-ray completed while in the ER which reveals small moderate left pleural effusion. He has been hypotensive with blood pressure in the 80s over 50s. He is afebrile. EKG reveals sinus tachycardia heart rate of 110. Received a 3 L fluid bolus while in the ER was started on normal saline at 100 mL/h. Indwelling messer catheter has been placed and he has had marginal urine output. 06/17/2024 Patient evaluated today in follow-up medical floor. Patient had hospice discussion today with oncology and patient and family are not quite ready for h ospice at this time. They would like patient to get stronger. PT OT is recommending subacute rehab on discharge and patient is currently pending an accepting ECF facility. Patient was started on Marinol as an appetite stimulant as he does report that he has decreased appetite. He continues on Ensure protein supplementation with meals. Abdominal ultrasound reveals a mild ascites. Patient does continue to report a distended abdomen and states that this makes it difficult for him to tolerate meals. We will check the x-ray for any fecal impaction or constipation. His girlfriend at the bedside does state that he only has small pebble-like bowel movements when he does go. proBNP was elevated at 3080 however patients sodium level is improving with IV fluids and will continue with cautious hydration. Blood work today reveals a white blood cell count of 5.65, hemoglobin 6.8, sodium of 129 BUN of 9.5 creatinine 0.7, magnesium 1.8, calcium 7.4. Blood glucose within normal limits. 06/18/2024 Patient evaluated in follow-up on the medical floor. He is complaining of abdominal fullness. This is partly due to his underlying cancerous process however abdominal x-ray does reveal that patient is constipated and a bowel regimen was ordered. Patient has been started on Marinol for appetite stimulant. He does not want to discharge at a time of rehab and would like to return home with home care his sodium remains low at 129 after receiving IV normal saline mL per hour. There could be a component of SIADH. Nephrology was consulted. REVIEW OF SYSTEMS: CONSTITUTIONAL: No fever, no malaise Reports fatigue HEENT: No recent visual problems or hearing problems. Denied any sore throat. CARDIOVASCULAR: No chest pain, orthopnea, PND, no palpitations, no syncope. PULMONARY: No shortness of breath, no cough, no hemoptysis. GASTROINTESTINAL: No diarrhea, no nausea, no vomiting, Reports abdominal pain and distention. NEUROLOGICAL: No headaches, no weakness, no numbness. PHYSICAL EXAMINATION: GENERAL: The patient is alert and oriented x3, not in any acute distress. Well developed, Cachexic Pale HEENT: Pupils are round and equally reacting to light. EOMI. No scleral icterus. No conjunctival pallor. Normocephalic, atraumatic. No pharyngeal erythema. No thyromegaly. CARDIOVASCULAR: S1 and S2 present. No murmurs, rubs, or gallops. PULMONARY: Chest is clear to auscultation, no wheezing or crackles. ABDOMEN: Soft, nontender, distended, normoactive bowel sounds. No palpable organomegaly. MUSCULOSKELETAL: No joint swelling or deformity. EXTREMITIES: No cyanosis, clubbing, or pedal edema. NEUROLOGICAL: Gross neurological examination did not reveal any focal deficits. SKIN: No rashes. Assessment and plan Generalized weakness and fall secondary to medical debility as well as hypovolemia Hypovolemic hyponatremia slowly improving with IV fluids Small to moderate left-sided pleural effusion History of stage IV esophageal cancer with prior chemoradiation Brain and liver metastasis Recent hospitalization underwent EGD with findings of distal esophageal ulcerated mass pots biopsy and 3 to 4 cm polypoid mass in the proximal body of the stomach post biopsy with pathology positive for invasive poorly differentiated adenocarcinoma. History of hypertension currently hypotensive History of diabetes mellitus type 2 History of syncopal episodes Chronic anemia Hypomagnesemia Moderate protein calorie malnutrition. GI prophylaxis DVT prophylaxis Plan Oncology consultation Continue normal saline Nephrology consultation Check urine and serum osmolality Continue indwelling messer catheter with strict intake and output monitoring Resume oral metoprolol Hold glipizide and Jardiance as blood glucose is normal and patients oral intake is poor Patient and family not ready for hospice and wanting patient to get stronger. PT/OT recommending [facility] and social work on board and pending accepting ECF. Today patient reports he does not want rehab he wants to return home. He has been off chemotherapy for the last 6 weeks and will continue to be held at this time per oncology due to patients poor clinical status and nutritional state. Repeat sodium level in the AM PT/OT consultation The impression and plan of care has been dictated by Alma Kathleen, Nurse Practitioner as directed. Dr. Mercedez MD I have performed a history and physical examination and medical decision making of this patient, discussed the same with the dictator, and agree with the dic tators assessment and plan as written, documented as a scribe. Based on total visit time, I have performed more than 50% of this visit. Objective - Vital Signs Vital signs: Vital Signs Temp 97.7 F 06/18/24 12:06 Pulse 88 06/18/24 12:06 Resp 20 06/18/24 12:06 BP 84/53 06/18/24 12:06 Pulse Ox 97 06/18/24 12:06 FiO2 Intake & Output 06/17/24 06/18/24 06/18/24 18:59 06:59 18:59 Intake Total 310 1480 Output Total 150 250 Balance 160 1230 Intake: Intake, IV Titration 1100 Amount Sodium Chloride 0.9% 1, 1100 000 ml @ 100 mls/hr IV . Q10H [facility] Rx#:[id number] Oral 380 Blood Product 310 Rc Irr As1 Unit 310 [id number] Output: Urine 150 250 Other: Voiding Method Indwelling Catheter Indwelling Catheter Indwelling Catheter # Bowel Movements 1 - Labs CBC & Chem 7: 06/18/24 04:06 06/18/24 04:06 Labs: Abnormal Lab Results - Last 24 Hours (Table) 06/17/24 06/18/24 06/18/24 Range/Units 10:27 04:06 04:06 RBC 2.86 L (4.40-5.60) X 10*6/uL Hgb 8.9 L (13.0-17.0) g/dL Hct 27.8 L (39.6-50.0) % MCV 97.2 H (80.0-97.0) FL RDW 20.2 H (11.5-14.5) % Immature Gran # 0.05 H (0.00-0.04) X 10*3/uL Eosinophils # 0.03 L (0.04-0.35) X 10*3/uL Sodium 129 L (135-145) mmol/L Carbon Dioxide 19.6 L (21.6-31.8) mmol/L Calcium 7.6 L (8.7-10.3) mg/dL Crossmatch See Detail Assessment and Plan Time with Patient: Less than 30
[2024-06-18] MEDS ORDERED: SODIUM CHLORIDE 0.9% 1,000 ML IV SCH (15:30)
[2024-06-18] MEDS: SODIUM CHLORIDE TAB 1 GM TAB PO STA (16:15)
[2024-06-18 17:24] LABS: Glucose,Whole Blood 107 mg/dL (70-110)
--- NOTE | 2024-06-18 17:44 | P.PN ---
Subjective Progress Note Date: 06/18/24 Principal diagnosis: Metastatic esophageal adenocarcinoma. Failure to thrive In follow-up today patient is alone in room. He cont to c/o abd firmness, lack of appetite, discomfort with oral intake, no recent vomiting. Objective - Vital Signs Vital signs: Vital Signs Temp 97.7 F 06/18/24 12:06 Pulse 88 06/18/24 12:06 Resp 20 06/18/24 12:06 BP 84/53 06/18/24 12:06 Pulse Ox 97 06/18/24 12:06 FiO2 Intake & Output 06/17/24 06/18/24 06/18/24 18:59 06:59 18:59 Intake Total 310 1480 Output Total 150 250 Balance 160 1230 Intake: Intake, IV Titration 1100 Amount Sodium Chloride 0.9% 1, 1100 000 ml @ 100 mls/hr IV . Q10H [facility] Rx#:[id number] Oral 380 Blood Product 310 Rc Irr As1 Unit 310 [id number] Output: Urine 150 250 Other: Voiding Method Indwelling Catheter Indwelling Catheter Indwelling Catheter # Bowel Movements 1 - Constitutional General appearance: Present: cooperative, thin - EENT Eyes: Present: anicteric sclerae, EOMI ENT: Present: hearing grossly normal - Respiratory Details: resp unlabored at rest - Cardiovascular Details: skin warn to touch - Peripheral edema leg Peripheral Edema: bilateral: 2+ - Gastrointestinal Gastrointestinal Comment(s): abd is distended, hard to palpation - Integumentary Integumentary: Present: pale - Neurologic Neurologic: Present: CNII-XII intact - Musculoskeletal Musculoskeletal: Present: generalized weakness - Psychiatric Psychiatric: Present: A&O x's 3, appropriate affect, intact judgment & insight - Labs CBC & Chem 7: 06/18/24 04:06 06/18/24 04:06 Labs: Abnormal Lab Results - Last 24 Hours (Table) 06/17/24 06/18/24 06/18/24 Range/Units 10:27 04:06 04:06 RBC 2.86 L (4.40-5.60) X 10*6/uL Hgb 8.9 L (13.0-17.0) g/dL Hct 27.8 L (39.6-50.0) % MCV 97.2 H (80.0-97.0) FL RDW 20.2 H (11.5-14.5) % Immature Gran # 0.05 H (0.00-0.04) X 10*3/uL Eosinophils # 0.03 L (0.04-0.35) X 10*3/uL Sodium 129 L (135-145) mmol/L Carbon Dioxide 19.6 L (21.6-31.8) mmol/L Calcium 7.6 L (8.7-10.3) mg/dL Crossmatch See Detail - Imaging and Cardiology Abdominal x-ray: report reviewed Assessment and Plan (1) Physical debility Current Visit: Yes Status: Acute Priority: High Code(s): R53.81 - OTHER MALAISE SNOMED Code(s): 41267503 (2) Esophageal adenocarcinoma Current Visit: No Status: Acute Priority: High Code(s): C15.9 - MALIGNANT NEOPLASM OF ESOPHAGUS, UNSPECIFIED SNOMED Code(s): 713467504 (3) Hyponatremia Current Visit: Yes Status: Acute Priority: Medium Code(s): E87.1 - HYPO- OSMOLALITY AND HYPONATREMIA SNOMED Code(s): 42191802 (4) Anemia Current Visit: Yes Status: Chronic Priority: Medium Code(s): D64.9 - ANEMIA, UNSPECIFIED SNOMED Code(s): 502211953 Plan: Metastatic Esophageal Cancer with Brain Metastases -Diagnosed in late 2023 with poorly differentiated adenocarcinoma, HER2 negative, and MMR proficient. SBRT to brain lesion. Palliative FOLFOX treatment had been attempted but, pt has had significant side effects. He has not had treatment since early May, as Tx held because of patient poor performance status. It was hoped that if patient was given a break from treatment that he could build himself up to be able to tolerate treatment, then resume palliative treatment with dose reduction. Unfortunately, patient has only continued to decline. Nausea and Vomiting, likely due to malignancy -Patient has been off treatment since early May. He did have stomach biopsy that was positive for metastatic esophageal adenocarcinoma. He is likely experiencing dysmotility of the esophagus as well as the stomach causing his symptoms and inability to tolerate oral intake. -We reviewed today the possibility that his abd symptoms may not improve due to malignancy into the stomach. -Continue supportive medications. -IM [employer]IDENT [employer] made medication adjustments today after reviewing Abd xray, moderate stool burden. Hopefully these will help pt abd discomfort. -Will continue to make modifications and add any medication that would be helpful to the patient for his symptoms. -Dr. Taylor has had an extensive discussion with family members and girlfriend at the bedside. Sister was on the telephone. Summarized here. Did review again with pt today as he was alone in the room: It was explained to the family that because of the patient's poor performance status chemotherapy unfortunately is not an option at this time and would cause more harm than it would provide relief from the disease. Hospice was recommended. Patient and family want to continue with aggressive care. It was was explained to them that patient has been trying for at least the last 6 weeks to try to gain some sort of strength but, he has not been able to. It was also explained to the family that the concern is that even with aggressive treatment, it is not likely that the patient is going to achieve a performance status adequate enough to treat the underlying cause, which is malignancy. At this time patient and family have decided that they would like to either have the patient go to rehab or home with home care with rehab and other services. They are going to try together to see if they can get patient performance status improved. -Pending placement-inpatient rehab versus rehab at extended-care facility vs home with home care services. -Dietitian has seen pt been consulted at the family request to see what other nutritional options could be offered to the patient. Hyponatremia -Likely chronic now secondary to malignancy/malabsorption as well as poor oral intake. Sodium is low but stable. Patient is overall not extraordinarily symptomatic Anemia -Hemoglobin 8.9 s/p 1 unit of packed red blood cells yesterday for Hgb 6.8. Would have anticipated Hgb closer to 7.9 Physical debility secondary to malignancy -Patient was given time off of treatment to see if he could recuperate some of his strength and stamina. Patient has been unable to rehabilitate in any meaningful fashion. Suspect it is secondary to progressive malignancy. As above, Dr. Taylor had an extensive conversation with the patient and the family. He has has recommended hospice. As above, patient and family would like other explore other options at this time . Once a decision has been made as to where the patient will be discharged to, patient is okay for discharge from an Oncology standpoint. Patient will contact the office if he feels that he has rehabilitated adequately enough and would like to further pursue treatment.
[2024-06-18 19:55] LABS: Glucose,Whole Blood 102 mg/dL (70-110)
[2024-06-19 07:52] LABS: Glucose,Whole Blood 102 mg/dL (70-110)
[2024-06-19 08:20] LABS: Blood Urea Nitrogen 9.8 mg/dL (9.0-27.0); Calcium 7.5 mg/dL (8.7-10.3); Chloride 98 mmol/L (96-109); Glucose 111 mg/dL (70-110); Magnesium 2.1 mg/dL (1.5-2.4); Potassium 4.2 mmol/L (3.5-5.5); Sodium 126 mmol/L (135-145)
[2024-06-19] MEDS: MIDODRINE 5 MG TAB PO SCH (09:04)
--- NOTE | 2024-06-19 11:32 | P.NPCON ---
History of Present Illness - Reason for Consult hyponatremia - History of Present Illness Reason for consultation: Hyponatremia History of present illness: Patient is a 59-year-old male seen in renal consultation for hyponatremia. Patient came to the hospital due to generalized weakness. Patient states he progressively got weaker to the point where he could not even stand. Patient does have history of malignant esophageal cancer and states his last chemotherapy was about 4 weeks ago. He was told the chemotherapy was not working and therefore treatment was discontinued. He denies chest pain or s hortness of breath. Denies gross hematuria or dysuria. Currently has a Conner catheter due to immobility. Oral intake is poor. He denies excessive fluid intake. I do not see any thiazide diuretics on his home medication list. Sodium level was 123 on admission and was up to 129 yesterday. It is 126 today. IV fluids were discontinued yesterday. He is on fluid restriction. Vital signs are stable. General: No acute distress. HEENT: Head exam is unremarkable. LUNGS: No audible rhonchi or wheezes. HEART: Rate and Rhythm are regular. ABDOMEN: Distention noted. EXTREMITITES: Trace edema. Past Medical History Past Medical History: Cancer, Diabetes Mellitus, GERD/Reflux, Hypertension, Syncope Additional Past Medical History / Comment(s): Type II diabetic NIDDM ( "on insulin now r/t steroids") Recent syncopal episode Jan 22, 2024- found lesion on brain ( last radiation tx to brain will be 02/17/24) and has recent dx esop hageal cancer- chemo 05/09/2024. Heart murmur. anemia- History of Any Multi-Drug Resistant Organisms: None Reported Past Surgical History: Hernia Repair, Orthopedic Surgery, Tonsillectomy Additional Past Surgical History / Comment(s): Right hand surgery. Fx C-7 wore halo. Umbilical hernia. Recent EGD 01/2024. Past Anesthesia/Blood Transfusion Reactions: No Reported Reaction Additional Past Anesthesia/Blood Transfusion Reaction / Comment(s): No hx of blood transfusion to date. Past Psychological History: No Psychological Hx Reported Additional Psychological History / Comment(s): Patient lives with girlfriend and grown children. Smoking Status: Former smoker Past Alcohol Use History: None Reported Additional Past Alcohol Use History / Comment(s): No recent alcohol use. Past Drug Use History: None Reported Additional Drug Use History / Comment(s): Very occasional smokes Marijuana. Instructed no Marijuana 24 hrs before procedure. - Past Family History Mother Family Medical History: Cancer, COPD, Myocardial Infarction (ME) Additional Family Medical History / Comment(s): Unknown cancer. Father Family Medical History: Cancer Additional Family Medical History / Comment(s): Lung Cancer, Brain tumor Brother(s) Family Medical History: Cancer Additional Family Medical History / Comment(s): Leaukemia , Cancer- had part of ear and side of face removed. Medications and Allergies Home Medications Medication Instructions Recorded Confirmed Type Metoprolol Succinate (ER) [Toprol 25 mg PO DAILY 02/14/24 06/15/24 History XL] Empagliflozin [Jardiance] 25 mg PO DAILY 04/03/24 06/15/24 History Famotidine 40 mg PO HS 04/03/24 06/15/24 History Fluticasone Propion/Salmeterol 1 puff INHALATION RT-BID 04/03/24 06/15/24 History [Fluticasone-Salmeterol 500-50] Loperamide [Imodium] 2 mg PO QID PRN cap 04/14/24 06/15/24 Rx Magnesium Hydroxide [Milk of 2,400 mg PO DAILY PRN ml 04/14/24 06/15/24 Rx Magnesia] Oxymetazoline 0.05% Nasl Erath 2 spray NASAL BID PRN #5 ml 04/14/24 06/15/24 Rx [Afrin 0.05% Nasal Erath] Scopolamine 1 mg/72 Hr Patch 1 patch TRANSDERM Q72H #3 patch 04/14/24 06/15/24 Rx [TransDerm Scop] Simethicone Chew [Mylicon Chew] 80 mg PO QID PRN #20 tab 04/14/24 06/15/24 Rx Morphine Sulfate Ir [MSIR] 30 mg PO BID PRN 05/09/24 06/15/24 History Sennosides-Docusate Sodium 1 tab PO BID PRN 05/09/24 06/15/24 History [Senokot-S] Acetaminophen Tab [Tylenol] 650 mg PO Q6HR PRN tab 05/15/24 06/15/24 Rx Ondansetron Odt [Zofran Odt] 4 mg PO Q8HR PRN #20 tab 05/15/24 06/15/24 Rx HYDROcodone/APAP 7.5-325MG [[place] 1 tab PO Q6H PRN 06/15/24 06/15/24 History 7.5-325] Metoclopramide [Reglan] 10 mg PO AC-TID 06/15/24 06/15/24 History Pantoprazole [Protonix] 40 mg PO DAILY 06/15/24 06/15/24 History Prochlorperazine [Compazine] 10 mg PO Q6H PRN 06/15/24 06/15/24 History glipiZIDE [Glucotrol] 2.5 mg PO BID PRN 06/15/24 06/15/24 History Allergies Allergy/AdvReac Type Severity Reaction Status Date / Time No Known Allergies Allergy Verified 06/15/24 15:25 Physical Exam Vitals: Vital Signs Temp Pulse Pulse Resp BP BP Pulse Ox 06/19/24 10:15 106 H 96/62 97 06/19/24 07:45 97.8 F 97 16 83/51 97 06/19/24 01:14 97.8 F 90 18 86/59 97 06/18/24 19:11 97.8 F 69 16 87/60 99 06/18/24 12:06 97.7 F 88 20 84/53 97 Intake and Output 06/18/24 06/19/24 06/19/24 22:59 06:59 14:59 Output Total 125 100 Balance -125 -100 Output: Urine 125 100 Other: Voiding Method Indwelling Catheter Indwelling Catheter # Bowel Movements 1 Results - Lab Results Most recent lab results Calcium 7.5 mg/dL (8.7-10.3) L 06/19/24 04:32 Magnesium 2.1 mg/dL (1.5-2.4) 06/19/24 04:32 06/18/24 04:06 06/19/24 04:32 Assessment and Plan Plan: Assessment: 1. Hyponatremia, hypervolemic. 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 Sodium 126 today. Urine sodium less than 20 and urine osmolality 625. TSH normal. Cortisol level 20.8. 2. Malignant esophageal cancer. Oncology following. 3. Fluid overload. 4. Anemia status post blood transfusion this admission. Plan: Maintain fluid restriction. Encouraged oral intake. Paracentesis pending. Will give 25 g of albumin before and after paracentesis. Add midodrine 5 mg 3 times daily. Hold for systolic blood pressure greater than 110. Add urea. Repeat labs in the morning. Thank you for the consultation. I will continue to follow the patient with you during his hospital stay.
[2024-06-19] MEDS: UREA 15 GM POWD.PACK PO SCH (12:08)
[2024-06-19 12:11] LABS: Glucose,Whole Blood 140 mg/dL (70-110)
[2024-06-19] MEDS: ALBUMIN HUMAN 25% 50 ML in EMPTY BAG 1 BAG IVPB SCH ×2 (12:32→14:50)
--- NOTE | 2024-06-19 14:02 | P.PN ---
Subjective Progress Note Date: 06/19/24 This is a 59-year-old male with medical history significant for type 2 diabetes, gastroesophageal reflux disease, hypertension, syncope, esophageal cancer with chemoradiation. Patient presents to the hospital yesterday afternoon with complaints of generalized weakness and now has become so weak that he is unable to stand. Patient fell 6 days ago hit his head but he does not have a headache numbness weakness and denies any neck pain. He states he fell again yesterday due to being off balance and weak and states his brother had to come help him up called EMS and was brought to the hospita. He reports leg swelling and distended abdomen which has been worsneing over the last week. Patient denies any chest pain difficulty breathing or shortness of breath. He has not had any fever or chills. Patient does have some occasional nausea with vomiting but he has not had any diarrhea. He has not had any chemo recently. He is admitted to the hospital for hydration and monitoring he will also see physical therapy. Patient has known history of stage IV esophageal cancer with mets to the liver and brain. His white blood cell count on admission was 5.5 hemoglobin 8.4, INR 1.5 sodium of 123 potassium 3.7, BUN of 11 creatinine 0.68, magnesium 1.6, LFTs are mildly elevated troponin level is negative and TSH is normal at 2.810. His urinalysis is not suggestive of infection. Viral panel was negative for influenza RSV and COVID. Patient had a chest x-ray completed while in the ER which reveals small moderate left pleural effusion. He has been hypotensive with blood pressure in the 80s over 50s. He is afebrile. EKG reveals sinus tachycardia heart rate of 110. Received a 3 L fluid bolus while in the ER was started on normal saline at 100 mL/h. Indwelling messer catheter has been placed and he has had marginal urine output. 06/17/2024 Patient evaluated today in follow-up medical floor. Patient had hospice discussion today with oncology and patient and family are not quite ready for h ospice at this time. They would like patient to get stronger. PT OT is recommending subacute rehab on discharge and patient is currently pending an accepting ECF facility. Patient was started on Marinol as an appetite stimulant as he does report that he has decreased appetite. He continues on Ensure protein supplementation with meals. Abdominal ultrasound reveals a mild ascites. Patient does continue to report a distended abdomen and states that this makes it difficult for him to tolerate meals. We will check the x-ray for any fecal impaction or constipation. His girlfriend at the bedside does state that he only has small pebble-like bowel movements when he does go. proBNP was elevated at 3080 however patients sodium level is improving with IV fluids and will continue with cautious hydration. Blood work today reveals a white blood cell count of 5.65, hemoglobin 6.8, sodium of 129 BUN of 9.5 creatinine 0.7, magnesium 1.8, calcium 7.4. Blood glucose within normal limits. 06/18/2024 Patient evaluated in follow-up on the medical floor. He is complaining of abdominal fullness. This is partly due to his underlying cancerous process however abdominal x-ray does reveal that patient is constipated and a bowel regimen was ordered. Patient has been started on Marinol for appetite stimulant. He does not want to discharge at a time of rehab and would like to return home with home care his sodium remains low at 129 after receiving IV normal saline mL per hour. There could be a component of SIADH. Nephrology was consulted. 06/19/2024 Patient is evaluated in follow-up in the medical floor. Patient continues to report feelings of abdominal fullness and patient be going for a palliative paracentesis today. Patient has had 2 bowel movements. Sodium level is down to 126 today. Nephrology consulted patient receiving urea oral twice daily. Cortisol level was 28.8, with a low urine random sodium and urine osmolality of 625. Blood pressure is on the lower side 80 systolic and patient was started on midodrine 3 times a day. REVIEW OF SYSTEMS: CONSTITUTIONAL: No fever, no malaise Reports fatigue HEENT: No recent visual problems or hearing problems. Denied any sore throat. CARDIOVASCULAR: No chest pain, orthopnea, PND, no palpitations, no syncope. PULMONARY: No shortness of breath, no cough, no hemoptysis. GASTROINTESTINAL: No diarrhea, no nausea, no vomiting, Reports abdominal pain and distention. NEUROLOGICAL: No headaches, no weakness, no numbness. PHYSICAL EXAMINATION: GENERAL: The patient is alert and oriented x3, not in any acute distress. Well developed, Cachexic Pale HEENT: Pupils are round and equally reacting to light. EOMI. No scleral icterus. No conjunctival pallor. Normocephalic, atraumatic. No pharyngeal erythema. No thyromegaly. CARDIOVASCULAR: S1 and S2 present. No murmurs, rubs, or gallops. PULMONARY: Chest is clear to auscultation, no wheezing or crackles. ABDOMEN: Soft, nontender, distended, normoactive bowel sounds. No palpable organomegaly. MUSCULOSKELETAL: No joint swelling or deformity. EXTREMITIES: No cyanosis, clubbing, or pedal edema. NEUROLOGICAL: Gross neurological examination did not reveal any focal deficits. SKIN: No rashes. Assessment and plan Generalized weakness and fall secondary to medical debility as well as hypovolemia Hypovolemic hypernatremic and component of SIADH Small to moderate left-sided pleural effusion History of stage IV esophageal cancer with prior chemoradiation Brain and liver metastasis Recent hospitalization underwent EGD with findings of distal esophageal ulcerated mass pots biopsy and 3 to 4 cm polypoid mass in the proximal body of the stomach post biopsy with pathology positive for invasive poorly differentiated adenocarcinoma. History of hypertension currently hypotensive History of diabetes mellitus type 2 History of syncopal episodes Chronic anemia s/p 1 unit PRBC this admission Hypomagnesemia Moderate protein calorie malnutrition. GI prophylaxis DVT prophylaxis Plan Oncology consultation Nephrology consultation Patient was started on urea twice daily and repeat blood work Continue indwelling messer catheter with strict intake and output monitoring Resume oral metoprolol Hold glipizide and Jardiance as blood glucose is normal and patients oral intake is poor Patient and family not ready for hospice and wanting patient to get stronger. PT/OT recommending [facility] and social work on board and pending accepting ECF. Today patient reports he does not want rehab he wants to return home. He has been off chemotherapy for the last 6 weeks and will continue to be held at this time per oncology due to patients poor clinical status and nutritional state. Patient will be going for paracentesis and will receive albumin Has been started on midodrine three times daily PT/OT consultation The impression and plan of care has been dictated by Alma Kathleen Nurse Practitioner as directed. Dr. Mercedez MD I have performed a history and physical examination and medical decision making of this patient, discussed the same with the dictator, and agree with the dictators assessment and plan as written, documented as a scribe. Based on total visit time, I have performed more than 50% of this visit. Objective - Vital Signs Vital signs: Vital Signs Temp 97.9 F 06/19/24 12:48 Pulse 94 06/19/24 12:48 Resp 18 06/19/24 12:48 BP 86/56 06/19/24 12:48 Pulse Ox 97 06/19/24 10:15 FiO2 Intake & Output 06/18/24 06/19/24 06/19/24 18:59 06:59 18:59 Output Total 125 100 Balance -125 -100 Weight 63.503 kg Output: Urine 125 100 Other: Voiding Method Indwelling Catheter Indwelling Catheter Indwelling Catheter # Bowel Movements 1 - Labs CBC & Chem 7: 06/18/24 04:06 06/19/24 04:32 Labs: Abnormal Lab Results - Last 24 Hours (Table) 06/18/24 06/19/24 06/19/24 Range/Units 23:15 04:32 12:08 Sodium 126 L (135-145) mmol/L Carbon Dioxide 19.0 L (21.6-31.8) mmol/L Glucose 111 H (70-110) mg/dL POC Glucose (mg/dL) 140 H (70-110) mg/dL Calcium 7.5 L (8.7-10.3) mg/dL Ur Random Sodium <20 L (40-220) mmol/L Assessment and Plan Time with Patient: Less than 30
[2024-06-19 17:20] LABS: Glucose,Whole Blood 98 mg/dL (70-110)
[2024-06-19 20:13] LABS: Glucose,Whole Blood 110 mg/dL (70-110)
[2024-06-20 03:48] LABS: Glucose, BF Source Ascites; Glucose, Body Fluid 113 mg/dL; LDH, Body Fluid Source Ascites; T. Protein, Body Fluid Source Ascites; Total Protein, Body Fluid 1020 mg/dL
[2024-06-20 04:28] LABS: Albumin, Fluid Source Ascities
[2024-06-20 04:29] LABS: Appearance,BF Clear (Clear)
[2024-06-20 07:21] LABS: Glucose,Whole Blood 124 mg/dL (70-110)
[2024-06-20] MEDS: MIDODRINE 5 MG TAB PO ONE (08:54)
--- NOTE | 2024-06-20 11:14 | P.PN ---
Subjective Patient is seen in follow-up for hyponatremia. Oral intake poor. Underwent paracentesis with over 4 L removed yesterday. Urine output on the lower end. Blood pressure running low. Vital signs - Blood pressure low. General: No acute distress. HEENT: Head exam is unremarkable. LUNGS: No audible rhonchi or wheezes. HEART: Rate and Rhythm are regular. ABDOMEN: Nontender. EXTREMITITES: 1+ edema. Objective - Vital Signs Vital signs: Vital Signs Temp 97.4 F L 06/20/24 07:15 Pulse 111 H 06/20/24 08:15 Resp 16 06/20/24 07:15 BP 85/57 06/20/24 09:31 Pulse Ox 94 L 06/20/24 07:15 FiO2 Intake & Output 06/19/24 06/20/24 06/20/24 18:59 06:59 18:59 Intake Total 340 240 Output Total 200 200 Balance 140 40 Weight 63.503 kg Intake: Intake, IV Titration 100 Amount Albumin Human 25% 50 ml 50 In Empty Bag 1 bag @ 200 mls/hr IVPB Q15M [facility] Rx#: [id number] Albumin Human 25% 50 ml 50 In Empty Bag 1 bag @ 50 mls/hr IVPB Q1H [facility] Rx#: [id number] Oral 240 240 Output: Urine 200 200 Other: Voiding Method Indwelling Catheter Indwelling Catheter Indwelling Catheter - Labs CBC & Chem 7: 06/18/24 04:06 06/19/24 04:32 Labs: Abnormal Lab Results - Last 24 Hours (Table) 06/18/24 06/19/24 06/20/24 Range/Units 04:06 12:08 07:20 POC Glucose (mg/dL) 140 H 124 H (70-110) mg/dL Osmolality 272 L (275-295) mOsm/kg Assessment and Plan Plan: Assessment: 1. Hyponatremia, hypervolemic. 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 Sodium 126 yesterday. Urine sodium less than 20 and urine osmolality 625. TSH normal. Cortisol level 20.8. 2. Malignant esophageal cancer. Oncology following. 3. Fluid overload. Status post paracentesis with over 4 L drained June 19, 2024. 4. Anemia status post blood transfusion this admission. Plan: Maintain fluid restriction. Encouraged oral intake. Increase midodrine dose to 10 mg 3 times daily. Maintain urea. Morning labs pending. If sodium level still low, will give Samsca. Repeat labs in the morning. Add Solu-Cortef. If blood pressure remains low, consider vasopressor support. Prognosis guarded.
[2024-06-20] MEDS: MIDODRINE 5 MG TAB PO SCH (12:17)
[2024-06-20] MEDS: HYDROCORTISONE SUCCINATE 100 MG/2 ML VIAL IV SCH (12:18)
[2024-06-20 12:29] LABS: Glucose,Whole Blood 127 mg/dL (70-110)
[2024-06-20 12:31] LABS: Magnesium 1.8 mg/dL (1.5-2.4)
[2024-06-20 13:25] LABS: BUN/Creat Ratio 26.67 Ratio (12.00-20.00); Calcium 7.7 mg/dL (8.7-10.3); Carbon Dioxide 19.9 mmol/L (21.6-31.8); Chloride 99 mmol/L (96-109); Glucose 115 mg/dL (70-110); Potassium 4.2 mmol/L (3.5-5.5); Sodium 127 mmol/L (135-145)
--- NOTE | 2024-06-20 14:44 | US ---
EXAMINATION TYPE: US paracentesis abd w/image DATE OF EXAM: 06/19/2024 CLINICAL HISTORY: Ascites The procedure was discussed with the patient. The risks, complications, benefits, and alternatives we re discussed and any questions were answered. Informed consent was obtained. The patient was placed s upine on the ultrasound table and prepped and draped in the usual sterile fashion. All elements of maximal barrier technique were utilized. Under ultrasound guidance, access into the right lower quadrant was obtained, via the paracentesis catheter system and direct ultrasound guidanc e. Approximately 4.6 liters of straw-colored fluid was removed. 100 cc was sent for diagnostic purposes. The patient was stable throughout the procedure and remained stable upon discharge from Department o f Radiology. IMPRESSION: Successful therapeutic and diagnostic paracentesis under ultrasound guidance. [facility], , 06/20/2024 2:42 PM
--- NOTE | 2024-06-20 15:34 | P.PN ---
Subjective Progress Note Date: 06/20/24 This is a 59-year-old male with medical history significant for type 2 diabetes, gastroesophageal reflux disease, hypertension, syncope, esophageal cancer with chemoradiation. Patient presents to the hospital yesterday afternoon with complaints of generalized weakness and now has become so weak that he is unable to stand. Patient fell 6 days ago hit his head but he does not have a headache numbness weakness and denies any neck pain. He states he fell again yesterday due to being off balance and weak and states his brother had to come help him up called EMS and was brought to the hospita. He reports leg swelling and distended abdomen which has been worsneing over the last week. Patient denies any chest pain difficulty breathing or shortness of breath. He has not had any fever or chills. Patient does have some occasional nausea with vomiting but he has not had any diarrhea. He has not had any chemo recently. He is admitted to the hospital for hydration and monitoring he will also see physical therapy. Patient has known history of stage IV esophageal cancer with mets to the liver and brain. His white blood cell count on admission was 5.5 hemoglobin 8.4, INR 1.5 sodium of 123 potassium 3.7, BUN of 11 creatinine 0.68, magnesium 1.6, LFTs are mildly elevated troponin level is negative and TSH is normal at 2.810. His urinalysis is not suggestive of infection. Viral panel was negative for influenza RSV and COVID. Patient had a chest x-ray completed while in the ER which reveals small moderate left pleural effusion. He has been hypotensive with blood pressure in the 80s over 50s. He is afebrile. EKG reveals sinus tachycardia heart rate of 110. Received a 3 L fluid bolus while in the ER was started on normal saline at 100 mL/h. Indwelling messer catheter has been placed and he has had marginal urine output. 06/17/2024 Patient evaluated today in follow-up medical floor. Patient had hospice discussion today with oncology and patient and family are not quite ready for h ospice at this time. They would like patient to get stronger. PT OT is recommending subacute rehab on discharge and patient is currently pending an accepting ECF facility. Patient was started on Marinol as an appetite stimulant as he does report that he has decreased appetite. He continues on Ensure protein supplementation with meals. Abdominal ultrasound reveals a mild ascites. Patient does continue to report a distended abdomen and states that this makes it difficult for him to tolerate meals. We will check the x-ray for any fecal impaction or constipation. His girlfriend at the bedside does state that he only has small pebble-like bowel movements when he does go. proBNP was elevated at 3080 however patients sodium level is improving with IV fluids and will continue with cautious hydration. Blood work today reveals a white blood cell count of 5.65, hemoglobin 6.8, sodium of 129 BUN of 9.5 creatinine 0.7, magnesium 1.8, calcium 7.4. Blood glucose within normal limits. 06/18/2024 Patient evaluated in follow-up on the medical floor. He is complaining of abdominal fullness. This is partly due to his underlying cancerous process however abdominal x-ray does reveal that patient is constipated and a bowel regimen was ordered. Patient has been started on Marinol for appetite stimulant. He does not want to discharge at a time of rehab and would like to return home with home care his sodium remains low at 129 after receiving IV normal saline mL per hour. There could be a component of SIADH. Nephrology was consulted. 06/19/2024 Patient is evaluated in follow-up in the medical floor. Patient continues to report feelings of abdominal fullness and patient be going for a palliative paracentesis today. Patient has had 2 bowel movements. Sodium level is down to 126 today. Nephrology consulted patient receiving urea oral twice daily. Cortisol level was 28.8, with a low urine random sodium and urine osmolality of 625. Blood pressure is on the lower side 80 systolic and patient was started on midodrine 3 times a day. 06/20/2024 Patient is evaluated today in follow up. Underwent successful paracentesis with4.6 L removed. His blood pressures have been lower. Midodrine was increased up to 10 mg TID. Had a long discussion with the patient today that he will either need to decide if he wants to go to subacute rehab to get stronger or if he wants to return home with hospice. He is asking for his pain medication however his blood pressures in the 80s over 50s and discussed that we will need to hold his pain medication at this time. He continues to report abdominal fullness. Patient wants to return home and is hoping to prolong his life and that was the goal of rehab was to get stronger. Oncology has met with the patient and told him and the family at this time there are no further treatment options as he is not a candidate for chemotherapy. He is agreeable to meet with hospice and [facility] was consulted. REVIEW OF SYSTEMS: CONSTITUTIONAL: No fever, no malaise Reports fatigue HEENT: No recent visual problems or hearing problems. Denied any sore throat. CARDIOVASCULAR: No chest pain, orthopnea, PND, no palpitations, no syncope. PULMONARY: No shortness of breath, no cough, no hemoptysis. GASTROINTESTINAL: No diarrhea, no nausea, no vomiting, Reports abdominal pain and distention. NEUROLOGICAL: No headaches, no weakness, no numbness. PHYSICAL EXAMINATION: GENERAL: The patient is alert and oriented x3, not in any acute distress. Well developed, Cachexic Pale HEENT: Pupils are round and equally reacting to light. EOMI. No scleral icterus. No conjunctival pallor. Normocephalic, atraumatic. No pharyngeal erythema. No th yromegaly. CARDIOVASCULAR: S1 and S2 present. No murmurs, rubs, or gallops. PULMONARY: Chest is clear to auscultation, no wheezing or crackles. ABDOMEN: Soft, nontender, distended, normoactive bowel sounds. No palpable organomegaly. MUSCULOSKELETAL: No joint swelling or deformity. EXTREMITIES: No cyanosis, clubbing, or pedal edema. NEUROLOGICAL: Gross neurological examination did not reveal any focal deficits. SKIN: No rashes. Assessment and plan Generalized weakness and fall secondary to medical debility as well as hypovolemia Hypovolemic hypernatremic and component of SIADH Small to moderate left-sided pleural effusion History of stage IV esophageal cancer with prior chemoradiation Brain and liver metastasis Ascites status post paracentesis with 4.6 L removed. Recent hospitalization underwent EGD with findings of distal esophageal ulcerated mass pots biopsy and 3 to 4 cm polypoid mass in the proximal body of the stomach post biopsy with pathology positive for invasive poorly differentiated adenocarcinoma. History of hypertension currently hypotensive History of diabetes mellitus type 2 History of syncopal episodes Chronic anemia s/p 1 unit PRBC this admission Hypomagnesemia Moderate protein calorie malnutrition. GI prophylaxis DVT prophylaxis Plan Oncology consultation Nephrology consultation Patient was started on urea twice daily and repeat blood work Continue indwelling messer catheter with strict intake and output monitoring Resume oral metoprolol Hold glipizide and Jardiance as blood glucose is normal and patients oral intake is poor Patient will be going for paracentesis and will receive albumin Has been started on midodrine three times daily and has been increased to 10 mg TID. Patient and family not ready for hospice and wanting patient to get stronger. PT/OT recommending [facility] and social work on board and pending accepting ECF. patient remains undecided about rehab He has been off chemotherapy for the last 6 weeks and will continue to be held at this time per oncology due to patients poor clinical status and nutritional state. Consult [facility] for information session The impression and plan of care has been dictated by Alma Kathleen, Nurse Practitioner as directed. Dr. Mercedez MD I have performed a history and physical examination and medical decision making of this patient, discussed the same with the dictator, and agree with the dictators assessment and plan as written, documented as a scribe. Based on total visit time, I have performed more than 50% of this visit. Objective - Vital Signs Vital signs: Vital Signs Temp 97.4 F L 06/20/24 12:06 Pulse 63 06/20/24 12:06 Resp 16 06/20/24 12:06 BP 79/43 06/20/24 12:06 Pulse Ox 97 06/20/24 12:06 FiO2 Intake & Output 06/19/24 06/20/24 06/20/24 18:59 06:59 18:59 Intake Total 340 240 240 Output Total 200 200 Balance 140 40 240 Weight 63.503 kg Intake: Intake, IV Titration 100 Amount Albumin Human 25% 50 ml 50 In Empty Bag 1 bag @ 200 mls/hr IVPB Q15M CONSTANTIN Rx#: [id number] Albumin Human 25% 50 ml 50 In Empty Bag 1 bag @ 50 mls/hr IVPB Q1H [facility]STANTIN Rx#: [id number] Oral 240 240 240 Output: Urine 200 200 Other: Voiding Method Indwelling Catheter Indwelling Catheter Indwelling Catheter - Labs CBC & Chem 7: 06/18/24 04:06 06/20/24 05:31 Labs: Abnormal Lab Results - Last 24 Hours (Table) 06/18/24 06/20/24 06/20/24 Range/Units 04:06 05:31 07:20 Sodium 127 L (135-145) mmol/L Carbon Dioxide 19.9 L (21.6-31.8) mmol/L BUN/Creatinine Ratio 26.67 H (12.00-20.00) Ratio Glucose 115 H (70-110) mg/dL POC Glucose (mg/dL) 124 H (70-110) mg/dL Osmolality 272 L (275-295) mOsm/kg Calcium 7.7 L (8.7-10.3) mg/dL 06/20/24 Range/Units 12:10 Sodium (135-145) mmol/L Carbon Dioxide (21.6-31.8) mmol/L BUN/Creatinine Ratio (12.00-20.00) Ratio Glucose (70-110) mg/dL POC Glucose (mg/dL) 127 H (70-110) mg/dL Osmolality (275-295) mOsm/kg Calcium (8.7-10.3) mg/dL Assessment and Plan Time with Patient: Less than 30
[2024-06-20 17:35] LABS: Glucose,Whole Blood 131 mg/dL (70-110)
[2024-06-20] MEDS ORDERED: SODIUM CHLORIDE 0.9% 500 ML IV ONE (17:45)
[2024-06-20] MEDS: SODIUM CHLORIDE 0.9% 500 ML 500 ML IV ONE (17:48)
[2024-06-20 20:23] LABS: Glucose,Whole Blood 137 mg/dL (70-110)
[2024-06-21 07:43] LABS: Glucose,Whole Blood 144 mg/dL (70-110)
[2024-06-21 09:21] LABS: BUN/Creat Ratio 31.12 Ratio (12.00-20.00); Blood Urea Nitrogen 24.9 mg/dL (9.0-27.0); Calcium 7.7 mg/dL (8.7-10.3); Carbon Dioxide 16.9 mmol/L (21.6-31.8); Chloride 98 mmol/L (96-109); Glucose 138 mg/dL (70-110); Potassium 4.5 mmol/L (3.5-5.5); Sodium 127 mmol/L (135-145)
[2024-06-21 09:22] LABS: HCT 23.1 % (39.6-50.0); HGB 7.6 g/dL (13.0-17.0); MCH 31.3 pg (27.0-32.0); MCHC 32.9 g/dL (32.0-37.0); MCV 95.1 FL (80.0-97.0); Mean Platelet Volume 10.2 FL (9.5-12.2); NRBC Per 100 WBC 0.02 X 10*3/uL (0.00-0.01); Platelet Count 215 X 10*3/uL (140-440); RBC 2.43 X 10*6/uL (4.40-5.60); RDW 19.5 % (11.5-14.5); WBC 6.73 X 10*3/uL (4.50-10.00)
[2024-06-21 09:33] LABS: Magnesium 1.9 mg/dL (1.5-2.4)
--- NOTE | 2024-06-21 10:49 | P.PN ---
Subjective Patient is seen in follow-up for hyponatremia. Sodium level stable at 127. Oral intake poor. Underwent paracentesis with over 4 L removed June 19, 2024. Urine output on the lower end. Blood pressure running low despite midodrine and hydrocortisone. Received 500 cc fluid bolus yesterday. Vital signs - Blood pressure low. General: No acute distress. HEENT: Head exam is unremarkable. LUNGS: No audible rhonchi or wheezes. HEART: Rate and Rhythm are regular. ABDOMEN: Nontender. EXTREMITITES: 1+ edema. Objective - Vital Signs Vital signs: Vital Signs Temp 97.4 F L 06/21/24 07:08 Pulse 105 H 06/21/24 07:08 Resp 12 06/21/24 07:08 BP 80/51 06/21/24 07:08 Pulse Ox 98 06/21/24 07:08 FiO2 Intake & Output 06/20/24 06/21/24 06/21/24 18:59 06:59 18:59 Intake Total 480 240 Output Total 200 175 Balance 280 65 Intake: Oral 480 240 Output: Urine 200 175 Other: Voiding Method Indwelling Catheter Indwelling Catheter # Bowel Movements 1 - Labs CBC & Chem 7: 06/21/24 04:56 06/21/24 04:51 Labs: Abnormal Lab Results - Last 24 Hours (Table) 06/20/24 06/20/24 06/20/24 Range/Units 05:31 12:10 17:32 RBC (4.40-5.60) X 10*6/uL Hgb (13.0-17.0) g/dL Hct (39.6-50.0) % RDW (11.5-14.5) % NRBC/100 WBC Diff (0.00-0.01) X 10*3/uL Sodium 127 L (135-145) mmol/L Carbon Dioxide 19.9 L (21.6-31.8) mmol/L Anion Gap (4.00-12.00) mmol/L BUN/Creatinine Ratio 26.67 H (12.00-20.00) Ratio Glucose 115 H (70-110) mg/dL POC Glucose (mg/dL) 127 H 131 H (70-110) mg/dL Calcium 7.7 L (8.7-10.3) mg/dL 06/20/24 06/21/24 06/21/24 Range/Units 20:21 04:51 04:56 RBC 2.43 L (4.40-5.60) X 10*6/uL Hgb 7.6 L (13.0-17.0) g/dL Hct 23.1 L (39.6-50.0) % RDW 19.5 H (11.5-14.5) % NRBC/100 WBC Diff 0.02 H (0.00-0.01) X 10*3/uL Sodium 127 L (135-145) mmol/L Carbon Dioxide 16.9 L (21.6-31.8) mmol/L Anion Gap 12.10 H (4.00-12.00) mmol/L BUN/Creatinine Ratio 31.12 H (12.00-20.00) Ratio Glucose 138 H (70-110) mg/dL POC Glucose (mg/dL) 137 H (70-110) mg/dL Calcium 7.7 L (8.7-10.3) mg/dL 06/21/24 Range/Units 07:12 RBC (4.40-5.60) X 10*6/uL Hgb (13.0-17.0) g/dL Hct (39.6-50.0) % RDW (11.5-14.5) % NRBC/100 WBC Diff (0.00-0.01) X 10*3/uL Sodium (135-145) mmol/L Carbon Dioxide (21.6-31.8) mmol/L Anion Gap (4.00-12.00) mmol/L BUN/Creatinine Ratio (12.00-20.00) Ratio Glucose (70-110) mg/dL POC Glucose (mg/dL) 144 H (70-110) mg/dL Calcium (8.7-10.3) mg/dL Assessment and Plan Plan: Assessment: 1. Hyponatremia, hypervolemic. 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 Sodium level stable at 127. Urine sodium less than 20 and urine osmolality 625. TSH normal. Cortisol level 20.8. 2. Malignant esophageal cancer. Oncology following. 3. Fluid overload. Status post paracentesis with over 4 L drained June 19, 2024. 4. Anemia status post blood transfusion this admission. Plan: Maintain fluid restriction. Encouraged oral intake. Maintain midodrine. Maintain Solu-Cortef. Maintain urea. Repeat labs in the morning. If blood pressure remains low, consider vasopressor support. Hold off on diuretics and Samsca due to low blood pressures. Okay to DC Conner catheter from nephrology standpoint. Prognosis guarded.
[2024-06-21 12:05] LABS: Glucose,Whole Blood 159 mg/dL (70-110)
--- NOTE | 2024-06-21 13:00 | P.PN ---
Subjective Progress Note Date: 06/21/24 This is a 59-year-old male with medical history significant for type 2 diabetes, gastroesophageal reflux disease, hypertension, syncope, esophageal cancer with chemoradiation. Patient presents to the hospital yesterday afternoon with complaints of generalized weakness and now has become so weak that he is unable to stand. Patient fell 6 days ago hit his head but he does not have a headache numbness weakness and denies any neck pain. He states he fell again yesterday due to being off balance and weak and states his brother had to come help him up called EMS and was brought to the hospita. He reports leg swelling and distended abdomen which has been worsneing over the last week. Patient denies any chest pain difficulty breathing or shortness of breath. He has not had any fever or chills. Patient does have some occasional nausea with vomiting but he has not had any diarrhea. He has not had any chemo recently. He is admitted to the hospital for hydration and monitoring he will also see physical therapy. Patient has known history of stage IV esophageal cancer with mets to the liver and brain. His white blood cell count on admission was 5.5 hemoglobin 8.4, INR 1.5 sodium of 123 potassium 3.7, BUN of 11 creatinine 0.68, magnesium 1.6, LFTs are mildly elevated troponin level is negative and TSH is normal at 2.810. His urinalysis is not suggestive of infection. Viral panel was negative for influenza RSV and COVID. Patient had a chest x-ray completed while in the ER which reveals small moderate left pleural effusion. He has been hypotensive with blood pressure in the 80s over 50s. He is afebrile. EKG reveals sinus tachycardia heart rate of 110. Received a 3 L fluid bolus while in the ER was started on normal saline at 100 mL/h. Indwelling messer catheter has been placed and he has had marginal urine output. 06/17/2024 Patient evaluated today in follow-up medical floor. Patient had hospice discussion today with oncology and patient and family are not quite ready for h ospice at this time. They would like patient to get stronger. PT OT is recommending subacute rehab on discharge and patient is currently pending an accepting ECF facility. Patient was started on Marinol as an appetite stimulant as he does report that he has decreased appetite. He continues on Ensure protein supplementation with meals. Abdominal ultrasound reveals a mild ascites. Patient does continue to report a distended abdomen and states that this makes it difficult for him to tolerate meals. We will check the x-ray for any fecal impaction or constipation. His girlfriend at the bedside does state that he only has small pebble-like bowel movements when he does go. proBNP was elevated at 3080 however patients sodium level is improving with IV fluids and will continue with cautious hydration. Blood work today reveals a white blood cell count of 5.65, hemoglobin 6.8, sodium of 129 BUN of 9.5 creatinine 0.7, magnesium 1.8, calcium 7.4. Blood glucose within normal limits. 06/18/2024 Patient evaluated in follow-up on the medical floor. He is complaining of abdominal fullness. This is partly due to his underlying cancerous process however abdominal x-ray does reveal that patient is constipated and a bowel regimen was ordered. Patient has been started on Marinol for appetite stimulant. He does not want to discharge at a time of rehab and would like to return home with home care his sodium remains low at 129 after receiving IV normal saline mL per hour. There could be a component of SIADH. Nephrology was consulted. 06/19/2024 Patient is evaluated in follow-up in the medical floor. Patient continues to report feelings of abdominal fullness and patient be going for a palliative paracentesis today. Patient has had 2 bowel movements. Sodium level is down to 126 today. Nephrology consulted patient receiving urea oral twice daily. Cortisol level was 28.8, with a low urine random sodium and urine osmolality of 625. Blood pressure is on the lower side 80 systolic and patient was started on midodrine 3 times a day. 06/20/2024 Patient is evaluated today in follow up. Underwent successful paracentesis with4.6 L removed. His blood pressures have been lower. Midodrine was increased up to 10 mg TID. Had a long discussion with the patient today that he will either need to decide if he wants to go to subacute rehab to get stronger or if he wants to return home with hospice. He is asking for his pain medication however his blood pressures in the 80s over 50s and discussed that we will need to hold his pain medication at this time. He continues to report abdominal fullness. Patient wants to return home and is hoping to prolong his life and that was the goal of rehab was to get stronger. Oncology has met with the patient and told him and the family at this time there are no further treatment options as he is not a candidate for chemotherapy. He is agreeable to meet with hospice and [facility] was consulted. 06/22/2023 Patient is evaluated in follow-up on the medical floor. He is reporting improvement in his abdominal symptoms. He did have a dark stool noted by the staff yesterday. He had a positive occult and hemoglobin is now 7.6 discussed this with the patient that this may be an upper GI bleed however patient is refusing a general surgery consult and is not wanting to undergo any endoscopic evaluation at this time. Sodium level of 127 today BUN of 24.9 creatinine of 0.8 magnesium 1.9. His blood pressure remains marginal in the 80s over 50s. He remains on midodrine 10 mg 3 times daily. He is asking for the urinary catheter to be discontinued. He states that he met with hospice yesterday and has decide d to return home on hospice and states that his family is getting things ready for him to return home tomorrow on Saturday, June 21, 2024. REVIEW OF SYSTEMS: CONSTITUTIONAL: No fever, no malaise Reports fatigue HEENT: No recent visual problems or hearing problems. Denied any sore throat. CARDIOVASCULAR: No chest pain, orthopnea, PND, no palpitations, no syncope. PULMONARY: No shortness of breath, no cough, no hemoptysis. GASTROINTESTINAL: No diarrhea, no nausea, no vomiting, Reports abdominal pain and distention. NEUROLOGICAL: No headaches, no weakness, no numbness. PHYSICAL EXAMINATION: GENERAL: The patient is alert and oriented x3, not in any acute distress. Well developed, Cachexic Pale HEENT: Pupils are round and equally reacting to light. EOMI. No scleral icterus. No conjunctival pallor. Normocephalic, atraumatic. No pharyngeal erythema. No thyromegaly. CARDIOVASCULAR: S1 and S2 present. No murmurs, rubs, or gallops. PULMONARY: Chest is clear to auscultation, no wheezing or crackles. ABDOMEN: Soft, nontender, distended, normoactive bowel sounds. No palpable organomegaly. MUSCULOSKELETAL: No joint swelling or deformity. EXTREMITIES: No cyanosis, clubbing, or pedal edema. NEUROLOGICAL: Gross neurological examination did not reveal any focal deficits. SKIN: No rashes. Assessment and plan Generalized weakness and fall secondary to medical debility as well as hypovolemia Hypovolemic hypernatremic and component of SIADH Small to moderate left-sided pleural effusion History of stage IV esophageal cancer with prior chemoradiation Brain and liver metastasis Ascites status post paracentesis with 4.6 L removed. Recent hospitalization underwent EGD with findings of distal esophageal ulcerated mass pots biopsy and 3 to 4 cm polypoid mass in the proximal body of the stomach post biopsy with pathology positive for invasive poorly differentiated adenocarcinoma. History of hypertension currently hypotensive History of diabetes mellitus type 2 History of syncopal episodes Chronic anemia s/p 1 unit PRBC this admission Hypomagnesemia Moderate protein calorie malnutrition. GI prophylaxis DVT prophylaxis Plan Oncology consultation Nephrology consultation Patient was started on urea twice daily and repeat blood work Okay to discontinue urinary catheter for voiding trial Resume oral metoprolol Hold glipizide and Jardiance as blood glucose is normal and patients oral intake is poor Patient is status post paracentesis with 4.6 L of fluid removed Has been started on midodrine three times daily and has been increased to 10 mg TID. He has been off chemotherapy for the last 6 weeks and will continue to be held at this time per oncology due to patients poor clinical status and nutritional state. Consult [facility] for information session and follow-up with patient today he states that he does want to return home with hospice on Saturday. The impression and plan of care has been dictated by Alma Kathleen Nurse Practitioner as directed. Dr. Mercedez MD I have performed a history and physical examination and medical decision making of this patient, discussed the same with the dictator, and agree with the dictators assessment and plan as written, documented as a scribe. Based on total visit time, I have performed more than 50% of this visit. Objective - Vital Signs Vital signs: Vital Signs Temp 97.4 F L 06/21/24 07:08 Pulse 105 H 06/21/24 07:08 Resp 12 06/21/24 07:08 BP 80/51 06/21/24 07:08 Pulse Ox 98 06/21/24 07:08 FiO2 Intake & Output 06/20/24 06/21/24 06/21/24 18:59 06:59 18:59 Intake Total 480 240 Output Total 200 175 Balance 280 65 Intake: Oral 480 240 Output: Urine 200 175 Other: Voiding Method Indwelling Catheter Indwelling Catheter # Bowel Movements 1 - Labs CBC & Chem 7: 06/21/24 04:56 06/21/24 04:51 Labs: Abnormal Lab Results - Last 24 Hours (Table) 06/20/24 06/20/24 06/20/24 Range/Units 05:31 12:10 17:32 RBC (4.40-5.60) X 10*6/uL Hgb (13.0-17.0) g/dL Hct (39.6-50.0) % RDW (11.5-14.5) % NRBC/100 WBC Diff (0.00-0.01) X 10*3/uL Sodium 127 L (135-145) mmol/L Carbon Dioxide 19.9 L (21.6-31.8) mmol/L Anion Gap (4.00-12.00) mmol/L BUN/Creatinine Ratio 26.67 H (12.00-20.00) Ratio Glucose 115 H (70-110) mg/dL POC Glucose (mg/dL) 127 H 131 H (70-110) mg/dL Calcium 7.7 L (8.7-10.3) mg/dL 06/20/24 06/21/24 06/21/24 Range/Units 20:21 04:51 04:56 RBC 2.43 L (4.40-5.60) X 10*6/uL Hgb 7.6 L (13.0-17.0) g/dL Hct 23.1 L (39.6-50.0) % RDW 19.5 H (11.5-14.5) % NRBC/100 WBC Diff 0.02 H (0.00-0.01) X 10*3/uL Sodium 127 L (135-145) mmol/L Carbon Dioxide 16.9 L (21.6-31.8) mmol/L Anion Gap 12.10 H (4.00-12.00) mmol/L BUN/Creatinine Ratio 31.12 H (12.00-20.00) Ratio Glucose 138 H (70-110) mg/dL POC Glucose (mg/dL) 137 H (70-110) mg/dL Calcium 7.7 L (8.7-10.3) mg/dL 06/21/24 Range/Units 07:12 RBC (4.40-5.60) X 10*6/uL Hgb (13.0-17.0) g/dL Hct (39.6-50.0) % RDW (11.5-14.5) % NRBC/100 WBC Diff (0.00-0.01) X 10*3/uL Sodium (135-145) mmol/L Carbon Dioxide (21.6-31.8) mmol/L Anion Gap (4.00-12.00) mmol/L BUN/Creatinine Ratio (12.00-20.00) Ratio Glucose (70-110) mg/dL POC Glucose (mg/dL) 144 H (70-110) mg/dL Calcium (8.7-10.3) mg/dL Assessment and Plan Time with Patient: Less than 30
[2024-06-21 17:13] LABS: Glucose,Whole Blood 149 mg/dL (70-110)
[2024-06-21 20:01] LABS: Glucose,Whole Blood 150 mg/dL (70-110)
[2024-06-22 07:28] LABS: Glucose,Whole Blood 150 mg/dL (70-110)
[2024-06-22 07:29] LABS: Anisocytosis Slight; Basophils % (A) 0 %; Eosinophils # (A) 0.1 k/uL (0-0.7); Eosinophils % (A) 1 %; HCT 22.4 % (39.0-53.0); Lymphocytes # (A) 1.4 k/uL (1.0-4.8); Lymphocytes % (A) 17 %; MCHC 31.3 g/dL (31.0-37.0); MCV 99.2 fL (80.0-100.0); Macrocytosis Moderate; Mean Platelet Volume 7.7; Monocytes # (A) 0.3 k/uL (0-1.0); Monocytes % (A) 4 %; Neutrophils # (A) 6.6 k/uL (1.3-7.7); Neutrophils % (A) 78 %; Platelet Count 312 k/uL (150-450); RBC 2.25 m/uL (4.30-5.90); RDW 19.6 % (11.5-15.5); WBC 8.5 k/uL (3.8-10.6)
[2024-06-22 08:01] VITALS: RESP 15
[2024-06-22 09:04] LABS: African American GFR (CKD) >90 (>60 ml/min/1.73 sqM); Anion Gap 6 mmol/L; Blood Urea Nitrogen 35 mg/dL (9-20); Calcium 7.8 mg/dL (8.4-10.2); Carbon Dioxide 20 mmol/L (22-30); Chloride 96 mmol/L (98-107); Glucose 139 mg/dL (74-99); Non-African American GFR(CKD) >90 (>60 ml/min/1.73 sqM); Potassium 4.3 mmol/L (3.5-5.1); Sodium 122 mmol/L (137-145)
[2024-06-22 13:08] LABS: Glucose,Whole Blood 137 mg/dL (70-110)
[2024-06-22 14:54] VITALS: BP 89/51; PULSE 84; TEMP 94.4
--- NOTE | 2024-06-22 16:04 | P.PN ---
Subjective Patient is seen for follow-up for hyponatremia. Serum sodium decreased to 122 early this morning from 127 yesterday. No complaints of nausea vomiting or shortness of breath. Maintained on urea. Also maintained on Solu-Cortef as blood pressure remains low. Objective - Vital Signs Vital signs: Vital Signs Temp 94.4 F L 06/22/24 14:00 Pulse 84 06/22/24 14:00 Resp 15 06/22/24 14:00 BP 89/51 06/22/24 14:00 Pulse Ox 100 06/22/24 14:00 FiO2 Intake & Output 06/21/24 06/22/24 06/22/24 18:59 06:59 18:59 Intake Total 477 590 Output Total 100 200 Balance 377 390 Intake: Oral 477 590 Output: Urine 100 200 Other: Voiding Method Indwelling Catheter Urinal Urinal - Exam Patient is awake, comfortable, no acute distress. Examination of the heart S1 and S2 Examination of the lungs bilateral breath sounds are heard Abdomen is soft distended Examination of lower extremities shows trace edema OUTSIDE SALES exam grossly intact - Labs CBC & Chem 7: 06/22/24 07:17 06/22/24 11:48 Labs: Abnormal Lab Results - Last 24 Hours (Table) 06/21/24 06/21/24 06/22/24 Range/Units 17:09 20:00 07:17 RBC 2.25 L (4.30-5.90) m/uL Hgb 7.0 L (13.0-17.5) gm/dL Hct 22.4 L (39.0-53.0) % RDW 19.6 H (11.5-15.5) % Sodium (137-145) mmol/L Chloride (98-107) mmol/L Carbon Dioxide (22-30) mmol/L BUN (9-20) mg/dL Glucose (74-99) mg/dL POC Glucose (mg/dL) 149 H 150 H (70-110) mg/dL Calcium (8.4-10.2) mg/dL 06/22/24 06/22/24 06/22/24 Range/Units 07:17 07:19 11:48 RBC (4.30-5.90) m/uL Hgb (13.0-17.5) gm/dL Hct (39.0-53.0) % RDW (11.5-15.5) % Sodium 122 L 123 L (137-145) mmol/L Chloride 96 L (98-107) mmol/L Carbon Dioxide 20 L (22-30) mmol/L BUN 35 H (9-20) mg/dL Glucose 139 H (74-99) mg/dL POC Glucose (mg/dL) 150 H (70-110) mg/dL Calcium 7.8 L (8.4-10.2) mg/dL 06/22/24 Range/Units 12:48 RBC (4.30-5.90) m/uL Hgb (13.0-17.5) gm/dL Hct (39.0-53.0) % RDW (11.5-15.5) % Sodium (137-145) mmol/L Chloride (98-107) mmol/L Carbon Dioxide (22-30) mmol/L BUN (9-20) mg/dL Glucose (74-99) mg/dL POC Glucose (mg/dL) 137 H (70-110) mg/dL Calcium (8.4-10.2) mg/dL Assessment and Plan Assessment: 1. Hyponatremia, hypervolemic. Sodium level dropped to 122 this morning. Urine sodium less than 20 and urine osmolality 625. TSH normal. Cortisol level 20.8. Maintained on urea 2. Malignant esophageal cancer. Oncology following. 3. Fluid overload. Status post paracentesis with over 4 L drained June 19, 2024. Volume status improved since admission 4. Anemia status post blood transfusion this admission. Plan: Continue with urea with monitoring of BUN Continue with fluid restriction Repeat sodium again this evening Consider normal saline challenge if serum sodium worsens again. Overall prognosis is poor
--- NOTE | 2024-06-23 10:44 | P.DS ---
Providers Date of admission: 06/15/24 18:34 Expected date of discharge: 06/22/24 Attending physician: Regan Newsome Consults: 06/15/24 18:32 Consult Physician Urgent Consulting Provider: Esau Taylor Consult Reason/Comments: Generalized weakness, esophageal cancer Do you want consulting provider notified?: Yes 06/17/24 13:39 Consult Physician Routine Consulting Provider: Ghulam Xiong Consult Reason/Comments: IPR evaluation Do you want consulting provider notified?: Yes 06/18/24 15:22 Consult Physician Routine Consulting Provider: Evans Heredia Consult Reason/Comments: Hyponatremia Do you want consulting provider notified?: Yes Primary care physician: [facility] Course: Final diagnosis Generalized weakness and fall secondary to medical debility as well as hypovolemia Hypovolemic hypernatremic and component of SIADH Small to moderate left-sided pleural effusion History of stage IV esophageal cancer with prior chemoradiation Brain and liver metastasis Ascites status post paracentesis with 4.6 L removed. Recent hospitalization underwent EGD with findings of distal esophageal ulcerated mass pots biopsy and 3 to 4 cm polypoid mass in the proximal body of the stomach post biopsy with pathology positive for invasive poorly differentiated adenocarcinoma. History of hypertension currently hypotensive History of diabetes mellitus type 2 History of syncopal episodes Chronic anemia s/p 1 unit PRBC this admission Hypomagnesemia Moderate protein calorie malnutrition. GI prophylaxis DVT prophylaxis Discharge disposition Patient is being discharged in a stable condition with guarded prognosis to home with [facility] services. Total time taken is greater than 35 minutes. Hospital course This is a 59-year-old male who was recently admitted with generalized weakness and falls with significant hypovolemia. Multiple consultations following including oncology as patient does have history of stage IV esophageal cancer has received chemoradiation also noted to have brain with liver metastasis. Patient is status post ascites of approximately 4.6 L removed this admission. Patient has requested a hospice consult and is agreeable to going home with hospice. Patient does not want to pursue any further treatment and is arranging for hospice in the home. Please refer to other documentation for further HPI. Overall poor prognosis. Currently no reports of chest pain, shortness of breath, or palpitations. Patient is afebrile. No reports of nausea or vomiting and patient is tolerating diet. Continue current palliative pleasure feeds and supportive care. Patient will be going home with [facility] services today. Again overall extremely poor and guarded prognosis Physical exam: Gen: This is a 59-year-old male who is awake, alert and oriented x 3, thin built, cachectic, ill-appearing HEENT: Head is atraumatic, normocephalic. Pupils equal, round. Sclerae is anicteric. NECK: Supple. No JVD. No lymphadenopathy. No thyromegaly. LUNGS: Diminished breath sounds bilaterally otherwise clear to auscultation. No wheezes or rhonchi. No intercostal retractions. HEART: Regular rate and rhythm. No murmur. ABDOMEN: Soft. Protuberant bowel sounds are present. No masses. No tenderness. EXTREMITIES: No pedal edema. No calf tenderness. Significant cachexia noted of upper and lower extremities with muscle wasting NEUROLOGICAL: Patient is awake, alert and oriented x3. Cranial nerves 2 through 12 are grossly intact. Diffusely weak Please refer to medication reconciliation sheet for a list of medications. The impression and plan of care has been dictated by Joanna López, Nurse Practitioner as directed. Dr. Christopher MD I have performed a history and examination and MDM of this patient, discussed the same with the dictator, and agree with the dictator's assessment and plan as written ,documented as a scribe. Based on total visit time, I have performed more than 50% of the visit. Patient Condition at Discharge: Fair Plan - Discharge Summary Discharge Rx Participant: Yes New Discharge Prescriptions: New droNABinol [Marinol] 2.5 mg PO AC-BID #60 cap Midodrine [ProAmatine] 10 mg PO AC-TID #90 tab Lactulose [Cephulac] 20 gm PO BID PRN #360 ml PRN Reason: Constipation Continue Fluticasone Propion/Salmeterol [Fluticasone-Salmeterol 500-50] 1 puff INHALATION RT-BID Oxymetazoline 0.05% Nasl [place]restline [Afrin 0.05% Nasal [place]] 2 spray NASAL BID PRN #5 ml PRN Reason: Bleeding Scopolamine 1 mg/72 Hr Patch [TransDerm Scop] 1 patch TRANSDERM Q72H #3 patch Morphine Sulfate Ir [MSIR] 30 mg PO BID PRN PRN Reason: Pain Sennosides-Docusate Sodium [Senokot-S] 1 tab PO BID PRN PRN Reason: Constipation Ondansetron Odt [Zofran ODT] 4 mg PO Q8HR PRN #20 tab PRN Reason: Nausea HYDROcodone/APAP 7.5-325MG [[place] 7.5-325] 1 tab PO Q6H PRN PRN Reason: Nausea Metoclopramide [Reglan] 10 mg PO AC-TID Pantoprazole [Protonix] 40 mg PO DAILY Prochlorperazine [Compazine] 10 mg PO Q6H PRN PRN Reason: Nausea Metoprolol Succinate (ER) [Toprol XL] 25 mg PO DAILY Famotidine 40 mg PO HS Loperamide [Imodium] 2 mg PO QID PRN cap PRN Reason: Diarrhea Magnesium Hydroxide [Milk of Magnesia] 2,400 mg PO DAILY PRN ml PRN Reason: Constipation Simethicone Chew [Mylicon Chew] 80 mg PO QID PRN #20 tab PRN Reason: Bloating Acetaminophen Tab [Tylenol] 650 mg PO Q6HR PRN tab PRN Reason: Mild Pain Or Fever > 100.5 glipiZIDE [Glucotrol] 2.5 mg PO BID PRN PRN Reason: high blood sugar Discontinued Empagliflozin [Jardiance] 25 mg PO DAILY Discharge Medication List Metoprolol Succinate (ER) [Toprol XL] 25 mg PO DAILY 02/14/24 [History] Famotidine 40 mg PO HS 04/03/24 [History] Fluticasone Propion/Salmeterol [Fluticasone-Salmeterol 500-50] 1 puff INHALATION RT-BID 04/03/24 [History] Loperamide [Imodium] 2 mg PO QID PRN cap 04/14/24 [Rx] Magnesium Hydroxide [Milk of Magnesia] 2,400 mg PO DAILY PRN ml 04/14/24 [Rx] Oxymetazoline 0.05% Nasl Crestline [Afrin 0.05% Nasal [place]] 2 spray NASAL BID PRN #5 ml 04/14/24 [Rx] Scopolamine 1 mg/72 Hr Patch [TransDerm Scop] 1 patch TRANSDERM Q72H #3 patch 04/14/24 [Rx] Simethicone Chew [Mylicon Chew] 80 mg PO QID PRN #20 tab 04/14/24 [Rx] Morphine Sulfate Ir [MSIR] 30 mg PO BID PRN 05/09/24 [History] Sennosides-Docusate Sodium [Senokot-S] 1 tab PO BID PRN 05/09/24 [History] Acetaminophen Tab [Tylenol] 650 mg PO Q6HR PRN tab 05/15/24 [Rx] Ondansetron Odt [Zofran ODT] 4 mg PO Q8HR PRN #20 tab 05/15/24 [Rx] HYDROcodone/APAP 7.5-325MG [[place] 7.5-325] 1 tab PO Q6H PRN 06/15/24 [History] Metoclopramide [Reglan] 10 mg PO AC-TID 06/15/24 [History] Pantoprazole [Protonix] 40 mg PO DAILY 06/15/24 [History] Prochlorperazine [Compazine] 10 mg PO Q6H PRN 06/15/24 [History] glipiZIDE [Glucotrol] 2.5 mg PO BID PRN 06/15/24 [History] Lactulose [Cephulac] 20 gm PO BID PRN #360 ml 06/22/24 [Rx] Midodrine [ProAmatine] 10 mg PO AC-TID #90 tab 06/22/24 [Rx] droNABinol [Marinol] 2.5 mg PO AC-BID #60 cap 06/22/24 [Rx] Follow up Appointment(s)/Referral(s): Esau Taylor [STAFF PHYSICIAN] - 1-2 days [facility], [NON-STAFF] - 1 Week Activity/Diet/Wound Care/Special Instructions: Patient is going home with hospice Activity as tolerated Discharge Disposition: HOME WITH HOSPICE
== END 2024-06-22 16:07 | disposition hospice, home (50) | DRG 644 ==
LOC: EC 15:00 → SUPCPDRO 15:00 → 5NMEDONC 18:34
PROVIDERS: ADMIT Internal Medicine; ATTEND Internal Medicine
PROC: 30233N1 Transfusion of Nonautologous Red Blood Cells into Peripheral Vein, Percutaneous Approach (ICD-10-PCS; principal; 2024-06-17)
DX: E22.2 Syndrome of inappropriate secretion of antidiuretic hormone (principal); C15.9 Malignant neoplasm of esophagus, unspecified; E44.0 Moderate protein-calorie malnutrition; C78.7 Secondary malignant neoplasm of liver and intrahepatic bile duct; C78.89 Secondary malignant neoplasm of other digestive organs; C79.31 Secondary malignant neoplasm of brain; E87.0 Hyperosmolality and hypernatremia; R18.8 Other ascites; J90 Pleural effusion, not elsewhere classified; E11.9 Type 2 diabetes mellitus without complications; D63.0 Anemia in neoplastic disease; Z51.5 Encounter for palliative care; R62.7 Adult failure to thrive; E86.1 Hypovolemia; I95.9 Hypotension, unspecified; E83.42 Hypomagnesemia; M62.59 Muscle wasting and atrophy, not elsewhere classified, multiple sites; R19.5 Other fecal abnormalities; K22.4 Dyskinesia of esophagus; E87.70 Fluid overload, unspecified; R29.6 Repeated falls; R53.81 Other malaise; W19.XXXA Unspecified fall, initial encounter; Z87.891 Personal history of nicotine dependence; Z85.01 Personal history of malignant neoplasm of esophagus; Z79.84 Long term (current) use of oral hypoglycemic drugs; Z79.899 Other long term (current) drug therapy; Z79.51 Long term (current) use of inhaled steroids; Z92.21 Personal history of antineoplastic chemotherapy; Z92.3 Personal history of irradiation; Z68.20 Body mass index [BMI] 20.0-20.9, adult; Z91.81 History of falling; Z17.32 Human epidermal growth factor receptor 2 negative status
CPT/HCPCS: 36415; 49083; 51798; 71046; 74019; 76705; 80048; 80053; 81001; 82042; 82272; 82533; 82945; 83605; 83615; 83735; 83880; 83930; 83935; 84157; 84295; 84300; 84443; 84484; 85025; 85027; 85610; 85730; 86850; 86900; 86901; 86920; 87636; 89050; 93005; 94640; 96360; 96361; 99285